=== PATIENT | male | born 1940 | race Caucasian/White ===

== ENCOUNTER 2020-03-29 07:27 | Outpatient (REF) | payer MEDICARE, SELFPAY ==
[2020-03-29 07:58] LABS: MANUAL DIFF FLAG NO
[2020-03-29 08:14] LABS: Basophils Absolute Auto 0.1 X10*3/uL (0.0-0.2); Basophils Percent Auto 0.7 % (0-2); Eosinophils Absolute Auto 0.4 X10*3/uL (0.0-0.4); Eosinophils Percent Auto 4.1 % (0-4); Hematocrit 37.3 % (42-52); Hemoglobin 11.6 g/dl (14.0-18.0); Imm Gran Abs Auto 0.06 X10*3/uL (0.00-0.03); Imm Gran Pct Auto 0.7 % (0.0-0.4); Lymphocytes Absolute Auto 3.8 X10*3/uL (1.2-4.9); Lymphocytes Percent Auto 42.8 % (20-40); Mean Corpuscular HGB Conc 31.1 g/dl (31.0-36.0); Mean Corpuscular Hemoglobin 27.8 pg (27.0-33.0); Mean Corpuscular Volume 89.2 fL (80-98); Mean Platelet Volume 11.2 fL (9.4-12.4); Monocytes Absolute Auto 0.6 X10*3/uL (0.1-1.2); Monocytes Percent Auto 7.1 % (2-11); Neutrophils Absolute Auto 3.9 X10*3/uL (2.0-8.3); Neutrophils Percent Auto 44.6 % (45-73); Platelet Count 221 X10*3/uL (160-400); Red Blood Count 4.18 X10*6/uL (4.60-5.80); Red Cell Distribution Width 14.4 % (11.0-16.0); White Blood Count 8.8 X10*3/uL (4.8-10.8)
[2020-03-29 08:40] LABS: Estimated Average Glucose 214 mg/dL; Hemoglobin A1c % 9.1 %
[2020-03-29 08:59] LABS: Alanine Aminotransferase 36 U/L (0-40); Albumin Level 4.1 g/dL (3.5-5.0); Alkaline Phosphatase 112 U/L (39-117); Anion Gap 15 (12-20); Aspartate Amino Transferase 34 U/L (5-37); Bilirubin Total 0.5 mg/dL (0.0-1.0); Blood Urea Nitrogen 15 mg/dL (9-16); Calcium 9.3 mg/dL (8.4-10.2); Carbon Dioxide 24 mmol/L (22-29); Chloride 105 mmol/L (96-108); Cholesterol 115 mg/dL; Estimated Glomerular Filt Rate > 60; Glucose Fasting 174 mg/dL (60-99); HDL Cholesterol 34 mg/dL; LDL Cholesterol Calculated 55 mg/dl; Potassium 4.5 mmol/l (3.3-5.1); Sodium 139 mmol/L (135-145); Triglycerides 133 mg/dL
[2020-03-29 09:56] LABS: Creatinine Urine 53.53 mg/dL; Microalbum/Creatinine Ratio Ur 54.1 ug/mg cr
== END 2020-03-29 07:28 | disposition home or self-care (01) ==
LOC: HO.LAB 07:27
PROVIDERS: Visit Provider Internal Medicine Medical Oncology
DX: E11.9 Type 2 diabetes mellitus without complications (principal); E78.00 Pure hypercholesterolemia, unspecified
CPT/HCPCS: 36415; 80053; 80061; 82043; 83036; 85025

== ENCOUNTER 2020-05-31 07:19 | Outpatient (REF) | payer MEDICARE, SELFPAY ==
[2020-05-31 07:58] LABS: Basophils Absolute Auto 0.1 X10*3/uL (0.0-0.2); Basophils Percent Auto 0.7 % (0-2); Eosinophils Absolute Auto 0.3 X10*3/uL (0.0-0.4); Eosinophils Percent Auto 3.3 % (0-4); Hemoglobin 12.2 g/dl (14.0-18.0); Imm Gran Abs Auto 0.06 X10*3/uL (0.00-0.03); Imm Gran Pct Auto 0.7 % (0.0-0.4); Lymphocytes Absolute Auto 4.1 X10*3/uL (1.2-4.9); Lymphocytes Percent Auto 48.3 % (20-40); MANUAL DIFF FLAG NO; Mean Corpuscular HGB Conc 32.1 g/dl (31.0-36.0); Mean Corpuscular Hemoglobin 28.3 pg (27.0-33.0); Mean Corpuscular Volume 88.2 fL (80-98); Mean Platelet Volume 11.2 fL (9.4-12.4); Monocytes Absolute Auto 0.6 X10*3/uL (0.1-1.2); Monocytes Percent Auto 7.4 % (2-11); Neutrophils Absolute Auto 3.3 X10*3/uL (2.0-8.3); Neutrophils Percent Auto 39.6 % (45-73); Platelet Count 221 X10*3/uL (160-400); Red Blood Count 4.31 X10*6/uL (4.60-5.80); Red Cell Distribution Width 14.5 % (11.0-16.0); White Blood Count 8.4 X10*3/uL (4.8-10.8)
[2020-05-31 08:48] LABS: Alanine Aminotransferase 52 U/L (0-40); Albumin Level 4.2 g/dL (3.5-5.0); Alkaline Phosphatase 100 U/L (39-117); Anion Gap 16 (12-20); Aspartate Amino Transferase 39 U/L (5-37); Bilirubin Total 0.5 mg/dL (0.0-1.0); Blood Urea Nitrogen 21 mg/dL (9-16); Calcium 9.3 mg/dL (8.4-10.2); Carbon Dioxide 24 mmol/L (22-29); Chloride 105 mmol/L (96-108); Estimated Glomerular Filt Rate > 60; Glucose Random 143 mg/dL (60-115); Potassium 4.5 mmol/l (3.3-5.1); Sodium 140 mmol/L (135-145); Total Protein 7.1 g/dL (6.5-8.0)
== END 2020-05-31 07:20 | disposition home or self-care (01) ==
LOC: HO.LAB 07:19
PROVIDERS: Visit Provider Internal Medicine Medical Oncology
DX: E11.9 Type 2 diabetes mellitus without complications (principal); E78.00 Pure hypercholesterolemia, unspecified; D72.820 Lymphocytosis (symptomatic)
CPT/HCPCS: 36415; 80053; 85025

== ENCOUNTER → 2020-06-17 15:08 | Outpatient (BNVA) | payer MEDICARE, SELFPAY | PROVIDERS: PCP Internal Medicine Medical Oncology; Referring Provider Internal Medicine Medical Oncology; Visit Provider Internal Medicine | DX: E11.9 Type 2 diabetes mellitus without complications (principal); I10 Essential (primary) hypertension; E78.5 Hyperlipidemia, unspecified; E55.9 Vitamin D deficiency, unspecified | CPT/HCPCS: 82947; 99202 ==

== ENCOUNTER → 2020-08-05 12:49 | Outpatient (BNVA) | payer MEDICARE, SELFPAY | PROVIDERS: PCP Internal Medicine Medical Oncology; Visit Provider Nurse Practitioner Gerontology | DX: Z13.89 Encounter for screening for other disorder (principal) | CPT/HCPCS: Q3014 ==

== ENCOUNTER → 2020-09-29 07:14 | Outpatient (BNVA) | payer MEDICARE, SELFPAY | PROVIDERS: PCP Internal Medicine Medical Oncology; Visit Provider Nurse Practitioner Gerontology | DX: E11.65 Type 2 diabetes mellitus with hyperglycemia (principal); E78.5 Hyperlipidemia, unspecified; I10 Essential (primary) hypertension | CPT/HCPCS: 82947; 99212 ==

== ENCOUNTER 2020-10-04 06:34 | Outpatient (REF) | payer MEDICARE, SELFPAY ==
[2020-10-04 08:08] LABS: MANUAL DIFF FLAG NO
[2020-10-04 08:25] LABS: Basophils Absolute Auto 0.1 X10*3/uL (0.0-0.2); Basophils Percent Auto 0.7 % (0-2); Eosinophils Absolute Auto 0.2 X10*3/uL (0.0-0.4); Hematocrit 39.3 % (42-52); Hemoglobin 12.2 g/dl (14.0-18.0); Imm Gran Abs Auto 0.02 X10*3/uL (0.00-0.03); Imm Gran Pct Auto 0.3 % (0.0-0.4); Lymphocytes Absolute Auto 3.4 X10*3/uL (1.2-4.9); Lymphocytes Percent Auto 46.2 % (20-40); Mean Corpuscular Hemoglobin 27.8 pg (27.0-33.0); Mean Corpuscular Volume 89.5 fL (80-98); Mean Platelet Volume 11.7 fL (9.4-12.4); Monocytes Absolute Auto 0.5 X10*3/uL (0.1-1.2); Monocytes Percent Auto 7.1 % (2-11); Neutrophils Absolute Auto 3.1 X10*3/uL (2.0-8.3); Neutrophils Percent Auto 42.7 % (45-73); Platelet Count 245 X10*3/uL (160-400); Red Blood Count 4.39 X10*6/uL (4.60-5.80); Red Cell Distribution Width 14.7 % (11.0-16.0); White Blood Count 7.3 X10*3/uL (4.8-10.8)
[2020-10-04 08:34] LABS: Alanine Aminotransferase 41 U/L (0-40); Albumin Level 4.3 g/dL (3.5-5.0); Alkaline Phosphatase 82 U/L (39-117); Anion Gap 15 (12-20); Aspartate Amino Transferase 38 U/L (5-37); Bilirubin Total 0.6 mg/dL (0.0-1.0); Blood Urea Nitrogen 22 mg/dL (9-16); Calcium 9.8 mg/dL (8.4-10.2); Carbon Dioxide 25 mmol/L (22-29); Chloride 104 mmol/L (96-108); Cholesterol 115 mg/dL; Estimated Glomerular Filt Rate > 60; Glucose Fasting 174 mg/dL (60-99); HDL Cholesterol 35 mg/dL; LDL Cholesterol Calculated 48 mg/dl; Potassium 4.6 mmol/L (3.3-5.1); Sodium 139 mmol/L (135-145); Total Protein 7.2 g/dL (6.5-8.0); Triglycerides 160 mg/dL
[2020-10-04 08:50] LABS: Prostate Specific Antigen 1.46 ng/mL (<0.05-4.0)
[2020-10-04 08:58] LABS: Vitamin D 25-OH Total 26.6 ng/mL (>30)
[2020-10-04 09:08] LABS: Vitamin B12 199 pg/mL (200-900)
[2020-10-04 10:05] LABS: Creatinine Urine 59.74 mg/dL
[2020-10-04 10:07] LABS: Creatinine Urine 60.69 mg/dL
[2020-10-04 10:09] LABS: Estimated Average Glucose 220 mg/dL; Hemoglobin A1c % 9.3 %
[2020-10-05 08:02] LABS: LDL Cholesterol Direct 52 mg/dL (<100)
== END 2020-10-04 06:35 | disposition home or self-care (01) ==
LOC: HO.LAB 06:34
PROVIDERS: Internal Medicine; PCP Internal Medicine Medical Oncology; Visit Provider Internal Medicine Medical Oncology
DX: E11.9 Type 2 diabetes mellitus without complications (principal); E78.00 Pure hypercholesterolemia, unspecified; K21.9 Gastro-esophageal reflux disease without esophagitis; D72.820 Lymphocytosis (symptomatic); E55.9 Vitamin D deficiency, unspecified; Z12.5 Encounter for screening for malignant neoplasm of prostate
CPT/HCPCS: 36415; 80053; 80061; 82043; 82306; 82607; 83036; 83721; 84153; 85025

== ENCOUNTER 2020-11-18 06:21 | Outpatient (REF) | payer MEDICARE, SELFPAY ==
[2020-11-21 23:28] LABS: Intrinsic Factor Antibodies Negative (Negative)
== END 2020-11-18 06:22 | disposition home or self-care (01) ==
LOC: HO.LAB 06:21
PROVIDERS: PCP Internal Medicine Medical Oncology; Visit Provider Internal Medicine Medical Oncology
DX: E53.8 Deficiency of other specified B group vitamins (principal); E55.9 Vitamin D deficiency, unspecified
CPT/HCPCS: 36415; 86340

== ENCOUNTER → 2020-12-29 08:17 | Outpatient (BNVA) | payer MEDICARE, SELFPAY | PROVIDERS: PCP Internal Medicine Medical Oncology; Visit Provider Nurse Practitioner Gerontology | DX: E11.649 Type 2 diabetes mellitus with hypoglycemia without coma (principal); E11.40 Type 2 diabetes mellitus with diabetic neuropathy, unspecified; E11.21 Type 2 diabetes mellitus with diabetic nephropathy; E78.5 Hyperlipidemia, unspecified; I10 Essential (primary) hypertension; E55.9 Vitamin D deficiency, unspecified | CPT/HCPCS: 82947; 99212 ==

== ENCOUNTER 2021-02-14 06:51 | Outpatient (REF) | payer MEDICARE, SELFPAY ==
[2021-02-14 07:37] LABS: MANUAL DIFF FLAG NO
[2021-02-14 07:46] LABS: Basophils Percent Auto 0.6 % (0-2); Eosinophils Absolute Auto 0.2 X10*3/uL (0.0-0.4); Eosinophils Percent Auto 3.3 % (0-4); Hemoglobin 11.3 g/dl (14.0-18.0); Imm Gran Abs Auto 0.01 X10*3/uL (0.00-0.03); Imm Gran Pct Auto 0.2 % (0.0-0.4); Lymphocytes Absolute Auto 3.5 X10*3/uL (1.2-4.9); Lymphocytes Percent Auto 53.5 % (20-40); Mean Corpuscular HGB Conc 31.4 g/dl (31.0-36.0); Mean Corpuscular Hemoglobin 27.6 pg (27.0-33.0); Mean Platelet Volume 11.2 fL (9.4-12.4); Monocytes Absolute Auto 0.5 X10*3/uL (0.1-1.2); Monocytes Percent Auto 7.4 % (2-11); Neutrophils Absolute Auto 2.3 X10*3/uL (2.0-8.3); Platelet Count 210 X10*3/uL (160-400); Red Blood Count 4.09 X10*6/uL (4.60-5.80); Red Cell Distribution Width 14.7 % (11.0-16.0); White Blood Count 6.6 X10*3/uL (4.8-10.8)
[2021-02-14 08:21] LABS: Alanine Aminotransferase 32 U/L (0-40); Albumin Level 4.1 g/dL (3.5-5.0); Alkaline Phosphatase 84 U/L (39-117); Anion Gap 12 (12-20); Aspartate Amino Transferase 27 U/L (5-37); Bilirubin Total 0.6 mg/dL (0.0-1.0); Blood Urea Nitrogen 19 mg/dL (9-16); Carbon Dioxide 25 mmol/L (22-29); Chloride 107 mmol/L (96-108); Cholesterol 109 mg/dL; Estimated Glomerular Filt Rate > 60; Glucose Fasting 161 mg/dL (60-99); HDL Cholesterol 42 mg/dL; LDL Cholesterol Calculated 45 mg/dl; Potassium 4.4 mmol/L (3.3-5.1); Sodium 140 mmol/L (135-145); Total Protein 6.9 g/dL (6.5-8.0); Triglycerides 113 mg/dL
[2021-02-14 08:25] LABS: Estimated Average Glucose 189 mg/dL; Hemoglobin A1c % 8.2 %
[2021-02-14 10:03] LABS: Vitamin B12 312 pg/mL (200-900)
== END 2021-02-14 06:52 | disposition home or self-care (01) ==
LOC: HO.LAB 06:51
PROVIDERS: PCP Internal Medicine Medical Oncology; Visit Provider Internal Medicine Medical Oncology
DX: E11.9 Type 2 diabetes mellitus without complications (principal); E53.8 Deficiency of other specified B group vitamins; E78.00 Pure hypercholesterolemia, unspecified
CPT/HCPCS: 36415; 80053; 80061; 82607; 83036; 85025

== ENCOUNTER 2021-03-03 10:21 | Outpatient (REF) | payer MEDICARE, SELFPAY ==
--- NOTE | ~2021-03-03 | US_ITS ---
EXAMINATION: US EXTRACRANIAL CAROTID DUPLEX, BILATERAL CLINICAL INFORMATION: Peripheral vascular disease. CVA. TIA. COMPARISON: None TECHNIQUE: Real-time ultrasound and Doppler techniques (integrating B-mode 2-D vascular images, Doppler spectral analysis and color-flow Doppler imaging) were utilized to interrogate the extracranial carotid arteries, the vertebral arteries and proximal subclavian arteries bilaterally. The degree of stenosis is determined by criteria similar to NASCET. FINDINGS: Right Side: 1. There is calcified atherosclerotic plaque seen in the bifurcation/proximal ICA region. 2. The common carotid artery PSV proximally is 81 cm/s and distally 57 cm/s. 3. The proximal internal carotid artery velocities are 247 cm/s systolic and 84 cm/s diastolic. 4. The proximal external carotid artery PSV is 170 cm/s. 5. The vertebral artery shows antegrade flow. 6. The subclavian artery waveforms are normal. Left Side: 1. There is calcified atherosclerotic plaque seen in the bifurcation/proximal ICA region. 2. The common carotid artery PSV proximally is 146 cm/s and distally 119 cm/s. 3. The proximal internal carotid artery velocities are 150 cm/s systolic and 30 cm/s diastolic. 4. The proximal external carotid artery PSV is 122 cm/s. 5. The vertebral artery shows antegrade flow. 6. The subclavian artery waveforms are normal. US/US carotid duplex BI IMPRESSION: 1. RIGHT: Moderate, hemodynamically significant stenosis of the proximal right internal carotid artery corresponding to a 50-79% stenosis by velocity criteria. 2. LEFT: Moderate, hemodynamically significant stenosis of the proximal left internal carotid artery corresponding to a 50-79% stenosis by velocity criteria.
== END 2021-03-03 10:22 | disposition home or self-care (01) ==
LOC: HO.HMGCX 10:21
PROVIDERS: PCP Internal Medicine Medical Oncology; Visit Provider Internal Medicine Medical Oncology
DX: I73.9 Peripheral vascular disease, unspecified (principal); I65.23 Occlusion and stenosis of bilateral carotid arteries; Z86.73 Personal history of transient ischemic attack (TIA), and cerebral infarction without residual deficits
CPT/HCPCS: 93880

== ENCOUNTER → 2021-05-16 08:10 | Outpatient (BNVA) | payer MEDICARE, SELFPAY | PROVIDERS: PCP Internal Medicine Medical Oncology; Visit Provider Nurse Practitioner Gerontology | DX: E11.65 Type 2 diabetes mellitus with hyperglycemia (principal); E78.5 Hyperlipidemia, unspecified; E55.9 Vitamin D deficiency, unspecified; I10 Essential (primary) hypertension | CPT/HCPCS: 82947; 99212 ==

== ENCOUNTER 2021-05-17 07:10 | Outpatient (REF) | payer MEDICARE, SELFPAY ==
[2021-05-17 07:25] LABS: MANUAL DIFF FLAG NO
[2021-05-17 07:47] LABS: Basophils Percent Auto 0.6 % (0-2); Eosinophils Absolute Auto 0.3 X10*3/uL (0.0-0.4); Eosinophils Percent Auto 3.6 % (0-4); Hematocrit 36.1 % (42.0-52.0); Hemoglobin 11.5 g/dl (14.0-18.0); Imm Gran Abs Auto 0.01 X10*3/uL (0.00-0.03); Imm Gran Pct Auto 0.1 % (0.0-0.4); Lymphocytes Absolute Auto 3.3 X10*3/uL (1.2-4.9); Lymphocytes Percent Auto 46.1 % (20-40); Mean Corpuscular HGB Conc 31.9 g/dl (31.0-36.0); Mean Corpuscular Hemoglobin 28.3 pg (27.0-33.0); Mean Corpuscular Volume 88.7 fL (80.0-98.0); Monocytes Absolute Auto 0.5 X10*3/uL (0.1-1.2); Monocytes Percent Auto 6.5 % (2-11); Neutrophils Absolute Auto 3.1 x10*3/uL (2.0-8.3); Neutrophils Percent Auto 43.1 % (45-73); Platelet Count 214 X10*3/uL (160-400); Red Blood Count 4.07 X10*6/uL (4.60-5.80); Red Cell Distribution Width 15.1 % (11.0-16.0); White Blood Count 7.2 X10*3/uL (4.8-10.8)
[2021-05-17 07:57] LABS: Estimated Average Glucose 203 mg/dL; Hemoglobin A1c % 8.7 %
[2021-05-17 08:22] LABS: Alanine Aminotransferase 34 U/L (0-40); Alkaline Phosphatase 88 U/L (39-117); Anion Gap 13 (12-20); Aspartate Amino Transferase 35 U/L (5-37); Bilirubin Total 0.5 mg/dL (0.0-1.0); Blood Urea Nitrogen 19 mg/dL (9-16); Carbon Dioxide 25 mmol/L (22-29); Chloride 106 mmol/L (96-108); Estimated Glomerular Filt Rate 58; Glucose Fasting 169 mg/dL (60-99); Potassium 4.6 mmol/L (3.3-5.1); Sodium 139 mmol/L (135-145); Total Protein 6.9 g/dL (6.5-8.0)
[2021-05-17 08:44] LABS: Prostate Specific Antigen 1.13 ng/mL (<0.05-4.0)
== END 2021-05-17 07:11 | disposition home or self-care (01) ==
LOC: HO.LAB 07:10
PROVIDERS: PCP Internal Medicine Medical Oncology; Visit Provider Internal Medicine Medical Oncology
DX: Z12.5 Encounter for screening for malignant neoplasm of prostate (principal); E11.9 Type 2 diabetes mellitus without complications; N40.0 Benign prostatic hyperplasia without lower urinary tract symptoms; E78.00 Pure hypercholesterolemia, unspecified
CPT/HCPCS: 36415; 80053; 83036; 84153; 85025

== ENCOUNTER → 2021-06-16 10:05 | Outpatient (BNVA) | payer MEDICARE, SELFPAY | PROVIDERS: PCP Internal Medicine Medical Oncology; Visit Provider Surgery Vascular Surgery | DX: I65.23 Occlusion and stenosis of bilateral carotid arteries (principal); I73.9 Peripheral vascular disease, unspecified | CPT/HCPCS: 99202 ==

== ENCOUNTER 2021-06-20 11:56 | Outpatient (REF) | payer MEDICARE, SELFPAY ==
[2021-06-20 12:46] LABS: Blood Urea Nitrogen 17 mg/dL (9-16); Estimated Glomerular Filt Rate 50
== END 2021-06-20 11:57 | disposition home or self-care (01) ==
LOC: HO.LAB 11:56
PROVIDERS: PCP Internal Medicine Medical Oncology; Visit Provider Surgery Vascular Surgery
DX: I65.23 Occlusion and stenosis of bilateral carotid arteries (principal)
CPT/HCPCS: 36415; 82565; 84520

== ENCOUNTER 2021-06-22 08:04 | Outpatient (REF) | payer MEDICARE, SELFPAY ==
--- NOTE | ~2021-06-22 | CT_ITS ---
EXAMINATION: CT ANGIOGRAM NECK CLINICAL INFORMATION: Occlusion and stenosis of bilateral carotid arteries. COMPARISON: Carotid Doppler ultrasound 03/03/2021. TECHNIQUE: Test bolus series followed by intravenous administration 17 mL of Omnipaque 350. Helical imaging was performed in the axial plane from the mediastinum to the skull base. The degree of stenosis is based off NASCET criteria. The data was processed at the dental technologist workstation for generation of MIP images. Three-dimensional volume rendered reformatted images were also generated at an offline 3-D workstation. This CT examination was performed using dose optimization techniques as appropriate, variously including the following: *Automated exposure control *Adjustment of mA and/or kV according to patient size (this includes techniques or standardized protocols for targeted exams where dose is matched to indication/reason for exam; i.e. extremities or head) *Use of iterative reconstruction technique DLP: 276 mGy-cm. FINDINGS: There are atheromatous calcifications of the aortic arch and at the origins of the brachiocephalic and left subclavian arteries. There is a common origin of the brachiocephalic and left common carotid arteries. There are atheromatous calcifications at the origins of the subclavian arteries bilaterally, without significant stenosis. The common carotid arteries are patent bilaterally. There are mild atheromatous calcifications noted in the distal left common carotid artery. There are atheromatous calcifications at the carotid bifurcations bilaterally. On the right there is approximately 60% stenosis. On the left there is approximately 40% stenosis. The left cervical internal carotid artery is tortuous and extends almost to the midline at the level of C3. The right cervical internal carotid artery is minimally thinner caliber compared to the right, but the vessel appears uniform in caliber. Intracranially, there are moderate atheromatous calcifications of the cavernous internal carotid arteries bilaterally with approximately 50% stenosis in the right cavernous internal carotid artery. There is no significant stenosis on the left. The middle cerebral arteries are patent bilaterally. The A1 segment of the right anterior cerebral artery is uniformly thinner compared to the left. The visualized A2 segments are uniformly patent. The origins of the vertebral arteries are well-demonstrated. The left vertebral artery is dominant. Both vertebral arteries are patent throughout their cervical course extending intradurally. There are mild atheromatous calcifications of the proximal intradural vertebral arteries without significant stenosis. The basilar and the posterior cerebral arteries are patent. Nonvascular: There are extensive emphysematous changes in the upper lung turner bilaterally. There is mild fullness of the isthmus of the thyroid gland has an AP diameter of 1.2 cm. No discrete thyroid mass is demonstrated. There is no cervical lymphadenopathy. There are mandibular and maxillary dental prostheses. The temporomandibular joints appear normal. There is multilevel narrowing of intervertebral disc height in the cervical spine, and there are facet arthropathic changes and foraminal narrowing at multiple levels. There are no acute fractures or subluxations. There is prominence of the ventricles and sulci intracranially. There are no acute intracranial findings. CT/CT angio neck IMPRESSION: 1. There are atheromatous calcifications of the aortic arch and at the origins of the great vessels of the neck, without significant stenosis. 2. There is approximately 60% stenosis at the right carotid bifurcation and approximately 40% on the left. 3. There are atheromatous calcifications of the intracranial internal carotid arteries. 4. There are extensive emphysematous changes in the upper lung turner. The isthmus of the thyroid gland is prominent; this could be further evaluated with thyroid ultrasound.
[2021-06-22] MEDS: iohexoL 350 MG/ML 100 ML INFUS..BTL IV (09:08)
== END 2021-06-22 08:05 | disposition home or self-care (01) ==
LOC: HO.CT 08:04
PROVIDERS: PCP Internal Medicine Medical Oncology; Visit Provider Surgery Vascular Surgery
DX: I65.23 Occlusion and stenosis of bilateral carotid arteries (principal)
CPT/HCPCS: 70498; Q9967

== ENCOUNTER 2021-07-06 10:36 | Outpatient (REF) | payer MEDICARE, SELFPAY ==
--- NOTE | ~2021-07-06 | US_ITS ---
EXAMINATION: COLOR-FLOW DUPLEX IMAGING OF THE BILATERAL LOWER EXTREMITY ARTERIAL SYSTEM. VELOCITY MEASUREMENTS THROUGHOUT THE FEMORAL ARTERIES WITH ANKLE-BRACHIAL PERIPHERAL ARTERIAL TESTING. Interventional Radiologist: Shaq James M.D., F.S.I.R., F.A.C.R. CLINICAL INFORMATION: This is an 81-year-old male with peripheral vascular disease. History of femoral-femoral bypass. RIGHT FEMORAL RUNOFF VELOCITIES: The right common femoral artery measures 152 cm/s and monophasic. The right profunda femoral artery is 172 cm/s and is monophasic. Right proximal superficial femoral artery measures 119 cm/s and biphasic. Mid superficial femoral artery is 63 cm/s and biphasic. Distal right superficial femoral artery measures 62 cm/s and is biphasic. Right popliteal velocity measures 80 cm/s and is biphasic. The posterior tibial artery velocity measures 31 cm/s and was biphasic. The distal posterior tibial artery appears to be occluded. The right ankle-brachial index is 0.85. LEFT FEMORAL RUNOFF VELOCITIES: The left common femoral artery measures 159 cm/s and biphasic. The left profunda femoral artery is 104 cm/s and is biphasic. Left proximal superficial femoral artery measures 131 cm/s and biphasic. Mid superficial femoral artery is 119 cm/s and biphasic. Distal left superficial femoral artery measures 119 cm/s and is biphasic. Left popliteal velocity measures 74 cm/s and is biphasic. The posterior tibial artery velocity measures 70 cm/s and was biphasic. The left ankle-brachial index is 0.89. THERE IS A [id number] BYPASS GRAFT: Inflow artery: 234 cm/s and triphasic. Proximal anastomosis: 209 cm/s and triphasic. Proximal bypass graft: 183 cm/s and triphasic. Mid bypass graft: 98 cm/s and triphasic. Distal bypass graft: 93 cm/s and triphasic. Distal anastomosis: 513 cm/s and triphasic. Outflow artery: 152 cm/s and monophasic. US/US arterial duplex LE BI IMPRESSION: 1. There is an elevated velocity at the distal anastomosis of the left to right bypass graft. This is suspicious for hemodynamically significant stenosis. 2. The right femoral runoff appears monophasic below the bypass graft but without evidence of focal hemodynamically significant stenosis. 3. The left femoral runoff appears to be patent.
--- NOTE | ~2021-07-06 | US_ITS ---
EXAMINATION: COLOR-FLOW DUPLEX IMAGING OF THE BILATERAL LOWER EXTREMITY ARTERIAL SYSTEM. VELOCITY MEASUREMENTS THROUGHOUT THE FEMORAL ARTERIES WITH ANKLE-BRACHIAL PERIPHERAL ARTERIAL TESTING. Interventional Radiologist: Shaq James M.D., F.S.I.R., F.A.C.R. CLINICAL INFORMATION: This is an 81-year-old male with peripheral vascular disease. History of femoral-femoral bypass. RIGHT FEMORAL RUNOFF VELOCITIES: The right common femoral artery measures 152 cm/s and monophasic. The right profunda femoral artery is 172 cm/s and is monophasic. Right proximal superficial femoral artery measures 119 cm/s and biphasic. Mid superficial femoral artery is 63 cm/s and biphasic. Distal right superficial femoral artery measures 62 cm/s and is biphasic. Right popliteal velocity measures 80 cm/s and is biphasic. The posterior tibial artery velocity measures 31 cm/s and was biphasic. The distal posterior tibial artery appears to be occluded. The right ankle-brachial index is 0.85. LEFT FEMORAL RUNOFF VELOCITIES: The left common femoral artery measures 159 cm/s and biphasic. The left profunda femoral artery is 104 cm/s and is biphasic. Left proximal superficial femoral artery measures 131 cm/s and biphasic. Mid superficial femoral artery is 119 cm/s and biphasic. Distal left superficial femoral artery measures 119 cm/s and is biphasic. Left popliteal velocity measures 74 cm/s and is biphasic. The posterior tibial artery velocity measures 70 cm/s and was biphasic. The left ankle-brachial index is 0.89. THERE IS A [id number] BYPASS GRAFT: Inflow artery: 234 cm/s and triphasic. Proximal anastomosis: 209 cm/s and triphasic. Proximal bypass graft: 183 cm/s and triphasic. Mid bypass graft: 98 cm/s and triphasic. Distal bypass graft: 93 cm/s and triphasic. Distal anastomosis: 513 cm/s and triphasic. Outflow artery: 152 cm/s and monophasic. US/US AURA complete IMPRESSION: 1. There is an elevated velocity at the distal anastomosis of the left to right bypass graft. This is suspicious for hemodynamically significant stenosis. 2. The right femoral runoff appears monophasic below the bypass graft but without evidence of focal hemodynamically significant stenosis. 3. The left femoral runoff appears to be patent.
== END 2021-07-06 10:37 | disposition home or self-care (01) ==
LOC: HO.US 10:36
PROVIDERS: PCP Internal Medicine Medical Oncology; Visit Provider Surgery Vascular Surgery
DX: I73.9 Peripheral vascular disease, unspecified (principal)
CPT/HCPCS: 93923; 93925

== ENCOUNTER → 2021-07-12 09:04 | Outpatient (BNVA) | payer MEDICARE, SELFPAY | PROVIDERS: PCP Internal Medicine Medical Oncology; Visit Provider Surgery Vascular Surgery | DX: I65.23 Occlusion and stenosis of bilateral carotid arteries (principal); I73.9 Peripheral vascular disease, unspecified | CPT/HCPCS: 99212 ==

== ENCOUNTER 2021-08-15 06:36 | Outpatient (REF) | payer MEDICARE, SELFPAY ==
[2021-08-15 06:56] LABS: MANUAL DIFF FLAG NO
[2021-08-15 07:27] LABS: Basophils Percent Auto 0.6 % (0-2); Eosinophils Absolute Auto 0.3 X10*3/uL (0.0-0.4); Eosinophils Percent Auto 3.9 % (0-4); Hematocrit 37.2 % (42.0-52.0); Hemoglobin 11.6 g/dl (14.0-18.0); Imm Gran Abs Auto 0.02 X10*3/uL (0.00-0.03); Imm Gran Pct Auto 0.3 % (0.0-0.4); Lymphocytes Absolute Auto 3.7 X10*3/uL (1.2-4.9); Lymphocytes Percent Auto 50.6 % (20-40); Mean Corpuscular HGB Conc 31.2 g/dl (31.0-36.0); Mean Corpuscular Hemoglobin 28.3 pg (27.0-33.0); Mean Corpuscular Volume 90.7 fL (80.0-98.0); Mean Platelet Volume 11.3 fL (9.4-12.4); Monocytes Absolute Auto 0.5 X10*3/uL (0.1-1.2); Monocytes Percent Auto 6.6 % (2-11); Neutrophils Absolute Auto 2.8 x10*3/uL (2.0-8.3); Platelet Count 210 X10*3/uL (160-400); Red Cell Distribution Width 14.6 % (11.0-16.0); White Blood Count 7.2 X10*3/uL (4.8-10.8)
[2021-08-15 07:36] LABS: Estimated Average Glucose 183 mg/dL
[2021-08-15 08:14] LABS: Alanine Aminotransferase 31 U/L (0-40); Alkaline Phosphatase 76 U/L (39-117); Anion Gap 15 (12-20); Aspartate Amino Transferase 30 U/L (5-37); Bilirubin Total 0.4 mg/dL (0.0-1.0); Blood Urea Nitrogen 19 mg/dL (9-16); Calcium 9.9 mg/dL (8.4-10.2); Carbon Dioxide 25 mmol/L (22-29); Chloride 105 mmol/L (96-108); Cholesterol 111 mg/dL; Estimated Glomerular Filt Rate > 60; Glucose Fasting 155 mg/dL (60-99); HDL Cholesterol 36 mg/dL; LDL Cholesterol Calculated 50 mg/dl; Potassium 4.6 mmol/L (3.3-5.1); Sodium 140 mmol/L (135-145); Triglycerides 125 mg/dL
[2021-08-15 08:28] LABS: Creatinine Urine 41.98 mg/dL; Microalbum/Creatinine Ratio Ur 35.7 ug/mg cr
[2021-08-15 08:38] LABS: Prostate Specific Antigen 1.15 ng/mL (<0.05-4.0)
== END 2021-08-15 06:37 | disposition home or self-care (01) ==
LOC: HO.LAB 06:36
PROVIDERS: PCP Internal Medicine Medical Oncology; Visit Provider Internal Medicine Medical Oncology
DX: E11.9 Type 2 diabetes mellitus without complications (principal); E78.00 Pure hypercholesterolemia, unspecified; Z12.5 Encounter for screening for malignant neoplasm of prostate
CPT/HCPCS: 36415; 80053; 80061; 82043; 83036; 84153; 85025

== ENCOUNTER → 2021-08-17 10:17 | Outpatient (BNVA) | payer MEDICARE, SELFPAY | PROVIDERS: PCP Internal Medicine Medical Oncology; Visit Provider Nurse Practitioner Gerontology | DX: E11.9 Type 2 diabetes mellitus without complications (principal); E78.5 Hyperlipidemia, unspecified; E55.9 Vitamin D deficiency, unspecified; I10 Essential (primary) hypertension | CPT/HCPCS: 82947; 99212 ==

== ENCOUNTER → 2021-11-17 09:07 | Outpatient (BNVA) | payer MEDICARE, SELFPAY | PROVIDERS: PCP Internal Medicine Medical Oncology; Visit Provider Nurse Practitioner Gerontology | DX: E11.65 Type 2 diabetes mellitus with hyperglycemia (principal); E78.5 Hyperlipidemia, unspecified; E55.9 Vitamin D deficiency, unspecified; I10 Essential (primary) hypertension | CPT/HCPCS: 82947; 83036; 99212 ==

== ENCOUNTER 2021-12-12 06:26 | Outpatient (REF) | payer MEDICARE, SELFPAY ==
[2021-12-12 06:58] LABS: MANUAL DIFF FLAG NO
[2021-12-12 08:05] LABS: Basophils Percent Auto 0.4 % (0-2); Eosinophils Absolute Auto 0.3 X10*3/uL (0.0-0.4); Hematocrit 35.6 % (42.0-52.0); Hemoglobin 11.1 g/dl (14.0-18.0); Imm Gran Abs Auto 0.01 X10*3/uL (0.00-0.03); Imm Gran Pct Auto 0.1 % (0.0-0.4); Mean Corpuscular HGB Conc 31.2 g/dl (31.0-36.0); Mean Corpuscular Hemoglobin 27.4 pg (27.0-33.0); Mean Corpuscular Volume 87.9 fL (80.0-98.0); Mean Platelet Volume 11.4 fL (9.4-12.4); Monocytes Absolute Auto 0.7 X10*3/uL (0.1-1.2); Neutrophils Absolute Auto 3.2 x10*3/uL (2.0-8.3); Neutrophils Percent Auto 44.5 % (45-73); Platelet Count 206 X10*3/uL (160-400); Red Blood Count 4.05 X10*6/uL (4.60-5.80); White Blood Count 7.2 X10*3/uL (4.8-10.8)
[2021-12-12 08:14] LABS: Estimated Average Glucose 183 mg/dL
[2021-12-12 08:39] LABS: Alanine Aminotransferase 32 U/L (0-40); Albumin Level 4.1 g/dL (3.5-5.0); Alkaline Phosphatase 90 U/L (39-117); Anion Gap 13 (12-20); Aspartate Amino Transferase 31 U/L (5-37); Bilirubin Total 0.4 mg/dL (0.0-1.0); Blood Urea Nitrogen 22 mg/dL (9-16); Calcium 9.5 mg/dL (8.4-10.2); Carbon Dioxide 24 mmol/L (22-29); Chloride 106 mmol/L (96-108); Cholesterol 117 mg/dL; Estimated Glomerular Filt Rate 56; Glucose Fasting 172 mg/dL (60-99); HDL Cholesterol 41 mg/dL; LDL Cholesterol Calculated 51 mg/dl; Potassium 4.4 mmol/L (3.3-5.1); Sodium 139 mmol/L (135-145); Total Protein 6.9 g/dL (6.5-8.0); Triglycerides 129 mg/dL
[2021-12-12 08:59] LABS: Prostate Specific Antigen 1.14 ng/mL (<0.05-4.0)
== END 2021-12-12 06:27 | disposition home or self-care (01) ==
LOC: HO.LAB 06:26
PROVIDERS: PCP Internal Medicine Medical Oncology; Visit Provider Internal Medicine Medical Oncology
DX: Z12.5 Encounter for screening for malignant neoplasm of prostate (principal); E11.9 Type 2 diabetes mellitus without complications; K21.9 Gastro-esophageal reflux disease without esophagitis; N40.0 Benign prostatic hyperplasia without lower urinary tract symptoms; E78.5 Hyperlipidemia, unspecified
CPT/HCPCS: 36415; 80053; 80061; 83036; 84153; 85025

== ENCOUNTER 2022-01-27 09:37 | Outpatient (REF) | payer MEDICARE, SELFPAY ==
--- NOTE | ~2022-01-27 | US_ITS ---
EXAMINATION: US EXTRACRANIAL CAROTID DUPLEX, BILATERAL CLINICAL INFORMATION: This is an 81-year-old male with a history of occlusion and stenosis of bilateral carotid arteries. COMPARISON: Comparison is made to a previous study dated 03/03/2021 which demonstrated bilateral 50-79% internal carotid artery stenoses. TECHNIQUE: Real-time ultrasound and Doppler techniques (integrating B-mode 2-D vascular images, Doppler spectral analysis and color-flow Doppler imaging) were utilized to interrogate the extracranial carotid arteries, the vertebral arteries and proximal subclavian arteries bilaterally. The degree of stenosis is determined by criteria similar to NASCET. FINDINGS: Right Side: 1. There is moderate atherosclerotic plaque seen in the bifurcation/proximal ICA region. 2. The common carotid artery PSV proximally is 69 cm/s and distally 75 cm/s. 3. The proximal internal carotid artery velocities are 130 cm/s systolic and 32 cm/s diastolic. 4. The proximal external carotid artery PSV is 136 cm/s. 5. The vertebral artery shows antegrade flow. 6. The subclavian artery waveforms are normal. Left Side: 1. There is moderate atherosclerotic plaque seen in the bifurcation/proximal ICA region. 2. The common carotid artery PSV proximally is 128 cm/s and distally 110 cm/s. 3. The proximal internal carotid artery velocities are 190 cm/s systolic and 50 cm/s diastolic. 4. The proximal external carotid artery PSV is 85 cm/s. 5. The vertebral artery shows antegrade flow. 6. The subclavian artery waveforms are normal. US/US carotid duplex BI IMPRESSION: 1. RIGHT: Moderate, hemodynamically significant stenosis of the proximal right internal carotid artery corresponding to a 50-79% stenosis by velocity criteria. 2. LEFT: Moderate, hemodynamically significant stenosis of the proximal left internal carotid artery corresponding to a 50-79% stenosis by velocity criteria. 3. There is no change in the category severity of disease when compared to the previous study dated 03/03/2021.
== END 2022-01-27 09:38 | disposition home or self-care (01) ==
LOC: HO.US 09:37
PROVIDERS: Visit Provider Surgery Vascular Surgery
DX: I65.23 Occlusion and stenosis of bilateral carotid arteries (principal)
CPT/HCPCS: 93880

== ENCOUNTER 2022-02-16 06:30 | Outpatient (REF) | payer MEDICARE, SELFPAY ==
[2022-02-16 06:36] LABS: MANUAL DIFF FLAG NO
[2022-02-16 07:25] LABS: Basophils Percent Auto 0.5 % (0-2); Eosinophils Absolute Auto 0.2 X10*3/uL (0.0-0.4); Eosinophils Percent Auto 3.2 % (0-4); Hematocrit 37.7 % (42.0-52.0); Imm Gran Abs Auto 0.02 X10*3/uL (0.00-0.03); Imm Gran Pct Auto 0.3 % (0.0-0.4); Lymphocytes Absolute Auto 3.9 X10*3/uL (1.2-4.9); Lymphocytes Percent Auto 51.9 % (20-40); Mean Corpuscular HGB Conc 31.8 g/dl (31.0-36.0); Mean Corpuscular Hemoglobin 28.2 pg (27.0-33.0); Mean Corpuscular Volume 88.7 fL (80.0-98.0); Mean Platelet Volume 11.3 fL (9.4-12.4); Monocytes Absolute Auto 0.6 X10*3/uL (0.1-1.2); Monocytes Percent Auto 8.1 % (2-11); Neutrophils Absolute Auto 2.7 x10*3/uL (2.0-8.3); Platelet Count 223 X10*3/uL (160-400); Red Blood Count 4.25 X10*6/uL (4.60-5.80); White Blood Count 7.5 X10*3/uL (4.8-10.8)
[2022-02-16 07:32] LABS: Estimated Average Glucose 177 mg/dL; Hemoglobin A1c % 7.8 %
[2022-02-16 07:56] LABS: Creatinine Urine 84.71 mg/dL; Microalbum/Creatinine Ratio Ur 24.7 ug/mg cr
[2022-02-16 07:59] LABS: Alanine Aminotransferase 39 U/L (0-40); Albumin Level 4.1 g/dL (3.5-5.0); Alkaline Phosphatase 76 U/L (39-117); Anion Gap 18 (12-20); Aspartate Amino Transferase 38 U/L (5-37); Bilirubin Total 0.8 mg/dL (0.0-1.0); Blood Urea Nitrogen 23 mg/dL (9-16); Calcium 9.9 mg/dL (8.4-10.2); Carbon Dioxide 24 mmol/L (22-29); Chloride 103 mmol/L (96-108); Cholesterol 117 mg/dL; Estimated Glomerular Filt Rate 56; Glucose Random 133 mg/dL (60-115); HDL Cholesterol 36 mg/dL; LDL Cholesterol Calculated 52 mg/dl; Potassium 4.5 mmol/L (3.3-5.1); Sodium 140 mmol/L (135-145); Total Protein 7.1 g/dL (6.5-8.0); Triglycerides 147 mg/dL
== END 2022-02-16 06:31 | disposition home or self-care (01) ==
LOC: HO.LAB 06:30
PROVIDERS: PCP Internal Medicine Medical Oncology; Visit Provider Internal Medicine Medical Oncology
DX: E55.9 Vitamin D deficiency, unspecified (principal); E78.5 Hyperlipidemia, unspecified; N40.0 Benign prostatic hyperplasia without lower urinary tract symptoms; E11.9 Type 2 diabetes mellitus without complications
CPT/HCPCS: 36415; 80053; 80061; 82043; 83036; 85025

== ENCOUNTER → 2022-02-24 08:39 | Outpatient (BNVA) | payer MEDICARE, SELFPAY | PROVIDERS: PCP Internal Medicine Medical Oncology; Visit Provider Internal Medicine Endocrinology, Diabetes & Metabolism | DX: E11.65 Type 2 diabetes mellitus with hyperglycemia (principal); Z79.84 Long term (current) use of oral hypoglycemic drugs; Z79.82 Long term (current) use of aspirin | CPT/HCPCS: 82947; 99212 ==

== ENCOUNTER → 2022-03-09 13:32 | Outpatient (BNVA) | payer MEDICARE, SELFPAY | PROVIDERS: PCP Internal Medicine Medical Oncology; Visit Provider Surgery Vascular Surgery | DX: I65.23 Occlusion and stenosis of bilateral carotid arteries (principal); I73.9 Peripheral vascular disease, unspecified | CPT/HCPCS: 99212 ==

== ENCOUNTER 2022-06-19 06:51 | Outpatient (REF) | payer MEDICARE, SELFPAY ==
[2022-06-19 07:10] LABS: MANUAL DIFF FLAG NO
[2022-06-19 08:28] LABS: Basophils Percent Auto 0.5 % (0-2); Eosinophils Absolute Auto 0.1 X10*3/uL (0.0-0.4); Hematocrit 35.8 % (42.0-52.0); Hemoglobin 11.4 g/dl (14.0-18.0); Imm Gran Abs Auto 0.02 X10*3/uL (0.00-0.03); Imm Gran Pct Auto 0.3 % (0.0-0.4); Lymphocytes Absolute Auto 2.2 X10*3/uL (1.2-4.9); Lymphocytes Percent Auto 34.1 % (20-40); Mean Corpuscular HGB Conc 31.8 g/dl (31.0-36.0); Mean Corpuscular Hemoglobin 28.1 pg (27.0-33.0); Mean Corpuscular Volume 88.4 fL (80.0-98.0); Mean Platelet Volume 11.3 fL (9.4-12.4); Monocytes Absolute Auto 0.7 X10*3/uL (0.1-1.2); Monocytes Percent Auto 10.8 % (2-11); Neutrophils Absolute Auto 3.3 x10*3/uL (2.0-8.3); Neutrophils Percent Auto 52.3 % (45-73); Platelet Count 207 X10*3/uL (160-400); Red Blood Count 4.05 X10*6/uL (4.60-5.80); Red Cell Distribution Width 14.6 % (11.0-16.0); White Blood Count 6.4 X10*3/uL (4.8-10.8)
[2022-06-19 08:52] LABS: Alanine Aminotransferase 41 U/L (0-40); Albumin Level 4.1 g/dL (3.5-5.0); Alkaline Phosphatase 74 U/L (39-117); Anion Gap 16 (12-20); Aspartate Amino Transferase 48 U/L (5-37); Bilirubin Total 0.8 mg/dL (0.0-1.0); Blood Urea Nitrogen 21 mg/dL (9-16); Calcium 9.6 mg/dL (8.4-10.2); Carbon Dioxide 23 mmol/L (22-29); Chloride 103 mmol/L (96-108); Cholesterol 120 mg/dL; Estimated Glomerular Filt Rate 58; Glucose Fasting 171 mg/dL (60-99); HDL Cholesterol 42 mg/dL; LDL Cholesterol Calculated 51 mg/dl; Potassium 4.1 mmol/L (3.3-5.1); Sodium 138 mmol/L (135-145); Total Protein 6.8 g/dL (6.5-8.0); Triglycerides 139 mg/dL
[2022-06-19 09:10] LABS: Prostate Specific Antigen 1.41 ng/mL (<0.05-4.0); Vitamin D 25-OH Total 42.3 ng/mL (>30)
== END 2022-06-19 06:52 | disposition home or self-care (01) ==
LOC: HO.LAB 06:51
PROVIDERS: PCP Internal Medicine Medical Oncology; Visit Provider Internal Medicine Medical Oncology
DX: Z12.5 Encounter for screening for malignant neoplasm of prostate (principal); E55.9 Vitamin D deficiency, unspecified; E11.9 Type 2 diabetes mellitus without complications; E78.5 Hyperlipidemia, unspecified; N40.0 Benign prostatic hyperplasia without lower urinary tract symptoms
CPT/HCPCS: 36415; 80053; 80061; 82306; 84153; 85025

== ENCOUNTER 2022-09-21 06:30 | Outpatient (REF) | payer MEDICARE, SELFPAY ==
[2022-09-21 07:41] LABS: Basophils Absolute Auto 0.1 X10*3/uL (0.0-0.2); Basophils Percent Auto 0.9 % (0-2); Eosinophils Absolute Auto 0.3 X10*3/uL (0.0-0.4); Eosinophils Percent Auto 3.8 % (0-4); Hematocrit 35.4 % (42.0-52.0); Hemoglobin 11.1 g/dl (14.0-18.0); Imm Gran Abs Auto 0.02 X10*3/uL (0.00-0.03); Imm Gran Pct Auto 0.3 % (0.0-0.4); Lymphocytes Absolute Auto 3.5 X10*3/uL (1.2-4.9); Lymphocytes Percent Auto 50.2 % (20-40); MANUAL DIFF FLAG NO; Mean Corpuscular HGB Conc 31.4 g/dl (31.0-36.0); Mean Corpuscular Hemoglobin 27.8 pg (27.0-33.0); Mean Corpuscular Volume 88.5 fL (80.0-98.0); Mean Platelet Volume 11.2 fL (9.4-12.4); Monocytes Absolute Auto 0.6 X10*3/uL (0.1-1.2); Monocytes Percent Auto 8.1 % (2-11); Neutrophils Absolute Auto 2.5 x10*3/uL (2.0-8.3); Neutrophils Percent Auto 36.7 % (45-73); Platelet Count 239 X10*3/uL (160-400); Red Cell Distribution Width 14.4 % (11.0-16.0); White Blood Count 6.9 X10*3/uL (4.8-10.8)
[2022-09-21 07:52] LABS: Estimated Average Glucose 203 mg/dL; Hemoglobin A1c % 8.7 %
[2022-09-21 08:05] LABS: Alanine Aminotransferase 41 U/L (0-40); Alkaline Phosphatase 79 U/L (39-117); Anion Gap 17 (12-20); Aspartate Amino Transferase 42 U/L (5-37); Bilirubin Total 0.7 mg/dL (0.0-1.0); Blood Urea Nitrogen 15 mg/dL (9-16); Calcium 9.6 mg/dL (8.4-10.2); Carbon Dioxide 25 mmol/L (22-29); Chloride 103 mmol/L (96-108); Cholesterol 112 mg/dL; Estimated Glomerular Filt Rate 55; Glucose Fasting 147 mg/dL (60-99); HDL Cholesterol 37 mg/dL; LDL Cholesterol Calculated 51 mg/dl; Potassium 4.6 mmol/L (3.3-5.1); Sodium 140 mmol/L (135-145); Total Protein 6.6 g/dL (6.5-8.0); Triglycerides 123 mg/dL
[2022-09-21 10:01] LABS: Creatinine Urine 45.68 mg/dL; Microalbum/Creatinine Ratio Ur 48.1 ug/mg cr
== END 2022-09-21 06:31 | disposition home or self-care (01) ==
LOC: HO.LAB 06:30
PROVIDERS: PCP Internal Medicine Medical Oncology; Visit Provider Internal Medicine Medical Oncology
DX: E55.9 Vitamin D deficiency, unspecified (principal); E11.9 Type 2 diabetes mellitus without complications; E78.5 Hyperlipidemia, unspecified
CPT/HCPCS: 36415; 80053; 80061; 82043; 83036; 85025

== ENCOUNTER 2022-12-29 10:07 | Inpatient (IN) | payer MEDICARE, SELFPAY ==
--- NOTE | ~2022-12-29 | CT_ITS ---
EXAMINATION: CT ABDOMEN AND PELVIS WITH CONTRAST CLINICAL INFORMATION: Left lower quadrant pain COMPARISON: None available. TECHNIQUE: Multidetector volumetric images were obtained from the superior aspect of the liver through the pubic symphysis following administration 85 mL of Omnipaque 350 intravenous contrast. Sagittal and coronal reformatted images were obtained on the technologist's workstation. Oral contrast: No This CT examination was performed using dose optimization techniques as appropriate, variously including the following: *Automated exposure control *Adjustment of mA and/or kV according to patient size (this includes techniques or standardized protocols for targeted exams where dose is matched to indication/reason for exam; i.e. extremities or head) *Use of iterative reconstruction technique DLP: 472 mGy-cm FINDINGS: LUNG BASES: Posterior lower lobe atelectatic change and posterior dependent density. There are calcific and noncalcific pleural plaques observed, largest in the left lower lobe series 3 image 6 at 8.5 mm. LIVER, GALLBLADDER, AND BILIARY TREE: The liver is normal in size, shape, and attenuation. No focal hepatic lesion or biliary ductal dilatation is present. No appreciable calcific cholelithiasis. Possible gallbladder fundal wall thickening or polyp series 7 image 40 and series 3 image 20 at 9 to 10 mm. PANCREAS: Parenchymal calcifications potentially related to sequela of chronic pancreatitis. SPLEEN: Unremarkable. ADRENAL GLANDS: Unremarkable. KIDNEYS AND URETERS: No appreciable nephrolithiasis or hydronephrosis. BLADDER: Slight wall thickening likely related to incomplete distention. GASTROINTESTINAL TRACT: Colonic diverticulosis. Colonic wall thickening and paracolic infiltrative change at the junction of the descending and sigmoid colons. Findings suggestive of diverticulitis at this level. Close follow-up recommended after appropriate therapy is an underlying mass is not completely excluded. No appreciable free air or abscess. Hiatal hernia. No small bowel obstructive process or abnormal omental thickening. ABDOMINAL WALL: Bilateral fatty inguinal hernias. LYMPH NODES: Right paraesophageal node series 3 image 5 at 8.5 mm short axis. No suspicious periportal, mesenteric, or retroperitoneal adenopathy. VASCULAR: Atherosclerotic changes. Femorofemoral arterial bypass. PELVIC VISCERA: No suspicious pelvic masses. Slight to mild prostate impression at the urinary bladder base. OSSEOUS STRUCTURES: Spondylosis with degenerative disc space narrowing L4-S1. Slight retrolisthesis L4-L5 and L5-S1. CT/CT abdomen pelvis w IV con IMPRESSION: CT findings appearing most consistent with diverticulitis at the junction of the descending and sigmoid colons. Close follow-up recommended after appropriate therapy as an underlying mass at this location is not completely excluded. Possible gallbladder fundal wall thickening or polyp. Right upper quadrant ultrasound evaluation as an outpatient may be helpful toward further clarification when feasible. Calcific and noncalcific pleural plaques at the lung bases. CT evaluation the chest as an outpatient may be helpful toward further evaluation. Fleischner guidelines were followed.
[2022-12-29 10:13] VITALS: BP 165/83; PULSE 92; RESP 18; TEMP 36.8; O2SAT 97; BMI 27.8
[2022-12-29 10:58] LABS: MANUAL DIFF FLAG NO
[2022-12-29 11:00] LABS: Basophils Percent Auto 0.3 % (0-2); Eosinophils Absolute Auto 0.1 X10*3/uL (0.0-0.4); Eosinophils Percent Auto 1.3 % (0-4); Hematocrit 35.2 % (42.0-52.0); Hemoglobin 11.2 g/dl (14.0-18.0); Imm Gran Abs Auto 0.06 X10*3/uL (0.00-0.03); Imm Gran Pct Auto 0.7 % (0.0-0.4); Lymphocytes Absolute Auto 1.9 X10*3/uL (1.2-4.9); Lymphocytes Percent Auto 20.8 % (20-40); Mean Corpuscular HGB Conc 31.8 g/dl (31.0-36.0); Mean Corpuscular Hemoglobin 28.2 pg (27.0-33.0); Mean Corpuscular Volume 88.7 fL (80.0-98.0); Mean Platelet Volume 11.1 fL (9.4-12.4); Monocytes Absolute Auto 0.7 X10*3/uL (0.1-1.2); Monocytes Percent Auto 7.9 % (2-11); Neutrophils Absolute Auto 6.4 x10*3/uL (2.0-8.3); Platelet Count 189 X10*3/uL (160-400); Red Blood Count 3.97 X10*6/uL (4.60-5.80); Red Cell Distribution Width 14.7 % (11.0-16.0); White Blood Count 9.2 X10*3/uL (4.8-10.8)
[2022-12-29 11:16] LABS: Alanine Aminotransferase 20 U/L (0-40); Albumin Level 3.9 g/dL (3.5-5.0); Alkaline Phosphatase 93 U/L (39-117); Anion Gap 20 (12-20); Aspartate Amino Transferase 22 U/L (5-37); Bilirubin Total 0.7 mg/dL (0.0-1.0); Blood Urea Nitrogen 18 mg/dL (9-16); Carbon Dioxide 16 mmol/L (22-29); Chloride 101 mmol/L (96-108); Creatinine Clr Calc Pharmacy 39.2; Estimated Glomerular Filt Rate 59; Glucose Random 303 mg/dL (60-115); Magnesium 1.7 mg/dL (1.6-2.6); Sodium 133 mmol/L (135-145); Total Protein 7.3 g/dL (6.5-8.0)
[2022-12-29 11:17] LABS: Lactic Acid 4.4 mmol/L (0.5-2.0)
--- NOTE | 2022-12-29 11:18 | ED_ITS ---
HPI - General Adult General Chief complaint: General Medical Stated complaint: L Side Pain No Injury Time Seen by Provider: 12/29/22 11:17 Source: patient Mode of arrival: ambulatory Limitations: no limitations History of Present Illness HPI narrative: 82-year-old male who presents emergency department for evaluation of left lower quadrant pain times 4 days. The patient states that the pain came on gradually 4 days prior. He states the pain is been constant but waxing and waning in intensity. States the pain is a sharp pain which is 10/10 at its worst. Patient states he has had no bowel movement over the past 2 days but he believes that he has been passing gas. He denies feeling distended. He denied fever, chills, chest pain, shortness of breath. He denied nausea, vomiting, frequency, urgency or dysuria. The patient saw his PCP, Dr. Torres who will refer the patient to the emergency department for further evaluation Patient states that he had a bilateral femoral bypass secondary to a blocked a rtery 30 years ago, he also had a right lower quadrant hernia repaired when he was younger. Related Data Home Medications Medication Instructions Recorded Confirmed metformin 1,000 mg tablet 1,000 mg PO BID 06/17/20 11/17/21 omeprazole 20 mg capsule,delayed 20 mg PO DAILY 06/17/20 11/17/21 release simvastatin 40 mg tablet 40 mg PO BEDTIME 06/17/20 11/17/21 aspirin 81 mg tablet,delayed 81 mg PO DAILY 09/29/20 11/17/21 release (Adult Low Dose Aspirin) mecobalamin (vitamin B12) 1,000 1,000 mcg PO DAILY 12/29/20 08/17/21 mcg chewable tablet cyanocobalamin (vitamin B-12) 1,000 mcg PO DAILY 06/16/21 11/17/21 1,000 mcg tablet blood-glucose meter (FreeStyle 02/24/22 Lite Meter kit) bromfenac 0.07 % eye drops 1 drp ophthalmic (eye) QAM 03/09/22 (Prolensa) prednisolone acetate 1 % eye 0 drp ophthalmic (eye) 03/09/22 drops,suspension Previous Rx's Medication Instructions Recorded blood sugar diagnostic (FreeStyle 1 strip miscellaneous TID #100 06/05/21 Lite Strips) strips lancets 28 gauge (FreeStyle #100 ea 07/06/21 Lancets) cholecalciferol (vitamin D3) 50 50 mcg PO DAILY #90 caps 11/17/21 mcg (2,000 unit) capsule dulaglutide 4.5 mg/0.5 mL 4.5 mg (0.5 mL) subcut QWEEK 90 11/17/21 subcutaneous pen injector days #6 mL (Trulicity) pioglitazone 45 mg tablet 45 mg PO DAILY #90 tabs 11/17/21 lisinopril 10 mg tablet 10 mg PO DAILY #90 tabs 05/05/22 Allergies Allergy/AdvReac Type Severity Reaction Status Date / Time No Known Allergies Allergy Mild NONE Verified 03/09/22 13:38 Review of Systems Review of Systems: Yes all other systems are reviewed and are negative [facility] Past Medical History [facility] Narrative: Past medical history: Reviewed below. Surgical history: Hernia repair and bilat femoral bypass secondary to peripheral vascular disease social history: He denies tobacco, alcohol and drug use. Medical History HLD (hyperlipidemia) HTN (hypertension) T2DM (type 2 diabetes mellitus) Type 2 diabetes mellitus with hyperglycemia Vitamin D deficiency Surgical History Hx of hernia repair Family History Family History Father No problems noted. Mother Diabetes Social History Social History Household Members: Spouse Alcohol intake: former Patient Tobacco Use Status: Former Tobacco user Cigarette Packs Per Day: 1 Years Smoked: 20 Smoked in Last 30 Days: No Use of substances other than those prescribed or required for medical reasons: No Advance Directives: No Advance Directives Information Provided: No Physical Exam ED Vital Signs: Vital Signs - 24 hr 12/29/22 10:13 12/29/22 12:14 12/29/22 14:00 Temperature 98.2 F 97.6 F 97.7 F Pulse Rate 92 88 84 Respiratory Rate 18 13 14 Blood Pressure 165/83 H 129/77 150/79 H Pulse Oximetry 97 93 96 Oxygen Delivery Method Room Air Room Air Room Air BMI result Body Mass Index 27.8 Const General: cooperative and no acute distress Orientation/consciousness: oriented to person and oriented to place Limitations: no limitations HENMT Head: Yes normal to inspection, Yes normocephalic and Yes atraumatic Ears: external ears normal General nose exam: Normal external nose present Face and sinus: Yes normal facial exam Mouth: Normal oral and palatal mucosa present Throat: Yes posterior oropharynx normal Eyes General: appearance normal, both eyes and all related structures Pupils: Equal, round and reactive pupils present Neck Neck: Yes normal visual inspection, Yes no lymphadenopathy, Yes trachea midline and Yes supple Chest Chest palpation & inspection: normal inspection of the chest and normal palpation of entire chest wall Resp Effort & Inspection: normal respiratory effort and able to speak in complete sentences Auscultation: clear to auscultation bilaterally Cardio Rate: regular rate Rhythm: regular rhythm Heart sounds: S1 normal heart sound present, S2 normal heart sound present and no murmurs GI Other: Abdomen does appear to be distended, has normoactive bowel sounds, the patient has very localize left lower quadrant tenderness along the inguinal canal, the patient has a pulsatile feeling with insertion of finger into the inguinal canal suggesting the may have an indirect inguinal hernia. General: Yes no CVA tenderness Back/Spine/Pelvis Back: no CVA tenderness Skin General skin exam: no rashes or lesions noted Neuro General: oriented to person and oriented to place Cranial nerves: Yes CN's II-XII intact bilaterally and Yes Equal, round and reactive pupils present Cognition (Neuro): normal cognition Motor exam (neuro): 5/5 motor strength present throughout Extrem General: Yes normal to inspection Psych Appearance: grossly normal Speech and movement: Normal speech and movement present Affect: normal affect Attitude: cooperative Thought process: Normal thought process present Thought content: Normal thought content present Medications Administered Discontinued Medications Generic Name Dose Route Start Last Admin Trade Name Freq PRN Reason Stop Dose Admin Sodium Chloride 2,000.34 mls @ 2,000.34 mls/hr 12/29/22 11:48 12/29/22 15:05 Ns 30 ml/kg infuse over 1 hr (2000.34 ml) 12/29/22 12:47 Infused IV Infusion .Q1H STA Piperacillin Sod/Tazobactam 100 mls @ 200 mls/hr 12/29/22 11:48 12/29/22 13:05 Sod 4.5 gm/ Sodium Chloride IV 12/29/22 12:17 Infused ONCE ONE Infusion Iohexol 85 ml 12/29/22 11:50 12/29/22 11:51 Iohexol 350 Mg/Ml 100 Ml Infus..Btl IV 12/29/22 11:51 85 ml ONCE ONE Administration Morphine Sulfate 4 mg 12/29/22 11:48 12/29/22 12:13 Morphine Sulfate 4 Mg/Ml Cartridge IVPUSH 12/29/22 11:49 Not Given ONCE STA Protocol Ondansetron HCl 4 mg 12/29/22 11:48 12/29/22 12:14 Ondansetron Hcl 4 Mg/2 Ml Vial IVPUSH 12/29/22 11:49 Not Given ONCE ONE Medical Decision Making Medical Decision Making MDM Narrative: 82-year-old male who presents emergency department for evaluation of left lower quadrant pain times 4 days. The patient states that the pain came on gradually 4 days prior. He states the pain is been constant but waxing and waning in intensity. States the pain is a sharp pain which is 10/10 at its worst. Patient states he has had no bowel movement over the past 2 days but he believes that he has been passing gas. Exam revealed very localize left lower quadrant tenderness. I ordered laboratory evaluation CT scan of the abdomen pelvis with IV contrast. I also ordered morphine 4 mg IV Zofran 4 mg IV, normal saline bolus. 1541: Patient refused pain medications My interpretation patient's laboratory is as follows: WBC normal 9200. Anemia H&H 11.2 and 35.2-chronic. Sodium low 131. Bicarb low 16. BUN elevated 18. Glucose elevated 303. Initial troponin elevated 4.4. Improved after [address] scan of the abdomen pelvis consistent with diverticulitis pain Patient's blood pressures have been elevated, elevated lactate is most likely secondary to starvation ketosis and not infection. Patient has diverticulitis was treated with Zosyn 4.5 g IV. Patient continues to have significant tenderness with palpation to his left lower quadrant therefore I I did discuss the patient's presentation and findings over tiger text with the covering hospitalist, Dr. Miller Differential Diagnosis Differential diagnosis includes was not limited to diverticulitis, pancreatitis, incarcerated hernia, colitis, partial bowel obstruction Admission/Observation Consideration of admission/observation: Escalation of care including admission/observation considered Consult Healthcare Provider Management of the patient was discussed with: Hospitalist Lab Data MDM Lab Attestation statement: I reviewed the patient's lab results. Please see MDM 12/29/22 10:49 12/29/22 10:49 Labs: Lab Results 12/29/22 12/29/22 12/29/22 Range/Units 10:49 10:49 10:49 WBC 9.2 (4.8-10.8) X10*3/uL RBC 3.97 L (4.60-5.80) X10*6/uL Hgb 11.2 L (14.0-18.0) g/dl Hct 35.2 L (42.0-52.0) % MCV 88.7 (80.0-98.0) fL MCH 28.2 (27.0-33.0) pg MCHC 31.8 (31.0-36.0) g/dl RDW 14.7 (11.0-16.0) % Plt Count 189 (160-400) X10*3/uL MPV 11.1 (9.4-12.4) fL Immature Gran % (Auto) 0.7 H (0.0-0.4) % Neut % (Auto) 69.0 (45-73) % Lymph % (Auto) 20.8 (20-40) % [place] % (Auto) 7.9 (2-11) % Eos % (Auto) 1.3 (0-4) % Baso % (Auto) 0.3 (0-2) % Lymph # (Auto) 1.9 (1.2-4.9) X10*3/uL [place] # (Auto) 0.7 (0.1-1.2) X10*3/uL Eos # (Auto) 0.1 (0.0-0.4) X10*3/uL Baso # (Auto) 0.0 (0.0-0.2) X10*3/uL Abs Immat Gran (auto) 0.06 H (0.00-0.03) X10*3/uL Absolute Neuts (auto) 6.4 (2.0-8.3) x10*3/uL Absolute Nucleated RBC 0.000 (0.0-0.012) X10*3/uL Nucleated RBC % (auto) 0.0 (0.0-0.2) /100WBC Sodium 133 L (135-145) mmol/L Potassium 4.0 (3.3-5.1) mmol/L Chloride 101 (96-108) mmol/L Carbon Dioxide 16 L (22-29) mmol/L Anion Gap 20 (12-20) BUN 18 H (9-16) mg/dL Creatinine 1.19 (0.5-1.4) mg/dL Estim Creat Clear Calc 39.2 Estimated GFR 59 Random Glucose 303 H (60-115) mg/dL Lactic Acid 4.4 H* (0.5-2.0) mmol/L Lactic Acid F/U @ 2Hr (0.5-2.0) mmol/L Calcium 10.0 (8.4-10.2) mg/dL Magnesium 1.7 (1.6-2.6) mg/dL Total Bilirubin 0.7 (0.0-1.0) mg/dL AST 22 (5-37) U/L ALT 20 (0-40) U/L Alkaline Phosphatase 93 (39-117) U/L Total Creatine Kinase 58 (38-174) U/L Total Protein 7.3 (6.5-8.0) g/dL Albumin 3.9 (3.5-5.0) g/dL Lipase 35 (8-78) U/L 12/29/22 Range/Units 14:03 WBC (4.8-10.8) X10*3/uL RBC (4.60-5.80) X10*6/uL Hgb (14.0-18.0) g/dl Hct (42.0-52.0) % MCV (80.0-98.0) fL MCH (27.0-33.0) pg MCHC (31.0-36.0) g/dl RDW (11.0-16.0) % Plt Count (160-400) X10*3/uL MPV (9.4-12.4) fL Immature Gran % (Auto) (0.0-0.4) % Neut % (Auto) (45-73) % Lymph % (Auto) (20-40) % [place] % (Auto) (2-11) % Eos % (Auto) (0-4) % Baso % (Auto) (0-2) % Lymph # (Auto) (1.2-4.9) X10*3/uL [place] # (Auto) (0.1-1.2) X10*3/uL Eos # (Auto) (0.0-0.4) X10*3/uL Baso # (Auto) (0.0-0.2) X10*3/uL Abs Immat Gran (auto) (0.00-0.03) X10*3/uL Absolute Neuts (auto) (2.0-8.3) x10*3/uL Absolute Nucleated RBC (0.0-0.012) X10*3/uL Nucleated RBC % (auto) (0.0-0.2) /100WBC Sodium (135-145) mmol/L Potassium (3.3-5.1) mmol/L Chloride (96-108) mmol/L Carbon Dioxide (22-29) mmol/L Anion Gap (12-20) BUN (9-16) mg/dL Creatinine (0.5-1.4) mg/dL Estim Creat Clear Calc Estimated GFR Random Glucose (60-115) mg/dL Lactic Acid (0.5-2.0) mmol/L Lactic Acid F/U @ 2Hr 3.1 H* (0.5-2.0) mmol/L Calcium (8.4-10.2) mg/dL Magnesium (1.6-2.6) mg/dL Total Bilirubin (0.0-1.0) mg/dL AST (5-37) U/L ALT (0-40) U/L Alkaline Phosphatase (39-117) U/L Total Creatine Kinase (38-174) U/L Total Protein (6.5-8.0) g/dL Albumin (3.5-5.0) g/dL Lipase (8-78) U/L Independent Interpretation I performed an independent interpretation of an: CT Scan Interpretation: My independent interpretation patient's CT scan is as follows: No bowel obstruction, acute diverticulitis Radiology Impression Radiologist Impression: CT abdomen pelvis w IV con IMPRESSION: CT findings appearing most consistent with diverticulitis at the junction of the descending and sigmoid colons. Close follow-up recommended after appropriate therapy as an underlying mass at this location is not completely excluded. Possible gallbladder fundal wall thickening or polyp. Right upper quadrant ultrasound evaluation as an outpatient may be helpful toward further clarification when feasible. Calcific and noncalcific pleural plaques at the lung bases. CT evaluation the chest as an outpatient may be helpful toward further evaluation. Fleischner guidelines were followed. Dictated By:Onel Crum Prescription Management I considered prescription management with: Pain Medication Chronic Conditions Patient?s care impacted by: Diabetes and Hypertension Discharge Plan Discharge Patient Disposition: Admitted As Inpatient Prescriptions: No Action FreeStyle Lite Strips Strip 1 strip miscellaneous TID Qty: 100 11RF (DME) lancets [FreeStyle Lancets] 28 gauge misc See Rx Instructions .ROUTE .MEDSUPPLY Qty: 100 11RF Rx Instructions: 4x daily lisinopril 10 mg tablet 10 mg PO DAILY Qty: 90 3RF omeprazole 20 mg capsule,delayed release(DR/EC) 20 mg PO DAILY metformin 1,000 mg tablet 1,000 mg PO BID simvastatin 40 mg tablet 40 mg PO BEDTIME aspirin [Adult Low Dose Aspirin] 81 mg tablet,delayed release (DR/EC) 81 mg PO DAILY mecobalamin (vitamin B12) 1,000 mcg tablet,chewable 1,000 mcg PO DAILY cyanocobalamin (vitamin B-12) 1,000 mcg tablet 1,000 mcg PO DAILY Trulicity 4.5 mg/0.5 mL pen injector 4.5 mg subcut QWEEK 90 Days Qty: 6 1RF pioglitazone 45 mg tablet 45 mg PO DAILY Qty: 90 1RF cholecalciferol (vitamin D3) 50 mcg (2,000 unit) capsule 50 mcg PO DAILY Qty: 90 3RF (DME) blood-glucose meter [FreeStyle Lite Meter] Kit See Rx Instructions .Route Rx Instructions: As directed prednisolone acetate 1 % drops,suspension 0 drp ophthalmic (eye) Prolensa 0.07 % drops 1 drp ophthalmic (eye) QAM
[2022-12-29] MEDS: iohexoL 350 MG/ML 100 ML INFUS..BTL 85 ML IV (11:51)
[2022-12-29 12:11] LABS: Lipase 35 U/L (8-78)
[2022-12-29] MEDS: Piperacillin Sodium/Tazobactam 4.5 GM in 0.9 % Sodium Chloride 100 ML IV ×2 (12:13→20:17)
[2022-12-29 12:14] VITALS: BP 129/77; PULSE 88; RESP 13; TEMP 36.4; O2SAT 93
[2022-12-29 12:54] LABS: Reflex Lactate? Lactic Acid Added
[2022-12-29 14:00] VITALS: BP 150/79; PULSE 84; RESP 14; TEMP 36.5; O2SAT 96
[2022-12-29 14:35] LABS: ~Lactic Acid-LAB USE ONLY 3.1 mmol/L (0.5-2.0)
[2022-12-29] MEDS: Lactated Ringers 1,000 ML 999 ML IV (15:47)
--- NOTE | 2022-12-29 16:05 | PHA.MEDREC ---
Pharmacy Consult ? Medication Reconciliation Pharmacy has completed the medication reconciliation. Patient has list of medication that matched claim history. Tamara Manuel, JenniferD
[2022-12-29 16:12] LABS: Reflex Lactate? 2 Y
--- NOTE | 2022-12-29 16:25 | P.HPHOSP_ITS ---
History of Present Illness Date of Service: 12/29/22 Chief Complaint: left lower quadrant abdominal pain 82-year-old gentleman with past medical history significant for diabetes mellitus type 2, hypertension, hyperlipidemia presented to [facility] due to left lower quadrant pain of 3 days duration, he described it as soreness waxing and waning, 10/10 at its worst without associated nausea vomiting, patient has been tolerating diet but has had no bowel movement in last 2 days has been passing flatus, he denies associated fever chills no urinary burning, no frequency, no urgency but complaining of worsening pain left lower quadrant with urination, labs showed hematocrit of 35.2, normal platelets, sodium 133 bicarb 16, BUN of 18 creatinine 1.19,random sugar 303, lactic acid 4.4 improved to 3.1 with IV hydration, CT abdomen and pelvis showed diverticulitis at the junction of the descending and sigmoid colon, possible gallbladder fundal wall thickening or polyp, right upper quadrant ultrasound as outpatient for further clarification recommended, calcific and noncalcific pleural plaques at the lung bases CT evaluation as outpatient is recommended. Review of Systems Review of Systems: General no headache no dizziness no fever chills. CVS no chest pain, no palpitation. Respiratory no cough no sob Gastrointestinal no nausea no vomiting no urgency, no frequency [facility], [facility] Medical History HLD (hyperlipidemia) HTN (hypertension) T2DM (type 2 diabetes mellitus) Type 2 diabetes mellitus with hyperglycemia Vitamin D deficiency Family History Father No problems noted. Mother Diabetes Pertinent family history: no family history of colon cancer Surgical History Hx of hernia repair Social History Household Members: Spouse Housing: House Do you presently have visiting nurse or other home services: No Alcohol intake: former Patient Tobacco Use Status: Former Tobacco user Quit Date: 32 years ago Cigarette Packs Per Day: 1 Years Smoked: 20 Smoked in Last 30 Days: No Use of substances other than those prescribed or required for medical reasons: No Currently Displaying Signs/Symptoms of Drug Intoxication Withdrawal: No Have you been hit, kicked, punched, or otherwise hurt by someone within the past year? If so, by whom?: No Do you feel safe in your current relationship?: Yes Is there a partner from a previous relationship who is making you feel unsafe now?: No Are you made to feel afraid or neglected: No Advance Directives: No Advance Directives Information Provided: No Do you have thoughts of harming others: None Recently lost weight without trying: No Eating poorly because of decreased appetite: No Nutrition Risks: No Nutritional Risk Meds Allergies Allergy/AdvReac Type Severity Reaction Status Date / Time No Known Allergies Allergy Mild NONE Verified 03/09/22 13:38 Active Medications: Current Medications Acetaminophen (Acetaminophen 325 Mg Tablet) 650 mg PO Q6H PRN PRN Reason: Pain, Mild (Pain Scale 1-3) Aspirin (Aspirin Enteric Coated 81 Mg Tablet.) 81 mg PO DAILY [facility] Dextrose (Dextrose 50 % 25 Gm/50 Ml Syringe) 25 gm IVPUSH Q15M PRN; Protocol PRN Reason: per Hypoglycemia Standing Ord. Glucose (Glucose Gel 15 Gm Gel..Gram.) 15 gm PO Q15M PRN; Protocol PRN Reason: per Hypoglycemia Standing Ord. Lactated Ringer's (Lr) 1,000 mls @ 100 mls/hr IVCONT .Q10H [facility] Piperacillin Sod/Tazobactam (Sod 4.5 gm/ Sodium Chloride) 100 mls @ 200 mls/hr IV Q6H [facility] Insulin Human Lispro (Insulin Lispro 100 Unit/Ml 3 Ml Vial) 0 unit SUBCUT QIDACHS [facility]; Protocol Lisinopril (Lisinopril 10 Mg Tablet) 10 mg PO DAILY [facility]; Protocol Melatonin (Melatonin 3 Mg Tablet) 3 mg PO BEDTIME PRN PRN Reason: Insomnia Omeprazole (Omeprazole 20 Mg Capsule.) 20 mg PO DAILY [facility] Ondansetron HCl (Ondansetron Hcl 4 Mg/2 Ml Vial) 4 mg IVPUSH Q8H PRN PRN Reason: Nausea and Vomiting Pharmacy Consult (Consult Rx Perform Med Rec) 1 each MISCELLANE ONCE PRN PRN Reason: Consult order Sodium Chloride (0.9 % Sodium Chloride Flush 3 Ml Syringe) 3 ml IVFLUSH QSHIFT [facility] Home Medications Medication Instructions Recorded Confirmed Last Taken Type metformin 1,000 mg tablet 1,000 mg PO BID 01/12/29/22 12/29/22 History omeprazole 20 mg capsule,delayed 20 mg PO DAILY 06/17/20 12/29/22 12/29/22 History release simvastatin 40 mg tablet 40 mg PO BEDTIME 06/17/20 12/29/22 12/28/22 History aspirin 81 mg tablet,delayed 81 mg PO DAILY 09/29/20 12/29/22 12/29/22 History release (Adult Low Dose Aspirin) cyanocobalamin (vitamin B-12) 1,000 mcg PO DAILY 06/16/21 12/29/22 12/29/22 History 1,000 mcg tablet blood-glucose meter (FreeStyle 02/24/22 12/29/22 12/29/22 History Lite Meter kit) dulaglutide 4.5 mg/0.5 mL 4.5 mg subcut TU 12/29/22 12/29/22 12/26/22 History subcutaneous pen injector (Trulicity) multivitamin 1 tab PO Q48H 12/29/22 12/29/22 12/29/22 History Physical Exam Vital Signs and Narrative: Vital Signs: Last Vital Signs Temp 97.7 F 12/29/22 14:00 Pulse 84 12/29/22 14:00 Resp 14 12/29/22 14:00 BP 150/79 H 12/29/22 14:00 Pulse Ox 96 12/29/22 14:00 O2 Del Method Room Air 12/29/22 14:00 BMI result Body Mass Index 27.8 Const: Other: General awake alert x3, resting comfortably in no acute distress. Neck supple no JVD. CVS regular rate rhythm, Respiratory lungs clear to auscultation, no respiratory distress, no wheeze, no rhonchi. Gastrointestinal abdomen soft, mild left lower quadrant tenderness with deep palpation, bowel sounds audible, no guarding , no rigidity. Extremities no edema. Neuro nonfocal Skin no rash psych appropriate affect Results Labs 12/29/22 10:49 12/29/22 10:49 Labs: Laboratory Results - last 24 hr 12/29/22 12/29/22 12/29/22 10:49 10:49 10:49 MCV 88.7 MCH 28.2 MCHC 31.8 RDW 14.7 Plt Count 189 MPV 11.1 Immature Gran % (Auto) 0.7 H Neut % (Auto) 69.0 Lymph % (Auto) 20.8 [place] % (Auto) 7.9 Eos % (Auto) 1.3 Baso % (Auto) 0.3 Lymph # (Auto) 1.9 [place] # (Auto) 0.7 Eos # (Auto) 0.1 Baso # (Auto) 0.0 Abs Immat Gran (auto) 0.06 H Absolute Neuts (auto) 6.4 Absolute Nucleated RBC 0.000 Nucleated RBC % (auto) 0.0 Anion Gap 20 Estim Creat Clear Calc 39.2 Estimated GFR 59 Random Glucose 303 H Lactic Acid 4.4 H* Lactic Acid F/U @ 2Hr Calcium 10.0 Magnesium 1.7 Total Bilirubin 0.7 AST 22 ALT 20 Alkaline Phosphatase 93 Total Creatine Kinase 58 Total Protein 7.3 Albumin 3.9 Lipase 35 12/29/22 14:03 MCV MCH MCHC RDW Plt Count MPV Immature Gran % (Auto) Neut % (Auto) Lymph % (Auto) [place] % (Auto) Eos % (Auto) Baso % (Auto) Lymph # (Auto) [place] # (Auto) Eos # (Auto) Baso # (Auto) Abs Immat Gran (auto) Absolute Neuts (auto) Absolute Nucleated RBC Nucleated RBC % (auto) Anion Gap Estim Creat Clear Calc Estimated GFR Random Glucose Lactic Acid Lactic Acid F/U @ 2Hr 3.1 H* Calcium Magnesium Total Bilirubin AST ALT Alkaline Phosphatase Total Creatine Kinase Total Protein Albumin Lipase Imaging Radiologist's Impressions: Impressions Abdomen/Pelvis CT 12/29/22 11:40 IMPRESSION: CT findings appearing most consistent with diverticulitis at the junction of the descending and sigmoid colons. Close follow-up recommended after appropriate therapy as an underlying mass at this location is not completely excluded. Possible gallbladder fundal wall thickening or polyp. Right upper quadrant ultrasound evaluation as an outpatient may be helpful toward further clarification when feasible. Calcific and noncalcific pleural plaques at the lung bases. CT evaluation the chest as an outpatient may be helpful toward further evaluation. Fleischner guidelines were followed. Assessment and Plan (1) Diverticulitis of sigmoid colon: Status: Acute (2) Abdominal pain: Status: Acute Plan 82-year-old gentleman with past medical history of hypertension, hyperlipidemia, diabetes mellitus type 2 presented to [facility] with 3-4 day history of on and off left lower quadrant pain patient diagnosed to have acute diverticulitis and lactic acidosis. acute sigmoid diverticulitis. IV fluids, IV Zosyn started on 12/29 full liquid diet, patient has been tolerating diet at home with no worsening pain no evidence of sepsis no fever, no leukocytosis follow clinical course CT abdomen consistent with diverticulitis at the junction of the descending and sigmoid colon, rediology recommend outpatient GI follow-up to rule out underlying mass. Possible gallbladder fundal wall thickening or polyp. Right upper quadrant ultrasound evaluation as an outpatient recommended Calcific and noncalcific pleural plaques at the lung bases. CT chest as an outpatient for further evaluation.? hypertension continue lisinopril 10 mg daily. diabetes mellitus type 2 hold oral hypoglycemic and Trulicity will place on insulin sliding scale follow point of care blood sugars. hyperlipidemia resume statin. DVT prophylaxis Lovenox subQ code status DNR/ DNI patient will need to night inpatient stay for management of acute sigmoid diverticulitis requiring IV fluids and IV antibiotics. Time Spent With Patient Time: Total time managing care of this patient today ____ minutes. Quality Stroke Does the patient have a stroke diagnosis?: No VTE Prior VTE?: No VTE Risk Level:: Medical - moderate - high VTE Device Contraindication: Treatment Not Indicated VTE Drug Contraindication: N/A - Med Ordered
[2022-12-29 16:40] LABS: Glucose, Whole Blood 152 mg/dL (60-115)
[2022-12-29 17:05] LABS: ~Lactic Acid-LAB USE ONLY 2.4 mmol/L (0.5-2.0)
[2022-12-29] MEDS: Insulin Lispro 100 UNIT/ML 3 ML VIAL SUBCUT ×2 (17:31→22:24)
[2022-12-29] MEDS: Lactated Ringers 1,000 ML 100 ML IVCONT (17:38)
[2022-12-29 18:10] VITALS: BP 170/80; PULSE 88; RESP 20; TEMP 36.2; O2SAT 96
[2022-12-29 19:35] VITALS: BP 141/67; PULSE 86; RESP 18; TEMP 36.9; O2SAT 97
[2022-12-29] MEDS: 0.9 % Sodium Chloride Flush 3 ML SYRINGE IVFLUSH (20:18)
[2022-12-29 20:49] LABS: Glucose, Whole Blood 237 mg/dL (60-115)
[2022-12-30] MEDS: Piperacillin Sodium/Tazobactam 4.5 GM in 0.9 % Sodium Chloride 100 ML IV ×2 (03:59→11:38)
[2022-12-30 04:00] VITALS: BP 148/69; PULSE 73; RESP 18; TEMP 36.2; O2SAT 94
[2022-12-30] MEDS: Omeprazole 20 MG CAPSULE.DR PO (06:16)
[2022-12-30] MEDS: Lactated Ringers 1,000 ML 100 ML IVCONT (06:17)
[2022-12-30 07:39] LABS: Glucose, Whole Blood 128 mg/dL (60-115)
[2022-12-30 07:40] VITALS: BP 146/70; PULSE 69; RESP 16; TEMP 36.3; O2SAT 96
[2022-12-30] MEDS: Aspirin Enteric Coated 81 MG TABLET.DR PO (08:17)
[2022-12-30] MEDS: lisinopriL 10 MG TABLET PO (08:17)
[2022-12-30 08:25] LABS: Hematocrit 30.5 % (42.0-52.0); Hemoglobin 9.5 g/dl (14.0-18.0); Mean Corpuscular HGB Conc 31.1 g/dl (31.0-36.0); Mean Corpuscular Hemoglobin 27.1 pg (27.0-33.0); Mean Corpuscular Volume 86.9 fL (80.0-98.0); Platelet Count 185 X10*3/uL (160-400); Red Blood Count 3.51 X10*6/uL (4.60-5.80); Red Cell Distribution Width 14.7 % (11.0-16.0); White Blood Count 6.8 X10*3/uL (4.8-10.8)
[2022-12-30 08:38] LABS: Anion Gap 13 (12-20); Blood Urea Nitrogen 9 mg/dL (9-16); Calcium 9.1 mg/dL (8.4-10.2); Carbon Dioxide 23 mmol/L (22-29); Chloride 106 mmol/L (96-108); Creatinine Clr Calc Pharmacy 47.2; Estimated Glomerular Filt Rate > 60; Glucose Random 130 mg/dL (60-115); Potassium 3.8 mmol/L (3.3-5.1); Sodium 138 mmol/L (135-145)
[2022-12-30 11:16] LABS: Glucose, Whole Blood 180 mg/dL (60-115)
[2022-12-30] MEDS: Insulin Lispro 100 UNIT/ML 3 ML VIAL SUBCUT (11:38)
--- NOTE | 2022-12-30 13:50 | PM.DS ---
DS: Providers Provider Date of Service: 12/30/22 Date of admission: 12/29/22 16:16 Primary care physician: Shamir Sommer MD DS: Diagnosis Discharge Diagnosis (1) Diverticulitis of sigmoid colon: Status: Acute (2) Abdominal pain: Status: Acute DS: Summary Hospital Course Hospital Course: Date of Service: 12/29/22 Chief Complaint:? left lower quadrant abdominal pain ?82-year-old gentleman with past medical history significant for diabetes mellitus type 2, hypertension, hyperlipidemia presented to [facility] due to left lower quadrant pain of 3 days duration, he described it as soreness waxing and waning, 10/10 at its worst without associated nausea vomiting, patient has been tolerating diet but has had no bowel movement in last 2 days has been passing flatus, he denies associated fever chills no urinary burning, no frequency, no urgency but complaining of worsening pain left lower quadrant with urination, labs showed hematocrit of 35.2, normal platelets, sodium 133 bicarb 16, BUN of 18 creatinine 1.19,random sugar 303, lactic acid 4.4 improved to 3.1 with IV hydration, CT abdomen and pelvis showed diverticulitis at the junction of the descending and sigmoid colon, possible gallbladder fundal wall thickening or polyp, right upper quadrant ultrasound as outpatient for further clarification recommended, calcific and noncalcific pleural plaques at the lung bases CT evaluation as outpatient is recommended. hospital course: 82-year-old gentleman with past medical history of hypertension, hyperlipidemia, diabetes mellitus type 2 presented to [facility] with 3-4 day history of on and off left lower quadrant pain patient diagnosed to have acute diverticulitis and lactic acidosis. ?acute sigmoid diverticulitis. admitted to medical floor treated with?IV fluids, IV Zosyn patient responded rapidly to above treatment abdominal pain resolved patient had 2 normal bowel movements, he is tolerating diet and is eager to be discharged home since patient is hemodynamically stable with complete resolution of abdominal pain, no nausea no vomiting he is being discharged home on Levaquin and Flagyl for 5 more days patient had no evidence of sepsis,?CT abdomen consistent with diverticulitis at the junction of the descending and sigmoid colon, rediology recommend outpatient GI follow-up to rule out underlying mass also noted to have?Possible gallbladder fundal wall thickening or polyp. Right upper quadrant ultrasound evaluation as an outpatient recommended,?Calcific and noncalcific pleural plaques at the lung bases, recommend. CT chest as an outpatient for? further evaluation.? ?hypertension continue lisinopril 10 mg daily. ?diabetes mellitus type 2 resume home medications including metformin and Trulicity ?hyperlipidemia continue Zocor. Time Spent with Patient Time attestation: Total time managing care of this patient today ____ minutes. Discharge coordination time: Greater than 30 minutes Quality: Safe Use of Opioids Does Pt have an Active Cancer Diagnosis on the Problem List?: No Quality: Stroke Does the patient have a stroke diagnosis?: No Physical Exam Vital Signs: Vital Signs: Last Vital Signs Temp 97.3 F 12/30/22 07:40 Pulse 69 12/30/22 07:40 Resp 16 12/30/22 07:40 BP 146/70 H 12/30/22 07:40 Pulse Ox 96 12/30/22 07:40 O2 Del Method Room Air 12/30/22 07:40 BMI result Body Mass Index 27.8 Const: Other: General? awake alert x3, resting comfortably in no acute distress.? Neck? supple no JVD. CVS? regular rate rhythm, Respiratory lungs clear to auscultation, no respiratory distress, no wheeze, no rhonchi. Gastrointestinal abdomen soft, nontender, bowel sounds audible, no guarding , no rigidity. Extremities no? edema. Neuro nonfocal Skin no rash psych appropriate affect DS: Data Data Completed and Pending Labs on day of discharge: Laboratory Results - last 24 hr 12/29/22 12/29/22 12/29/22 14:03 16:36 16:42 WBC RBC Hgb Hct MCV MCH MCHC RDW Plt Count MPV Absolute Nucleated RBC Nucleated RBC % (auto) Sodium Potassium Chloride Carbon Dioxide Anion Gap BUN Creatinine Estim Creat Clear Calc Estimated GFR POC Glucose 152 H Random Glucose Lactic Acid F/U @ 2Hr 3.1 H* Lactic Acid F/U @ 4Hr 2.4 H* Calcium 12/29/22 12/30/22 12/30/22 20:38 07:35 07:57 WBC 6.8 RBC 3.51 L Hgb 9.5 L Hct 30.5 L MCV 86.9 MCH 27.1 MCHC 31.1 RDW 14.7 Plt Count 185 MPV 11.0 Absolute Nucleated RBC 0.000 Nucleated RBC % (auto) 0.0 Sodium Potassium Chloride Carbon Dioxide Anion Gap BUN Creatinine Estim Creat Clear Calc Estimated GFR POC Glucose 237 H 128 H Random Glucose Lactic Acid F/U @ 2Hr Lactic Acid F/U @ 4Hr Calcium 12/30/22 12/30/22 07:57 11:06 WBC RBC Hgb Hct MCV MCH MCHC RDW Plt Count MPV Absolute Nucleated RBC Nucleated RBC % (auto) Sodium 138 Potassium 3.8 Chloride 106 Carbon Dioxide 23 Anion Gap 13 BUN 9 Creatinine 0.99 Estim Creat Clear Calc 47.2 Estimated GFR > 60 POC Glucose 180 H Random Glucose 130 H Lactic Acid F/U @ 2Hr Lactic Acid F/U @ 4Hr Calcium 9.1 D Preliminary micro results at discharge 12/29/22 11:29 Blood Culture - Preliminary Blood - Venous No growth after 24 hours. 12/29/22 10:49 Blood Culture - Preliminary Blood - Venous No growth after 24 hours. Discharge Plan Discharge Anticipated Discharge Date/Time: 12/30/22 10:34 Patient Disposition: Home, Self-Care Discharge Diagnosis: diverticulitis Referrals: Shamir Sommer MD [Primary Care Provider] - 1 Week Discharge Medications: New levofloxacin 500 mg tablet 500 mg PO DAILY 5 Days Qty: 5 0RF metronidazole 500 mg tablet 500 mg PO BID Qty: 10 0RF Continued (DME) lancets [FreeStyle Lancets] 28 gauge misc See Rx Instructions .ROUTE .MEDSUPPLY Qty: 100 11RF Rx Instructions: 4x daily lisinopril 10 mg tablet 10 mg PO DAILY Qty: 90 3RF multivitamin Tablet 1 tab PO Q48H Trulicity 4.5 mg/0.5 mL pen injector 4.5 mg subcut TU omeprazole 20 mg capsule,delayed release(DR/EC) 20 mg PO DAILY simvastatin 40 mg tablet 40 mg PO BEDTIME aspirin [Adult Low Dose Aspirin] 81 mg tablet,delayed release (DR/EC) 81 mg PO DAILY cyanocobalamin (vitamin B-12) 1,000 mcg tablet 1,000 mcg PO DAILY pioglitazone 45 mg tablet 45 mg PO DAILY Qty: 90 1RF cholecalciferol (vitamin D3) 50 mcg (2,000 unit) capsule 50 mcg PO DAILY Qty: 90 3RF (DME) blood-glucose meter [FreeStyle Lite Meter] Kit See Rx Instructions .Route Rx Instructions: As directed Held metformin 1,000 mg tablet 1,000 mg PO BID Hold Instructions: Resume on 12/31/22. Discharge Orders: Discharge Order (Routine); Ordered 12/30/22 Ordered By: Wendy Bailon Diet: Diabetic diet Activity on Discharge: As tolerated Stand Alone Forms: Patient Portal Discharge page Care Plan Goals: take by mouth antibiotic as prescribed, take low-fiber diet times 3-4 days, like bread, pudding ,rice banana. recommend right upper quadrant ultrasound for evaluation of possible call bladder fundal wall thickening or polyp recommend CT chest as outpatient for evaluation of calcific and noncalcific pleural plaques at the lung bases recommend outpatient follow-up with PCP/Gastroenterology for outpatient evaluation of abnormal CT findings likely consistent with diverticulitis at the junction of descending and sigmoid colon to r/o underlying mass. Health Concerns: diabetes mellitus hypertension hyperlipidemia Plan of Treatment: outpatient follow-up with primary care physician call for appointment in 1 week Assessment: as above Discharge Date/Time: 12/30/22 13:13
== END 2022-12-30 13:13 | disposition home or self-care (01) | DRG 392 ==
LOC: HO.ED 15:50 → HO.EDOVER 16:33 → HO.S3 16:53
PROVIDERS: Physician Assistant; Admitting Provider Hospitalist; Emergency Provider Emergency Medicine Emergency Medical Services; PCP Internal Medicine Medical Oncology; Visit Provider Hospitalist
DX: K57.32 Diverticulitis of large intestine without perforation or abscess without bleeding (principal); Z66 Do not resuscitate; E11.9 Type 2 diabetes mellitus without complications; E78.5 Hyperlipidemia, unspecified; I10 Essential (primary) hypertension; Z79.82 Long term (current) use of aspirin; Z79.84 Long term (current) use of oral hypoglycemic drugs; Z79.899 Other long term (current) drug therapy
CPT/HCPCS: 36415; 74177; 80048; 80053; 82550; 82947; 83605; 83690; 83735; 85025; 85027; 87040; 99221; 99285; J2543; Q9967

== ENCOUNTER → 2022-12-29 16:16 | Outpatient (BNV) | payer MEDICARE, SELFPAY | PROVIDERS: Admitting Provider Hospitalist; Emergency Provider Emergency Medicine Emergency Medical Services; PCP Internal Medicine Medical Oncology; Visit Provider Hospitalist | DX: K57.32 Diverticulitis of large intestine without perforation or abscess without bleeding (principal); R10.9 Unspecified abdominal pain | CPT/HCPCS: 99223; 99239 ==

== ENCOUNTER 2023-01-01 06:32 | Outpatient (REF) | payer MEDICARE, SELFPAY ==
[2023-01-01 06:44] LABS: MANUAL DIFF FLAG NO
[2023-01-01 07:13] LABS: Basophils Percent Auto 0.5 % (0-2); Eosinophils Absolute Auto 0.3 X10*3/uL (0.0-0.4); Eosinophils Percent Auto 4.6 % (0-4); Hematocrit 35.4 % (42.0-52.0); Hemoglobin 11.2 g/dl (14.0-18.0); Imm Gran Abs Auto 0.03 X10*3/uL (0.00-0.03); Imm Gran Pct Auto 0.5 % (0.0-0.4); Lymphocytes Absolute Auto 2.9 X10*3/uL (1.2-4.9); Lymphocytes Percent Auto 44.7 % (20-40); Mean Corpuscular HGB Conc 31.6 g/dl (31.0-36.0); Mean Corpuscular Volume 88.5 fL (80.0-98.0); Monocytes Absolute Auto 0.5 X10*3/uL (0.1-1.2); Monocytes Percent Auto 7.6 % (2-11); Neutrophils Absolute Auto 2.8 x10*3/uL (2.0-8.3); Neutrophils Percent Auto 42.1 % (45-73); Platelet Count 250 X10*3/uL (160-400); Red Cell Distribution Width 14.6 % (11.0-16.0); White Blood Count 6.6 X10*3/uL (4.8-10.8)
[2023-01-01 07:21] LABS: Estimated Average Glucose 186 mg/dL; Hemoglobin A1c % 8.1 %
[2023-01-01 07:45] LABS: Alanine Aminotransferase 52 U/L (0-40); Alkaline Phosphatase 98 U/L (39-117); Anion Gap 19 (12-20); Aspartate Amino Transferase 64 U/L (5-37); Bilirubin Total 0.4 mg/dL (0.0-1.0); Blood Urea Nitrogen 10 mg/dL (9-16); Calcium 10.1 mg/dL (8.4-10.2); Carbon Dioxide 19 mmol/L (22-29); Chloride 108 mmol/L (96-108); Cholesterol 122 mg/dL; Estimated Glomerular Filt Rate 57; Glucose Fasting 172 mg/dL (60-99); HDL Cholesterol 40 mg/dL; LDL Cholesterol Calculated 60 mg/dl; Potassium 4.1 mmol/L (3.3-5.1); Sodium 142 mmol/L (135-145); Total Protein 7.3 g/dL (6.5-8.0); Triglycerides 110 mg/dL
[2023-01-01 08:03] LABS: Prostate Specific Antigen 1.66 ng/mL (<0.05-4.0)
[2023-01-01 09:29] LABS: Creatinine Urine 47.97 mg/dL; Microalbum/Creatinine Ratio Ur 89.6 ug/mg cr
== END 2023-01-01 06:33 | disposition home or self-care (01) ==
LOC: HO.LAB 06:32
PROVIDERS: PCP Internal Medicine Medical Oncology; Visit Provider Internal Medicine Medical Oncology
DX: E11.9 Type 2 diabetes mellitus without complications (principal); E78.5 Hyperlipidemia, unspecified; E66.3 Overweight; N40.0 Benign prostatic hyperplasia without lower urinary tract symptoms; Z12.5 Encounter for screening for malignant neoplasm of prostate
CPT/HCPCS: 36415; 80053; 80061; 82043; 83036; 84153; 85025

== ENCOUNTER 2023-02-02 08:29 | Outpatient (AMB) | payer MEDICARE, SELFPAY ==
[2023-02-02 08:31] VITALS: BP 196/93; PULSE 88; BMI 27.7
--- NOTE | 2023-02-02 08:31 | A.OFFVIS_ITS ---
Intake Vital Signs 02/02/23 08:31 Height 5 ft 1 in Weight 146 lb 6.191 oz BMI 27.7 BP 196/93 H Blood Pressure Location Lt brachial Position Sitting Pulse 88 Intake Visit Reasons: screening colo Intake Note: Ray presents in office as a new.patient for a colonoscopy screening PT CC: pt reports having no concerns, 2nd colo pt denies any other GI Issues Registration Specialist Required: No Accompanied by: Self / Same As Patient Allergies No Known Allergies Allergy (Mild, Verified 02/02/23 08:34) NONE HPI screening colo HPI Details 82 year old? male with past medical history PVD, bilateral carotid artery stenosis, diabetes, hyperlipidemia, hypertension, vitamin-D deficiency is here today.? Patient was sent to us by his PCP.? ?Patient had colonoscopy 04/09/2008. Patient had normal colonoscopy then. Patient admitted to the hospital last month due for abdominal pain. CT show sigmoid colon diverticulitis. Questioning mass. Colonoscopy recommended to further evaluate.? Denies any personal or family history of gastrointestinal disease, colon polyps, or cancer.? Denies history of difficulty with sedation or anesthesia in the past.? Negative for history of sleep apnea.? Denies any history of cardiac, renal, pulmonary, or hepatic disease.?? No history of infectious? diseases like hepatitis A, B, C, HIV or tuberculosis.? Patient on low-dose aspirin PFSH Medical History HLD (hyperlipidemia) HTN (hypertension) T2DM (type 2 diabetes mellitus) Type 2 diabetes mellitus with hyperglycemia Vitamin D deficiency Surgical History Hx of hernia repair Family History Father No problems noted. Mother Diabetes Social History Household Members: Spouse Housing: House Do you presently have visiting nurse or other home services: No Alcohol intake: former Patient Tobacco Use Status: Former Tobacco user Quit Date: 32 years ago Cigarette Packs Per Day: 1 Years Smoked: 20 Review of Systems Const Denies weight gain and Denies weight loss ENT Reports no additional complaints, Denies dysphagia and Denies odynophagia Card Reports no additional complaints Resp Reports no additional complaints GI Denies abdominal pain, Denies belching, Denies melena, Denies bloating, Denies change in bowel habits, Denies dysphagia, Denies excessive flatus, Denies dyspepsia, Denies heartburn, Denies diarrhea, Denies loose stools, Denies nausea, Denies odynophagia and Denies vomiting Reports no additional complaints Musc Reports no additional complaints Neuro Reports no additional complaints Psych Reports no additional complaints Endo Reports no additional complaints Physical Exam Vital Signs: Last Vital Signs Pulse 88 02/02/23 08:31 BP 196/93 H 02/02/23 08:31 BMI result Body Mass Index 27.7 Const General: healthy appearing, no acute distress and well developed Nutritional Appearance: well nourished Orientation/consciousness: patient oriented x3 HEENT Head: Yes normal to inspection, Yes normocephalic and Yes atraumatic Face and sinus: Yes normal facial exam Mouth: Normal oral and palatal mucosa present Throat: Yes posterior oropharynx normal, Yes tonsils normal and Yes uvula midline Eyes General: appearance normal, both eyes and all related structures Neck Neck: Yes normal visual inspection, Yes full ROM and Yes trachea midline Thyroid: Thyroid normal Resp Effort & Inspection: normal respiratory effort, able to speak in complete sentences, no tracheal deviation and symmetric chest movement Auscultation: clear to auscultation bilaterally Cardio Rate: regular rate Heart sounds: S1 normal heart sound present and S2 normal heart sound present GI Inspection: Yes normal to inspection and No distended Palpation (GI): Soft to palpation, not firm, nontender and No hepatosplenomegaly present Auscultation: normal bowel sounds General: Yes no CVA tenderness Back/Spine/Pelvis Back: no CVA tenderness Skin General skin exam: elasticity normal, turgor normal and dry skin Neuro General: patient oriented x3 Psych Appearance: grossly normal Mental Status: mental status grossly normal Speech and movement: Normal speech and movement present Assessment & Plan Assessment & Plan (1) Diverticulitis of sigmoid colon: Code(s): K57.32 - Diverticulitis of large intestine without perforation or abscess without bleeding Plan: Patient admitted for diverticulitis last month. Treated with antibiotics. Patient reports that he has been doing well. Denies any abdominal pain or discomfort. Reports that he has been moving his bowels every day since discharge. (2) Colon abnormality: Code(s): K63.9 - Disease of intestine, unspecified Plan: Patient denies any GI, cardiac or respiratory symptoms.? Denies any issues with anesthesia in the past.? Denies any history of sleep apnea.? No history infectious diseases in the past or present.? Patient is on low-dose aspirin. Patient is following up with Dr. Wiseman regarding his bypass and carotid arteries. Please call his office to make sure that patient is cleared for the procedure.? Patient denies any presyncope, syncope. No family or personal history of colon cancer or polyps.? Patient denies melena, hematochezia, unintentional weight loss or ribbon like stools.? Discussed at length the pre-procedure,? prep, diet & medications as well as what to expect prior, during and after the procedure.?? Stressed the importance of good bowel prep. ?Recommended the use of Vaseline or Calmoseptine OTC & baby wipes with bowel movements to promote comfort.? ?Patient verbalizes understanding and agrees to plan of care.? He was given the opportunity to ask questions and all questions answered.? We will see him after the procedure.? Medications: New bisacodyl (Dulcolax (bisacodyl)) take 2 tabs at noon the day before your colonoscopy 10 mg (2 x 5 mg) PO ONCE 1 day 2 tabs 0RF Z12.11 - Encounter for screening for malignant neoplasm of colon polyethylene glycol 3350 (Miralax) As directed by gastroenterology department at [facility] 238 grams PO ONCE 238 grams 0RF Z12.11 - Encounter for screening for malignant neoplasm of colon Discontinued dulaglutide 4.5 mg (0.5 mL) subcut QWEEK 90 days 6 mL 1RF Coding Level of Care Code New Pt Level 3 (51541) Diagnoses Diverticulitis of sigmoid colon K57.32 Colon abnormality K63.9 Time Spent (min) 40 Comment 30 minutes spent with patient and additional 10 minutes spent reviewing his records
== END 2023-02-02 08:59 | disposition home or self-care (01) ==
PROVIDERS: PCP Internal Medicine Medical Oncology; Visit Provider Nurse Practitioner Family
DX: K57.32 Diverticulitis of large intestine without perforation or abscess without bleeding (principal); K63.9 Disease of intestine, unspecified
CPT/HCPCS: 99203

== ENCOUNTER → 2023-02-02 08:29 | Outpatient (BNVA) | payer MEDICARE, SELFPAY | PROVIDERS: PCP Internal Medicine Medical Oncology; Visit Provider Nurse Practitioner Family | DX: K57.32 Diverticulitis of large intestine without perforation or abscess without bleeding (principal); K63.9 Disease of intestine, unspecified | CPT/HCPCS: 99202 ==

== ENCOUNTER 2023-02-13 12:16 | Outpatient (REF) | payer MEDICARE, SELFPAY ==
--- NOTE | ~2023-02-13 | US_ITS ---
EXAMINATION: US AURA complete, US arterial duplex LE BI CLINICAL INFORMATION: Peripheral vascular disease, unspecified COMPARISON: Ultrasound AURA/lower extremity arterial duplex 07/06/2021 TECHNIQUE: Ankle pulse volume recordings, ankle pressure measurements and ankle brachial indices were obtained of the lower extremity arterial system bilaterally in addition to duplex Doppler techniques with wave form analysis and measurement of velocities in the common femoral, profunda femoral, superficial femoral, popliteal, tibial and peroneal arteries. The study was performed only at rest. FINDINGS: RIGHT LE. THE RIGHT ANKLE-BRACHIAL INDEX IS: 1.01 noncompressibility/calcification. >0.97-1.25 = normal - no significant arterial disease 0.75-0.96 = mild peripheral arterial disease 0.5-0.74 = moderate peripheral arterial disease <0.50 = severe peripheral arterial disease <0.30 = critical arterial disease 2. SEGMENTAL PRESSURES (mmHg): Ankle: PT occluded, previously not available, DP 181, previously 136 3. PVR WAVEFORMS: Ankle: Abnormal 4. DIRECT DUPLEX: Common femoral artery: No flow seen, previously 152 cm/sec and monophasic. Profunda femoris artery: 107 cm/s, Multiphasic, previously 172 cm/sec and monophasic. Superficial femoral artery (proximal): 45.7 cm/s, biphasic, previously 119 cm/sec and biphasic. Superficial femoral artery (mid): 91.8 cm/s, biphasic, previously 63.9 cm/sec and biphasic. Superficial femoral artery (distal): 74.6 cm/s, biphasic, previously 62.5 cm/sec and multiphasic. Popliteal artery: 57.5 cm/s, biphasic, previously 80.3 cm/sec biphasic. Posterior tibial artery: 43.3 cm/s, Multiphasic, previously 31.4 cm/sec and biphasic. LEFT LE. THE LEFT ANKLE-BRACHIAL INDEX IS: 1.12 (higher of the DP/PT) >0.97-1.25 = normal - no significant arterial disease 0.75-0.96 = mild peripheral arterial disease 0.5-0.74 = moderate peripheral arterial disease <0.50 = severe peripheral arterial disease <0.30 = critical arterial disease 2. SEGMENTAL PRESSURES: Ankle: PT 201, previously 140, DP 200, previously 142 3. PVR WAVEFORMS: Ankle: Abnormal 4. DIRECT DUPLEX: Common femoral artery: 204 cm/s, Multiphasic, previously 159 cm/sec and biphasic. Profunda femoris artery: 67.5 cm/s, biphasic, previously 104 cm/sec and biphasic. Superficial femoral artery (proximal): 101 cm/s, biphasic, previously 131 cm/sec and biphasic. Superficial femoral artery (mid): 120 cm/s, biphasic, previously 119 cm/sec and biphasic. Superficial femoral artery (distal): 149 cm/s, biphasic, previously 119 cm/sec and biphasic. Popliteal artery: 145 cm/s, biphasic, previously 74.3 cm/sec and biphasic. Posterior tibial artery: 76.3 cm/s, biphasic, previously 70.4 cm/sec and biphasic. [id number] FEMOROFEMORAL BYPASS GRAFT: Inflow artery: 204 cm/sec and triphasic, previously 234 cm/s and triphasic. Proximal anastomosis: 221 cm/sec and triphasic, previously 209 cm/s and triphasic. Proximal bypass graft: 140 cm/sec biphasic, previously 183 cm/s and triphasic. Mid bypass graft: 89 cm/sec and biphasic, previously 98 cm/s and triphasic. Distal bypass graft: 432 cm/sec biphasic, previously 93 cm/s and triphasic. Distal anastomosis: 166 cm/sec and biphasic, previously 513 cm/s and triphasic. Outflow artery: No flow seen, previously 152 cm/s and monophasic. US/US arterial duplex LE BI IMPRESSION: 1. There is an elevated velocity at the distal aspect of the left to right femorofemoral bypass graft. There is no flow seen below the graft at the right common femoral artery/superficial femoral artery anastomosis and in the right EDGE BRUSHER. These findings are worsened from prior and suggest a distal severe stenosis. 2. Bilateral anterior tibial arteries are occluded distally, as before. Bilateral peroneal arteries are patent, as before.
--- NOTE | ~2023-02-13 | US_ITS ---
EXAMINATION: US AURA complete, US arterial duplex LE BI CLINICAL INFORMATION: Peripheral vascular disease, unspecified COMPARISON: Ultrasound AURA/lower extremity arterial duplex 07/06/2021 TECHNIQUE: Ankle pulse volume recordings, ankle pressure measurements and ankle brachial indices were obtained of the lower extremity arterial system bilaterally in addition to duplex Doppler techniques with wave form analysis and measurement of velocities in the common femoral, profunda femoral, superficial femoral, popliteal, tibial and peroneal arteries. The study was performed only at rest. FINDINGS: RIGHT LE. THE RIGHT ANKLE-BRACHIAL INDEX IS: 1.01 noncompressibility/calcification. >0.97-1.25 = normal - no significant arterial disease 0.75-0.96 = mild peripheral arterial disease 0.5-0.74 = moderate peripheral arterial disease <0.50 = severe peripheral arterial disease <0.30 = critical arterial disease 2. SEGMENTAL PRESSURES (mmHg): Ankle: PT occluded, previously not available, DP 181, previously 136 3. PVR WAVEFORMS: Ankle: Abnormal 4. DIRECT DUPLEX: Common femoral artery: No flow seen, previously 152 cm/sec and monophasic. Profunda femoris artery: 107 cm/s, Multiphasic, previously 172 cm/sec and monophasic. Superficial femoral artery (proximal): 45.7 cm/s, biphasic, previously 119 cm/sec and biphasic. Superficial femoral artery (mid): 91.8 cm/s, biphasic, previously 63.9 cm/sec and biphasic. Superficial femoral artery (distal): 74.6 cm/s, biphasic, previously 62.5 cm/sec and multiphasic. Popliteal artery: 57.5 cm/s, biphasic, previously 80.3 cm/sec biphasic. Posterior tibial artery: 43.3 cm/s, Multiphasic, previously 31.4 cm/sec and biphasic. LEFT LE. THE LEFT ANKLE-BRACHIAL INDEX IS: 1.12 (higher of the DP/PT) >0.97-1.25 = normal - no significant arterial disease 0.75-0.96 = mild peripheral arterial disease 0.5-0.74 = moderate peripheral arterial disease <0.50 = severe peripheral arterial disease <0.30 = critical arterial disease 2. SEGMENTAL PRESSURES: Ankle: PT 201, previously 140, DP 200, previously 142 3. PVR WAVEFORMS: Ankle: Abnormal 4. DIRECT DUPLEX: Common femoral artery: 204 cm/s, Multiphasic, previously 159 cm/sec and biphasic. Profunda femoris artery: 67.5 cm/s, biphasic, previously 104 cm/sec and biphasic. Superficial femoral artery (proximal): 101 cm/s, biphasic, previously 131 cm/sec and biphasic. Superficial femoral artery (mid): 120 cm/s, biphasic, previously 119 cm/sec and biphasic. Superficial femoral artery (distal): 149 cm/s, biphasic, previously 119 cm/sec and biphasic. Popliteal artery: 145 cm/s, biphasic, previously 74.3 cm/sec and biphasic. Posterior tibial artery: 76.3 cm/s, biphasic, previously 70.4 cm/sec and biphasic. [id number] FEMOROFEMORAL BYPASS GRAFT: Inflow artery: 204 cm/sec and triphasic, previously 234 cm/s and triphasic. Proximal anastomosis: 221 cm/sec and triphasic, previously 209 cm/s and triphasic. Proximal bypass graft: 140 cm/sec biphasic, previously 183 cm/s and triphasic. Mid bypass graft: 89 cm/sec and biphasic, previously 98 cm/s and triphasic. Distal bypass graft: 432 cm/sec biphasic, previously 93 cm/s and triphasic. Distal anastomosis: 166 cm/sec and biphasic, previously 513 cm/s and triphasic. Outflow artery: No flow seen, previously 152 cm/s and monophasic. US/US AURA complete IMPRESSION: 1. There is an elevated velocity at the distal aspect of the left to right femorofemoral bypass graft. There is no flow seen below the graft at the right common femoral artery/superficial femoral artery anastomosis and in the right LEASE ATTENDANT. These findings are worsened from prior and suggest a distal severe stenosis. 2. Bilateral anterior tibial arteries are occluded distally, as before. Bilateral peroneal arteries are patent, as before.
== END 2023-02-13 12:17 | disposition home or self-care (01) ==
LOC: HO.US 12:16
PROVIDERS: PCP Internal Medicine Medical Oncology; Visit Provider Surgery Vascular Surgery
DX: I70.213 Atherosclerosis of native arteries of extremities with intermittent claudication, bilateral legs (principal)
CPT/HCPCS: 93923; 93925

== ENCOUNTER 2023-02-20 12:20 | Outpatient (REF) | payer MEDICARE, SELFPAY ==
--- NOTE | ~2023-02-20 | US_ITS ---
EXAMINATION: US EXTRACRANIAL CAROTID DUPLEX, BILATERAL CLINICAL INFORMATION: Carotid stenosis. COMPARISON: Carotid ultrasound 01/27/2022. TECHNIQUE: Real-time ultrasound and Doppler techniques (integrating B-mode 2-D vascular images, Doppler spectral analysis and color-flow Doppler imaging) were utilized to interrogate the extracranial carotid arteries, the vertebral arteries and proximal subclavian arteries bilaterally. The degree of stenosis is determined by criteria similar to NASCET. FINDINGS: Right Side: 1. There is calcified atherosclerotic plaque seen in the bifurcation/proximal ICA region. 2. The common carotid artery PSV proximally is 74 cm/s and distally 46 cm/s. 3. The proximal internal carotid artery velocities are 155 cm/s systolic and 42 cm/s diastolic. 4. The proximal external carotid artery PSV is 83 cm/s. 5. The vertebral artery shows antegrade flow. 6. The subclavian artery waveforms are biphasic. Left Side: 1. There is mild atherosclerotic plaque seen in the bifurcation/proximal ICA region. 2. The common carotid artery PSV proximally is 106 cm/s and distally 100 cm/s. 3. The proximal internal carotid artery velocities are 151 cm/s systolic and 50 cm/s diastolic. 4. The proximal external carotid artery PSV is 94 cm/s. 5. The vertebral artery shows antegrade flow. 6. The subclavian artery waveforms are biphasic. US/US carotid duplex BI IMPRESSION: 1. RIGHT: Moderate, hemodynamically significant stenosis of the proximal right internal carotid artery corresponding to a 50-79% stenosis by velocity criteria. 2. LEFT: Moderate, hemodynamically significant stenosis of the proximal left internal carotid artery corresponding to a 50-79% stenosis by velocity criteria. 3. There is no change in the category severity of disease when compared to the previous study dated 01/27/2022.
== END 2023-02-20 12:21 | disposition home or self-care (01) ==
LOC: HO.US 12:20
PROVIDERS: PCP Internal Medicine Medical Oncology; Visit Provider Surgery Vascular Surgery
DX: I65.23 Occlusion and stenosis of bilateral carotid arteries (principal)
CPT/HCPCS: 93880

== ENCOUNTER 2023-03-01 10:27 | Outpatient (AMB) | payer MEDICARE, SELFPAY ==
[2023-03-01 10:31] VITALS: BP 148/74; BMI 27.2
--- NOTE | 2023-03-01 10:31 | MHC.OFFVIS ---
Intake Vital Signs 03/01/23 10:31 03/01/23 10:40 Height 5 ft 1 in Weight 144 lb BMI 27.2 BP 148/74 H 142/76 H Blood Pressure Location Rt brachial Lt brachial Position Sitting Sitting Intake Visit Reasons: 1 yr follow up art US 02/13/23 & carotid US 02/20 Intake Note: 1 year follow up Bilateral LE arterial US 02/13/23 and carotid US 02/20/2023. Pt states he has no complaints. Has history of fem-fem bypass in 1989 @ [facility], states that Right LE aches when walking far distances but thats his only complaint. No blurred vision or dizziness Accompanied by: Self / Same As Patient Allergies No Known Allergies Allergy (Mild, Verified 03/01/23 10:36) NONE HPI 1 yr follow up art US 02/13/23 & carotid US 02/20 HPI Details Pleasant 82-year-old gentleman presents for routine surveillance regarding his carotids. He remains asymptomatic from that. Of note he had a prior fem-fem bypass done in 1989. This was done at [facility]. He reports no difficulty ambulating. At the current time doing relatively well. [facility] Medical History Type 2 diabetes mellitus with hyperglycemia Vitamin D deficiency HLD (hyperlipidemia) HTN (hypertension) T2DM (type 2 diabetes mellitus) Surgical History Hx of hernia repair Family History Father No problems noted. Mother Diabetes Social History Household Members: Spouse Housing: House Do you presently have visiting nurse or other home services: No Alcohol intake: former Patient Tobacco Use Status: Former Tobacco user Quit Date: 32 years ago Cigarette Packs Per Day: 1 Years Smoked: 20 Review of Systems Const All systems reviewed & are unremarkable except as noted in HPI and below Reports no additional complaints ENT Reports Normal hearing present Card Denies chest pain, Denies chest pain at rest, Denies chest pain with activity and Denies pedal edema Resp Denies cough GI Denies abdominal pain Musc Denies abnormal gait, Denies muscle cramps and Denies radiating pain into limb Skin/Breast Denies skin ulcer and Denies wounds Neuro Reports Normal hearing present and Denies abnormal gait Psych Reports no additional complaints Physical Exam Vital Signs: Last Vital Signs BP 142/76 H 03/01/23 10:40 BMI result Body Mass Index 27.2 Const General: cooperative, healthy appearing and comfortable Orientation/consciousness: oriented to person, oriented to place and oriented to time HEENT Head: Yes normal to inspection Neck Neck: Yes normal visual inspection Carotids: no bruits Chest Chest palpation & inspection: normal inspection of the chest Resp Effort & Inspection: normal respiratory effort and able to speak in complete sentences Auscultation: clear to auscultation bilaterally, no crackles, no rales, no rhonchi and no wheezes Cardio Rate: regular rate Rhythm: regular rhythm Heart sounds: S1 normal heart sound present and S2 normal heart sound present Bruits: no carotid bruits Peripheral pulses: Peripheral pulses 2+ throughout GI Inspection: Yes normal to inspection Skin Wounds: no wounds Hair: normal Neuro General: oriented to person, oriented to place and oriented to time Cranial nerves: Yes CN's II-XII intact bilaterally and Yes Normal hearing present Cognition (Neuro): normal cognition Motor exam (neuro): 5/5 motor strength present throughout Extrem Other: venous exam: No significant superficial varicosities or spider telangiectasias, minimal edema General: No clubbing, No cyanosis and No edema Psych Appearance: grossly normal Mental Status: mental status grossly normal Speech and movement: Normal speech and movement present Results Reviewed Results Reviewed: Carotid testing dated 02/20/2023 demonstrates bilateral 50-79% stenosis peak systolic on the right of 155 and on the left of 151. I suspected is more towards the lower range. Written report and images were reviewed Arterial testing dated 02/13/2023 demonstrates AURA on the right of 1.01 and on the left of 1.12. There is concern of some disease on the right side. Written report and images were reviewed. Assessment & Plan Assessment & Plan (1) PVD (peripheral vascular disease): Comment: 1989 - femoral to femoral bypass performed at [facility] Code(s): I73.9 - Peripheral vascular disease, unspecified Plan: In short patient has stable claudication. I did review the pathophysiology of peripheral vascular disease with the patient. In addition we did discuss routine conservative measures including a healthy diet and the importance of exercise and ambulation. We did discuss risk factor modification. The patient will continue to to follow-up with surveillance follow-up in approximately 6 months. Thank you for allowing us to participate in this patient's care. If there are any questions or concerns please do not hesitate to contact us. (2) Bilateral carotid artery stenosis: Code(s): I65.23 - Occlusion and stenosis of bilateral carotid arteries Plan: In short patient has asymptomatic carotid disease. We have reviewed signs and symptoms of a stroke. We also discussed risk factor modification inclusive a healthy diet low in cholesterol. The patient will follow up with us with surveillance ultrasound of the carotids 1 year. Should there be any changes or signs or symptoms of a stroke we will be happy to see them back sooner. Thank you for allowing us to participate in this patient's care. If there are any questions or concerns please do not hesitate to contact us. This will be ordered on his next PA D follow-up in 6 months Orders: Orders US arterial duplex LE BI 6 Months I73.9 - Peripheral vascular disease, unspecified Coding Level of Care Code Est Pt Level 4 (53920) Diagnoses PVD (peripheral vascular disease) I73.9 Bilateral carotid artery stenosis I65.23
[2023-03-01 10:40] VITALS: BP 142/76
== END 2023-03-01 11:05 | disposition home or self-care (01) ==
PROVIDERS: PCP Internal Medicine Medical Oncology; Visit Provider Surgery Vascular Surgery
DX: I73.9 Peripheral vascular disease, unspecified (principal); I65.23 Occlusion and stenosis of bilateral carotid arteries
CPT/HCPCS: 99213

== ENCOUNTER → 2023-03-01 10:27 | Outpatient (BNVA) | payer MEDICARE, SELFPAY | PROVIDERS: PCP Internal Medicine Medical Oncology; Visit Provider Surgery Vascular Surgery | DX: I73.9 Peripheral vascular disease, unspecified (principal); I65.23 Occlusion and stenosis of bilateral carotid arteries | CPT/HCPCS: 99212 ==

== ENCOUNTER 2023-03-29 12:01 | Day surgery (SDC) | payer MEDICARE, SELFPAY ==
[2023-03-26 14:52] VITALS: BMI 27.2
--- NOTE | 2023-03-28 12:59 | P.CONAN_ITS ---
Documented by User: Cleopatra Alonso NP 03/28/23 13:06 HPI - Anesthesia Eval Consult details Narrative: 82yo M for Colonoscopy ? last dose of trulicity Remote hx of fem-fem bypass. Follows Dr Wiseman. Last seen 02/2023. Stable for surveillance in 6 months Anesthesia Pre-Procedure Meds Is the patient on any of the following meds?: Dulaglutide (Trulicity) PMFSH Active Problems Active Problems: All Active Problems (Updated 01/07/23 @ 00:23 by Trinity Cochran) Diverticulitis of sigmoid colon (Acute) PVD (peripheral vascular disease) (Acute) Bilateral carotid artery stenosis (Acute) Type 2 diabetes mellitus with hyperglycemia (Acute) HLD (hyperlipidemia) (Acute) HTN (hypertension) (Acute) Vitamin D deficiency (Acute) T2DM (type 2 diabetes mellitus) (Acute) Past Medical History Medical History Type 2 diabetes mellitus with hyperglycemia Vitamin D deficiency HLD (hyperlipidemia) HTN (hypertension) T2DM (type 2 diabetes mellitus) Family History Family History Father No problems noted. Mother Diabetes Surgical History Surgical History H/O colonoscopy Hx of hernia repair Social History Social History Household Members: Spouse Housing: House Do you presently have visiting nurse or other home services: No Alcohol intake: former Patient Tobacco Use Status: Former Tobacco user Quit Date: 32 years ago Cigarette Packs Per Day: 1 Years Smoked: 20 Are you DNR?: No Advance Directives: No Advance Directives Information Provided: Yes Nutrition Risks: No Nutritional Risk Meds Allergies Allergy/AdvReac Type Severity Reaction Status Date / Time No Known Allergies Allergy Mild NONE Verified 03/29/23 12:50 Home Medications Medication Instructions Recorded Confirmed Last Taken Type metformin 1,000 mg tablet 1,000 mg PO BID 06/17/20 03/26/23 12/29/22 History omeprazole 20 mg capsule,delayed 20 mg PO DAILY 06/17/20 03/26/23 12/29/22 History release simvastatin 40 mg tablet 40 mg PO BEDTIME 06/17/20 03/26/23 12/28/22 History aspirin 81 mg tablet,delayed 81 mg PO DAILY 09/29/20 03/26/23 12/29/22 History release (Adult Low Dose Aspirin) cyanocobalamin (vitamin B-12) 1,000 mcg PO DAILY 06/16/21 03/26/23 12/29/22 History 1,000 mcg tablet blood-glucose meter (FreeStyle 02/24/22 12/29/22 12/29/22 History Lite Meter kit) dulaglutide 4.5 mg/0.5 mL 4.5 mg subcut TU 12/29/22 03/26/23 12/26/22 History subcutaneous pen injector (Trulicity) multivitamin 1 tab PO Q48H 12/29/22 03/26/23 12/29/22 History Exam Exam Date and Time: March 28, 2023 1259 Height,Weight and Vital Signs: Height 5 ft 1 in Weight 65.317 kg Pertinent Lab Results Pertinent Lab Results: Laboratory Tests 01/01/23 06:42 WBC 6.6 Hgb 11.2 L Hct 35.4 L Plt Count 250 D Sodium 142 Potassium 4.1 Chloride 108 Carbon Dioxide 19 L BUN 10 Creatinine 1.21 Narrative Narrative: Per 02/2023 vascular note: Carotid testing dated 02/20/2023 demonstrates bilateral 50-79% stenosis peak systolic on the right of 155 and on the left of 151. I suspected is more towards the lower range. Written report and images were reviewed Arterial testing dated 02/13/2023 demonstrates AURA on the right of 1.01 and on the left of 1.12. There is concern of some disease on the right side. Written report and images were reviewed. Assessment and Plan Assessment Anesthesia Assessment: Chart Reviewed Documented by User: Jose Dhaliwal MD 03/29/23 13:18 HPI - Anesthesia Eval Anesthesia Pre-Procedure Meds Is the patient on any of the following meds?: Dulaglutide (Trulicity) (last dose 9 daysago.) If Yes to any meds - educate patient: Pt education - increased risk of asp iration PMFSH Past Medical History Medical History Type 2 diabetes mellitus with hyperglycemia Vitamin D deficiency HLD (hyperlipidemia) HTN (hypertension) T2DM (type 2 diabetes mellitus) Cognitive capacity: excellent Family History Family History Father No problems noted. Mother Diabetes Family history of problems with anesthesia: No Surgical History Surgical History H/O colonoscopy Hx of hernia repair History of Problems with Anesthesia: No Social History Social History Household Members: Spouse Housing: House Do you presently have visiting nurse or other home services: No Alcohol intake: former Patient Tobacco Use Status: Former Tobacco user Quit Date: 32 years ago Cigarette Packs Per Day: 1 Years Smoked: 20 Are you DNR?: No Advance Directives: No Advance Directives Information Provided: Yes Nutrition Risks: No Nutritional Risk Meds Allergies Allergy/AdvReac Type Severity Reaction Status Date / Time No Known Allergies Allergy Mild NONE Verified 03/29/23 12:50 Home Medications Medication Instructions Recorded Confirmed Last Taken Type metformin 1,000 mg tablet 1,000 mg PO BID 06/17/20 03/26/23 12/29/22 History omeprazole 20 mg capsule,delayed 20 mg PO DAILY 06/17/20 03/26/23 12/29/22 History release simvastatin 40 mg tablet 40 mg PO BEDTIME 06/17/20 03/26/23 12/28/22 History aspirin 81 mg tablet,delayed 81 mg PO DAILY 09/29/20 03/26/23 12/29/22 History release (Adult Low Dose Aspirin) cyanocobalamin (vitamin B-12) 1,000 mcg PO DAILY 06/16/21 03/26/23 12/29/22 History 1,000 mcg tablet blood-glucose meter (FreeStyle 02/24/22 12/29/22 12/29/22 History Lite Meter kit) dulaglutide 4.5 mg/0.5 mL 4.5 mg subcut TU 07/28/23 10/23/23 07/25/23 History subcutaneous pen injector (Trulicity) multivitamin 1 tab PO Q48H 12/29/22 03/26/23 12/29/22 History Exam Airway Mallampati Class: II TM Dist: >3cm Neck ROM: Full Denture: Upper and Lower Heart: ok Lungs: ok Assessment and Plan Assessment Anesthesia Assessment: Anesthesia Plan Discussed Final Anesthetic Review Family History of Problems with Anesthesia: No History of Problems with Anesthesia: No NPO: Yes ASA Class: III Final Preanesthetic Review: No Changes in Pt Med Stat, Meds/Allgs Chart Reviewed, Consent Obtained/Reviewed and Anes Risks/Benef Reviewed Patient Risk: Intermediate Procedure Risk: Low Anesthetic Plan Anesthetic Plan: MAC: and Agree w/ Assess. and Plan Disposition: Standard PACU
[2023-03-29] MEDS: Lactated Ringers 1,000 ML 100 ML IVCONT (12:28)
[2023-03-29 12:48] VITALS: BP 158/87; PULSE 92; RESP 18; TEMP 36.7; O2SAT 96
[2023-03-29 12:50] LABS: Glucose, Whole Blood 142 mg/dL (60-115)
--- NOTE | 2023-03-29 13:45 | P.HPSUR_ITS ---
Pre-Procedural Eval Section A Date of Service: 03/29/23 Section B Chief Complaint: Diverticulitis of large intestine,Disease of intes Relevant Family History (Specify if Yes): No Relevant Social History: None Present Medications: see Short Stay Collaborative assessment Medical History: Significant History (Type 2 diabetes mellitus with hyperglycemia Vitamin D deficiency HLD (hyperlipidemia) HTN (hypertension) T2DM (type 2 diabetes mellitus)) History of Previous Operations: Relevant previous surgery/procedure and date(s) (hernia repair, colonoscopy ) Allergies: Allergies Allergy/AdvReac Type Severity Reaction Status Date / Time No Known Allergies Allergy Mild NONE Verified 03/29/23 12:50 Review of Systems Sugical H&P ROS: Negative: Constitution, Cardiovascular, Respiratory, Neurological, Psychiatric, Hem-Onc, Allergic/Immunologic, Gastrointestinal, G enitourinary, Musculoskeletal, Integumentary, Endocrine and Eyes/Ears/Nose/Throat Exam Surgical H&P Exam: Normal: HEENT, Normal: Heart, Normal: Lungs, Normal: Extremities, Normal: Abdomen, Normal: Skin and Normal: Neurological Plan Diagnosis/Plan: Unchanged I have reviewed the history and physical and performed a pertinent physical examination on my patient. No changes have occurred unless specified. Time Spent With Patient Time: Total time managing care of this patient today ____ minutes.
--- NOTE | 2023-03-29 13:47 | W.PM.OPN ---
Operative Note Operative Note Date of Service: 03/29/23 Narrative: Operative Information Procedure Description: Colonoscopy Indication: abn imaging and hx of diverticulitis Anesthesia: MAC COLONOSCOPY Instrument: Olympus variable stiffness pediatric scope 190L Colonoscopy Monitoring: Vital signs and clinical assessment, continuous EKG monitoring, Pulse oximetry, Carbon Dioxide monitoring and blood pressure monitoring were done throughout the procedure. Colon withdrawal time was 10 minutes. Procedure: The patient was placed in the left lateral decubitis position and pre-procedure medications were administered. After a digital rectal examination of the ano-rectum, the video colonoscope was inserted into the rectum and advanced through the colon to the cecum/TI. The colonoscope was slowly withdrawn in a retrograde panoramic fashion and the colon mucosa was carefully examined including a retroflexed view of the rectum. Findings and interventions are described below. Procedure Difficulty: easy Findings: Terminal Ileum-normal Cecum: laterally spreading granular polyp 10-12 mm , lifted with eleview injection and then removed with hot snare with one clip applied to close defect Ascending Colon: normal Transverse Colon - moderate diverticulosis Descending Colon: moderate diverticulosis Sigmoid Colon: severe diverticulosis with large mouthed tics Rectum: Retroflexion with small internal hemorrhoids, grade I Anorectum - normal Colon preparation: [place] Bowel Preparation Scale Right colon; 2 Transverse colon: 2 Left colon; 2 (0 = Unprepared colon segment with mucosa not seen due to solid stool that cannot be cleared. 1 = Portion of mucosa of the colon segment seen, but other areas of the colon segment not well seen due to staining, residual stool and/or opaque liquid. 2 = Minor amount of residual staining, small fragments of stool and/or opaque liquid, but mucosa of colon segment seen well. 3 = Entire mucosa of colon segment seen well with no residual staining, small fragments of stool or opaque liquid) Impression and Post Procedure Diagnosis: polyp internal hemorrhoids diverticular disease Plan: High fiber diet leaflet Avoid straining at stool, epsom salts and sitz bath, anusol supps or cream Repeat Colonoscopy in 4-5 years if health allows or earlier if clinically indicated Above findings were reviewed with the patient and relevant handouts were provided if indicated.
--- NOTE | 2023-03-29 13:58 | PC.NURSE ---
okay per applications support specialist that patient wear dentures into procedure.
[2023-03-29 14:19] VITALS: BP 103/47; PULSE 81; RESP 21; TEMP 36.1; O2SAT 98
[2023-03-29 14:34] VITALS: BP 125/69; PULSE 80; RESP 18; O2SAT 99
[2023-03-29 14:49] VITALS: BP 152/84; PULSE 83; RESP 17; TEMP 36.1; O2SAT 99
--- NOTE | 2023-03-29 15:20 | P.CONAN_ITS ---
HPI - Anesthesia Eval Consult details Narrative: 82-year-old male presenting for colonoscopy. Medically optimized [facility] Active Problems Active Problems: All Active Problems (Updated 01/07/23 @ 00:23 by Trinity Cochran) Diverticulitis of sigmoid colon (Acute) PVD (peripheral vascular disease) (Acute) Bilateral carotid artery stenosis (Acute) Type 2 diabetes mellitus with hyperglycemia (Acute) HLD (hyperlipidemia) (Acute) HTN (hypertension) (Acute) Vitamin D deficiency (Acute) T2DM (type 2 diabetes mellitus) (Acute) Past Medical History Medical History Type 2 diabetes mellitus with hyperglycemia Vitamin D deficiency HLD (hyperlipidemia) HTN (hypertension) T2DM (type 2 diabetes mellitus) Family History Family History Father No problems noted. Mother Diabetes Family history of problems with anesthesia: No Surgical History Surgical History H/O colonoscopy Hx of hernia repair History of Problems with Anesthesia: No Social History Social History Household Members: Spouse Housing: House Do you presently have visiting nurse or other home services: No Alcohol intake: former Patient Tobacco Use Status: Former Tobacco user Quit Date: 32 years ago Cigarette Packs Per Day: 1 Years Smoked: 20 Meds Allergies Allergy/AdvReac Type Severity Reaction Status Date / Time No Known Allergies Allergy Mild NONE Verified 03/29/23 12:50 Home Medications Medication Instructions Recorded Confirmed Last Taken Type metformin 1,000 mg tablet 1,000 mg PO BID 06/17/20 03/26/23 12/29/22 History omeprazole 20 mg capsule,delayed 20 mg PO DAILY 06/17/20 03/26/23 12/29/22 History release simvastatin 40 mg tablet 40 mg PO BEDTIME 06/17/20 03/26/23 12/28/22 History aspirin 81 mg tablet,delayed 81 mg PO DAILY 09/29/20 03/26/23 12/29/22 History release (Adult Low Dose Aspirin) cyanocobalamin (vitamin B-12) 1,000 mcg PO DAILY 06/16/21 03/26/23 12/29/22 History 1,000 mcg tablet blood-glucose meter (FreeStyle 02/24/22 12/29/22 12/29/22 History Lite Meter kit) dulaglutide 4.5 mg/0.5 mL 4.5 mg subcut TU 12/29/22 03/26/23 12/26/22 History subcutaneous pen injector (Trulicity) multivitamin 1 tab PO Q48H 12/29/22 03/26/23 12/29/22 History Exam Exam Date and Time: March 29, 2023 1520 Height,Weight and Vital Signs: Height 5 ft 1 in Weight 144 lb Last Vital Signs Temp 97 F 03/29/23 14:49 Pulse 83 03/29/23 14:49 Resp 17 03/29/23 14:49 BP 152/84 H 03/29/23 14:49 Pulse Ox 99 03/29/23 14:49 O2 Del Method Room Air 03/29/23 14:49 Pertinent Lab Results Pertinent Lab Results: Laboratory Tests 03/29/23 12:30 POC Glucose 142 H Airway Mallampati Class: II TM Dist: >3cm Neck ROM: Full Loose/Missing/Broken Teeth: Yes Assessment and Plan Assessment Anesthesia Assessment: Anesthesia Plan Discussed Final Anesthetic Review Family History of Problems with Anesthesia: No History of Problems with Anesthesia: No NPO: Yes ASA Class: III Final Preanesthetic Review: No Changes in Pt Med Stat, Meds/Allgs Chart Reviewed, Consent Obtained/Reviewed and Anes Risks/Benef Reviewed Patient Risk: Intermediate Procedure Risk: Low Anesthetic Plan Anesthetic Plan: MAC: Disposition: Standard PACU
== END 2023-03-29 15:07 | disposition home or self-care (01) ==
PROVIDERS: PCP Internal Medicine Medical Oncology; Visit Provider Internal Medicine Gastroenterology
PROC: 0DJD8ZZ Inspection of Lower Intestinal Tract, Via Natural or Artificial Opening Endoscopic (ICD-10-PCS; CPT 45378; principal; 2023-03-29 14:50)
DX: Z12.11 Encounter for screening for malignant neoplasm of colon (principal); D12.0 Benign neoplasm of cecum; K57.30 Diverticulosis of large intestine without perforation or abscess without bleeding; K64.0 First degree hemorrhoids; K63.9 Disease of intestine, unspecified; E11.9 Type 2 diabetes mellitus without complications; I10 Essential (primary) hypertension; E78.5 Hyperlipidemia, unspecified; E55.9 Vitamin D deficiency, unspecified; Z79.82 Long term (current) use of aspirin; Z87.891 Personal history of nicotine dependence; Z79.84 Long term (current) use of oral hypoglycemic drugs; Z79.899 Other long term (current) drug therapy
CPT/HCPCS: 45385; 45381; 82947; 88305

== ENCOUNTER → 2023-03-29 12:01 | Outpatient (BNV) | payer MEDICARE, SELFPAY | PROVIDERS: PCP Internal Medicine Medical Oncology; Visit Provider Internal Medicine Gastroenterology | DX: K57.90 Diverticulosis of intestine, part unspecified, without perforation or abscess without bleeding (principal); K64.0 First degree hemorrhoids; D12.0 Benign neoplasm of cecum; R93.3 Abnormal findings on diagnostic imaging of other parts of digestive tract | CPT/HCPCS: 45381; 45385 ==

== ENCOUNTER 2023-04-16 08:45 | Outpatient (AMB) | payer MEDICARE, SELFPAY ==
--- NOTE | 2023-04-16 08:50 | A.OFFVIS_ITS ---
Intake Vital Signs 04/16/23 08:51 Height 5 ft 1 in Weight 149 lb 7.574 oz BMI 28.2 BP 160/58 H Blood Pressure Location Rt brachial Position Sitting Pulse 93 Intake Visit Reasons: s/p colon Intake Note: Patient presents to in office visit today in follow up of colonoscopy. CC: Patient reports doing well and denies having any GI symptoms today. He underwent colonoscopy on 03/30/[address] Aguero. Allergies No Known Allergies Allergy (Mild, Verified 03/29/23 12:50) NONE HPI s/p colon HPI Details LAST VISIT Diverticulitis of sigmoid colon Patient admitted for diverticulitis last month. Treated with antibiotics. Patient reports that he has been doing well. Denies any abdominal pain or discomfort. Reports that he has been moving his bowels every day since discharge. Colon abnormality Patient denies any GI, cardiac or respiratory symptoms.? Denies any issues with anesthesia in the past.? Denies any history of sleep apnea.? No history infectious diseases in the past or present.? Patient is on low-dose aspirin. Patient is following up with Dr. Wiseman regarding his bypass and carotid arteries. Please call his office to make sure that patient is cleared for the procedure.? Patient denies any presyncope, syncope. No family or personal history of colon cancer or polyps.? Patient denies melena, hematochezia, unintentional weight loss or ribbon like stools.? Discussed at length the pre-procedure,? prep, diet & medications as well as what to expect prior, during and after the procedure.?? Stressed the importance of good bowel prep. ?Recommended the use of Vaseline or Calmoseptine OTC & baby wipes with bowel movements to promote comfort.? ?Patient verbalizes understanding and agrees to plan of care.? He was given the opportunity to ask questions and all questions answered.? We will see him after the procedure.? COLONOSCOPY Findings: Terminal Ileum-normal Cecum: laterally spreading granular polyp 10-12 mm , lifted with eleview injection and then removed with hot snare with one clip applied to close defect Ascending Colon: normal Transverse Colon - moderate diverticulosis Descending Colon: moderate diverticulosis Sigmoid Colon: severe diverticulosis with large mouthed tics Rectum: Retroflexion with small internal hemorrhoids, grade I Anorectum - normal Colon preparation: Thorofare Bowel Preparation Scale Right colon; 2 Transverse colon: 2 Left colon; 2 (0 = Unprepared colon segment with mucos a not seen due to solid stool that cannot be cleared. 1 = Portion of mucosa of the colon segme nt seen, but other areas of the colon segment not well seen due to staining, residual stool and/or opaque liquid. 2 = Minor amount of residual staining, s mall fragments of stool and/or opaque liquid, but mucosa of colon segment seen well. 3 = Entire mucosa of colon segment seen well with no residual staining, small fragments of stool or opaque liquid) Impression and Post Procedure Diagnosis: polyp internal hemorrhoids diverticular disease Plan: High fiber diet leaflet Avoid straining at stool, epsom salts and sitz bath, anusol supps or cream Repeat Colonoscopy in 4-5 years if health allows or earlier if clinically indicated PATHOLOGY RESULTS Diagnosis Colon, cecal polyp: Tubular adenoma; negative for high-grade dysplasia and carcinoma TODAY'S VISIT: Patient is here today for follow-up and to discuss colonoscopy results. Patient denies any ill effects from the prep, anesthesia or procedure itself. Patient reports to be feeling well after the procedure. Reports that he is moving his bowels well without any issues. Cecal polyp found, biopsy showed tubular adenoma without high-grade dysplasia or carcinoma. Patient was found to have severe diverticulosis of sigmoid colon. Reports that he is moving his bowels well and denies any left lower quadrant discomfort. Patient is following high fiber diet. Recommendation was made for patient to return for colorectal screening in 4-5 years, sooner if clinically necessary. Patient denies any melena, hematochezia, unintentional weight loss or ribbon like stools. Patient denies any dyspepsia, dysphagia or odynophagia. Patient no longer is taking PI. Denies any nausea or vomiting. Denies any abdominal pain, abdominal bloating or cramping. Patient denies any GI concerning symptoms. [facility] Medical History Type 2 diabetes mellitus with hyperglycemia Vitamin D deficiency HLD (hyperlipidemia) HTN (hypertension) T2DM (type 2 diabetes mellitus) Surgical History H/O colonoscopy Hx of hernia repair Family History Father No problems noted. Mother Diabetes Social History Household Members: Spouse Housing: House Do you presently have visiting nurse or other home services: No Alcohol intake: former Patient Tobacco Use Status: Former Tobacco user Quit Date: 32 years ago Cigarette Packs Per Day: 1 Years Smoked: 20 Review of Systems Const Denies weight gain and Denies weight loss ENT Reports no additional complaints, Denies dysphagia and Denies odynophagia Card Reports no additional complaints Resp Reports no additional complaints GI Denies abdominal pain, Denies belching, Denies melena, Denies bloating, Denies change in bowel habits, Denies dysphagia, Denies excessive flatus, Denies dyspepsia, Denies heartburn, Denies diarrhea, Denies loose stools, Denies nausea, Denies odynophagia and Denies vomiting Reports no additional complaints Musc Reports no additional complaints Neuro Reports no additional complaints Psych Reports no additional complaints Endo Reports no additional complaints Physical Exam Vital Signs: Last Vital Signs Pulse 93 04/16/23 08:51 BP 160/58 H 04/16/23 08:51 BMI result Body Mass Index 28.2 Const General: healthy appearing, no acute distress and well developed Nutritional Appearance: well nourished Orientation/consciousness: patient oriented x3 HEENT Head: Yes normal to inspection, Yes normocephalic and Yes atraumatic Face and sinus: Yes normal facial exam Mouth: Normal oral and palatal mucosa present Throat: Yes posterior oropharynx normal, Yes tonsils normal and Yes uvula midline Eyes General: appearance normal, both eyes and all related structures Neck Neck: Yes normal visual inspection, Yes full ROM and Yes trachea midline Thyroid: Thyroid normal Resp Effort & Inspection: normal respiratory effort, able to speak in complete sentences, no tracheal deviation and symmetric chest movement Auscultation: clear to auscultation bilaterally Cardio Rate: regular rate Heart sounds: S1 normal heart sound present and S2 normal heart sound present GI Inspection: Yes normal to inspection and No distended Palpation (GI): Soft to palpation, not firm, nontender and No hepatosplenomegaly present Auscultation: normal bowel sounds General: Yes no CVA tenderness Back/Spine/Pelvis Back: no CVA tenderness Skin General skin exam: elasticity normal, turgor normal and dry skin Neuro General: patient oriented x3 Psych Appearance: grossly normal Mental Status: mental status grossly normal Assessment & Plan Assessment & Plan (1) Diverticulitis of sigmoid colon: Code(s): K57.32 - Diverticulitis of large intestine without perforation or abscess without bleeding (2) Tubular adenoma: Code(s): D36.9 - Benign neoplasm, unspecified site (3) Status post colonoscopy: Code(s): Z98.890 - Other specified postprocedural states Plan High-fiber diet discussed with patient. Patient will continue drinking plenty fluids. He can take probiotics. May use MiraLax or any fiber [id number] fiber supplement. High-fiber diet discussed with patient. Patient will return in the office in 1 year, sooner if clinically necessary. Patient is agreeable to this plan and verbalizes understanding of instructions. He was given the opportunity to ask questions and all questions answered. Thank you for allowing me to participate in his care Coding Level of Care Code Est Pt Level 3 (79033) Diagnoses Diverticulitis of sigmoid colon K57.32 Tubular adenoma D36.9 Status post colonoscopy Z98.890 Time Spent (min) 25 Comment 15 minutes spent with patient and additional 10 minutes spent reviewing his records
[2023-04-16 08:51] VITALS: BP 160/58; PULSE 93; BMI 28.2
== END 2023-04-16 09:23 | disposition home or self-care (01) ==
PROVIDERS: PCP Internal Medicine Medical Oncology; Visit Provider Nurse Practitioner Family
DX: K57.32 Diverticulitis of large intestine without perforation or abscess without bleeding (principal); D36.9 Benign neoplasm, unspecified site; Z98.890 Other specified postprocedural states
CPT/HCPCS: 99213

== ENCOUNTER → 2023-04-16 08:45 | Outpatient (BNVA) | payer MEDICARE, SELFPAY | PROVIDERS: PCP Internal Medicine Medical Oncology; Visit Provider Nurse Practitioner Family | DX: K57.32 Diverticulitis of large intestine without perforation or abscess without bleeding (principal); D36.9 Benign neoplasm, unspecified site; Z98.890 Other specified postprocedural states | CPT/HCPCS: 99212 ==

== ENCOUNTER 2023-06-18 06:35 | Outpatient (REF) | payer MEDICARE, SELFPAY ==
[2023-06-18 06:54] LABS: MANUAL DIFF FLAG NO
[2023-06-18 07:44] LABS: Basophils Percent Auto 0.5 % (0-2); Eosinophils Absolute Auto 0.3 X10*3/uL (0.0-0.4); Eosinophils Percent Auto 4.1 % (0-4); Hematocrit 34.9 % (42.0-52.0); Imm Gran Abs Auto 0.01 X10*3/uL (0.00-0.03); Imm Gran Pct Auto 0.2 % (0.0-0.4); Lymphocytes Absolute Auto 2.7 X10*3/uL (1.2-4.9); Lymphocytes Percent Auto 40.7 % (20-40); Mean Corpuscular HGB Conc 31.5 g/dl (31.0-36.0); Mean Corpuscular Hemoglobin 27.7 pg (27.0-33.0); Mean Corpuscular Volume 87.9 fL (80.0-98.0); Mean Platelet Volume 11.1 fL (9.4-12.4); Monocytes Absolute Auto 0.6 X10*3/uL (0.1-1.2); Monocytes Percent Auto 8.9 % (2-11); Neutrophils Percent Auto 45.6 % (45-73); Platelet Count 222 X10*3/uL (160-400); Red Blood Count 3.97 X10*6/uL (4.60-5.80); Red Cell Distribution Width 14.8 % (11.0-16.0); White Blood Count 6.5 X10*3/uL (4.8-10.8)
[2023-06-18 07:51] LABS: Estimated Average Glucose 203 mg/dL; Hemoglobin A1c % 8.7 % (<6.0)
[2023-06-18 08:20] LABS: Alanine Aminotransferase 37 U/L (0-40); Albumin Level 4.1 g/dL (3.5-5.0); Alkaline Phosphatase 100 U/L (39-117); Anion Gap 14 (12-20); Aspartate Amino Transferase 37 U/L (5-37); Bilirubin Total 0.5 mg/dL (0.0-1.0); Blood Urea Nitrogen 19 mg/dL (9-16); Calcium 9.7 mg/dL (8.4-10.2); Carbon Dioxide 23 mmol/L (22-29); Chloride 106 mmol/L (96-108); Cholesterol 110 mg/dL (<200); Estimated Glomerular Filt Rate 55; Glucose Fasting 198 mg/dL (60-99); HDL Cholesterol 39 mg/dL (>40); LDL Cholesterol Calculated 45 mg/dL (<100); Potassium 3.9 mmol/L (3.3-5.1); Sodium 139 mmol/L (135-145); Total Protein 7.2 g/dL (6.5-8.0); Triglycerides 133 mg/dL (<150)
[2023-06-18 08:21] LABS: Creatinine Urine 35.48 mg/dL
[2023-06-18 08:37] LABS: Vitamin D 25-OH Total 38.1 ng/mL (>30)
== END 2023-06-18 06:36 | disposition home or self-care (01) ==
LOC: HO.LAB 06:35
PROVIDERS: PCP Internal Medicine Medical Oncology; Visit Provider Internal Medicine Medical Oncology
DX: Z00.00 Encounter for general adult medical examination without abnormal findings (principal); E11.9 Type 2 diabetes mellitus without complications; E66.3 Overweight; E55.9 Vitamin D deficiency, unspecified
CPT/HCPCS: 36415; 80053; 80061; 82043; 82306; 82570; 83036; 85025

== ENCOUNTER 2023-08-07 10:33 | Outpatient (REF) | payer MEDICARE, SELFPAY ==
--- NOTE | ~2023-08-07 | US_ITS ---
EXAMINATION: NONINVASIVE ASSESSMENT OF THE ARTERIES OF BOTH LOWER EXTREMITIES WITH PVR EXAM AND BILATERAL LOWER EXTREMITY DUPLEX Padmini Duffy MD CLINICAL INFORMATION: Peripheral vascular disease TECHNIQUE: Ankle pulse volume recordings, ankle pressure measurements and ankle brachial indices were obtained of the lower extremity arterial system bilaterally in addition to duplex Doppler techniques with wave form analysis and measurement of velocities in the common femoral, profunda femoral, superficial femoral, popliteal and tibial arteries. The study was performed only at rest. COMPARISON: Noninvasive arterial exam on 02/13/2023 FINDINGS: a) AT REST: RIGHT LE. The right ankle-brachial index is: 0.98 * >0.97-1.25 = normal - no significant arterial disease * 0.75-0.96 = mild peripheral arterial disease * 0.5-0.74 = moderate peripheral arterial disease * <0.50 = severe peripheral arterial disease 2. Right ankle pressure: abnormal. 3. Right ankle PVR waveform: abnormal. 4. Right direct duplex Doppler findings: Common femoral artery: [place] is occluded, distal bypass graft is patent. Profunda femoris artery: 15 cm/s, monophasic Superficial femoral artery (proximal): 100 cm/s, Multiphasic Superficial femoral artery (mid): 93 cm/s, Multiphasic Superficial femoral artery (distal): 68 cm/s, Multiphasic Proximal Popliteal artery: 43 cm/s, Multiphasic Mid posterior tibial artery: 60 cm/s, Multiphasic LEFT LE. The left ankle-brachial index is: 0.92 * >0.97-1.25 = normal - no significant arterial disease * 0.75-0.96 = mild peripheral arterial disease * 0.5-0.74 = moderate peripheral arterial disease * <0.50 = severe peripheral arterial disease 2. Left ankle pressure: abnormal. 3. Left ankle PVR waveform: abnormal. 4. Left direct duplex Doppler findings: Common femoral artery: 150 cm/s, Multiphasic Profunda femoris artery: 122 cm/s, Multiphasic Superficial femoral artery (proximal): 153 cm/s, Multiphasic Superficial femoral artery (mid): 79 cm/s, Multiphasic Superficial femoral artery (distal): 70 cm/s, Multiphasic Proximal Popliteal artery: 166 cm/s, Multiphasic US/US AURA complete IMPRESSION: RIGHT LEG: AURA 0.98. No hemodynamically significant stenoses in the right lower extremity. The distal portion of the bypass graft is patent. LEFT LEG: No hemodynamically significant stenoses throughout the left lower extremity, however the PVR is abnormal.
--- NOTE | ~2023-08-07 | US_ITS ---
EXAMINATION: NONINVASIVE ASSESSMENT OF THE ARTERIES OF BOTH LOWER EXTREMITIES WITH PVR EXAM AND BILATERAL LOWER EXTREMITY DUPLEX Padmini Duffy MD CLINICAL INFORMATION: Peripheral vascular disease TECHNIQUE: Ankle pulse volume recordings, ankle pressure measurements and ankle brachial indices were obtained of the lower extremity arterial system bilaterally in addition to duplex Doppler techniques with wave form analysis and measurement of velocities in the common femoral, profunda femoral, superficial femoral, popliteal and tibial arteries. The study was performed only at rest. COMPARISON: Noninvasive arterial exam on 02/13/2023 FINDINGS: a) AT REST: RIGHT LE. The right ankle-brachial index is: 0.98 * >0.97-1.25 = normal - no significant arterial disease * 0.75-0.96 = mild peripheral arterial disease * 0.5-0.74 = moderate peripheral arterial disease * <0.50 = severe peripheral arterial disease 2. Right ankle pressure: abnormal. 3. Right ankle PVR waveform: abnormal. 4. Right direct duplex Doppler findings: Common femoral artery: [place] is occluded, distal bypass graft is patent. Profunda femoris artery: 15 cm/s, monophasic Superficial femoral artery (proximal): 100 cm/s, Multiphasic Superficial femoral artery (mid): 93 cm/s, Multiphasic Superficial femoral artery (distal): 68 cm/s, Multiphasic Proximal Popliteal artery: 43 cm/s, Multiphasic Mid posterior tibial artery: 60 cm/s, Multiphasic LEFT LE. The left ankle-brachial index is: 0.92 * >0.97-1.25 = normal - no significant arterial disease * 0.75-0.96 = mild peripheral arterial disease * 0.5-0.74 = moderate peripheral arterial disease * <0.50 = severe peripheral arterial disease 2. Left ankle pressure: abnormal. 3. Left ankle PVR waveform: abnormal. 4. Left direct duplex Doppler findings: Common femoral artery: 150 cm/s, Multiphasic Profunda femoris artery: 122 cm/s, Multiphasic Superficial femoral artery (proximal): 153 cm/s, Multiphasic Superficial femoral artery (mid): 79 cm/s, Multiphasic Superficial femoral artery (distal): 70 cm/s, Multiphasic Proximal Popliteal artery: 166 cm/s, Multiphasic US/US arterial duplex LE BI IMPRESSION: RIGHT LEG: AURA 0.98. No hemodynamically significant stenoses in the right lower extremity. The distal portion of the bypass graft is patent. LEFT LEG: No hemodynamically significant stenoses throughout the left lower extremity, however the PVR is abnormal.
--- NOTE | ~2023-08-07 | US_ITS ---
EXAMINATION: US RETROPERITONEAL LIMITED (AORTA) CLINICAL INFORMATION: Femoral-femoral bypass graft. COMPARISON: CT abdomen pelvis on 12/21/2022 TECHNIQUE: Barrios-scale, color Doppler and spectral Doppler evaluation of the abdominal aorta. FINDINGS: The aorta is normal. The measurements of the aorta in maximum AP and transverse dimensions respectively are as follows: Proximal: 2.7 cm. Mid: 2.2 cm. Distal: 1.7 cm. The measurements of the common iliac arteries in maximum AP and TRV dimensions are as follows: Right Common Iliac Artery: Occluded Left Common Iliac Artery: 1.2 cm. US/US abdominal aortic aneurysm IMPRESSION: 1. No abdominal aortic or iliac artery aneurysm. 2. Occluded right common iliac artery. 3. The femoral-femoral bypass is not completely evaluated but on limited exam appears patent.
== END 2023-08-07 10:34 | disposition home or self-care (01) ==
LOC: HO.US 10:33
PROVIDERS: PCP Internal Medicine Medical Oncology; Visit Provider Surgery Vascular Surgery
DX: I73.9 Peripheral vascular disease, unspecified (principal)
CPT/HCPCS: 76706; 93923; 93925

== ENCOUNTER 2023-08-10 06:37 | Outpatient (REF) | payer MEDICARE, SELFPAY ==
[2023-08-10 06:49] LABS: MANUAL DIFF FLAG NO
[2023-08-10 07:30] LABS: Basophils Percent Auto 0.5 % (0-2); Eosinophils Absolute Auto 0.3 X10*3/uL (0.0-0.4); Eosinophils Percent Auto 4.1 % (0-4); Hematocrit 35.7 % (42.0-52.0); Hemoglobin 11.3 g/dl (14.0-18.0); Imm Gran Abs Auto 0.02 X10*3/uL (0.00-0.03); Imm Gran Pct Auto 0.3 % (0.0-0.4); Lymphocytes Absolute Auto 2.8 X10*3/uL (1.2-4.9); Lymphocytes Percent Auto 42.3 % (20-40); Mean Corpuscular HGB Conc 31.7 g/dl (31.0-36.0); Mean Corpuscular Hemoglobin 27.8 pg (27.0-33.0); Mean Corpuscular Volume 87.7 fL (80.0-98.0); Mean Platelet Volume 11.4 fL (9.4-12.4); Monocytes Absolute Auto 0.5 X10*3/uL (0.1-1.2); Monocytes Percent Auto 8.1 % (2-11); Neutrophils Percent Auto 44.7 % (45-73); Platelet Count 217 X10*3/uL (160-400); Red Blood Count 4.07 X10*6/uL (4.60-5.80); Red Cell Distribution Width 15.3 % (11.0-16.0); White Blood Count 6.6 X10*3/uL (4.8-10.8)
[2023-08-10 07:42] LABS: Estimated Average Glucose 186 mg/dL; Hemoglobin A1c % 8.1 % (<6.0)
[2023-08-10 08:03] LABS: Alanine Aminotransferase 29 U/L (0-40); Albumin Level 4.2 g/dL (3.5-5.0); Alkaline Phosphatase 82 U/L (39-117); Anion Gap 15 (12-20); Aspartate Amino Transferase 34 U/L (5-37); Blood Urea Nitrogen 21 mg/dL (9-16); Calcium 10.3 mg/dL (8.4-10.2); Carbon Dioxide 23 mmol/L (22-29); Chloride 107 mmol/L (96-108); Cholesterol 108 mg/dL (<200); Estimated Glomerular Filt Rate 55; Glucose Fasting 153 mg/dL (60-99); HDL Cholesterol 36 mg/dL (>40); LDL Cholesterol Calculated 45 mg/dL (<100); Potassium 4.2 mmol/L (3.3-5.1); Sodium 141 mmol/L (135-145); Total Protein 7.4 g/dL (6.5-8.0); Triglycerides 135 mg/dL (<150)
[2023-08-10 08:12] LABS: Bilirubin Total 0.6 mg/dL (0.0-1.0)
[2023-08-10 08:17] LABS: Prostate Specific Antigen 1.28 ng/mL (<0.05-4.0)
== END 2023-08-10 06:38 | disposition home or self-care (01) ==
LOC: HO.LAB 06:37
PROVIDERS: PCP Internal Medicine Medical Oncology; Visit Provider Internal Medicine Medical Oncology
DX: Z12.5 Encounter for screening for malignant neoplasm of prostate (principal); E11.9 Type 2 diabetes mellitus without complications; K21.9 Gastro-esophageal reflux disease without esophagitis; E66.3 Overweight; N40.0 Benign prostatic hyperplasia without lower urinary tract symptoms
CPT/HCPCS: 36415; 80053; 80061; 83036; 84153; 85025

== ENCOUNTER 2023-09-25 13:55 | Outpatient (AMB) | payer MEDICARE, SELFPAY ==
[2023-09-25 14:16] VITALS: BMI 28.2
--- NOTE | 2023-09-25 14:16 | A.OFFVIS_ITS ---
Vital Signs 09/25/23 14:16 Height 5 ft 1 in Weight 149 lb BMI 28.2 Intake Visit Reasons: 6 mo follow up Arterial US 08/07/23 Intake Note: 6 mo follow up arterial US 08/07/23. Pt states when he is ambulating he gets leg soreness, also has right knee sprain and wears a support brace Allergies No Known Allergies Allergy (Mild, Verified 09/25/23 14:18) NONE HPI HPI 6 mo follow up Arterial US 08/07/23: Details: Very pleasant 83-year-old gentleman presents for follow-up regarding peripheral vascular disease. He reports that he is able to ambulate a block or 2 without any significant difficulty. He does have a remote history of a fem-fem bypass. He now presents for routine surveillance follow-up with noninvasive arterial testing. [facility] Medical History Type 2 diabetes mellitus with hyperglycemia Vitamin D deficiency HLD (hyperlipidemia) HTN (hypertension) T2DM (type 2 diabetes mellitus) Surgical History H/O colonoscopy Hx of hernia repair Family History Father No problems noted. Mother Diabetes Social History Household Members: Spouse Housing: House Do you presently have visiting nurse or other home services: No Alcohol intake: former Patient Tobacco Use Status: Former Tobacco user Quit Date: 32 years ago Cigarette Packs Per Day: 1 Years Smoked: 20 Review of Systems Const All systems reviewed & are unremarkable except as noted in HPI and below Reports no additional complaints ENT Reports Normal hearing present Card Denies chest pain, Denies chest pain at rest, Denies chest pain with activity and Denies pedal edema Resp Denies cough GI Denies abdominal pain Musc Denies abnormal gait, Denies muscle cramps and Denies radiating pain into limb Skin/Breast Denies skin ulcer and Denies wounds Neuro Reports Normal hearing present and Denies abnormal gait Psych Reports no additional complaints Physical Exam Vital Signs: BMI result Body Mass Index 28.2 Const General: cooperative, healthy appearing and comfortable Orientation/consciousness: oriented to person, oriented to place and oriented to time HEENT Head: Yes normal to inspection Neck Neck: Yes normal visual inspection Carotids: no bruits Chest Chest palpation & inspection: normal inspection of the chest Resp Effort & Inspection: normal respiratory effort and able to speak in complete sentences Auscultation: clear to auscultation bilaterally, no crackles, no rales, no rhonchi and no wheezes Cardio Rate: regular rate Rhythm: regular rhythm Heart sounds: S1 normal heart sound present and S2 normal heart sound present Bruits: no carotid bruits Peripheral pulses: Peripheral pulses 2+ throughout GI Inspection: Yes normal to inspection Skin Wounds: no wounds Hair: normal Neuro General: oriented to person, oriented to place and oriented to time Cranial nerves: Yes CN's II-XII intact bilaterally and Yes Normal hearing present Cognition (Neuro): normal cognition Motor exam (neuro): 5/5 motor strength present throughout Extrem Other: venous exam: No significant superficial varicosities or spider telangiectasias, minimal edema General: No clubbing, No cyanosis and No edema Psych Appearance: grossly normal Mental Status: mental status grossly normal Speech and movement: Normal speech and movement present Results Reviewed Results Reviewed: Noninvasive testing dated 08/07/2023 demonstrates AURA on the right of 0.98 and on the left of 0.92 written report and images were reviewed. Assessment & Plan Assessment & Plan (1) PVD (peripheral vascular disease): Comment: 1989 - femoral to femoral bypass performed at [facility] Code(s): I73.9 - Peripheral vascular disease, unspecified Category: Medical Plan: In short patient has stable claudication. Fem-fem appears to be patent I did review the pathophysiology of peripheral vascular disease with the patient. In addition we did discuss routine conservative measures including a healthy diet and the importance of exercise and ambulation. We did discuss risk factor modification. The patient will continue to to follow-up with surveillance follow-up in approximately 1 year. Thank you for allowing us to participate in this patient's care. If there are any questions or concerns please do not hesitate to contact us. Orders: Orders US arterial duplex LE BI 1 Year I73.9 - Peripheral vascular disease, unspecified US abdominal aortic aneurysm 1 Year I73.9 - Peripheral vascular disease, unspecified Coding Level of Care Code Est Pt Level 4 (22524) Diagnoses PVD (peripheral vascular disease) I73.9
== END 2023-09-25 14:45 | disposition home or self-care (01) ==
PROVIDERS: PCP Internal Medicine Medical Oncology; Visit Provider Surgery Vascular Surgery
DX: I73.9 Peripheral vascular disease, unspecified (principal)
CPT/HCPCS: 99213

== ENCOUNTER → 2023-09-25 13:55 | Outpatient (BNVA) | payer MEDICARE, SELFPAY | PROVIDERS: PCP Internal Medicine Medical Oncology; Visit Provider Surgery Vascular Surgery | DX: I73.9 Peripheral vascular disease, unspecified (principal) | CPT/HCPCS: 99212 ==

== ENCOUNTER 2023-11-12 06:14 | Outpatient (REF) | payer MEDICARE, SELFPAY ==
[2023-11-12 06:37] LABS: MANUAL DIFF FLAG NO
[2023-11-12 07:52] LABS: Basophils Absolute Auto 0.1 X10*3/uL (0.0-0.2); Eosinophils Absolute Auto 0.4 X10*3/uL (0.0-0.4); Eosinophils Percent Auto 5.5 % (0-4); Hematocrit 34.3 % (42.0-52.0); Hemoglobin 10.9 g/dl (14.0-18.0); Imm Gran Abs Auto 0.03 X10*3/uL (0.00-0.03); Imm Gran Pct Auto 0.4 % (0.0-0.4); Lymphocytes Absolute Auto 3.4 X10*3/uL (1.2-4.9); Lymphocytes Percent Auto 46.7 % (20-40); Mean Corpuscular HGB Conc 31.8 g/dl (31.0-36.0); Mean Corpuscular Hemoglobin 28.3 pg (27.0-33.0); Mean Corpuscular Volume 89.1 fL (80.0-98.0); Mean Platelet Volume 11.5 fL (9.4-12.4); Monocytes Absolute Auto 0.6 X10*3/uL (0.1-1.2); Monocytes Percent Auto 7.9 % (2-11); Neutrophils Absolute Auto 2.8 x10*3/uL (2.0-8.3); Neutrophils Percent Auto 38.5 % (45-73); Platelet Count 216 X10*3/uL (160-400); Red Blood Count 3.85 X10*6/uL (4.60-5.80); Red Cell Distribution Width 15.1 % (11.0-16.0); White Blood Count 7.2 X10*3/uL (4.8-10.8)
[2023-11-12 07:55] LABS: Estimated Average Glucose 194 mg/dL; Hemoglobin A1c % 8.4 % (<6.0)
[2023-11-12 08:30] LABS: Alanine Aminotransferase 25 U/L (0-40); Albumin Level 4.1 g/dL (3.5-5.0); Alkaline Phosphatase 84 U/L (39-117); Anion Gap 16 (12-20); Aspartate Amino Transferase 28 U/L (5-37); Bilirubin Total 0.5 mg/dL (0.0-1.0); Blood Urea Nitrogen 24 mg/dL (9-16); Calcium 10.2 mg/dL (8.4-10.2); Carbon Dioxide 23 mmol/L (22-29); Chloride 105 mmol/L (96-108); Cholesterol 111 mg/dL (<200); Estimated Glomerular Filt Rate 54; Glucose Fasting 158 mg/dL (60-99); HDL Cholesterol 36 mg/dL (>40); LDL Cholesterol Calculated 52 mg/dL (<100); Potassium 4.4 mmol/L (3.3-5.1); Sodium 140 mmol/L (135-145); Total Protein 7.3 g/dL (6.5-8.0); Triglycerides 117 mg/dL (<150)
== END 2023-11-12 06:15 | disposition home or self-care (01) ==
LOC: HO.LAB 06:14
PROVIDERS: PCP Internal Medicine Medical Oncology; Visit Provider Internal Medicine Medical Oncology
DX: E11.9 Type 2 diabetes mellitus without complications (principal); K21.9 Gastro-esophageal reflux disease without esophagitis; I73.9 Peripheral vascular disease, unspecified
CPT/HCPCS: 36415; 80053; 80061; 83036; 85025

== ENCOUNTER 2024-02-18 06:30 | Outpatient (REF) | payer MEDICARE, SELFPAY ==
[2024-02-18 06:43] LABS: MANUAL DIFF FLAG NO
[2024-02-18 07:49] LABS: Basophils Absolute Auto 0.1 X10*3/uL (0.0-0.2); Basophils Percent Auto 1.1 % (0-2); Eosinophils Absolute Auto 0.2 X10*3/uL (0.0-0.4); Eosinophils Percent Auto 2.5 % (0-4); Hematocrit 33.2 % (42.0-52.0); Hemoglobin 10.7 g/dl (14.0-18.0); Imm Gran Abs Auto 0.02 X10*3/uL (0.00-0.03); Imm Gran Pct Auto 0.3 % (0.0-0.4); Lymphocytes Absolute Auto 2.4 X10*3/uL (1.2-4.9); Lymphocytes Percent Auto 36.2 % (20-40); Mean Corpuscular HGB Conc 32.2 g/dl (31.0-36.0); Mean Corpuscular Hemoglobin 28.1 pg (27.0-33.0); Mean Corpuscular Volume 87.1 fL (80.0-98.0); Mean Platelet Volume 12.1 fL (9.4-12.4); Monocytes Absolute Auto 0.5 X10*3/uL (0.1-1.2); Monocytes Percent Auto 8.1 % (2-11); Neutrophils Absolute Auto 3.4 x10*3/uL (2.0-8.3); Neutrophils Percent Auto 51.8 % (45-73); Platelet Count 201 X10*3/uL (160-400); Red Blood Count 3.81 X10*6/uL (4.60-5.80); Red Cell Distribution Width 15.6 % (11.0-16.0); White Blood Count 6.5 X10*3/uL (4.8-10.8)
[2024-02-18 08:04] LABS: Estimated Average Glucose 194 mg/dL; Hemoglobin A1c % 8.4 % (<6.0)
[2024-02-18 08:10] LABS: Alanine Aminotransferase 26 U/L (0-40); Albumin Level 3.8 g/dL (3.5-5.0); Alkaline Phosphatase 92 U/L (39-117); Anion Gap 12 (12-20); Aspartate Amino Transferase 24 U/L (5-37); Bilirubin Total 0.5 mg/dL (0.0-1.0); Blood Urea Nitrogen 26 mg/dL (9-16); Calcium 10.4 mg/dL (8.4-10.2); Carbon Dioxide 23 mmol/L (22-29); Chloride 108 mmol/L (96-108); Cholesterol 94 mg/dL (<200); Estimated Glomerular Filt Rate 57; Glucose Fasting 172 mg/dL (60-99); HDL Cholesterol 35 mg/dL (>40); LDL Cholesterol Calculated 36 mg/dL (<100); Potassium 4.3 mmol/L (3.3-5.1); Sodium 139 mmol/L (135-145); Total Protein 6.8 g/dL (6.5-8.0); Triglycerides 115 mg/dL (<150)
[2024-02-18 08:40] LABS: Creatinine Urine 36.77 mg/dL
[2024-02-18 08:49] LABS: Prostate Specific Antigen 2.53 ng/mL (<0.05-4.0)
== END 2024-02-18 06:31 | disposition home or self-care (01) ==
LOC: HO.LAB 06:30
PROVIDERS: PCP Internal Medicine Medical Oncology; Visit Provider Internal Medicine Medical Oncology
DX: E11.9 Type 2 diabetes mellitus without complications (principal); E66.3 Overweight; N40.0 Benign prostatic hyperplasia without lower urinary tract symptoms; E78.5 Hyperlipidemia, unspecified; Z12.5 Encounter for screening for malignant neoplasm of prostate
CPT/HCPCS: 36415; 80053; 80061; 82043; 82570; 83036; 84153; 85025

== ENCOUNTER 2024-05-21 06:47 | Outpatient (REF) | payer MEDICARE, SELFPAY ==
--- OUTSIDE RECORDS SUMMARY | 2024-05-21 06:49 | XMS_ITS ---
Author Organization Shamir Sommer III, MD Address [address] [place] [address] [place] [address] Care Team Providers Care Swimming Pool Salesperson Name Role Phone Shamir Sommer Primary Care Provider [phone] REASON FOR VISIT needs last progress note Social History Sex Assigned At : Social History Observation Description Sex Assigned At Male Encounters Encounter Location Date Provider Diagnosis Shamir Sommer III, MD [address] [place] [address] [place] [address] 01/14/2024 Shamir Sommer Plan Of Treatment Next Appt Details Provider Name:Shamir Sommer, 05/27/2024 10:30:00 AM, [address] [place] [address] [place], [address], Provider Name:Shamir Sommer, 02/27/2025 10:30:00 AM, [address] [place] [address] [place], [address], Progress Notes * Victoriano HOWELL EDOB:1940 ( 83 yo M)Acc No.[id number]:01/14/2024 Patient:?Tariq Victoriano Gipson :1940???Age:83 Y???Sex:Male Address:[address] [place] [id number] * true * Date:? Generated for Printi ng/Famaximog/eTransmitting on:?05/21/2024 06:49 AM EST
--- OUTSIDE RECORDS SUMMARY | 2024-05-21 06:49 | XMS_ITS ---
Author Organization Shamir Sommer III, MD Address [address] [place] [place] [address] Care Team Providers Care Senior Accounts Payable Specialist Name Role Phone Shamir Sommer Primary Care Provider REASON FOR VISIT needs [...] Date Provider Diagnosis Shamir Sommer III, MD [address] [place] [address] [place] [address] 02/12/2024 Shamir Sommer Type 2 diabetes mellitus [...] days 02/06/2025 Next Appt Details Provider Name:Shamir Sommer, 05/27/2024 10:30:00 AM, [address] [facility], [address], Provider Name:Shamir Sommer, 02/27/2025 10:30:00 AM, [address] [facility] [address], [place], [address], Progress Notes * Victoriano HOWELL EDOB:1940 ( 83 yo M)Acc No.[id number]:02/12/2024 Patient:?Victoriano Howell :1940???Age:83 Y???Sex:Male Address:[address] [place] [address] * Refills? Refill Vitamin B-12 Tablet, 1000 MCG, Orally, 90 Tablet, 1 tablet, Once a day, 90 days, Refills=3 Subjective: * Chief Complaints: * ???needs refill Vitamin B-12 * Medical History:? * Surgical History:? * Hospitalization/Major Diagno stic Procedure:? * Medications:? Objective: Assessment: * Assessment: 1.?Type 2 diabetes mellitus without complications - E11.9, His hemoglobin A1c has increased from 8.1 to 8.4. He says this is due to holidays. We discussed his diabetic diet in weight and exercise level. He will adhere to his diabetic diet. These values will be repeated in the near future.? Plan: * Treatment: * Procedure Codes:? * true * Date:? Generated for Antonio costa/Maria Victoria/Margaretitting on:?05/21/2024 06:49 AM EST
--- OUTSIDE RECORDS SUMMARY | 2024-05-21 06:49 | XMS_ITS ---
Author Organization Shamir Sommer III, MD Address [address] [place] [address] [address] [place] [address] Care Team Providers Care Chef Head Name Role Phone Shamir Sommer Primary Care Provider Allergies Allergen (clinical drug [...] Date Provider Diagnosis Shamir Sommer III, MD [address] [place] [address] [place] [address] 02/26/2024 Shamir Sommer Type 2 diabetes nico [...] will continue under the care of an screen writer. 02/26/2024 Former smoker (ICD-1 0 - Z87.891) [...] Simvastatin 40 MG TAKE 1 TABLET BY USHAIL TH EVERY DAY IN THE EVENING FOR [...] 3 Months, Reason: office visit Provider Name:Shamir Salne, 05/27/2024 10:30:00 AM, [address] [place] [address] [address], [place], [phone], Provider Name:Shamir Partidarne, 02/27/2025 10:30:00 AM, [address] [place] [address] [address], [place], [address], Progress Notes * Victoriano HOWELL EDOB:1940 ( 83 yo M)Acc No.[id number]:02/26/2024 Progress Notes Patient:?Victoriano HOWELL Provider:?Shamir Sommer MD :1940???Age:83 Y???Sex:Male Juice e:02/26/2024 Address:[address] [place], [place] [id number] Subjective: * Chief Complaints: * ???Annual exam * HPI: ???Depression Screening:?He returns to the office at the age of 83 for his annual physical examination.He is followed here for diabetes, GERD,Benign prostatic hypertrophy, carotid artery stenosis, peripheral vascular disease,And hyperlipidemia.? He has an appointment to see his vascular surgeon, Dr. Ramirez.? In 1 week.? He says he is feeling well and has no new complaints.? He is sleeping well and his appetite is good.? In February 2023 and ultrasound showed narrowing in the right carotid artery between 50 and 79%.? A right carotid artery bruit was audible on today's examination.? He has had no neurological symptoms. ?PHQ-9?Little interest or pleasure in doing things?Not at all ?Feeling down, depressed, or hopeless?Not at all ?Trouble falling or staying asleep, or sleeping too much?Not at all ?Feeling tired or having little energy?Not at all ?Poor appetite or overeating?Not at all ?Feeling bad about yourself or that you are a failure, or have let yourself or your family down?Not at all ?Trouble concentrating on things, such as reading the newspaper or watching television?Not at all ?Moving or speaking so slowly that other people could have noticed; or the opposite, being so fidgety or restless that you have been moving around a lot more than usual?Not at all ?Thoughts that you would be better off or of hurting yourself in some way?Not at all ?Total Score?0 ???COVID-19 Screening:?Questions?Have you experienced fever, chills, cough, sore throat, shortness of breath, difficulty breathing, muscle aches, loss of taste or smell??No ?Have you been exposed to the virus within the last 10 days??No ?Have you travelled internationally in the last 10 days??No ?Have you been exposed to COVID-19 in the past??No * ROS:?General/Constitutional:?pain?only normal aches and pains.?Chills?denies.?Fatigue?admits.?Fever?denies.?ENT:?Decreased hearing?mild.?Respiratory:?Cough?denies.?Cardiovascular:?Chest pain with exertion?denies.?Dyspnea on exertion?denies.?Shortness of breath?denies.?Gastrointestinal:?Constipation?occasional.?Decreased appetite?denies.?Diarrhea?denies.?Heartburn?denies.?Nausea?denies.?Rectal bleeding?denies.?Vomiting?denies.?Hematology:?bruising?denies.?petechiae?denies.?Swollen glands?none have been noted.?Genitourinary:?Frequent urination?once a night.?Musculoskeletal:?Muscle aches?denies.?Painful joints?denies.?Sciatica?denies.?Weakness?denies.?Skin:?Itching?denies.?Rash?denies.?Skin lesion(s)?denies.?Neurologic:?Difficulty speaking?denies.?Dizziness?denies.?Headache?denies.?Low back pain?denies.?Psychiatric:?Depressed mood?denies.? * Medical History:? * Surgical History:?right ingu inal herniorraphy age 11 negative colonoscopy 04/09/08right cataract surgery 12/2021Left cataract surgery 03/2022 * Hospitalization/Major Diagno stic Procedure:?Diverticulitis 12/29/2022 * Family History:?Father: dece ased 59 yrs, stroke.?Mother: 89 yrs, cardiac probloems specfics unknown.?Spouse: alive 65 yrs.?4 brother(s) , 3 sister(s) . 2 son(s) , 1 daughter(s) - healthy. .? A twin brother at 5 of rheumatic fever. * Social History:?Tobacco Use:?Tobacco Use/Smoking?Patient is a?former smoker ?How long has it been since you last smoked??> 10 years ?Additional Findings: Tobacco Non-User?Ex-cigarette smoker ???Drugs/Alcohol:?Drugs?Have you used drugs other than those for medical reasons in the past 12 months??No ?Alcohol Screen?Did you have a drink containing alcohol in the past year??No ?Points?0 ?Interpretation?Negative ???He has been to Liz for 49 years and has 3 children and 9 grandchildren. 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 He was born in [place], [place]. * Medications:?TakingMultivita min FreeStyle Lancets - Miscellaneous DIRECTED - USE [...] reviewed and reconciled with the patient * Allergies:?Seasonaleno[Aller gies Verified] Objective: * Vitals:?Ht: 62, Wt:144, BMI: 26.34, BP:135/80, HR:80, Temp:97.2, Wt-k.32. * ???Past Orders: Lab:Complete Blood Count Aut o Diff * Collection Date 02/18/2024 11/12/2023 08/10/2023 Collection Time 06:41 AM 06:36 AM 06:48 AM Order Date 02/18/2024 11/12/2023 08/10/2023 White Blood Count 6.5 (Ref Range: 4.8-10.8 X10*3/uL) 7.2 (Ref Range: 4.8-10.8 X10*3/uL) 6.6 (Ref Range: 4.8-10.8 X10*3/uL) Red Blood Count 3.81?L (Ref Range: 4.60-5.80 X10*6/uL) 3.85?L (Ref Range: 4.60-5.80 X10*6/uL) 4.07?L (Ref Range: 4.60-5.80 X10*6/uL) Hemoglobin 10.7?L (Ref Range: 14.0-18.0 g/dl) 10.9?L (Ref Range: 14.0-18.0 g/dl) 11.3?L (Ref Range: 14.0-18.0 g/dl) Hematocrit 33.2?L (Ref Range: 42.0-52.0 %) 34.3?L (Ref Range: 42.0-52.0 %) 35.7?L (Ref Range: 42.0-52.0 %) Mean Corpuscular Volume [...] Percent Auto 51.8 (Ref Range: 45-73 %) 38.5?L (Ref Range: 45-73 %) 44.7?L (Ref Range: 45-73 %) Imm Gran Pct Auto 0.3 (Ref Range: 0.0-0.4 %) 0.4 (Ref Range: 0.0-0.4 %) 0.3 (Ref Range: 0.0-0.4 %) Lymphocytes Percent Auto 36.2 (Ref Range: 20-40 %) 46.7?H (Ref Range: 20-40 %) 42.3?H (Ref Range: 20-40 %) Monocytes Percent Auto 8.1 (Ref Range: 2-11 %) 7.9 (Ref Range: 2-11 %) 8.1 (Ref Range: 2-11 %) Eosinophils Percent Auto 2.5 (Ref Range: 0-4 %) 5.5?H (Ref Range: 0-4 %) 4.1?H (Ref Range: 0-4 %) Basophils Percent Auto [...] Date 02/18/2024 11/12/2023 08/10/2023 Hemoglobin A1c % 8.4?H (Ref Range: <6.0 %) 8.4?H (Ref Range: <6.0 %) 8.1?H (Ref Range: <6.0 %) Estimated Average Glucose [...] 45 (Ref Range: <100 mg/dL) HDL Cholesterol 35?L (Ref Range: >40 mg/dL) 36?L (Ref Range: >40 mg/dL) 36?L (Ref Range: >40 mg/dL) * Lab:Comprehensive Switzer. Pane l Fast * Collection Date 02/18/2024 11/12/202308/10/2023 Collection Time 06:41 AM 06:36 AM 06:48 [...] 15 (Ref Range: 12-20) Blood Urea Nitrogen 26?H (Ref Range: 9-16 mg/dL) 24?H (Ref Range: 9-16 mg/dL) 21?H (Ref Range: 9-16 mg/dL) Creatinine 1.21 (Ref Range: 0.5-1.4 mg/dL) 1.27 (Ref Range: 0.5-1.4 mg/dL) 1.25 (Ref Range: 0.5-1.4 mg/dL) Estimated Glomerular Filt Rate 57 54 55 Glucose Fasting 172?H (Ref Range: 60-99 mg/dL) 158?H (Ref Range: 60-99 mg/dL) 153?H (Ref Range: 60-99 mg/dL) Calcium 10.4?H (Ref Range: 8.4-10.2 mg/dL) 10.2 (Ref Range: 8.4-10.2 mg/dL) 10.3?H (Ref Range: 8.4-10.2 mg/dL) * Lab:Microalbumin, Random * Collection Date 02/18/2024 06/18/2023 01/01/2023 Collection Time 06:40 AM 06:55 AM 06:40 AM Order Date 02/18/2024 06/18/2023 01/01/2023 Creatinine Urine 36.77 (Ref Range: mg/dL) 35.48 (Ref Range: mg/dL) 47.97 (Ref Range: mg/dL) Microalbumin Urine 39.0 (Ref Range: mg/L) 77.0 (Ref Range: mg/L) 43.0 (Ref Range: mg/L) Microalbum Creatinine Ratio Ur 106.0?H (Ref Range: <30 ug/mg cr) 217.0?H (Ref Range: <30 ug/mg cr) 89.6 (Ref Range: ug/mg cr) * Lab:Prostate Specific Antige n * Collection Date 02/18/2024 08/10/2023 01/01/2023 Collection Time 06:41 AM 06:48 AM 06:42 AM Order Date 02/18/2024 08/10/202301/0101/01/2023 Prostate Specific Antigen 2.53 (Ref Range: <0.05-4.0 ng/mL) 1.28 (Ref Range: <0.05-4.0 ng/mL) 1.66 (Ref Range: <0.05-4.0 ng/mL) * Examination: ???General Examination: ?GENERAL APPEARANCE:?pleasant, well nourished, well developed, in no acute distress, calm and relaxed, overweight, man.?HEAD:?atraumatic, normocephalic.?EYES:?eomi, perrla, anicteric, conjugate.?EARS:?normal.?NOSE:?septum intact.?ORAL CAVITY:?normal, unremarkable.?NECK/THYROID:?no jugular venous distention, 2+ carotid bruit on the right, thyroid normal, Supple.?LYMPH NODES:?no enlarged lymph nodes,spleen normal.?SKIN:?no suspicious lesions, anicteric.?HEART:?no clicks, gallops, murmurs, or rubs, regular rhythm, S1, S2 normal, no s3, or vascular bruits.?LUNGS:?clear to auscultation .?BREASTS:??no masses palpable bilaterally.?ABDOMEN:?bowel sounds normal, no ascites, no organomegaly, no mass, overweight.?RECTAL EXAM:?not examined.?MUSCULOSKELETAL:?extremities unremarkable, no clubbing, cyanosis or edema, Feet pink and warm.?PERIPHERAL PULSES:?normal.?NEUROLOGIC:?alert and oriented, cranial nerves 2-12 grossly intact, deep tendon reflexes 2+ symmetrical, motor strength normal upper and lower extremities, sensory exam intact.?PSYCH:?alert, oriented.? Assessment: * Assessment: 1.?Type 2 diabetes mellitus without complications - E11.9 (Primary)???Notes :His hemoglobin A1c has increased from 8.1 to 8.4. . We discussed his diabetic diet in weight and exercise level. He will adhere to his diabetic diet. These values will be repeated in the near future. I have offered to increase his medication but he wants to rely upon diet.???2.?Overweight - E66.3???Notes :He has lost 3 pounds and his body mass index is 26.? We discussed the elements of a diabetic diet with reduced calories at length today.???3.?BPH (benign prostatic hyperplasia) - N40.0???Notes :He is using lifestyle modification to reduce nocturia.? He says he rises at most once a night.???4.?Gastroesophageal reflux disease, esophagitis presence not specified - K21.9???Notes :His reflux symptoms are well controlled current medication. He will avoid eating related 90 and continue on his current medication.???5.?Strabismus - H50.9???Notes :He will continue under the care of an screen writer.???6.?Former smoker - Z87.891???Notes :He is highly motivated not to smoke. He has a plan for prevention of relapse in times of stress.???7.?Vitamin D deficiency - E55.9???Notes :He was continued.???8.?Peripheral arterial disease - I73.9???Notes :his claudication remains stable and he is up-to-date with vascular surgery.He is going to see vascular surgery next week.? He has a clearly audible bruit in the right carotid with a decent pulse.? He has had no neurological symptoms.? I asked him to call me after his vascular appointment to update me on recommendations.??? Plan: * Treatment: 2.?Overweight?LAB: PROFILE, FASTING (COMPREHENSIVE METABOLIC) ?LAB: PSA, TOTAL ?LAB: CBC WITH AUTO DIFF ?LAB: Lipid Panel ?LAB: Microalbumin, Random ?LAB: Hemoglobin A1c 3.?BPH (benign prostatic hyp erplasia)?LAB: PROFILE, FASTING (COMPREHENSIVE METABOLIC) ?LAB: PSA, TOTAL ?LAB: CBC WITH AUTO DIFF ?LAB: Lipid Panel ?LAB: Microalbumin, Random ?LAB: Hemoglobin A1c 4.?Others? Continue Vitamin D3 Capsule, 50 MCG (2000 UT), TAKE 1 CAPSULE BY MOUTH EVERY DAY FOR 90 DAYS;?Continue Simvastatin Tablet, 40 MG, TAKE 1 TABLET BY MOUTH EVERY DAY IN THE EVENING FOR 90 DAYS; Continue metFORMIN HCl Tablet, 1000 MG, TAKE 1 TABLET BY MOUTH TWICE A DAY;?Continue FreeStyle Lancets Miscellaneous, -, DIRECTED - USE TO CHECK BLOOD SUGARS THREE TIMES A DAY 30 DAYS, Notes to Pharmacist: E11.9 Type 2 diabetes;?Continue FreeStyle Lite Test Strip, -, DIRECTED IN VITRO TO CHECK BLOOD SUGAR THREE TIMES A DAY 30 DAYS.?? * Labs:? * ?Lab: URINE DIP STICK (C ollection Date & Time - 02/26/2024) ? Value Reference Range ?SG 1.020 1.005 - 1.025 * ?pH 5.0 5.0 - 9.0 * ?GHAZALA 125 Negative - * ?NIT Negative Negative - * ?PRO 30 Negative - Trac e * ?GLU Negative Negative - * ?KET 5 Negative - * ?UBG 0.2 0.1 - 1.8 * ?ISHA Negative 0.2 - 1.3 * ?BLD 5-10 Negative - * Procedure Codes:?59047 URINE -NO MICRO * Preventive Medicine:? ??Counseling:?Care goal follow-up plan:?Counseling for abnormal BMI given?Yes ?Above Normal BMI Follow-up?Dietary needs education, Exercise promotion: strength training ?Smoking/Tobacco Use?Patient counseled on the dangers of tobacco use and urged to quit.?02/26/2024 ??DM Care Plan:?Patient Lifestyle Goals?Patient wants to be able to manage diabetes without too much effort.?Treatment Goals?Blood Sugars less than < 115, HbA1C < 7.0.?Barriers?no barriers.?Self-Managment Goals?Work on weight loss, with a goal of losing 1 lb per week.? * Follow Up:?3 Months (Reason: office visit) * Images: * Sign off status: Completed true * Provider:?Shamir Sommer MD Date:?02/03 Generated for Antonio costa/Maria Victoria/Maribel on:?05/21/2024 06:49 AM EST History and Physical Notes * [...] days?: No Have you travelled internationally in [facility] last 10 days?: No Have you been [...]
--- OUTSIDE RECORDS SUMMARY | 2024-05-21 06:50 | XMS_ITS | Patient Health Record ---
Author Organization Shamir Sommer III, MD Address [address] [place] [address] [place] [address] Care Team Providers Care Packer Name Role Phone Shamir Sommer Primary Care Provider [phone] Allergies Allergen (clinical drug ingredient) Drug/Non Drug [...] 0.2 - 1.3 BLD 5-10 Negative - Complete Blood Count Auto Di ff Reviewed date:06/18/2023 08:40:50 AM Interpretation: Performing Lab:[facility], [address] [place] [phone] Notes/Report: White Blood Count 6.5 4.8-10.8 X10*3/uL Red Blood Count 3.97 4.60-5.80 X10*6/uL Hemoglobin 11.0 14.0-18.0 g/dl Hematocrit 34.9 42.0-52.0 % Mean Corpuscular Volume 87.9 80.0-98.0 fL Mean Corpuscular Hemoglobin 27.7 27.0-33.0 pg Mean Corpuscular HGB Conc 31.5 31.0-36.0 g/dl Red Cell Distribution Width 14.8 11.0-16.0 % Platelet Count 222 160-400 X10*3/uL Mean Platelet Volume 11.1 9.4-12.4 fL Neutrophils Percent Auto 45.6 45-73 % Imm Gran Pct Auto 0.2 0.0-0.4 % Lymphocytes Percent Auto 40.7 20-40 % Monocytes Percent Auto 8.9 2-11 % Eosinophils Percent Auto 4.1 0-4 % Basophils Percent Auto 0.5 0-2 % NRBC Pct Auto 0.0 0.0-0.2 /100WBC Neutrophils Absolute Auto 3.0 2.0-8.3 x10*3/uL Imm Gran Abs Auto 0.01 0.00-0.03 X10*3/uL Lymphocytes Absolute Auto 2.7 1.2-4.9 X10*3/uL Monocytes Absolute Auto 0.6 0.1-1.2 X10*3/uL Eosinophils Absolute Auto 0.3 0.0-0.4 X10*3/uL Basophils Absolute Auto 0.0 0.0-0.2 X10*3/uL NRBC Abs Auto 0.000 0.0-0.012 X10*3/uL Comprehensive Marion. Panel Fa st Reviewed date:06/18/2023 08:40:51 AM Interpretation: Performing Lab:[facility], [address] [place] [phone] Notes/Report: Sodium 139 135-145 mmol/L Potassium 3.9 3.3-5.1 mmol/L Chloride 106 96-108 mmol/L Carbon Dioxide 23 22-29 mmol/L Anion Gap 14 12-20 Blood Urea Nitrogen 19 9-16 mg/dL Creatinine 1.26 0.5-1.4 mg/dL Estimated Glomerular Filt Rate 55 NOTE: For -Icelandic individuals, multiply the result by 1.210. Chronic Kidney Disease: Estimated GFR < 60 mL/min/1.73m2 Severe Kidney Disease: Estimated GFR < 15 mL/min/1.73m2 Glucose Fasting 198 60-99 mg/dL A fasting glucose of 126 mg/dl or greater on more than one occasion is considered diagnostic of diabetes. Calcium 9.7 8.4-10.2 mg/dL Bilirubin Total 0.5 0.0-1.0 mg/dL Aspartate Amino Transferase 37 5-37 U/L Alanine Aminotransferase 37 0-40 U/L Total Protein 7.2 6.5-8.0 g/dL Albumin Level 4.1 3.5-5.0 g/dL Alkaline Phosphatase 100 39-117 U/L Lipid Panel Reviewed date:06/18/2023 08:40:51 AM Interpretation: Performing Lab:[facility], [address] [place] [phone] Notes/Report: Triglycerides 133 <150 mg/dL Desirable Triglyceride: less than 150 mg/dL Borderline High Triglyceride 150-199 mg/dL High Triglyceride: 200-499 mg/dL Very High Triglyceride: greater than or equal to 5OO mg/dL Cholesterol 110 <200 mg/dL Desirable Cholesterol: less than 200 mg/dL Borderline High Cholesterol: 200-239 mg/dL High Cholesterol: greater than 239 mg/dL LDL Cholesterol Calculated 45 <100 mg/dL Desirable LDL: less than 100 mg/dL Near Optimal/Above Optimal LDL: 110-129 mg/dL Borderline High LDL: 130-159 mg/dL High LDL: 160-189 mg/dL Very High LDL: greater than or equal to 190 mg/dL HDL Cholesterol 39 >40 mg/dL Desirable HDL: greater than 40 mg/dL Note: This HDL assay may give artificially low results in patients with liver disease. Vitamin D 25-OH Total Reviewed date:06/18/2023 08:40:51 AM Interpretation: Performing Lab:[address] [phone] Notes/Report: Vitamin D 25-OH Total 38.1 >30 ng/mL Health Based Reference Values* < 20 ng/mL Deficient 20-30 ng/mL Insufficient > 30 ng/mL Sufficient *Dante MATIAS. N Engl J Med. 2007;357:266-280 Care must be taken in interpreting Vitamin D results from different laboratories and methodologies. Published data demonstrated that results from patients undergoing hemodialysis may show a negative bias when tested with various automated 25-OH vitamin D assays when compared to LC-MS/MS. When testing samples from patients whose predominant form of Vitamin D is Vitamin D2, such as patients receiving Vitamin D2 supplementation, results that are subtherapeutic should be confirmed with another method such as LC-MS/MS. Microalbumin, Random Reviewed date:06/18/2023 08:40:50 AM Interpretation: Performing Lab:[facility], [address] [place] [phone] Notes/Report: Creatinine Urine 35.48 Microalbumin Urine 77.0 Microalbum/Creatinine Ratio Ur 217.0 <30 ug/mg cr Albumin/Creatinine Ratio Reference Ranges: Normal: < 30 ug/mg creatinine Microalbuminuria: 30 - 300 ug/mg creatinine Clinical Albuminuria: > 300 ug/mg creatinine Hemoglobin A1c Reviewed date:06/18/2023 08:40:50 AM Interpretation: Performing Lab:[facility], [address] [place] [phone] Notes/Report: Hemoglobin A1c % 8.7 <6.0 % Hemoglobin A1C Reference Range Adults: 4.8 - 6.0 % Non diabetic: < 6.0 % Goal: < 7.0 % Additional Action Suggested: > 8.0 % Note: Hemoglobin A1c results are invalid for patients with abnormal amounts of HbF. Blood transfusions may impact the HbA1c concentration in the patient sample. Estimated Average Glucose 203 eAG = Estimated average glucose which is %A1C expressed as average glucose, using the formula of the F1N-Wfvecge Average Glucose study (ADAG), Diabetes Care, Vol.31,#8, Jan. 2007 US AURA complete Reviewed date:08/09/2023 10:06:49 AM Interpretation: Performing Lab: Notes/Report: [address] [address] Ultrasound Report Signed Patient: Victoriano Potter MR#: [id number] : 1940 Acct:[id number] Age/Sex: 83 / M ADM Date: 08/07/23 Loc: . Attending Dr: Didier Wiseman MD Ordering Physician: Didier Wiseman MD Date of Service: 08/07/23 Procedure(s): US AURA complete Accession Number(s): [id number] cc: Shamir Sommer MD; Didier Wiseman MD EXAMINATION: NONINVASIVE ASSESSMENT OF THE ARTERIES OF BOTH LOWER EXTREMITIES WITH PVR EXAM AND BILATERAL LOWER EXTREMITY DUPLEX Padmini Duffy MD CLINICAL INFORMATION: Peripheral vascular disease TECHNIQUE: Ankle pulse volume recordings, ankle pressure measurements and ankle brachial indices were obtained of the lower extremity arterial system bilaterally in addition to duplex Doppler techniques with wave form analysis and measurement of velocities in the common femoral, profunda femoral, superficial femoral, popliteal and tibial arteries. The study was performed only at rest. COMPARISON: Noninvasive arterial exam on 02/13/2023 FINDINGS: a) AT REST: RIGHT LE. The right ankle-brachial index is: 0.98 * >0.97-1.25 = normal - no significant arterial disease * 0.75-0.96 = mild peripheral arterial disease * 0.5-0.74 = moderate peripheral arterial disease * <0.50 = severe peripheral arterial disease 2. Right ankle pressure: abnormal. 3. Right ankle PVR waveform: abnormal. 4. Right direct duplex Doppler findings: Common femoral artery: [place] is occluded, distal bypass graft is patent. Profunda femoris artery: 15 cm/s, monophasic Superficial femoral artery (proximal): 100 cm/s, Multiphasic Superficial femoral artery (mid): 93 cm/s, Multiphasic Superficial femoral artery (distal): 68 cm/s, Multiphasic Proximal Popliteal artery: 43 cm/s, Multiphasic Mid posterior tibial artery: 60 cm/s, Multiphasic LEFT LE. The left ankle-brachial index is: 0.92 * >0.97-1.25 = normal - no significant arterial disease * 0.75-0.96 = mild peripheral arterial disease * 0.5-0.74 = moderate peripheral arterial disease * <0.50 = severe peripheral arterial disease 2. Left ankle pressure: abnormal. 3. Left ankle PVR waveform: abnormal. 4. Left direct duplex Doppler findings: Common femoral artery: 150 cm/s, Multiphasic Profunda femoris artery: 122 cm/s, Multiphasic Superficial femoral artery (proximal): 153 cm/s, Multiphasic Superficial femoral artery (mid): 79 cm/s, Multiphasic Superficial femoral artery (distal): 70 cm/s, Multiphasic Proximal Popliteal artery: 166 cm/s, Multiphasic US/US AURA complete IMPRESSION: RIGHT LEG: AURA 0.98. No hemodynamically significant stenoses in the right lower extremity. The distal portion of the bypass graft is patent. LEFT LEG: No hemodynamically significant stenoses throughout the left lower extremity, however the PVR is abnormal. Dictated By: Padmini Duffy MD Signed By: <Electronically signed by Padmini Duffy MD in OV> 08/08/23 1309 DD/ 1153 TD/TT: Human Resources Operations Director: DEREK [address] [address] Ultrasound Report Signed Patient: Victoriano Potter MR#: [id number] : 1940 Acct:[id number] Age/Sex: 83 / M ADM Date: 08/07/23 Loc: HO.US Attending Dr: Didier Wiseman MD Ordering Physician: Didier Wiseman MD Date of Service: 08/07/23 Procedure(s): US AURA complete Accession Number(s): [id number] cc: Shamir Sommer MD; Didier Wiseman MD EXAMINATION: NONINVASIVE ASSESSME NT OF THE ARTERIES OF BOTH LOWER EXTREMITIES WITH PVR EXAM AND BILATER AL LOWER EXTREMITY DUPLEX Padmini Duffy MD CLINICAL INFORMATION: Peripheral vascular disease TECHNIQUE: Ankle pulse volume recordings, ankle pressure measurements and ankle brachial indices wer e obtained of the lower extremity arterial system bilaterally in addit ion to duplex Doppler techniques with wave form analysis and measurement of velocities in the common femoral, profunda femoral, superficial femoral, popliteal and tibial arteries. The study was performed only a t rest. COMPARISON: Noninvas marge arterial exam on 02/13/2023 FINDINGS: a) AT REST: RIGHT LE. The right ankle-brachial index is: 0.98 * >0.97-1.25 = bernard l - no significant arterial disease * 0.75-0.96 = mild peripheral arterial disease * 0.5-0.74 = moderat e peripheral arterial disease * <0.50 = severe peripheral arterial disease 2. Right ankle pressure: abnormal. 3. Right ankle PVR waveform: abnormal. 4. Right direct dupl ex Doppler findings: Common femoral arter y: [place] is occluded, distal bypass graft is patent. Profunda femoris artery: 15 cm/s, monophasic Superficial femoral artery (proximal): 100 cm/s, Multiphasic Superficial femoral artery (mid): 93 cm/s, Multiphasic Superficial femoral artery (distal): 68 cm/s, Multiphasic Proximal Popliteal artery: 43 cm/s, Multiphasic Mid posterior tibial artery: 60 cm/s, Multiphasic LEFT LE. The left ankle-brachial index is: 0.92 * >0.97-1.25 = bernard l - no significant arterial disease * 0.75-0.96 = mild peripheral arterial disease * 0.5-0.74 = moderat e peripheral arterial disease * <0.50 = severe peripheral arterial disease 2. Left ankle pressu re: abnormal. 3. Left ankle PVR waveform: abnormal. 4. Left direct duple x Doppler findings: Common femoral arter y: 150 cm/s, Multiphasic Profunda femoris artery: 122 cm/s, Multiphasic Superficial femoral artery (proximal): 153 cm/s, Multiphasic Superficial femoral artery (mid): 79 cm/s, Multiphasic Superficial femoral artery (distal): 70 cm/s, Multiphasic Proximal Popliteal artery: 166 cm/s, Multiphasic US/US AURA complete IMPRESSION: RIGHT LEG: AURA 0.98. No hemodynamically significant stenoses in the right lower extremity. The dista l portion of the bypass graft is patent. LEFT LEG: No hemodynamically significant stenoses throughout the left lower extremity, however t he PVR is abnormal. Dictated By: Padmini Duffy MD Signed By: <Electronically signed by Padmini Duffy MD in OV> 08/08/23 1309 DD/ 1153 TD/TT: Human Resources Operations Director: DEREK US arterial duplex LE BI Reviewed date:08/09/2023 10:06:49 AM Interpretation: Performing Lab: Notes/Report: [address] [address] Ultrasound Report Signed Patient: Victoriano Potter MR#: [id number] : 1940 Acct:[id number] Age/Sex: 83 / M ADM Date: 08/07/23 Loc: HO.US Attending Dr: Didier Wiseman MD Ordering Physician: Didier Wiseman MD Date of Service: 08/07/23 Procedure(s): US arterial duplex LE BI Accession Number(s): [id number] cc: Shamir Sommer MD; Didier Wiseman MD EXAMINATION: NONINVASIVE ASSESSMENT OF THE ARTERIES OF BOTH LOWER EXTREMITIES WITH PVR EXAM AND BILATERAL LOWER EXTREMITY DUPLEX Padmini Duffy MD CLINICAL INFORMATION: Peripheral vascular disease TECHNIQUE: Ankle pulse volume recordings, ankle pressure measurements and ankle brachial indices were obtained of the lower extremity arterial system bilaterally in addition to duplex Doppler techniques with wave form analysis and measurement of velocities in the common femoral, profunda femoral, superficial femoral, popliteal and tibial arteries. The study was performed only at rest. COMPARISON: Noninvasive arterial exam on 02/13/2023 FINDINGS: a) AT REST: RIGHT LE. The right ankle-brachial index is: 0.98 * >0.97-1.25 = normal - no significant arterial disease * 0.75-0.96 = mild peripheral arterial disease * 0.5-0.74 = moderate peripheral arterial disease * <0.50 = severe peripheral arterial disease 2. Right ankle pressure: abnormal. 3. Right ankle PVR waveform: abnormal. 4. Right direct duplex Doppler findings: Common femoral artery: [place] is occluded, distal bypass graft is patent. Profunda femoris artery: 15 cm/s, monophasic Superficial femoral artery (proximal): 100 cm/s, Multiphasic Superficial femoral artery (mid): 93 cm/s, Multiphasic Superficial femoral artery (distal): 68 cm/s, Multiphasic Proximal Popliteal artery: 43 cm/s, Multiphasic Mid posterior tibial artery: 60 cm/s, Multiphasic LEFT LE. The left ankle-brachial index is: 0.92 * >0.97-1.25 = normal - no significant arterial disease * 0.75-0.96 = mild peripheral arterial disease * 0.5-0.74 = moderate peripheral arterial disease * <0.50 = severe peripheral arterial disease 2. Left ankle pressure: abnormal. 3. Left ankle PVR waveform: abnormal. 4. Left direct duplex Doppler findings: Common femoral artery: 150 cm/s, Multiphasic Profunda femoris artery: 122 cm/s, Multiphasic Superficial femoral artery (proximal): 153 cm/s, Multiphasic Superficial femoral artery (mid): 79 cm/s, Multiphasic Superficial femoral artery (distal): 70 cm/s, Multiphasic Proximal Popliteal artery: 166 cm/s, Multiphasic US/US arterial duplex LE BI IMPRESSION: RIGHT LEG: AURA 0.98. No hemodynamically significant stenoses in the right lower extremity. The distal portion of the bypass graft is patent. LEFT LEG: No hemodynamically significant stenoses throughout the left lower extremity, however the PVR is abnormal. Dictated By: Padmini Duffy MD Signed By: <Electronically signed by Padmini Duffy MD in OV> 08/08/23 1309 DD/ 1153 TD/TT: Human Resources Operations Director: [place] [address] Ultrasound Report Signed Patient: Victoriano Potter MR#: [id number] : 1940 Acct:[id number] Age/Sex: 83 / M ADM Date: 08/07/23 Loc: . Attending Dr: Didier Wiseman MD Ordering Physician: Didier Wiseman MD Date of Service: 08/07/23 Procedure(s): US arterial duplex LE BI Accession Number(s): [id number] cc: Shamir Sommer MD; Didier Wiseman MD EXAMINATION: NONINVASIVE ASSESSME NT OF THE ARTERIES OF BOTH LOWER EXTREMITIES WITH PVR EXAM AND BILATER AL LOWER EXTREMITY DUPLEX Padmini Duffy MD CLINICAL INFORMATION: Peripheral vascular disease TECHNIQUE: Ankle pulse volume recordings, ankle pressure measurements and ankle brachial indices wer e obtained of the lower extremity arterial system bilaterally in addit ion to duplex Doppler techniques with wave form analysis and measurement of velocities in the common femoral, profunda femoral, superficial femoral, popliteal and tibial arteries. The study was performed only a t rest. COMPARISON: Noninvas marge arterial exam on 02/13/2023 FINDINGS: a) AT REST: RIGHT LE. The right ankle-brachial index is: 0.98 * >0.97-1.25 = bernard l - no significant arterial disease * 0.75-0.96 = mild peripheral arterial disease * 0.5-0.74 = moderat e peripheral arterial disease * <0.50 = severe peripheral arterial disease 2. Right ankle pressure: abnormal. 3. Right ankle PVR waveform: abnormal. 4. Right direct dupl ex Doppler findings: Common femoral arter y: [place] is occluded, distal bypass graft is patent. Profunda femoris artery: 15 cm/s, monophasic Superficial femoral artery (proximal): 100 cm/s, Multiphasic Superficial femoral artery (mid): 93 cm/s, Multiphasic Superficial femoral artery (distal): 68 cm/s, Multiphasic Proximal Popliteal artery: 43 cm/s, Multiphasic Mid posterior tibial artery: 60 cm/s, Multiphasic LEFT LE. The left ankle-brachial index is: 0.92 * >0.97-1.25 = bernard l - no significant arterial disease * 0.75-0.96 = mild peripheral arterial disease * 0.5-0.74 = moderat e peripheral arterial disease * <0.50 = severe peripheral arterial disease 2. Left ankle pressu re: abnormal. 3. Left ankle PVR waveform: abnormal. 4. Left direct duple x Doppler findings: Common femoral arter y: 150 cm/s, Multiphasic Profunda femoris artery: 122 cm/s, Multiphasic Superficial femoral artery (proximal): 153 cm/s, Multiphasic Superficial femoral artery (mid): 79 cm/s, Multiphasic Superficial femoral artery (distal): 70 cm/s, Multiphasic Proximal Popliteal artery: 166 cm/s, Multiphasic US/US arterial duplex LE BI IMPRESSION: RIGHT LEG: AURA 0.98. No hemodynamically significant stenoses in the right lower extremity. The dista l portion of the bypass graft is patent. LEFT LEG: No hemodynamically significant stenoses throughout the left lower extremity, however t he PVR is abnormal. Dictated By: Padmini Duffy MD Signed By: <Electronically signed by Padmini Duffy MD in OV> 08/08/23 1309 DD/ 1153 TD/TT: Human Resources Operations Director: DEREK US abdominal aortic aneurysm Reviewed date:08/09/2023 10:06:49 AM Interpretation: Performing Lab: Notes/Report: [address] [address] Ultrasound Report Signed Patient: Victoriano Potter MR#: [id number] : 1940 Acct:[id number] Age/Sex: 83 / M ADM Date: 08/07/23 Loc: HO.US Attending Dr: Didier Wiseman MD Ordering Physician: Didier Wiseman MD Date of Service: 08/07/23 Procedure(s): US abdominal aortic aneurysm Accession Number(s): [id number] cc: Shamir Sommer MD; Didier Wiseman MD EXAMINATION: US RETROPERITONEAL LIMITED (AORTA) CLINICAL INFORMATION: Femoral-femoral bypass graft. COMPARISON: CT abdomen pelvis on 12/21/2022 TECHNIQUE: Barrios-scale, color Doppler and spectral Doppler evaluation of the abdominal aorta. FINDINGS: The aorta is normal. The measurements of the aorta in maximum AP and transverse dimensions respectively are as follows: Proximal: 2.7 cm. Mid: 2.2 cm. Distal: 1.7 cm. The measurements of the common iliac arteries in maximum AP and TRV dimensions are as follows: Right Common Iliac Artery: Occluded Left Common Iliac Artery: 1.2 cm. US/US abdominal aortic aneurysm IMPRESSION: 1. No abdominal aortic or iliac artery aneurysm. 2. Occluded right common iliac artery. 3. The femoral-femoral bypass is not completely evaluated but on limited exam appears patent. Dictated By: Padmini Duffy MD Signed By: <Electronically signed by Padmini Duffy MD in OV> 08/08/23 1320 DD/ 1153 TD/TT: Human Resources Operations Director: [place] [address] Ultrasound Report Signed Patient: Victoriano Potter MR#: [id number] : 1940 Acct:[id number] Age/Sex: 83 / M ADM Date: 08/07/23 Loc: . Attending Dr: Didier Wiseman MD Ordering Physician: Didier Wiseman MD Date of Service: 08/07/23 Procedure(s): US abdominal aortic aneurysm Accession Number(s): [id number] cc: Shamir Sommer MD; Didier Wiseman MD EXAMINATION: US RETROPERITONEAL LIMITED (AORTA) CLINICAL INFORMATION: Femoral-femoral bypa ss graft. COMPARISON: CT abdomen pelvis on 12/21/2022 TECHNIQUE: Barrios-scale, color Doppler and spectral Doppler evaluation of the abdominal aorta. FINDINGS: The aorta is normal. The measurements of the aorta in maximum AP and transverse dimension s respectively are as follows: Proximal: 2.7 cm. Mid: 2.2 cm. Distal: 1.7 cm. The measurements of the common iliac arteries in maximum AP and TRV dimensions are as follows: Right Common Iliac Artery: Occluded Left Common Iliac Artery: 1.2 cm. US/US abdominal aortic aneurysm IMPRESSION: 1. No abdominal aort ic or iliac artery aneurysm. 2. Occluded right common iliac artery. 3. The femoral-femor al bypass is not completely evaluated but on limited exam appears patent. Dictated By: Padmini Duffy MD Signed By: <Electronically signed by Padmini Duffy MD in OV> 08/08/23 1320 DD/ 1153 TD/TT: Human Resources Operations Director: DEREK Complete Blood Count Auto Di ff Reviewed date:08/12/2023 01:33:11 PM Interpretation: Performing Lab:[facility], [address] [place] [phone] Notes/Report: White Blood Count 6.6 4.8-10.8 X10*3/uL Red Blood Count 4.07 4.60-5.80 X10*6/uL Hemoglobin 11.3 14.0-18.0 g/dl Hematocrit 35.7 42.0-52.0 % Mean Corpuscular Volume 87.7 80.0-98.0 fL Mean Corpuscular Hemoglobin 27.8 27.0-33.0 pg Mean Corpuscular HGB Conc 31.7 31.0-36.0 g/dl Red Cell Distribution Width 15.3 11.0-16.0 % Platelet Count 217 160-400 X10*3/uL Mean Platelet Volume 11.4 9.4-12.4 fL Neutrophils Percent Auto 44.7 45-73 % Imm Gran Pct Auto 0.3 0.0-0.4 % Lymphocytes Percent Auto 42.3 20-40 % Monocytes Percent Auto 8.1 2-11 % Eosinophils Percent Auto 4.1 0-4 % Basophils Percent Auto 0.5 0-2 % NRBC Pct Auto 0.0 0.0-0.2 /100WBC Neutrophils Absolute Auto 3.0 2.0-8.3 x10*3/uL Imm Gran Abs Auto 0.02 0.00-0.03 X10*3/uL Lymphocytes Absolute Auto 2.8 1.2-4.9 X10*3/uL Monocytes Absolute Auto 0.5 0.1-1.2 X10*3/uL Eosinophils Absolute Auto 0.3 0.0-0.4 X10*3/uL Basophils Absolute Auto 0.0 0.0-0.2 X10*3/uL NRBC Abs Auto 0.000 0.0-0.012 X10*3/uL Comprehensive [place]. Panel Fa st Reviewed date:08/12/2023 01:33:11 PM Interpretation: Performing Lab:[facility], [address] [place] [phone] Notes/Report: Sodium 141 135-145 mmol/L Potassium 4.2 3.3-5.1 mmol/L Chloride 107 96-108 mmol/L Carbon Dioxide 23 22-29 mmol/L Anion Gap 15 12-20 Blood Urea Nitrogen 21 9-16 mg/dL Creatinine 1.25 0.5-1.4 mg/dL Estimated Glomerular Filt Rate 55 NOTE: For -Icelandic individuals, multiply the result by 1.210. Chronic Kidney Disease: Estimated GFR < 60 mL/min/1.73m2 Severe Kidney Disease: Estimated GFR < 15 mL/min/1.73m2 Glucose Fasting 153 60-99 mg/dL A fasting glucose of 126 mg/dl or greater on more than one occasion is considered diagnostic of diabetes. Calcium 10.3 8.4-10.2 mg/dL Bilirubin Total 0.6 0.0-1.0 mg/dL Aspartate Amino Transferase 34 5-37 U/L Alanine Aminotransferase 29 0-40 U/L Total Protein 7.4 6.5-8.0 g/dL Albumin Level 4.2 3.5-5.0 g/dL Alkaline Phosphatase 82 39-117 U/L Lipid Panel Reviewed date:08/12/2023 01:33:11 PM Interpretation: Performing Lab:[facility], [address] [place] [phone] Notes/Report: Triglycerides 135 <150 mg/dL Desirable Triglyceride: less than 150 mg/dL Borderline High Triglyceride 150-199 mg/dL High Triglyceride: 200-499 mg/dL Very High Triglyceride: greater than or equal to 5OO mg/dL Cholesterol 108 <200 mg/dL Desirable Cholesterol: less than 200 mg/dL Borderline High Cholesterol: 200-239 mg/dL High Cholesterol: greater than 239 mg/dL LDL Cholesterol Calculated 45 <100 mg/dL Desirable LDL: less than 100 mg/dL Near Optimal/Above Optimal LDL: 110-129 mg/dL Borderline High LDL: 130-159 mg/dL High LDL: 160-189 mg/dL Very High LDL: greater than or equal to 190 mg/dL HDL Cholesterol 36 >40 mg/dL Desirable HDL: greater than 40 mg/dL Note: This HDL assay may give artificially low results in patients with liver disease. Prostate Specific Antigen Reviewed date:08/12/2023 01:33:11 PM Interpretation: Performing Lab:[facility], [address] [place] [phone] Notes/Report: Prostate Specific Antigen 1.28 <0.05-4.0 ng/mL PSA methodology: Saab Alinity i Chemiluminescent Microparticle Immunoassay (CMIA) Hemoglobin A1c Reviewed date:08/12/2023 01:33:11 PM Interpretation: Performing Lab:[address] [phone] Notes/Report: Hemoglobin A1c % 8.1 <6.0 % Hemoglobin A1C Reference Range Adults: 4.8 - 6.0 % Non diabetic: < 6.0 % Goal: < 7.0 % Additional Action Suggested: > 8.0 % Note: Hemoglobin A1c results are invalid for patients with abnormal amounts of HbF. Blood transfusions may impact the HbA1c concentration in the patient sample. Estimated Average Glucose 186 eAG = Estimated average glucose which is %A1C expressed as average glucose, using the formula of the [id number] Average Glucose study (ADAG), Diabetes Care, Vol.31,#8, Jan. 2007 Complete Blood Count Auto Di ff Reviewed date:11/12/2023 08:32:24 AM Interpretation: Performing Lab:[facility], [address] [place] [phone] Notes/Report: White Blood Count 7.2 4.8-10.8 X10*3/uL Red Blood Count 3.85 4.60-5.80 X10*6/uL Hemoglobin 10.9 14.0-18.0 g/dl Hematocrit 34.3 42.0-52.0 % Mean Corpuscular Volume 89.1 80.0-98.0 fL Mean Corpuscular Hemoglobin 28.3 27.0-33.0 pg Mean Corpuscular HGB Conc 31.8 31.0-36.0 g/dl Red Cell Distribution Width 15.1 11.0-16.0 % Platelet Count 216 160-400 X10*3/uL Mean Platelet Volume 11.5 9.4-12.4 fL Neutrophils Percent Auto 38.5 45-73 % Imm Gran Pct Auto 0.4 0.0-0.4 % Lymphocytes Percent Auto 46.7 20-40 % Monocytes Percent Auto 7.9 2-11 % Eosinophils Percent Auto 5.5 0-4 % Basophils Percent Auto 1.0 0-2 % NRBC Pct Auto 0.0 0.0-0.2 /100WBC Neutrophils Absolute Auto 2.8 2.0-8.3 x10*3/uL Imm Gran Abs Auto 0.03 0.00-0.03 X10*3/uL Lymphocytes Absolute Auto 3.4 1.2-4.9 X10*3/uL Monocytes Absolute Auto 0.6 0.1-1.2 X10*3/uL Eosinophils Absolute Auto 0.4 0.0-0.4 X10*3/uL Basophils Absolute Auto 0.1 0.0-0.2 X10*3/uL NRBC Abs Auto 0.000 0.0-0.012 X10*3/uL Comprehensive Marion. Panel Fa st Reviewed date:11/17/2023 05:40:31 PM Interpretation: Performing Lab:[facility], [address] [place] [phone] Notes/Report: Sodium 140 135-145 mmol/L Potassium 4.4 3.3-5.1 mmol/L Chloride 105 96-108 mmol/L Carbon Dioxide 23 22-29 mmol/L Anion Gap 16 12-20 Blood Urea Nitrogen 24 9-16 mg/dL Creatinine 1.27 0.5-1.4 mg/dL Estimated Glomerular Filt Rate 54 NOTE: For -[place]celand[place] individuals, multiply the result by 1.210. Chronic Kidney Disease: Estimated GFR < 60 mL/min/1.73m2 Severe Kidney Disease: Estimated GFR < 15 mL/min/1.73m2 Glucose Fasting 158 60-99 mg/dL A fasting glucose of 126 mg/dl or greater on more than one occasion is considered diagnostic of diabetes. Calcium 10.2 8.4-10.2 mg/dL Bilirubin Total 0.5 0.0-1.0 mg/dL Aspartate Amino Transferase 28 5-37 U/L Alanine Aminotransferase 25 0-40 U/L Total Protein 7.3 6.5-8.0 g/dL Albumin Level 4.1 3.5-5.0 g/dL Alkaline Phosphatase 84 39-117 U/L Lipid Panel Reviewed date:11/17/2023 05:40:31 PM Interpretation: Performing Lab:[address] [phone] Notes/Report: Triglycerides 117 <150 mg/dL Desirable Triglyceride: less than 150 mg/dL Borderline High Triglyceride 150-199 mg/dL High Triglyceride: 200-499 mg/dL Very High Triglyceride: greater than or equal to 5OO mg/dL Cholesterol 111 <200 mg/dL Desirable Cholesterol: less than 200 mg/dL Borderline High Cholesterol: 200-239 mg/dL High Cholesterol: greater than 239 mg/dL LDL Cholesterol Calculated 52 <100 mg/dL Desirable LDL: less than 100 mg/dL Near Optimal/Above Optimal LDL: 110-129 mg/dL Borderline High LDL: 130-159 mg/dL High LDL: 160-189 mg/dL Very High LDL: greater than or equal to 190 mg/dL HDL Cholesterol 36 >40 mg/dL Desirable HDL: greater than 40 mg/dL Note: This HDL assay may give artificially low results in patients with liver disease. Hemoglobin A1c Reviewed date:11/12/2023 08:32:24 AM Interpretation: Performing Lab:[address] [phone] Notes/Report: Hemoglobin A1c % 8.4 <6.0 % Hemoglobin A1C Reference Range Adults: 4.8 - 6.0 % Non diabetic: < 6.0 % Goal: < 7.0 % Additional Action Suggested: > 8.0 % Note: Hemoglobin A1c results are invalid for patients with abnormal amounts of HbF. Blood transfusions may impact the HbA1c concentration in the patient sample. Estimated Average Glucose 194 eAG = Estimated average glucose which is %A1C expressed as average glucose, using the formula of the [id number] Average Glucose study (ADAG), Diabetes Care, Vol.31,#8, 2007 Complete Blood Count Auto Di ff Reviewed date:02/18/2024 08:40:55 AM Interpretation: Performing Lab:[facility], [address] [place] [phone] Notes/Report: White Blood Count 6.5 4.8-10.8 X10*3/uL Red Blood Count 3.81 4.60-5.80 X10*6/uL Hemoglobin 10.7 14.0-18.0 g/dl Hematocrit 33.2 42.0-52.0 % Mean Corpuscular Volume 87.1 80.0-98.0 fL Mean Corpuscular Hemoglobin 28.1 27.0-33.0 pg Mean Corpuscular HGB Conc 32.2 31.0-36.0 g/dl Red Cell Distribution Width 15.6 11.0-16.0 % Platelet Count 201 160-400 X10*3/uL Mean Platelet Volume 12.1 9.4-12.4 fL Neutrophils Percent Auto 51.8 45-73 % Imm Gran Pct Auto 0.3 0.0-0.4 % Lymphocytes Percent Auto 36.2 20-40 % Monocytes Percent Auto 8.1 2-11 % Eosinophils Percent Auto 2.5 0-4 % Basophils Percent Auto 1.1 0-2 % NRBC Pct Auto 0.0 0.0-0.2 /100WBC Neutrophils Absolute Auto 3.4 2.0-8.3 x10*3/uL Imm Gran Abs Auto 0.02 0.00-0.03 X10*3/uL Lymphocytes Absolute Auto 2.4 1.2-4.9 X10*3/uL Monocytes Absolute Auto 0.5 0.1-1.2 X10*3/uL Eosinophils Absolute Auto 0.2 0.0-0.4 X10*3/uL Basophils Absolute Auto 0.1 0.0-0.2 X10*3/uL NRBC Abs Auto 0.000 0.0-0.012 X10*3/uL Comprehensive [place]. Panel Fa st Reviewed date:02/18/2024 08:40:55 AM Interpretation: Performing Lab:[facility], [address] [place] [phone] Notes/Report: Sodium 139 135-145 mmol/L Potassium 4.3 3.3-5.1 mmol/L Chloride 108 96-108 mmol/L Carbon Dioxide 23 22-29 mmol/L Anion Gap 12 12-20 Blood Urea Nitrogen 26 9-16 mg/dL Creatinine 1.21 0.5-1.4 mg/dL Estimated Glomerular Filt Rate 57 NOTE: For -Icelandic individuals, multiply the result by 1.210. Chronic Kidney Disease: Estimated GFR < 60 mL/min/1.73m2 Severe Kidney Disease: Estimated GFR < 15 mL/min/1.73m2 Glucose Fasting 172 60-99 mg/dL A fasting glucose of 126 mg/dl or greater on more than one occasion is considered diagnostic of diabetes. Calcium 10.4 8.4-10.2 mg/dL Bilirubin Total 0.5 0.0-1.0 mg/dL Aspartate Amino Transferase 24 5-37 U/L Alanine Aminotransferase 26 0-40 U/L Total Protein 6.8 6.5-8.0 g/dL Albumin Level 3.8 3.5-5.0 g/dL Alkaline Phosphatase 92 39-117 U/L Lipid Panel Reviewed date:02/18/2024 08:40:55 AM Interpretation: Performing Lab:[facility], [address] [place] [phone] Notes/Report: Triglycerides 115 <150 mg/dL Desirable Triglyceride: less than 150 mg/dL Borderline High Triglyceride 150-199 mg/dL High Triglyceride: 200-499 mg/dL Very High Triglyceride: greater than or equal to 5OO mg/dL Cholesterol 94 <200 mg/dL Desirable Cholesterol: less than 200 mg/dL Borderline High Cholesterol: 200-239 mg/dL High Cholesterol: greater than 239 mg/dL LDL Cholesterol Calculated 36 <100 mg/dL Desirable LDL: less than 100 mg/dL Near Optimal/Above Optimal LDL: 110-129 mg/dL Borderline High LDL: 130-159 mg/dL High LDL: 160-189 mg/dL Very High LDL: greater than or equal to 190 mg/dL HDL Cholesterol 35 >40 mg/dL Desirable HDL: greater than 40 mg/dL Note: This HDL assay may give artificially low results in patients with liver disease. Prostate Specific Antigen Reviewed date:02/26/2024 10:27:44 AM Interpretation: Performing Lab:[facility], [address] [place] [phone] Notes/Report: Prostate Specific Antigen 2.53 <0.05-4.0 ng/mL PSA methodology: Zayanity i Chemiluminescent Microparticle Immunoassay (CMIA) Microalbumin, Random Reviewed date:02/26/2024 10:27:44 AM Interpretation: Performing Lab:[facility], [address] [place] [phone] Notes/Report: Creatinine Urine 36.77 Microalbumin Urine 39.0 Microalbum/Creatinine Ratio Ur 106.0 <30 ug/mg cr Albumin/Creatinine Ratio Reference Ranges: Normal: < 30 ug/mg creatinine Microalbuminuria: 30 - 300 ug/mg creatinine Clinical Albuminuria: > 300 ug/mg creatinine Hemoglobin A1c Reviewed date:02/18/2024 08:40:55 AM Interpretation: Performing Lab:[facility], [address] [place] [phone] Notes/Report: Hemoglobin A1c % 8.4 <6.0 % Hemoglobin A1C Reference Range Adults: 4.8 - 6.0 % Non diabetic: < 6.0 % Goal: < 7.0 % Additional Action Suggested: > 8.0 % Note: Hemoglobin A1c results are invalid for patients with abnormal amounts of HbF. Blood transfusions may impact the HbA1c concentration in the patient sample. Estimated Average Glucose 194 eAG = Estimated average glucose which is %A1C expressed as average glucose, using the formula of the [id number] Average Glucose study (ADAG), Diabetes Care, Vol.31,#8, Jan. 2007 Reason For Referral No Information Medications Medication SIG (Take, Route, Frequency, Duration) Notes Start Date End Date Status Pioglitazone HCl 45 MG TAKE 1 TABLET BY MOUTH EVERY DAY for 90 Active Simvastatin 40 MG TAKE 1 TABLET BY MOUTH EVERY DAY IN THE EVENING FOR 90 DAYS Active Vitamin D3 50 MCG (1999 UT) TAKE 1 CAPSULE BY MOUTH EVERY DAY FOR 90 DAYS Active FreeStyle Lancets - DIRECTED - USE TO CHECK BLOOD SUGARS THREE TIMES A DAY 30 DAYS E11.9 Type 2 diabetes Active Multivitamin Active metFORMIN HCl 1000 MG TAKE 1 TABLET BY MOUTH TWICE A DAY Active Omeprazole 20 MG TAKE 1 CAPSULE BY MOUTH EVERY DAY Active Vitamin B-12 1000 MCG 1 tablet Orally On ce a day Active Lisinopril 20 MG 1 tablet Orally Once a day 08/21/2023 Active FreeStyle Lite Test - DIRECTED IN VIT RO TO CHECK BLOOD SUGAR THREE TIMES A DAY 30 DAYS Active Trulicity 1.5 MG/0.5ML as directed Subcutaneous once a week Active Lisinopril 10 MG TAKE 1 TABLET BY MOUTH EVERY DAY Active Aspirin 81 MG 1 tablet Orally Once a day Active Immunizations Vaccine Route Administration Date Status Comme nts COVID 19 Nuzhat Unknown 11/13/2020 Administered Social History Tobacco Use: Social History Observation [...] ast year? No Points 0 Interpretation Negative Problems Problem Type SNOMED Code ICD Code Onset Dates Problem Status W/U Status Risk Notes Problem 7562350 Former smoker (Z87.891) Active confirmed He is highly motivated not to smoke. He has a plan for prevention of relapse in times of stress. Problem 315866322 Overweight (E66.3) Active confirmed He has lost 3 pounds and his body mass index is 26. We discussed the elements of a diabetic diet with reduced calories at length today. Problem 02133801 Type 2 diabetes mellitus without complications (E11.9) Active confirmed His hemoglobin A1c has increased from 8.1 to 8.4. . We discussed his diabetic diet in weight and exercise level. He will adhere to his diabetic diet. These values will be repeated in the near future. I have offered to increase his medication but he wants to rely upon diet. Problem Benign prostatic hyperplasia (109430437) BPH (benign prostatic hyperplasia) (N40.0) Active confirmed He is using lifestyle modification to reduce nocturia. He says he rises at most once a night. Problem 637303468 Gastroesophageal reflux disease, esophagitis presence not specified (K21.9) Active confirmed His reflux symptoms are well controlled current medication. He will avoid eating related 90 and continue on his current medication. Problem Peripheral arterial disease (627882884) Peripheral arterial disease (I73.9) Active confirmed his claudicatio n remains stable and he is up-to-date with vascular surgery.He is going to see vascular surgery next week. He has a clearly audible bruit in the right carotid with a decent pulse. He has had no neurological symptoms. I asked him to call me after his vascular appointment to update me on recommendations. Problem Vitamin D deficiency (61264174) Vitamin D deficiency (E55.9) Active confirmed He was continued. Problem 79341064 Strabismus (H50.9) Active confirmed He will continue under the care of an law office manager. Problem 374316897 Right groin carmencita ia (K40.90) Active confirmed Is currently asymptomatic. Problem 58642929 Hyperlipidemia, unspecified hyperlipidemia type (E78.5) Active confirmed his lipids are currently stable and in their target range. Problem 910752915 Diverticulitis (K57.92) Active confirmed His symptoms have resolved. He will finish his antibiotics and come in for follow-up. His diet will be unrestricted. Problem Occlusion and stenosis of multiple and bilateral cerebral arteries (227315235) Bilateral carotid artery stenosis (I65.23) Active confirmed The recent ultrasound showed bilateral stenoses or were not hemodynamically significant. He is going to see vascular surgery next week. Problem 581248057 Age-related incipient cataract of right eye (H25.091) Active confirmed He is medically cleared for cataract extraction and lens implantation. Vital Signs Heart Rate 80 /min 02/26/2024 Temperature 97.2 degrees Fahrenheit 02/26/2024 Blood pressure diastolic 80 mm Hg 02/26/2024 Height 62 in 02/26/2024 Blood pressure systolic 135 mm Hg 02/26/2024 Weight 144 lbs 02/26/2024 BMI 26.34 kg/m2 02/26/2024 Encounters Encounter Location Date Provider Diagnosis Shamir Sommer III, MD [address] [place] [address] [place] [phone] 06/25/2023 Shamir Sommer Type 2 diabetes nico itus without complications E11.9 ; Gastroesophageal reflux disease, esophagitis presence not specified K21.9 ; Overweight E66.3 ; BPH (benign prostatic hyperplasia) N40.0 ; Former smoker Z87.891 ; Strabismus H50.9 and Peripheral arterial disease I73.9 Shamir Sommer III, MD [address] [place] [address] [place] [phone] 08/21/2023 Shamir Sommer Type 2 diabetes nico itus without complications E11.9 ; Gastroesophageal reflux disease, esophagitis presence not specified K21.9 ; Peripheral arterial disease I73.9 ; Former smoker Z87.891 ; Strabismus H50.9 ; Right groin hernia K40.90 ; BPH (benign prostatic hyperplasia) N40.0 ; Vitamin D deficiency E55.9 ; Overweight E66.3 and Hyperlipidemia, unspecified hyperlipidemia type E78.5 Shamir Sommer III, MD [address] [place] [address] [place] [phone] 11/19/2023 Shamir Sommer Type 2 diabetes nico itus without complications E11.9 ; Overweight E66.3 ; BPH (benign prostatic hyperplasia) N40.0 ; Hyperlipidemia, unspecified hyperlipidemia type E78.5 ; Former smoker Z87.891 ; Gastroesophageal reflux disease, esophagitis presence not specified K21.9 and Peripheral arterial disease I73.9 Shamir Sommer III, MD [address] [place] [address] [place] [phone] 02/26/2024 Shamir Sommer Type 2 diabetes nico itus without complications E11.9 ; Overweight E66.3 ; BPH (benign prostatic hyperplasia) N40.0 ; Gastroesophageal reflux disease, esophagitis presence not specified K21.9 ; Strabismus H50.9 ; Former smoker Z87.891 ; Vitamin D deficiency E55.9 and Peripheral arterial disease I73.9 Shamir Sommer III, MD [address] [place] [address] [place] [phone] 09/03/2023 Shamir Sommer III, MD [address] [place] [address] [place] [phone] 01/14/2024 Shamir Sommer III, MD [address] [place] [address] [place] [phone] 02/12/2024 Shamir Sommer Type 2 diabetes nico itus without complications E11.9 Assessments Encounter Date Diagnosis (ICD Code) Assessment Notes Treat ment Notes Treatment Clinical Notes 06/25/2023 Type 2 diabetes mellitus without complications (ICD-10 - E11.9) His hemoglobin A1c has increased from 8.1-8.7. He says thhis is due to holidays. We discussed his diabetic diet in weight and exerccise leveel. He will adhere to his diabetic diet. These values will be repeated in the near future. 06/25/2023 Gastroesophageal reflux disease, esophagitis presence not specified (ICD-10 - K21.9) His reflux symptoms aare controlled with medication. He is ssleeping through the night well. 08/21/2023 Type 2 diabetes mellitus without complications (ICD-10 - E11.9) His hemoglobin A1c has decreased from 8.7 to 8.1. He says this is due to holidays. We discussed his diabetic diet in weight and exercise level. He will adhere to his diabetic diet. These values will be repeated in the near future. 08/21/2023 Gastroesophageal reflux disease, esophagitis presence not specified (ICD-10 - K21.9) His reflux symptoms are well controlled current medication. He will avoid eating related 90 and continue on his current medication. 11/19/2023 Overweight (ICD-10 - E66.3) his body mass index is slightly elevated. We discussed his diabetic diet. We made a plan to lose weight at a rate of one half of a pound per week. 11/19/2023 Type 2 diabetes mellitus without complications (ICD-10 - E11.9) His hemoglobin A1c has increased from 8.1 to 8.4. He says this is due to holidays. We discussed his diabetic diet in weight and exercise level. He will adhere to his diabetic diet. These values will be repeated in the near future. 02/26/2024 Overweight (ICD-10 - E66.3) He has lost 3 pounds and his body mass index is 26. We discussed the elements of a diabetic diet with reduced calories at length today. 02/26/2024 Type 2 diabetes mellitus without complications (ICD-10 - E11.9) His hemoglobin A1c has increased from 8.1 to 8.4. . We discussed his diabetic diet in weight and exercise level. He will adhere to his diabetic diet. These values will be repeated in the near future. I have offered to increase his medication but he wants to rely upon diet. 02/12/2024 Type 2 diabetes mellitus without complications (ICD-10 - E11.9) His hemoglobin A1c has increased from 8.1 to 8.4. He says this is due to holidays. We discussed his diabetic diet in weight and exercise level. He will adhere to his diabetic diet. These values will be repeated in the near future. 06/25/2023 Overweight (ICD-10 - E66.3) His body mass index is 27. We discussed his diet and nutrition. We made a plan to lose weight att a rate of one half of a pound per week. 08/21/2023 Peripheral arterial disease (ICD-10 - I73.9) He has a history of bilateral stenotic disease in his carotids. The current Doppler arterrial study shows no disease in his lower extremities. He wwill continue to follow with his vascular surgeon. 11/19/2023 BPH (benign prostati c hyperplasia) (ICD-10 - N40.0) he rises from sleep once or twice a night to urinate. We discussed glycemic control and avoidance of fluid through lifestyle modification after 5 PM. 02/26/2024 BPH (benign prostati c hyperplasia) (ICD-10 - N40.0) He is using lifestyle modification to reduce nocturia. He says he rises at most once a night. 06/25/2023 BPH (benign prostati c hyperplasia) (ICD-10 - N40.0) He rises from sleeep about once a nigght. We discussed lifestyle modification as a way of reducing nocturia. We discussed controlling glucose levels as well. 08/21/2023 Former smoker (ICD-1 0 - Z87.891) He is highly motivated not to smoke. He has a plan for prevention of relapse in times of stress. 11/19/2023 Hyperlipidemia, unspecified hyperlipidemia type (ICD-10 - E78.5) his lipids are currently stable and in their target range. 02/26/2024 Gastroesophageal reflux disease, esophagitis presence not specified (ICD-10 - K21.9) His reflux symptoms are well controlled current medication. He will avoid eating related 90 and continue on his current medication. 06/25/2023 Former smoker (ICD-1 0 - Z87.891) He is highly motivated not to smoke. He has a plan for prevention of relapse in times of stress. 08/21/2023 Strabismus (ICD-10 - H50.9) He will continue under the care of an law office manager. 11/19/2023 Former smoker (ICD-1 0 - Z87.891) He is highly motivated not to smoke. He has a plan for prevention of relapse in times of stress. 02/26/2024 Strabismus (ICD-10 - H50.9) He will continue under the care of an law office manager. 06/25/2023 Strabismus (ICD-10 - H50.9) He will continue under the care of an law office manager. 08/21/2023 Right groin hernia (ICD-10 - K40.90) Is currently asymptomatic. 11/19/2023 Gastroesophageal reflux disease, esophagitis presence not specified (ICD-10 - K21.9) His reflux symptoms are well controlled current medication. He will avoid eating related 90 and continue on his current medication. 02/26/2024 Former smoker (ICD-1 0 - Z87.891) He is highly motivated not to smoke. He has a plan for prevention of relapse in times of stress. 06/25/2023 Peripheral arterial disease (ICD-10 - I73.9) He has been scheduled for arteriography in August of this year. He is likely going to have stents inserted. His claudication has been stable but significant. 08/21/2023 BPH (benign prostati c hyperplasia) (ICD-10 - N40.0) He rises from sleeep about once a nigght. We discussed lifestyle modification as a way of reducing nocturia. We discussed controlling glucose levels as well. 11/19/2023 Peripheral arterial disease (ICD-10 - I73.9) his claudication remains stable and he is up-to-date with vascular surgery. 02/26/2024 Vitamin D deficiency (ICD-10 - E55.9) He was continued. 08/21/2023 Vitamin D deficiency (ICD-10 - E55.9) He [...] vascular appointment to update me on recommendations. 08/21/2023 Overweight (ICD-10 - E66.3) His body mass index is 27. We discussed his diet and nutrition. We made a plan to lose weight att a rate of one half of a pound per week. 08/21/2023 Hyperlipidemia, unspecified hyperlipidemia type (ICD-10 - E78.5) His lipids are stable at this time and no change in his regimen was made. Plan Of Treatment Pending Test Test Name Order Date PROFILE, FASTING (COMPREHENSIVE METABOLI C) 02/26/2024 PROFILE, FASTING (COMPREHENSIVE METABOLI C) 06/30/2022 PROFILE, FASTING (COMPREHENSIVE METABOLI C) 05/26/2021 PROFILE, FASTING (COMPREHENSIVE METABOLI C) 02/27/2022 PROFILE, FASTING (COMPREHENSIVE METABOLI C) 02/22/2023 PROFILE, FASTING (COMPREHENSIVE METABOLI C) 08/21/2023 PROFILE, FASTING (COMPREHENSIVE METABOLI C) 01/06/2020 PROFILE, FASTING (COMPREHENSIVE METABOLI C) 08/24/2021 PROFILE, FASTING (COMPREHENSIVE METABOLI C) 06/25/2023 PROFILE, FASTING (COMPREHENSIVE METABOLI C) 02/24/2021 PROFILE, FASTING (COMPREHENSIVE METABOLI C) 11/24/2020 PROFILE, FASTING (COMPREHENSIVE METABOLI C) 01/28/2016 PROFILE, FASTING (COMPREHENSIVE METABOLI C) 06/09/2020 PROFILE, FASTING (COMPREHENSIVE METABOLI C) 11/19/2023 PROFILE, FASTING (COMPREHENSIVE METABOLI C) 09/29/2022 PROFILE, RANDOM (COMPREHENSIVE METABOLIC ) 04/07/2020 PROFILE, RANDOM (COMPREHENSIVE METABOLIC ) 12/21/2021 HEMOGLOBIN A1C (GLYCOHEMOGLOBIN) 023 HEMOGLOBIN A1C (GLYCOHEMOGLOBIN) 023 HEMOGLOBIN A1C (GLYCOHEMOGLOBIN) 021 HEMOGLOBIN A1C (GLYCOHEMOGLOBIN) 023 HEMOGLOBIN A1C (GLYCOHEMOGLOBIN) 022 HEMOGLOBIN A1C (GLYCOHEMOGLOBIN) 020 HEMOGLOBIN A1C (GLYCOHEMOGLOBIN) 022 HEMOGLOBIN A1C (GLYCOHEMOGLOBIN) 024 HEMOGLOBIN A1C (GLYCOHEMOGLOBIN) 021 HEMOGLOBIN A1C (GLYCOHEMOGLOBIN) 016 LIPID PANEL 02/27/2022 LIPID PANEL 09/29/2022 LIPID PANEL 06/30/2022 LIPID PANEL 02/22/2023 LIPID PANEL 12/21/2021 LIPID PANEL 01/06/2020 LIPID PANEL 06/25/2023 LIPID PANEL 08/24/2021 LIPID PANEL 06/09/2020 LIPID PANEL 01/28/2016 B12 11/24/2020 PSA, TOTAL 11/19/2023 PSA, TOTAL 05/26/2021 PSA, TOTAL 09/29/2022 PSA, TOTAL 02/24/2021 PSA, TOTAL 06/25/2023 PSA, TOTAL 08/24/2021 PSA, TOTAL 06/09/2020 PSA, TOTAL 02/26/2024 PSA, TOTAL SCREEN 02/27/2022 MICROALBUMIN, RANDOM 06/30/2022 MICROALBUMIN, RANDOM 05/26/2021 MICROALBUMIN, RANDOM 02/22/2023 MICROALBUMIN, RANDOM 12/21/2021 MICROALBUMIN, RANDOM 09/29/2022 MICROALBUMIN, RANDOM 01/06/2020 CBC w DIFF 06/09/2020 CBC w DIFF 04/07/2020 CBC w DIFF 08/21/2023 CBC w DIFF 02/27/2022 CBC w DIFF 11/24/2020 CBC w DIFF 06/30/2022 CBC w DIFF 05/26/2021 CBC w DIFF 02/22/2023 CBC w DIFF 02/24/2021 CBC w DIFF 12/21/2021 CBC w DIFF 09/29/2022 CBC w DIFF 01/06/2020 CBC w DIFF 06/25/2023 CBC w DIFF 08/24/2021 CBC w DIFF 01/28/2016 INTRINSIC FACTOR ANTIBODIES 11/16/2020 VITAMIN D 25-OH TOTAL 02/22/2023 VITAMIN D 25-OH TOTAL 06/09/2020 VITAMIN D 25-OH TOTAL 02/27/2022 Diabetic Eye Exam 12/20/2023 CBC WITH AUTO DIFF 02/26/2024 CBC WITH AUTO DIFF 11/19/2023 Lipid Panel 05/26/2021 Lipid Panel 02/26/2024 Lipid Panel 11/19/2023 Lipid Panel 08/21/2023 Lipid Panel 11/24/2020 Microalbumin, Random 02/26/2024 Microalbumin, Random 11/19/2023 Hemoglobin A1c 11/24/2020 Hemoglobin A1c 08/21/2023 Hemoglobin A1c 02/26/2024 Hemoglobin A1c 11/19/2023 Next Appt Details Provider Name:Shamir Sommer, 05/27/2024 10:30:00 AM, [address] [place] [address] MARIANN AMIN, FAIZA MENG, [phone], Provider Name:hSamir Sommer, 02/27/2025 10:30:00 AM, [address] [place] [address] MARIANN AMIN, FAIZA MENG, [phone], Insurance Providers Payer Name Payer Address Payer Phone Subscriber Number Group Number Insured Name Patient Relationship to Insured Coverage Start Date Coverage End Date [facility] [address] [facility] [address] [place] [phone] [id number] Victoriano [facility] Self - patient is the insured Medical (General) History Medical History History ICD Code diabetes mellitus hyperlipidemia gastroesophageal reflux disease (GERD) right inguinal hernia age 11 strabismus O.D. lymphocytosis Surgical History Surgery Date(Month/Year) Left cataract surgery 03/2022 right cataract surgery 12/2021 negative colonoscopy 04/09/08 right inguinal herniorraphy age 11 Hospitalization History Reason Date(Month/Year) Diverticulitis 12/29/2022
[2024-05-21 07:01] LABS: MANUAL DIFF FLAG NO
[2024-05-21 07:08] LABS: Basophils Percent Auto 0.7 % (0-2); Eosinophils Absolute Auto 0.3 X10*3/uL (0.0-0.4); Eosinophils Percent Auto 4.1 % (0-4); Hematocrit 32.1 % (42.0-52.0); Hemoglobin 10.4 g/dl (14.0-18.0); Imm Gran Abs Auto 0.02 X10*3/uL (0.00-0.03); Imm Gran Pct Auto 0.3 % (0.0-0.4); Lymphocytes Percent Auto 49.8 % (20-40); Mean Corpuscular HGB Conc 32.4 g/dl (31.0-36.0); Mean Corpuscular Hemoglobin 28.4 pg (27.0-33.0); Mean Corpuscular Volume 87.7 fL (80.0-98.0); Mean Platelet Volume 10.7 fL (9.4-12.4); Monocytes Absolute Auto 0.5 X10*3/uL (0.1-1.2); Monocytes Percent Auto 8.2 % (2-11); Neutrophils Absolute Auto 2.3 x10*3/uL (2.0-8.3); Neutrophils Percent Auto 36.9 % (45-73); Platelet Count 214 X10*3/uL (160-400); Red Blood Count 3.66 X10*6/uL (4.60-5.80); White Blood Count 6.1 X10*3/uL (4.8-10.8)
[2024-05-21 07:19] LABS: Estimated Average Glucose 197 mg/dL; Hemoglobin A1C 179.2207 umol/L; Hemoglobin A1c % 8.5 % (<6.0); Total Hemoglobin (HGBA1C) 2571.5864 umol/L
[2024-05-21 07:35] LABS: Alanine Aminotransferase 32 U/L (0-40); Albumin Level 3.9 g/dL (3.5-5.0); Alkaline Phosphatase 86 U/L (39-117); Anion Gap 13 (12-20); Aspartate Amino Transferase 36 U/L (5-37); Bilirubin Total 0.5 mg/dL (0.0-1.0); Blood Urea Nitrogen 22 mg/dL (9-16); Calcium 9.4 mg/dL (8.4-10.2); Carbon Dioxide 21 mmol/L (22-29); Chloride 107 mmol/L (96-108); Cholesterol 105 mg/dL (<200); Estimated Glomerular Filt Rate > 60; Glucose Fasting 164 mg/dL (60-99); HDL Cholesterol 43 mg/dL (>40); LDL Cholesterol Calculated 37 mg/dL (<100); Potassium 4.1 mmol/L (3.3-5.1); Sodium 137 mmol/L (135-145); Triglycerides 126 mg/dL (<150)
[2024-05-21 08:04] LABS: Microalbum/Creatinine Ratio Ur 316.2 ug/mg cr (<30)
== END 2024-05-21 06:48 | disposition home or self-care (01) ==
LOC: HO.LAB 06:47
PROVIDERS: PCP Internal Medicine Medical Oncology; Visit Provider Internal Medicine Medical Oncology
DX: E11.9 Type 2 diabetes mellitus without complications (principal); E66.3 Overweight; N40.0 Benign prostatic hyperplasia without lower urinary tract symptoms; Z12.5 Encounter for screening for malignant neoplasm of prostate
CPT/HCPCS: 36415; 80053; 80061; 82043; 82570; 83036; 84153; 85025

== ENCOUNTER 2024-07-01 12:55 | Outpatient (AMB) | payer MEDICARE, SELFPAY ==
--- NOTE | 2024-07-01 13:01 | MHC.OFFVIS ---
Vital Signs 07/01/24 13:04 Height 5 ft 1 in Weight 147 lb 11.355 oz BMI 27.9 BP 188/81 H Blood Pressure Location Lt brachial Position Sitting Pulse 87 Intake Visit Reasons: 1 year follow up Diverticulosis, constipation Intake Note: Ray presents in the office as a 1 year follow up for Diverticulosis and constipation. CC: He denies any GI concerns. He states he had a couple polyps removed recently. Key Ringer Required: No Allergies No Known Allergies Allergy (Mild, Verified 07/01/24 13:12) NONE HPI HPI 1 year follow up Diverticulosis, constipation: Details: LAST VISIT: Diverticulitis of sigmoid colon Tubular adenoma Status post colonoscopy Plan High-fiber diet discussed with patient. Patient will continue drinking plenty fluids. He can take probiotics. May use MiraLax or any fiber [id number] fiber supplement. High-fiber diet discussed with patient. Patient will return in the office in 1 year, sooner if clinically necessary. Patient is agreeable to this plan and verbalizes understanding of instructions. He was given the opportunity to ask questions and all questions answered. TODAY'S VISIT Patient is here today for follow-up. Patient reports that he has been doing well since last visit. Patient is taking stool softener and has been having regular bowel movements. Denies any melena, hematochezia, unintentional weight loss or ribbon like stools. Patient reports that for most part his blood sugars are being well controlled unless he eats something that he should. Patient reports today his blood sugar little elevated when he checked at home. Patient states that he had corn dog for breakfast. Patient denies any dyspepsia, dysphagia or odynophagia. Denies any GI concerning symptoms. ? REPLACED BY [facility] Medical History Type 2 diabetes mellitus with hyperglycemia Vitamin D deficiency HLD (hyperlipidemia) HTN (hypertension) T2DM (type 2 diabetes mellitus) Surgical History (Updated 07/01/24 @ 13:15 by MARGUERITE Dumont) Hx of cataract surgery H/O colonoscopy Hx of hernia repair Family History Father No problems noted. Mother Diabetes Social History Household Members: Spouse Housing: House Do you presently have visiting nurse or other home services: No Alcohol intake: former Patient Tobacco Use Status: Former Tobacco user Cigarette Packs Per Day: 1 Years Smoked: 20 Review of Systems Const Denies weight gain and Denies weight loss ENT Reports no additional complaints, Denies dysphagia and Denies odynophagia Card Reports no additional complaints Resp Reports no additional complaints GI Denies abdominal pain, Denies belching, Denies melena, Denies bloating, Denies change in bowel habits, Denies dysphagia, Denies excessive flatus, Denies dyspepsia, Denies heartburn, Denies diarrhea, Denies loose stools, Denies nausea, Denies odynophagia and Denies vomiting Reports no additional complaints Musc Reports no additional complaints Neuro Reports no additional complaints Psych Reports no additional complaints Endo Reports no additional complaints Physical Exam Vital Signs: Last Vital Signs Pulse 87 07/01/24 13:04 BP 188/81 H 07/01/24 13:04 BMI result Body Mass Index 27.9 Const General: healthy appearing, no acute distress and well developed Nutritional Appearance: well nourished Orientation/consciousness: patient oriented x3 Resp Effort & Inspection: normal respiratory effort, able to speak in complete sentences, no tracheal deviation and symmetric chest movement Auscultation: clear to auscultation bilaterally Cardio Rate: regular rate GI Inspection: Yes normal to inspection and No distended Palpation (GI): Soft to palpation, not firm, nontender and No hepatosplenomegaly present Auscultation: normal bowel sounds General: Yes no CVA tenderness Back/Spine/Pelvis Back: no CVA tenderness Skin General skin exam: elasticity normal, turgor normal and dry skin Neuro General: patient oriented x3 Psych Appearance: grossly normal Mental Status: mental status grossly normal Assessment & Plan Assessment & Plan (1) Diverticulitis of sigmoid colon: Code(s): K57.32 - Diverticulitis of large intestine without perforation or abscess without bleeding Category: Medical (2) Constipation: Code(s): K59.00 - Constipation, unspecified Qualifiers: Constipation type: slow transit constipation Qualified Code(s): K59.01 - Slow transit constipation Plan Patient will continue high-fiber diet increase fluid intake and activity to promote better bowel motility. Patient will follow-up on as needed basis. He will call our office if he will have any GI concerning symptoms. For now patient is doing well and has been in the past year. He is agreeable to plan of care and verbalizes understanding of instructions. He was given the opportunity to ask questions and all questions answered. Thank you for allowing me to participate in his care Coding Level of Care Code Est Pt Level 3 (60382) Diagnoses Diverticulitis of sigmoid colon K57.32 Slow transit constipation K59.01 Constipation type: slow transit constipation Time Spent (min) 25 Comment 15 minutes spent with patient and additional 10 minutes spent reviewing his records
[2024-07-01 13:04] VITALS: BP 188/81; PULSE 87; BMI 27.9
--- OUTSIDE RECORDS SUMMARY | 2024-07-01 13:50 | XMS_ITS ---
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 02/26/2024 Former smoker (ICD-1 0 - Z87.891) [...] 3 Months, Reason: office visit Provider Name:Shamir Sommer, 09/25/2024 10:30:00 AM, [address] [place] [address] [address] AMIN, [place], [phone], Provider Name:Shamir Salne, 02/27/2025 10:30:00 AM, [address] [place] [address] MARIANN AMIN, [place], [phone], Progress Notes * Victoriano HOWELL EDOB:1940 ( 83 yo M)Acc No.[id number]:02/26/2024 Progress Notes Patient:?Victoriano HOWELL Provider:?Shamir Sommer MD :1940???Age:83 Y???Sex:Male Juice e:02/26/2024 Address:[address] [place], [place] [id number] Subjective: * Chief Complaints: * ???Annual exam * HPI: ???Depression Screening:?He returns to the office at the age of 83 for his annual physical examination.He is followed here for diabetes, GERD,Benign prostatic hypertrophy, carotid artery stenosis, peripheral vascular disease,And hyperlipidemia.? He has an appointment to see his vascular surgeon, Dr. Ramriez.? In 1 week.? He says he is [...] children and 9 grandchildren. 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 He was born in [place], [place]. * Medications:?TakingMultivita min FreeStyle Lancets [...] 36?L (Ref Range: >40 mg/dL) * Lab:Comprehensive [place]. Pane l Fast * Collection Date 02/18/2024 [...] will continue under the care of an chrome worker.???6.?Former smoker - Z87.891???Notes :He is highly motivated [...] * ?BLD 5-10 Negative - * Procedure Codes:?98769 URINE -NO MICRO * Preventive Medicine:? ??Counseling:?Care [...] MD Date:?02/03 Generated for Antonio costa/Maria Victoria/Maribel on:?07/01/2024 01:49 PM EST History and Physical Notes * HPI [...] days?: No Have you travelled internationally in [facility] last 10 days?: No [...]
== END 2024-07-01 16:18 | disposition home or self-care (01) ==
LOC: HO.HGI 12:55
PROVIDERS: PCP Internal Medicine Medical Oncology; Visit Provider Nurse Practitioner Family
DX: K57.32 Diverticulitis of large intestine without perforation or abscess without bleeding (principal); K59.01 Slow transit constipation
CPT/HCPCS: 99213

== ENCOUNTER → 2024-07-01 12:55 | Outpatient (BNVA) | payer MEDICARE, SELFPAY | PROVIDERS: PCP Internal Medicine Medical Oncology; Visit Provider Nurse Practitioner Family | DX: K57.32 Diverticulitis of large intestine without perforation or abscess without bleeding (principal); K59.01 Slow transit constipation | CPT/HCPCS: 99212 ==

== ENCOUNTER 2024-09-15 06:38 | Outpatient (REF) | payer MEDICARE, SELFPAY ==
[2024-09-15 06:50] LABS: MANUAL DIFF FLAG NO
[2024-09-15 07:19] LABS: Basophils Percent Auto 0.6 % (0-2); Eosinophils Absolute Auto 0.3 X10*3/uL (0.0-0.4); Eosinophils Percent Auto 4.7 % (0-4); Hematocrit 33.4 % (42.0-52.0); Hemoglobin 10.4 g/dl (14.0-18.0); Imm Gran Abs Auto 0.02 X10*3/uL (0.00-0.03); Imm Gran Pct Auto 0.3 % (0.0-0.4); Lymphocytes Absolute Auto 2.9 X10*3/uL (1.2-4.9); Lymphocytes Percent Auto 46.2 % (20-40); Mean Corpuscular HGB Conc 31.1 g/dl (31.0-36.0); Mean Corpuscular Hemoglobin 27.7 pg (27.0-33.0); Mean Corpuscular Volume 89.1 fL (80.0-98.0); Mean Platelet Volume 11.1 fL (9.4-12.4); Monocytes Absolute Auto 0.5 X10*3/uL (0.1-1.2); Monocytes Percent Auto 8.1 % (2-11); Neutrophils Absolute Auto 2.5 x10*3/uL (2.0-8.3); Neutrophils Percent Auto 40.1 % (45-73); Platelet Count 188 X10*3/uL (160-400); Red Blood Count 3.75 X10*6/uL (4.60-5.80); Red Cell Distribution Width 15.4 % (11.0-16.0); White Blood Count 6.2 X10*3/uL (4.8-10.8)
[2024-09-15 07:25] LABS: Estimated Average Glucose 194 mg/dL; Hemoglobin A1C 190.4656 umol/L; Hemoglobin A1c % 8.4 % (<6.0); Total Hemoglobin (HGBA1C) 2778.5233 umol/L
[2024-09-15 07:54] LABS: Alanine Aminotransferase 33 U/L (0-40); Alkaline Phosphatase 89 U/L (39-117); Anion Gap 13 (12-20); Aspartate Amino Transferase 34 U/L (5-37); Bilirubin Total 0.5 mg/dL (0.0-1.0); Blood Urea Nitrogen 24 mg/dL (9-16); Carbon Dioxide 22 mmol/L (22-29); Chloride 108 mmol/L (96-108); Cholesterol 104 mg/dL (<200); Estimated Glomerular Filt Rate > 60; Glucose Fasting 163 mg/dL (60-99); HDL Cholesterol 41 mg/dL (>40); LDL Cholesterol Calculated 36 mg/dL (<100); Potassium 4.1 mmol/L (3.3-5.1); Sodium 139 mmol/L (135-145); Total Protein 7.1 g/dL (6.5-8.0); Triglycerides 138 mg/dL (<150)
[2024-09-15 08:46] LABS: Microalbum/Creatinine Ratio Ur 220.7 ug/mg cr (<30)
== END 2024-09-15 06:39 | disposition home or self-care (01) ==
LOC: HO.LAB 06:38
PROVIDERS: PCP Internal Medicine Medical Oncology; Visit Provider Internal Medicine Medical Oncology
DX: E11.9 Type 2 diabetes mellitus without complications (principal); E78.5 Hyperlipidemia, unspecified; E66.3 Overweight
CPT/HCPCS: 36415; 80053; 80061; 82043; 82570; 83036; 85025

== ENCOUNTER 2024-09-16 10:01 | Outpatient (REF) | payer MEDICARE, SELFPAY ==
--- NOTE | ~2024-09-16 | US_ITS ---
EXAMINATION: Noninvasive assessment of the bilateral lower extremities with ARTERIAL DUPLEX, ANKLE BRACHIAL INDICES (ABIs), and PULSE VOLUME RECORDINGS (PVRs). DOPPLER ARTERIAL ULTRASOUND AND ABDOMINAL AORTA AND ILIAC ARTERIES. CLINICAL INFORMATION: Hypertension. Smoking. Hyperlipidemia. Diabetes. Prior vascular surgery: Femorofemoral bypass graft. TECHNIQUE: Duplex Doppler techniques with waveform analysis and measurement of velocities in the bilateral common femoral, profunda femoris, superficial femoral, popliteal and tibial arteries were performed. Additionally, ankle pulse volume recordings, ankle pressure measurements and ankle brachial indices were obtained of the lower extremity arterial system bilaterally. The study was performed only at rest. COMPARISON: None FINDINGS: DIRECT DUPLEX DOPPLER FINDINGS: RIGHT LEG: Common femoral artery: 55 cm/s, phasicity: Monophasic. Profunda femoris artery: 16 cm/s, phasicity: Monophasic. Superficial femoral artery (proximal): 73 cm/s, phasicity: Monophasic. Superficial femoral artery (mid): 27 cm/s, phasicity: Monophasic. Superficial femoral artery (distal): 41 cm/s, phasicity: Monophasic. Popliteal artery: 28 cm/s, phasicity: Monophasic. Posterior tibial artery: 18 cm/s, phasicity: Monophasic. Peroneal artery: No color Doppler. Anterior tibial artery: 19 cm/s, phasicity: Monophasic. Dorsalis pedis artery: 14 cm/s, phasicity:Monophasic. LEFT LEG: Common femoral artery: 111 cm/s, phasicity: Triphasic. Profunda femoris artery: 146 cm/s, phasicity: Biphasic. Superficial femoral artery (proximal): 250 cm/s, phasicity: Biphasic. Superficial femoral artery (mid): 139 cm/s, phasicity: Biphasic. Superficial femoral artery (distal): 66 cm/s, phasicity: Biphasic. Popliteal artery: 45 cm/s, phasicity: Biphasic. Posterior tibial artery: 34 cm/s, phasicity: Biphasic. Peroneal artery: 41 cm/s, phasicity: Monophasic. Anterior tibial artery: 41 cm/s, phasicity: Monophasic. Dorsalis pedis artery: 40 cm/s, phasicity: Biphasic. BRACHIAL PRESSURES: Right: 186 Left: 185 ANKLE PRESSURES: Right: PT not measured., DP 95 Left: PT 181, DP 180 ANKLE-BRACHIAL INDEX: Right: 0.51 Left: 0.97 ANKLE PVR WAVEFORMS: Right: Abnormal Left: Abnormal Femorofemoral bypass graft: Occluded from the left inguinal to the mid inguinal region and the right inguinal region. Collateral flow. ABDOMINAL AORTA peak systolic velocity and diameter at the following: Proximal segment: 43 cm/s and 3.1 cm, respectively. Midsegment: 48 cm/s and 1.8 cm, respectively. Distal segment: 54 cm/s and 1.6 cm, respectively. Right iliac artery is occluded. Left iliac artery: Common : 112 cm/s. External : 82 cm/s. US/US arterial duplex BI w/ AURA IMPRESSION: Right leg: Severe inflow disease throughout the right lower extremity. Occluded right peroneal artery. Left leg: Moderate to severe inflow disease, left lower extremity. Occluded femorofemoral bypass graft at the inguinal regions. Occluded right iliac artery. No aneurysm, abdominal aorta. AURA Reference: - >1.4 = calcified vessels - 0.9 - 1.4 = normal - no significant arterial disease - 0.7 - 0.89 = mild peripheral arterial disease - 0.51 - 0.69 = moderate peripheral arterial disease - d 0.50 = severe peripheral arterial disease - < .30 = critical arterial disease Electronically signed by: Tate Terry MD 09/16/2024 02:19 PM EDT
--- OUTSIDE RECORDS SUMMARY | 2024-09-16 11:38 | XMS_ITS | Patient Health Record ---
Author Organization Shamir Sommer III, MD Address [address] [place] [address] [place] [address] Care Team Providers Care Title I Assistant Name Role Phone Shamir Sommer Primary Care Provider [phone] Allergies Allergen (clinical drug ingredient) Drug/Non Drug [...] ff Reviewed date:11/12/2023 08:32:24 AM Interpretation: Performing Lab:[facility], [address] [place] [phone] Notes/Report: White Blood Count 7.2 4.8-10.8 X10*3/uL [...] 0.0-0.2 /100WBC Neutrophils Absolute Auto 2.8 2.0-8.3 x10*3/u L Imm Gran Abs Auto 0.03 0.00-0.03 X10*3/uL Lymphocytes Absolute Auto 3.4 1.2-4.9 X10*3/u L Monocytes Absolute Auto 0.6 0.1-1.2 X10*3/uL Eosinophils Absolute Auto 0.4 0.0-0.4 X10*3/u L Basophils Absolute Auto 0.1 0.0-0.2 X10*3/uL NRBC Abs Auto 0.000 0.0-0.012 X10*3/uL Comprehensive [place]. Panel Fa st Reviewed date:11/17/2023 05:40:31 PM Interpretation: Performing Lab:[facility], [address] [place] [phone] Notes/Report: Sodium 140 135-145 mmol/L Potassium 4.4 3.3-5.1 mmol/L Chloride 105 96-108 mmol/L Carbon Dioxide 23 22-29 mmol/L Anion Gap 16 12-20 Blood Urea Nitrogen 24 9-16 mg/dL Creatinine 1.27 0.5-1.4 mg/dL Estimated Glomerular Filt Rate 54 NOTE: For -[place] individuals, multiply the result by 1.210. Chronic [...] Panel Reviewed date:11/17/2023 05:40:31 PM Interpretation: Performing Lab:[facility], [address] [place] [phone] Notes/Report: Triglycerides 117 <150 mg/dL Desirable Triglyceride: [...] A1c Reviewed date:11/12/2023 08:32:24 AM Interpretation: Performing Lab:[facility], [address] [place] [phone] Notes/Report: Hemoglobin A1c % 8.4 <6.0 % [...] average glucose, using the formula of the P3H-Sxzshiq Average Glucose study (ADAG), Diabetes Care, Vol.31,#8, Jan. 2007 Complete Blood Count Auto Di ff Reviewed date:02/18/2024 08:40:55 AM Interpretation: Performing Lab:[facility], [address] [place] [phone] Notes/Report: White Blood Count 6.5 4.8-10.8 X10*3/uL [...] 0.0-0.2 /100WBC Neutrophils Absolute Auto 3.4 2.0-8.3 x10*3/u L Imm Gran Abs Auto 0.02 0.00-0.03 X10*3/uL Lymphocytes Absolute Auto 2.4 1.2-4.9 X10*3/u L Monocytes Absolute Auto 0.5 0.1-1.2 X10*3/uL Eosinophils Absolute Auto 0.2 0.0-0.4 X10*3/u L Basophils Absolute Auto 0.1 0.0-0.2 X10*3/uL NRBC Abs Auto 0.000 0.0-0.012 X10*3/uL Comprehensive [place]. Panel Fa st Reviewed date:02/18/2024 08:40:55 AM Interpretation: Performing Lab:[facility], [address] [place] [address], [place] [address] Notes/Report: Sodium 139 135-145 mmol/L Potassium 4.3 3.3-5.1 mmol/L Chloride 108 96-108 mmol/L Carbon Dioxide 23 22-29 mmol/L Anion Gap 12 12-20 Blood Urea Nitrogen 26 9-16 mg/dL Creatinine 1.21 0.5-1.4 mg/dL Estimated Glomerular Filt Rate 57 NOTE: For -[place] individuals, multiply the result by 1.210. Chronic [...] Panel Reviewed date:02/18/2024 08:40:55 AM Interpretation: Performing Lab:[address] [phone] Notes/Report: Triglycerides 115 <150 mg/dL Desirable Triglyceride: [...] Antigen Reviewed date:02/26/2024 10:27:44 AM Interpretation: Performing Lab:[address] [phone] Notes/Report: Prostate Specific Antigen 2.53 <0.05-4.0 ng/mL PSA methodology: Saab Alinity i Chemiluminescent Microparticle Immunoassay (CMIA) Microalbumin, Random Reviewed date:02/26/2024 10:27:44 AM Interpretation: Performing Lab:[facility] [phone] Notes/Report: Creatinine Urine 36.77 Microalbumin Urine 39.0 Microalbum/Creatinine Ratio Ur 106.0 <30 ug/mg cr Albumin/Creatinine Ratio Reference Ranges: Normal: < 30 ug/mg creatinine Microalbuminuria: 30 - 300 ug/mg creatinine Clinical Albuminuria: > 300 ug/mg creatinine Hemoglobin A1c Reviewed date:02/18/2024 08:40:55 AM Interpretation: Performing Lab:[address] [phone] Notes/Report: Hemoglobin A1c % 8.4 <6.0 % [...] average glucose, using the formula of the [id number]-Ponoywv Average Glucose study (ADAG), Diabetes Care, Vol.31,#8, Jan. 2007 Complete Blood Count Auto Di ff Reviewed date:05/25/2024 08:37:18 PM Interpretation: Performing Lab:[address] [phone] Notes/Report: White Blood Count 6.1 4.8-10.8 X10*3/uL Red Blood Count 3.66 4.60-5.80 X10*6/uL Hemoglobin 10.4 14.0-18.0 g/dl Hematocrit 32.1 42.0-52.0 % Mean Corpuscular Volume 87.7 80.0-98.0 fL Mean Corpuscular Hemoglobin 28.4 27.0-33.0 pg Mean Corpuscular HGB Conc 32.4 31.0-36.0 g/dl Red Cell Distribution Width 15.0 11.0-16.0 % Platelet Count 214 160-400 X10*3/uL Mean Platelet Volume 10.7 9.4-12.4 fL Neutrophils Percent Auto 36.9 45-73 % Imm Gran Pct Auto 0.3 0.0-0.4 % Lymphocytes Percent Auto 49.8 20-40 % Monocytes Percent Auto 8.2 2-11 % Eosinophils Percent Auto 4.1 0-4 % Basophils Percent Auto 0.7 0-2 % NRBC Pct Auto 0.0 0.0-0.2 /100WBC Neutrophils Absolute Auto 2.3 2.0-8.3 x10*3/u L Imm Gran Abs Auto 0.02 0.00-0.03 X10*3/uL Lymphocytes Absolute Auto 3.0 1.2-4.9 X10*3/u L Monocytes Absolute Auto 0.5 0.1-1.2 X10*3/uL Eosinophils Absolute Auto 0.3 0.0-0.4 X10*3/u L Basophils Absolute Auto 0.0 0.0-0.2 X10*3/uL NRBC Abs Auto 0.000 0.0-0.012 X10*3/uL Comprehensive [place]. Panel Fa st Reviewed date:05/25/2024 08:37:18 PM Interpretation: Performing Lab:[address] [phone] Notes/Report: Sodium 137 135-145 mmol/L Potassium 4.1 3.3-5.1 mmol/L Chloride 107 96-108 mmol/L Carbon Dioxide 21 22-29 mmol/L Anion Gap 13 12-20 Blood Urea Nitrogen 22 9-16 mg/dL Creatinine 1.06 0.5-1.4 mg/dL Estimated Glomerular Filt Rate > 60 Chronic Kidney Disease: Estimated GFR < 60 mL/min/1.73m2 Severe Kidney Disease: Estimated GFR < 15 mL/min/1.73m2 Glucose Fasting 164 60-99 mg/dL A fasting glucose of 126 mg/dl or greater on more than one occasion is considered diagnostic of diabetes. Calcium 9.4 8.4-10.2 mg/dL Bilirubin Total 0.5 0.0-1.0 mg/dL Aspartate Amino Transferase 36 5-37 U/L Alanine Aminotransferase 32 0-40 U/L Total Protein 7.0 6.5-8.0 g/dL Albumin Level 3.9 3.5-5.0 g/dL Alkaline Phosphatase 86 39-117 U/L Lipid Panel Reviewed date:05/25/2024 08:37:18 PM Interpretation: Performing Lab:[address] [phone] Notes/Report: Triglycerides 126 <150 mg/dL Desirable Triglyceride: less than 150 mg/dL Borderline High Triglyceride 150-199 mg/dL High Triglyceride: 200-499 mg/dL Very High Triglyceride: greater than or equal to 5OO mg/dL Cholesterol 105 <200 mg/dL Desirable Cholesterol: less than 200 mg/dL Borderline High Cholesterol: 200-239 mg/dL High Cholesterol: greater than 239 mg/dL LDL Cholesterol Calculated 37 <100 mg/dL Desirable LDL: less than 100 mg/dL Near Optimal/Above Optimal LDL: 110-129 mg/dL Borderline High LDL: 130-159 mg/dL High LDL: 160-189 mg/dL Very High LDL: greater than or equal to 190 mg/dL HDL Cholesterol 43 >40 mg/dL Desirable HDL: greater than 40 mg/dL Note: This HDL assay may give artificially low results in patients with liver disease. Prostate Specific Antigen Reviewed date:05/25/2024 08:37:18 PM Interpretation: Performing Lab:[facility], [address] [place] [phone] Notes/Report: Prostate Specific Antigen 2.00 <0.05-4.0 ng/mL PSA methodology: Saab Alinity i Chemiluminescent Microparticle Immunoassay (CMIA) Microalbumin, Random Reviewed date:05/25/2024 08:37:18 PM Interpretation: Performing Lab:[facility], [address] [place] [phone] Notes/Report: Creatinine Urine 58.50 Microalbumin Urine 185.0 Microalbum/Creatinine Ratio Ur 316.2 <30 ug/mg cr Albumin/Creatinine Ratio Reference Ranges: Normal: < 30 ug/mg creatinine Microalbuminuria: 30 - 300 ug/mg creatinine Clinical Albuminuria: > 300 ug/mg creatinine Hemoglobin A1c Reviewed date:05/25/2024 08:37:18 PM Interpretation: Performing Lab:[facility], [address] [place] [phone] Notes/Report: Hemoglobin A1c % 8.5 <6.0 % Hemoglobin A1C Reference Range Adults: 4.8 - 6.0 % Non diabetic: < 6.0 % Goal: < 7.0 % Additional Action Suggested: > 8.0 % Note: Hemoglobin A1c results are invalid for patients with abnormal amounts of HbF. Blood transfusions may impact the HbA1c concentration in the patient sample. Estimated Average Glucose 197 eAG = Estimated average glucose which is %A1C expressed as average glucose, using the formula of the [id number]-Dtnprbb Average Glucose study (ADAG), Diabetes Care, Vol.31,#8, 2007 Complete Blood Count Auto Di ff (Not yet reviewed by provider) Interpretation: Performing Lab:[facility], [address] [place] [phone] Notes/Report: White Blood Count 6.2 4.8-10.8 X10*3/uL Red Blood Count 3.75 4.60-5.80 X10*6/uL Hemoglobin 10.4 14.0-18.0 g/dl Hematocrit 33.4 42.0-52.0 % Mean Corpuscular Volume 89.1 80.0-98.0 fL Mean Corpuscular Hemoglobin 27.7 27.0-33.0 pg Mean Corpuscular HGB Conc 31.1 31.0-36.0 g/dl Red Cell Distribution Width 15.4 11.0-16.0 % Platelet Count 188 160-400 X10*3/uL Mean Platelet Volume 11.1 9.4-12.4 fL Neutrophils Percent Auto 40.1 45-73 % Imm Gran Pct Auto 0.3 0.0-0.4 % Lymphocytes Percent Auto 46.2 20-40 % Monocytes Percent Auto 8.1 2-11 % Eosinophils Percent Auto 4.7 0-4 % Basophils Percent Auto 0.6 0-2 % NRBC Pct Auto 0.0 0.0-0.2 /100WBC Neutrophils Absolute Auto 2.5 2.0-8.3 x10*3/u L Imm Gran Abs Auto 0.02 0.00-0.03 X10*3/uL Lymphocytes Absolute Auto 2.9 1.2-4.9 X10*3/u L Monocytes Absolute Auto 0.5 0.1-1.2 X10*3/uL Eosinophils Absolute Auto 0.3 0.0-0.4 X10*3/u L Basophils Absolute Auto 0.0 0.0-0.2 X10*3/uL NRBC Abs Auto 0.000 0.0-0.012 X10*3/uL Comprehensive [place]. Panel Fa st (Not yet reviewed by provider) Interpretation: Performing Lab:[address] [phone] Notes/Report: Sodium 139 135-145 mmol/L Potassium 4.1 3.3-5.1 mmol/L Chloride 108 96-108 mmol/L Carbon Dioxide 22 22-29 mmol/L Anion Gap 13 12-20 Blood Urea Nitrogen 24 9-16 mg/dL Creatinine 1.14 0.5-1.4 mg/dL Estimated Glomerular Filt Rate > 60 Chronic Kidney Disease: Estimated GFR < 60 mL/min/1.73m2 Severe Kidney Disease: Estimated GFR < 15 mL/min/1.73m2 Glucose Fasting 163 60-99 mg/dL A fasting glucose of 126 mg/dl or greater on more than one occasion is considered diagnostic of diabetes. Calcium 10.0 8.4-10.2 mg/dL Bilirubin Total 0.5 0.0-1.0 mg/dL Aspartate Amino Transferase 34 5-37 U/L Alanine Aminotransferase 33 0-40 U/L Total Protein 7.1 6.5-8.0 g/dL Albumin Level 4.0 3.5-5.0 g/dL Alkaline Phosphatase 89 39-117 U/L Lipid Panel (Not yet reviewe d by provider) Interpretation: Performing Lab:[address] [phone] Notes/Report: Triglycerides 138 <150 mg/dL Desirable Triglyceride: less than 150 mg/dL Borderline High Triglyceride 150-199 mg/dL High Triglyceride: 200-499 mg/dL Very High Triglyceride: greater than or equal to 5OO mg/dL Cholesterol 104 <200 mg/dL Desirable Cholesterol: less than 200 mg/dL Borderline High Cholesterol: 200-239 mg/dL High Cholesterol: greater than 239 mg/dL LDL Cholesterol Calculated 36 <100 mg/dL Desirable LDL: less than 100 mg/dL Near Optimal/Above Optimal LDL: 110-129 mg/dL Borderline High LDL: 130-159 mg/dL High LDL: 160-189 mg/dL Very High LDL: greater than or equal to 190 mg/dL HDL Cholesterol 41 >40 mg/dL Desirable HDL: greater than 40 mg/dL Note: This HDL assay may give artificially low results in patients with liver disease. Microalbumin, Random (Not ye t reviewed by provider) Interpretation: Performing Lab:[facility], [address] [place] [phone] Notes/Report: Creatinine Urine 45.30 Microalbumin Urine 100.0 Microalbum/Creatinine Ratio Ur 220.7 <30 ug/mg cr Albumin/Creatinine Ratio Reference Ranges: Normal: < 30 ug/mg creatinine Microalbuminuria: 30 - 300 ug/mg creatinine Clinical Albuminuria: > 300 ug/mg creatinine Hemoglobin A1c (Not yet revi ewed by provider) Interpretation: Performing Lab:[facility], [address] [place] [phone] Notes/Report: Hemoglobin A1c % 8.4 <6.0 % [...] average glucose, using the formula of the D7L-Ihmalwo Average Glucose study (ADAG), Diabetes Care, Vol.31,#8, Jan. 2007 Reason For Referral No Information Medications Medication SIG (Take, Route, Frequency, Duration) Notes Start Date End Date Status Lisinopril 20 MG TAKE 1 TABLET BY MOUTH EVERY DAY FOR 90 DAYS for 90 Active Aspirin 81 MG 1 tablet Orally Once a day Active Omeprazole 20 MG TAKE 1 CAPSULE BY MOUTH EVERY DAY for 90 Active Trulicity 1.5 MG/0.5ML as directed Subcutaneous [...] MOUTH EVERY DAY FOR 90 DAYS Active Vitamin B-12 1000 MCG 1 tablet Orally On ce a day Active Multivitamin Active Pioglitazone HCl 45 MG TAKE 1 TABLET BY MOUTH EVERY DAY Active FreeStyle Lite Test - TO CHECK BLOOD SUG AR THREE TIMES A DAY 30 DAYS for 33 days Active Lisinopril 10 MG TAKE 1 TABLET BY MOUTH EVERY DAY Active Immunizations Vaccine Route Administration Date Status [...] Problem Status W/U Status Risk Notes Problem 9985670 Former smoker (Z87.891) Active confirmed He is highly motivated not to smoke. He has a plan for prevention of relapse in times of stress. Problem 265673966 Overweight (E66.3) Active confirmed His body mass index is stable at 27. His nutritional stattus is good. I recommended gradual weight loss with diet restricted in calories designed to lose one half of a pound per week. Problem 44211534 Type 2 diabetes mellitus without complications (E11.9) Active confirmed He has been compliant with his medications. He remains overweight with a body mass index of 26.9. His hemoglobin A1c is stable at 8.5. We have discussed the value of reducing the A1c to adherence to a diabetic diet, continued physical activity despite claudication and compliance with medication.He has been managed by endocrinology. Problem Benign prostatic hyperplasia (159671023) BPH (benign prostatic hyperplasia) (N40.0) Active confirmed He is using lifestyle modification to reduce nocturia. He says he rises at most once a night. Problem [id number] Gastroesophageal reflux disease, esophagitis presence not specified (K21.9) Active confirmed His reflux symptoms are well controlled current medication. He will avoid eating related 90 and continue on his current medication. Problem Peripheral arterial disease (020003397) Peripheral arterial disease (I73.9) Active confirmed His claudicatio n is stable. The skin of his lower extremities is intact. There are carotid bruits unchanged. He is under the care of a vascular surgeon and is due soon for Doppler ultrasounds and an office visit. Problem Vitamin D deficiency (99200339) Vitamin D deficiency (E55.9) Active confirmed He was continued. Problem 59930995 Strabismus (H50.9) Active confirmed He will continue under the care of an ballpoint pen cartridge tester. Problem 519043127 Right groin carmencita ia (K40.90) Active confirmed Is currently asymptomatic. Problem 98812836 Hyperlipidemia, unspecified hyperlipidemia type (E78.5) Active confirmed his lipids are currently stable and in their target range.His fasting cholesterol is 105. No change in his medication was negative. I recommended weight loss and physical activity. Problem Occlusion and stenosis of multiple and bilateral cerebral arteries (134820994) Bilateral carotid artery stenosis (I65.23) Active confirmed The recent ultrasound showed bilateral stenoses or were not hemodynamically significant. He is going to see vascular surgery next September. I will follow him closely. Problem 748017778 Age-related incipient cataract of right eye (H25.091) Active confirmed He is medically cleared for cataract extraction and lens implantation. Vital Signs Heart Rate 83 /min 06/26/2024 Temperature 97.3 degrees Fahrenheit 06/26/2024 Blood pressure diastolic 80 mm Hg 06/26/2024 Height 62 in 06/26/2024 Blood pressure systolic 140 mm Hg 06/26/2024 Weight 149 lbs 06/26/2024 BMI 27.25 kg/m2 06/26/2024 Encounters Encounter Location Date Provider Diagnosis Shamir Sommer III, MD [address] [place] [address] [place] [phone] 11/19/2023 Shamir Sommer Type 2 diabetes nico itus without complications E11.9 ; Overweight E66.3 ; BPH (benign prostatic hyperplasia) N40.0 ; Hyperlipidemia, unspecified hyperlipidemia type E78.5 ; Former smoker Z87.891 ; Gastroesophageal reflux disease, esophagitis presence not specified K21.9 and Peripheral arterial disease I73.9 Shamir Sommer III, MD [address] [place] [address] [place] [phone] 02/26/2024 Shamir Sommer Type 2 diabetes nico itus without complications E11.9 ; Overweight E66.3 ; BPH (benign prostatic hyperplasia) N40.0 ; Gastroesophageal reflux disease, esophagitis presence not specified K21.9 ; Strabismus H50.9 ; Former smoker Z87.891 ; Vitamin D deficiency E55.9 and Peripheral arterial disease I73.9 Shamir Sommer III, MD [address] [place] [address] [place] [phone] 05/27/2024 Shamir Sommer Type 2 diabetes nico itus without complications E11.9 ; Peripheral arterial disease I73.9 ; Bilateral carotid artery stenosis I65.23 ; Hyperlipidemia, unspecified hyperlipidemia type E78.5 ; Former smoker Z87.891 ; Overweight E66.3 ; BPH (benign prostatic hyperplasia) N40.0 ; Gastroesophageal reflux disease, esophagitis presence not specified K21.9 and Strabismus H50.9 Shamir Sommer III, MD [address] [place] [address] [place] [phone] 06/26/2024 Shamir Sommer Type 2 diabetes nico itus without complications E11.9 ; Peripheral arterial disease I73.9 ; Hyperlipidemia, unspecified hyperlipidemia type E78.5 ; Overweight E66.3 ; BPH (benign prostatic hyperplasia) N40.0 ; Gastroesophageal reflux disease, esophagitis presence not specified K21.9 ; Former smoker Z87.891 and Strabismus H50.9 Shamir Sommer III, MD [address] [place] [address] [place] [phone] 01/14/2024 Shamir Sommer III, MD [address] [place] [address] [place] [address] 02/12/2024 Shamir Sommer Type 2 diabetes nico itus without complications E11.9 Shamir Sommer III, MD [address] [place] [address] [place] [phone] 08/20/2024 Shamir Sommer Assessments Encounter Date Diagnosis (ICD Code) Assessment Notes T reatment Notes Treatment Clinical Notes 11/19/2023 Overweight (ICD-10 - E66.3) his body [...] but he wants to rely upon diet. 05/27/2024 Type 2 diabetes mellitus without complications [...] Doppler ultrasound studies on the right leg. 06/26/2024 Type 2 diabetes mellitus without complications [...] for Doppler ultrasounds and an office visit. 02/12/2024 Type 2 diabetes mellitus without complications (ICD-10 - E11.9) His hemoglobin A1c has increased from 8.1 to 8.4. He says this is due to holidays. We discussed his diabetic diet in weight and exercise level. He will adhere to his diabetic diet. These values will be repeated in the near future. 11/19/2023 BPH (benign prostati c hyperplasia) (ICD-10 - N40.0) he rises from sleep once or twice a night to urinate. We discussed glycemic control and avoidance of fluid through lifestyle modification after 5 PM. 02/26/2024 BPH (benign prostati c hyperplasia) (ICD-10 - N40.0) He is using lifestyle modification to reduce nocturia. He says he rises at most once a night. 05/27/2024 Bilateral carotid artery stenosis (ICD-10 - I65.23) The recent ultrasound showed bilateral stenoses or were not hemodynamically significant. He is going to see vascular surgery next September. I will follow him closely. 06/26/2024 Hyperlipidemia, unspecified hyperlipidemia type (ICD-10 - E78.5) 11/19/2023 Hyperlipidemia, unspecified hyperlipidemia type (ICD-10 - E78.5) his lipids are currently stable and in their target range. 02/26/2024 Gastroesophageal reflux disease, esophagitis presence not specified (ICD-10 - K21.9) His reflux symptoms are well controlled current medication. He will avoid eating related 90 and continue on his current medication. 05/27/2024 Hyperlipidemia, unspecified hyperlipidemia type (ICD-10 - E78.5) his lipids are currently stable and in their target range.His fasting cholesterol is 105. No change in his medication was negative. I recommended weight loss and physical activity. 06/26/2024 Overweight (ICD-10 - E66.3) His body mass index is stable at 27. His nutritional stattus is good. I recommended gradual weight loss with diet restricted in calories designed to lose one half of a pound per week. 11/19/2023 Former smoker (ICD-1 0 - Z87.891) He is highly motivated not to smoke. He has a plan for prevention of relapse in times of stress. 02/26/2024 Strabismus (ICD-10 - H50.9) He will continue under the care of an ballpoint pen cartridge tester. 05/27/2024 Former smoker (ICD-1 0 - Z87.891) He is highly motivated not to smoke. He has a plan for prevention of relapse in times of stress. 06/26/2024 BPH (benign prostati c hyperplasia) (ICD-10 - N40.0) He is using lifestyle modification to reduce nocturia. He says he rises at most once a night. 11/19/2023 Gastroesophageal reflux disease, esophagitis presence not [...] diet with reduced calories at length today. 06/26/2024 Gastroesophageal reflux disease, esophagitis presence not specified (ICD-10 - K21.9) His reflux symptoms are well controlled current medication. He will avoid eating related 90 and continue on his current medication. 11/19/2023 Peripheral arterial disease (ICD-10 - I73.9) his claudication remains stable and he is up-to-date with vascular surgery. 02/26/2024 Vitamin D deficiency (ICD-10 - E55.9) He was continued. 05/27/2024 BPH (benign prostati c hyperplasia) (ICD-10 - N40.0) He is using lifestyle modification to reduce nocturia. He says he rises at most once a night. 06/26/2024 Former smoker (ICD-1 0 - Z87.891) He is highly motivated not to smoke. He has a plan for prevention of relapse in times of stress. 02/26/2024 Peripheral arterial disease (ICD-10 - I73.9) his claudication remains stable and he is up-to-date with vascular surgery.He is going to see vascular surgery next week. He has a clearly audible bruit in the right carotid with a decent pulse. He has had no neurological symptoms. I asked him to call me after his vascular appointment to update me on recommendations. 05/27/2024 Gastroesophageal reflux disease, esophagitis presence not specified (ICD-10 - K21.9) His reflux symptoms are well controlled current medication. He will avoid eating related 90 and continue on his current medication. 06/26/2024 Strabismus (ICD-10 - H50.9) He will continue under the care of an ballpoint pen cartridge tester. 05/27/2024 Strabismus (ICD-10 - H50.9) He will continue under the care of an ballpoint pen cartridge tester. Plan Of Treatment Pending Test Test Name Order Date PROFILE, FASTING (COMPREHENSIVE METABOLI C) 06/25/2023 PROFILE, FASTING (COMPREHENSIVE METABOLI C) 08/24/2021 PROFILE, FASTING (COMPREHENSIVE METABOLI C) 06/26/2024 PROFILE, FASTING (COMPREHENSIVE METABOLI C) 02/24/2021 PROFILE, FASTING (COMPREHENSIVE METABOLI C) 01/28/2016 PROFILE, FASTING (COMPREHENSIVE METABOLI C) 11/24/2020 PROFILE, FASTING (COMPREHENSIVE METABOLI C) 06/09/2020 PROFILE, FASTING (COMPREHENSIVE METABOLI C) 11/19/2023 PROFILE, FASTING (COMPREHENSIVE METABOLI C) 09/29/2022 PROFILE, FASTING (COMPREHENSIVE METABOLI C) 02/26/2024 PROFILE, FASTING (COMPREHENSIVE METABOLI C) 06/30/2022 PROFILE, FASTING (COMPREHENSIVE METABOLI C) 02/22/2023 PROFILE, FASTING (COMPREHENSIVE METABOLI C) 05/26/2021 PROFILE, FASTING (COMPREHENSIVE METABOLI C) 02/27/2022 PROFILE, FASTING (COMPREHENSIVE METABOLI C) 01/06/2020 PROFILE, FASTING (COMPREHENSIVE METABOLI C) 08/21/2023 PROFILE, RANDOM (COMPREHENSIVE METABOLIC ) 04/07/2020 PROFILE, RANDOM (COMPREHENSIVE METABOLIC ) 12/21/2021 HEMOGLOBIN A1C (GLYCOHEMOGLOBIN) 023 HEMOGLOBIN A1C (GLYCOHEMOGLOBIN) 023 HEMOGLOBIN A1C (GLYCOHEMOGLOBIN) 021 HEMOGLOBIN A1C (GLYCOHEMOGLOBIN) 020 HEMOGLOBIN A1C (GLYCOHEMOGLOBIN) 022 HEMOGLOBIN A1C (GLYCOHEMOGLOBIN) 024 HEMOGLOBIN A1C (GLYCOHEMOGLOBIN) 022 HEMOGLOBIN A1C (GLYCOHEMOGLOBIN) 021 HEMOGLOBIN A1C (GLYCOHEMOGLOBIN) 016 HEMOGLOBIN A1C (GLYCOHEMOGLOBIN) 023 LIPID PANEL 02/27/2022 LIPID PANEL 09/29/2022 LIPID PANEL 06/30/2022 LIPID PANEL 02/22/2023 LIPID PANEL 01/06/2020 LIPID PANEL 12/21/2021 LIPID PANEL 06/25/2023 LIPID PANEL 08/24/2021 LIPID PANEL 06/09/2020 LIPID PANEL 01/28/2016 B12 11/24/2020 PSA, TOTAL 02/26/2024 PSA, TOTAL 05/26/2021 PSA, TOTAL 09/29/2022 PSA, TOTAL 02/24/2021 PSA, TOTAL 06/25/2023 PSA, TOTAL 08/24/2021 PSA, TOTAL 06/09/2020 PSA, TOTAL 11/19/2023 PSA, TOTAL SCREEN 02/27/2022 MICROALBUMIN, RANDOM 06/30/2022 MICROALBUMIN, RANDOM 02/22/2023 MICROALBUMIN, RANDOM 05/26/2021 MICROALBUMIN, RANDOM 09/29/2022 MICROALBUMIN, RANDOM 01/06/2020 MICROALBUMIN, RANDOM 12/21/2021 CBC w DIFF 04/07/2020 CBC w DIFF 08/21/2023 CBC w DIFF 02/27/2022 CBC w DIFF 06/30/2022 CBC w DIFF 11/24/2020 CBC w DIFF 02/22/2023 CBC w DIFF 05/26/2021 CBC w DIFF 09/29/2022 CBC w DIFF 01/06/2020 CBC w DIFF 02/24/2021 CBC w DIFF 12/21/2021 CBC w DIFF 01/28/2016 CBC w DIFF 06/25/2023 CBC w DIFF 08/24/2021 CBC w DIFF 06/09/2020 INTRINSIC FACTOR ANTIBODIES 11/16/2020 VITAMIN D 25-OH TOTAL 06/09/2020 VITAMIN D 25-OH TOTAL 02/27/2022 VITAMIN D 25-OH TOTAL 02/22/2023 Diabetic Eye Exam 12/20/2023 CBC WITH AUTO DIFF 11/19/2023 CBC WITH AUTO DIFF 06/26/2024 CBC WITH AUTO DIFF 02/26/2024 Complete Blood Count Auto Diff Comprehensive [place]. Panel Fast Lipid Panel 11/19/2023 Lipid Panel 08/21/2023 Lipid Panel 06/26/2024 Lipid Panel 02/26/2024 Lipid Panel 11/24/2020 Lipid Panel 09/15/2024 Lipid Panel 05/26/2021 Microalbumin, Random 09/15/2024 Microalbumin, Random 11/19/2023 Microalbumin, Random 06/26/2024 Microalbumin, Random 02/26/2024 Hemoglobin A1c 09/15/2024 Hemoglobin A1c 08/21/2023 Hemoglobin A1c 11/19/2023 Hemoglobin A1c 06/26/2024 Hemoglobin A1c 02/26/2024 Hemoglobin A1c 11/24/2020 Next Appt Details Provider Name:Shamir Sommer, 09/25/2024 10:30:00 AM, [address] [facility] [address], [place], [address], Provider Name:Shamir Sommer, 02/27/2025 10:30:00 AM, [address] [facility] [address], [place], [address], Insurance Providers Payer Name Payer Address Payer Phone Subscriber Number Group Number Insured Name Patient Relationship to Insured Coverage Start Date Coverage End Date [facility] [address] [facility] [address] [facility] [place] [phone] [id number] Victoriano Potter Self - patient is the insured Medical (General) History Medical History History ICD Code diabetes mellitus hyperlipidemia gastroesophageal reflux disease (GERD) right inguinal hernia age 11 strabismus O.D. lymphocytosis Surgical History Surgery Date(Month/Year) right inguinal herniorraphy age 11 negative colonoscopy 04/09/08 right cataract surgery 12/2021 Left cataract surgery 03/2022 Colonoscopy September 25, 2023 No history Hospitalization History Reason Date(Month/Year) Diverticulitis 12/29/2022 No history
--- OUTSIDE RECORDS SUMMARY | 2024-09-16 11:39 | XMS_ITS ---
Author Organization Shamir Sommer III, MD Address [address] [place] [address] [address] [place] [address] Care Team Providers Care Facilities Coordinator Name Role Phone Shamir Sommer Primary Care [...] Date Provider Diagnosis Shamir Sommer III, MD [address] [place] [address] [address], [place] [address] 06/26/2024 Shamir Sommer Type 2 diabetes nico [...] will continue under the care of an transit mechanic. Plan Of Treatment Medication Medication Name Sig [...] the vascular surgeon says Provider Name:Shamir Sommer, 09/25/2024 10:30:00 AM, [address] [place] [address] [place], [phone], Provider Name:Shamir Sommer, 02/27/2025 10:30:00 AM, [address] [place] [address] [place], [address], Progress Notes * Victoriano HOWELL EDOB:1940 ( 84 yo M)Acc No.[id number]:06/26/2024 Progress Notes Patient:Victoriano BUTLER Provider:?Shamir Sommer MD :1940???Age:84 Y???Sex:Male Juice e:06/26/2024 Address:[address] [place] [address] jerri [id number] Subjective: * Chief Complaints: * ???DiabetesGerdBPHCarotid st enosisStrabismus * HPI: ???COVID-19 Screening:?Questions?Have you had any new onset fever, chills, cough, congestion, sore throat, shortness of breath, muscle aches??No ???:? The patient, an 84-year-old male, has been managing his diabetes with [facility] every week. He reports waking up at [...] management. Blood Sugar Level is 164. * ROS:?General/Constitutional:?pain?only normal aches and pains.?Chills?denies.?Fatigue?admits.?Fever?denies.?ENT:?Decreased hearing?mild.?Respiratory:?Cough?denies.?Cardiovascular:?Chest pain with exertion?denies.?Dyspnea on exertion?denies.?Shortness of breath?denies.?Gastrointestinal:?Admits?Constipation,?occasional.?Decreased appetite?denies.?Diarrhea?denies.?Heartburn?denies.?Nausea?denies.?Rectal bleeding?denies.?Vomiting?denies.?Hematology:?bruising?denies.?petechiae?denies.?Swollen glands?none have been noted.?Genitourinary:?Frequent urination?twice a night.?Musculoskeletal:?Muscle aches?denies.?Painful joints?denies.?Sciatica?denies.?Weakness?denies.?Skin:?Itching?denies.?Rash?denies.?Skin lesion(s)?denies.?Neurologic:?Difficulty speaking?denies.?Dizziness?denies.?Headache?denies.?Low back pain?denies.?Psychiatric:?Depressed mood?denies.? * Medical History:? * Surgical History:?right ingu inal herniorraphy age 11 negative colonoscopy 04/09/08right cataract surgery 12/2021Left cataract surgery olonoscopy September 25, 2023No history * Hospitalization/Major Diagno stic Procedure:?Diverticulitis 12/29/2022No history * Family History:?Father: dece ased 59 yrs, stroke.?Mother: 89 yrs, cardiac probloems specfics unknown.?Siblings: .?Spouse: alive 65 yrs.?4 brother(s) , 3 sister(s) . 2 son(s) , 1 daughter(s) - healthy. .? A twin brother at 5 of rheumatic fever. * Social History:?Tobacco Use:?Tobacco Use/Smoking?Patient is a?former smoker ?How long has it been since you last smoked??> 10 years ?Additional Findings: Tobacco Non-User?Ex-cigarette smoker ???He has been to Liz for 49 years and has 3 children and 9 grandchildren. 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 He was born in [place], [place]. * Medications:?TakingPioglitaz one HCl 45 MG Tablet TAKE 1 TABLET [...] Allergies:?Seasonaleno[Aller gies Verified] Objective: * Vitals:?Ht: 62, Wt:149, BMI: 27.25, BP:140/80, HR:83, Temp:97.3, Wt-k.59. * ???Past Orders: Lab:Microalbumin, Random * Collection Date 05/21/2024 02/18/2024 06/18/2023 Collection Time 07:00 AM 06:40 AM 06:55 AM Order Date 05/21/2024 02/18/2024 06/18/2023 Creatinine Urine 58.50 (Ref Range: mg/dL) 36.77 (Ref Range: mg/dL) 35.48 (Ref Range: mg/dL) Microalbumin Urine 185.0 (Ref Range: mg/L) 39.0 (Ref Range: mg/L) 77.0 (Ref Range: mg/L) Microalbum Creatinine Ratio Ur 316.2?H (Ref Range: <30 ug/mg cr) 106.0?H (Ref Range: <30 ug/mg cr) 217.0?H (Ref Range: <30 ug/mg cr) * Lab:Prostate [...] HDL Cholesterol 43 (Ref Range: >40 mg/dL) 35?L (Ref Range: >40 mg/dL) 36?L (Ref Range: >40 mg/dL) * Lab:Orlando Rodriguez. Felipe l Fast * Collection Date 05/21/2024 02/18/2024 [...] 105 (Ref Range: 96-108 mmol/L) Carbon Dioxide 21?L (Ref Range: 22-29 mmol/L) 23 (Ref Range: 22-29 mmol/L) 23 (Ref Range: 22-29 mmol/L) Anion Gap 13 (Ref Range: 12-20) 12 (Ref Range: 12-20) 16 (Ref Range: 12-20) Blood Urea Nitrogen 22?H (Ref Range: 9-16 mg/dL) 26?H (Ref Range: 9-16 mg/dL) 24?H (Ref Range: 9-16 mg/dL) Creatinine 1.06 (Ref Range: 0.5-1.4 mg/dL) 1.21 (Ref Range: 0.5-1.4 mg/dL) 1.27 (Ref Range: 0.5-1.4 mg/dL) Estimated Glomerular Filt Rate > 60 57 54 Glucose Fasting 164?H (Ref Range: 60-99 mg/dL) 172?H (Ref Range: 60-99 mg/dL) 158?H (Ref Range: 60-99 mg/dL) Calcium 9.4 (Ref Range: 8.4-10.2 mg/dL) 10.4?H (Ref Range: 8.4-10.2 mg/dL) 10.2 (Ref Range: 8.4-10.2 mg/dL) * Lab:Complete Blood Count Aut o Diff * Collection Date 05/21/2024 02/18/2024 11/12/2023 Collection Time 07:00 AM 06:41 AM 06:36 AM Order Date 05/21/2024 02/18/2024 11/12/2023 White Blood Count 6.1 (Ref Range: 4.8-10.8 X10*3/uL) 6.5 (Ref Range: 4.8-10.8 X10*3/uL) 7.2 (Ref Range: 4.8-10.8 X10*3/uL) Red Blood Count 3.66?L (Ref Range: 4.60-5.80 X10*6/uL) 3.81?L (Ref Range: 4.60-5.80 X10*6/uL) 3.85?L (Ref Range: 4.60-5.80 X10*6/uL) Hemoglobin 10.4?L (Ref Range: 14.0-18.0 g/dl) 10.7?L (Ref Range: 14.0-18.0 g/dl) 10.9?L (Ref Range: 14.0-18.0 g/dl) Hematocrit 32.1?L (Ref Range: 42.0-52.0 %) 33.2?L (Ref Range: 42.0-52.0 %) 34.3?L (Ref Range: 42.0-52.0 %) Mean Corpuscular Volume [...] (Ref Range: 9.4-12.4 fL) Neutrophils Percent Auto 36.9?L (Ref Range: 45-73 %) 51.8 (Ref Range: 45-73 %) 38.5?L (Ref Range: 45-73 %) Imm Gran Pct Auto 0.3 (Ref Range: 0.0-0.4 %) 0.3 (Ref Range: 0.0-0.4 %) 0.4 (Ref Range: 0.0-0.4 %) Lymphocytes Percent Auto 49.8?H (Ref Range: 20-40 %) 36.2 (Ref Range: 20-40 %) 46.7?H (Ref Range: 20-40 %) Monocytes Percent Auto 8.2 (Ref Range: 2-11 %) 8.1 (Ref Range: 2-11 %) 7.9 (Ref Range: 2-11 %) Eosinophils Percent Auto 4.1?H (Ref Range: 0-4 %) 2.5 (Ref Range: 0-4 %) 5.5?H (Ref Range: 0-4 %) Basophils Percent Auto [...] Date 05/21/2024 02/18/2024 11/12/2023 Hemoglobin A1c % 8.5?H (Ref Range: <6.0 %) 8.4?H (Ref Range: <6.0 %) 8.4?H (Ref Range: <6.0 %) Estimated Average Glucose 197 (Ref Range: mg/dL) 194 (Ref Range: mg/dL) 194 (Ref Range: mg/dL) * Examination: ???General Examination: ?GENERAL APPEARANCE:?pleasant, well nourished, well developed, in no acute distress, calm and relaxed, overweight, man.?HEAD:?atraumatic, normocephalic.?EYES:?eomi, perrla, anicteric, strabismus right exophoria.?EARS:?Normal anatomy.?NOSE:?septum intact.?ORAL CAVITY:?normal, unremarkable.?NECK/THYROID:?no jugular venous distention, no carotid bruit, thyroid normal.?LYMPH NODES:?no enlarged lymph nodes,spleen normal.?SKIN:?no suspicious lesions, anicteric.?HEART:?no clicks, gallops, murmurs, or rubs, regular rhythm, S1, S2 normal, no s3, or vascular bruits.?LUNGS:?clear to auscultation .?BREASTS:??no masses palpable bilaterally.?ABDOMEN:?bowel sounds normal, no ascites, no organomegaly, no mass, overweight.?RECTAL EXAM:?not examined.?MUSCULOSKELETAL:?extremities unremarkable, no clubbing, cyanosis or edema.?PERIPHERAL PULSES:?Diminished in lower extremities, faint right carotid bruit.?NEUROLOGIC:?alert and oriented, cranial nerves 2-12 grossly intact This exophoria of right eye, deep tendon reflexes 2+ symmetrical, motor strength normal upper and lower extremities, sensory exam intact.?PSYCH:?alert, oriented.? Assessment: * Assessment: 1.?Peripheral arterial disea se - I73.9 (Primary)???Notes :His claudication is stable.? The skin of his lower extremities is intact.? There are carotid bruits unchanged.? He is under the care of a vascular surgeon and is due soon for Doppler ultrasounds and an office visit.???2.?Type 2 diabetes mellitus without complications - E11.9???Notes :He has been compliant with his medications. He remains overweight with a body mass index of 26.9. His hemoglobin A1c is stable at 8.5. We have discussed the value of reducing the A1c to adherence to a diabetic diet, continued physical activity despite claudication and compliance with medication.He has been managed by endocrinology.???3.?Hyperlipidemia, unspecified hyperlipidemia type - E78.5???4.?Overweight - E66.3???Notes :His body mass index is stable at 27.? His nutritional stattus is good.? I recommended gradual weight loss with diet restricted in calories designed to lose one half of a pound per week.???5.?BPH (benign prostatic hyperplasia) - N40.0???Notes :He is using lifestyle modification to reduce nocturia. He says he rises at most once a night.???6.?Gastroesophageal reflux disease, esophagitis presence not specified - K21.9???Notes :His reflux symptoms are well controlled current medication. He will avoid eating related 90 and continue on his current medication.???7.?Former smoker - Z87.891???Notes :He is highly motivated not to smoke. He has a plan for prevention of relapse in times of stress.???8.?Strabismus - H50.9???Notes :He will continue under the care of an transit mechanic.??? Plan: * Treatment: 2.?Hyperlipidemia, unspecifi ed hyperlipidemia type?LAB: PROFILE, FASTING (COMPREHENSIVE METABOLIC) ?LAB: CBC WITH AUTO DIFF ?LAB: Lipid Panel ?LAB: Microalbumin, Random ?LAB: Hemoglobin A1c 3.?Overweight?LAB: PROFILE, FASTING (COMPREHENSIVE METABOLIC) ?LAB: CBC WITH AUTO DIFF ?LAB: Lipid Panel ?LAB: Microalbumin, Random ?LAB: Hemoglobin A1c 4.?Others? Continue Vitamin D3 Capsule, 50 MCG (1999 [...] THREE TIMES A DAY 30 DAYS.?? * Procedure Codes:? * Preventive Medicine:? ??Counseling:?Care goal follow-up plan:?Counseling for abnormal BMI given?Yes ?Above Normal BMI Follow-up?Dietary management education, guidance, and counseling, Dietary needs education ?Smoking/Tobacco Use?Patient counseled on the dangers of tobacco use and urged to quit.?06/26/2024 ??DM Care Plan:?Patient Lifestyle Goals?Patient wants to be able to manage diabetes without too much effort.?Treatment Goals?HbA1C < 7.0.?Barriers?no barriers.?Self-Managment Goals?Work on weight loss, with a goal of losing 1 lb per week.? * Follow Up:?4 Months, End of September (Reason: OV, To go over what the vascular surgeon says) * Images: * Sign off status: Completed true * Provider:?Shamir Sommer MD Date:?06/05 Generated for Antonio costa/Maria Victoria/Margaretitting on:?09/16/2024 11:38 AM EDT History and Physical Notes * [...]
--- OUTSIDE RECORDS SUMMARY | 2024-09-16 11:39 | XMS_ITS ---
Author Organization Shamir Sommer III, MD Address [address] [place] [address] [place] [address] Care Team Providers Care Site Coordinator Name Role Phone Shamir Sommer Primary Care Provider [phone] REASON FOR VISIT Message Social History Sex Assigned At : Social History Observation Description Sex Assigned At Male Encounters Encounter Location Date Provider Diagnosis Shamir Somemr III, MD [address] [place] [address] [place] [address] 08/20/2024 Shamir Sommer Plan Of Treatment Next Appt Details Provider Name:Shamir Sommer, 09/25/2024 10:30:00 AM, [address] [place] [address] [place], [address], Provider Name:Shamir Sommer, 02/27/2025 10:30:00 AM, [address] [place] [address] [place], [address], Progress Notes * Victoriano HOWELL EDOB:1940 ( 84 yo M)Acc No.[id number]:08/20/2024 Patient:?LYNDAVictoriano Leonela :1940???Age:84 Y???Sex:Male Address:[address] [place] [address] [facility] [address] * true * Date:? Generated for Printi ng/Famaximog/eTransmitting on:?09/16/2024 11:39 AM EDT
--- OUTSIDE RECORDS SUMMARY | 2024-09-16 11:39 | XMS_ITS ---
Author Organization Shamir Sommer III, MD Address [address] [place] [address] [address] [place] [address] Care Team Providers Care Plier Worker Name Role Phone Shamir Sommer Primary Care Provider [phone] Allergies Allergen (clinical drug ingredient) Drug/Non Drug [...] a week Active Vitamin D3 50 MCG (1999 [place]) [...] Date Provider Diagnosis Shamir Sommer III, MD [address] [place] [address] [place] [address] 05/27/2024 Shamir Sommer Type 2 diabetes nico [...] will continue under the care of an auto parts manager. Plan Of Treatment Medication Medication Name Sig [...] once a week Vitamin D3 50 MCG (1999 [place]) TAKE [...] and coldness in right leg Provider Name:Shamir Sommer, 09/25/2024 10:30:00 AM, [address] [facility] [address], [place], [address], Provider Name:Shamir Sommer, 02/27/2025 10:30:00 AM, [address] [place] [address] [address], [place], [address], Progress Notes * Victoriano HOWELL EDOB:1940 ( 83 yo M)Acc No.[id number]:05/27/2024 Progress Notes Patient:?Victoriano HOWELL Provider:?Shamir Sommer MD :1940???Age:83 Y???Sex:Male Juice e:05/27/2024 Address:[address] [place], [place] [id number] Subjective: * Chief Complaints: * ???Cold right legPeripheral arterial diseaseDiabetesGERDright inguinal HerniaBenign prostatic hypertrophyHyperlipidemia * HPI: ???COVID-19 Screening:?Questions?Have you had any new onset fever, chills, cough, congestion, sore throat, shortness of breath, muscle aches??No ???:?The 83-year-old male patient reported a feeling of [...] Trulicity. On physical examination both legs were warm.? The tips of his toes were cold on the right but the skin was pink and had reasonable capillary filling.? No ischemic ulceration was seen.? Pulses were diminished.? He reports that his leg has been feeling cold from the groin down for the last 2 or 3 weeks.? He says he has had a diminished ability to walk without shortness of breath.? He does get claudication after a couple blocks in the right leg.? He has a remote history of a femoral to femoral bypass graft done by Dr. Mckenzie at [facility].? He is followed locally by Dr. Wiseman last saw him in September 2023.? He is seen once a year at this time.? He has had a 60% stenosis of the right carotid artery and a 40% on the left in the past. He has had no TIA symptoms.? Is going to see Dr. Wiseman again in September 2024.? Because of these new symptoms on going to see him every 3 weeks to see if this represents ischemia or merely a reaction to the cold weather. * ROS:?General/Constitutional:?Admits?pain,?Right leg claudication after 2 blocks..?Chills?denies.?Fatigue?admits.?Fever?denies.?ENT:?Decreased hearing?mild.?Respiratory:?Cough?denies.?Cardiovascular:?Chest pain with exertion?denies.?Dyspnea on exertion?denies.?Shortness of breath?denies.?Gastrointestinal:?Constipation?occasional.?Decreased appetite?denies.?Diarrhea?denies.?Heartburn?denies.?Nausea?denies.?Rectal bleeding?denies.?Vomiting?denies.?Hematology:?bruising?denies.?petechiae?denies.?Swollen glands?none have been noted.?Genitourinary:?Frequent urination?once a night.?Musculoskeletal:?Muscle aches?denies.?Painful joints?denies.?Sciatica?denies.?Weakness?denies.?Skin:?Itching?denies.?Rash?denies.?Skin lesion(s)?denies.?Neurologic:?Difficulty speaking?denies.?Dizziness?denies.?Headache?denies.?Low back pain?denies.?Psychiatric:?Depressed mood?denies.? * Medical History:? * Surgical History:?right ingu inal herniorraphy age 11 negative colonoscopy 04/09/08right cataract surgery 12/2021Left cataract surgery olonoscopy September 25, 2023 * Hospitalization/Major Diagno stic Procedure:?Diverticulitis 12/29/2022No history [...] children and 9 grandchildren. 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 He was born in [place], [place]. * Medications:?TakingVitamin B -12 1000 MCG Tablet 1 tablet Orally Once [...] Allergies:?Seasonaleno[Aller gies Verified] Objective: * Vitals:?Ht: 62, Wt:147, BMI: 26.88, BP:139/78, HR:88, Temp:97.3, Wt-k.68. * ???Past Orders: Lab:Microalbumin, Random * Collection [...] 217.0?H (Ref Range: <30 ug/mg cr) * Lab:Hemoglobin [...] 36?L (Ref Range: >40 mg/dL) * Lab:Orlando Wang l Fast * Collection Date 05/21/2024 02/18/2024 [...] neg Menstrating NR N/A n/a * Examination: ???General Examination: ?GENERAL APPEARANCE:?pleasant, well nourished, well developed, in no acute distress, calm and relaxed, overweight, elderly man.?HEAD:?atraumatic, normocephalic.?EYES:?eomi, perrla, anicteric,Exophoria right eye, strabismus.?EARS:?normal.?NOSE:?septum intact.?ORAL CAVITY:?normal, unremarkable.?NECK/THYROID:?no jugular venous distention, no carotid bruit, thyroid normal.?LYMPH NODES:?no enlarged lymph nodes,spleen normal.?SKIN:?no suspicious lesions, anicteric.?HEART:?no clicks, gallops, murmurs, or rubs, regular rhythm, S1, S2 normal, no s3, or vascular bruits.?LUNGS:?, diminished breath sounds throughout, no wheezes, rales, rhonchi, good air movement.?BREASTS:??no masses palpable bilaterally.?ABDOMEN:?bowel sounds normal, no ascites, no organomegaly, no mass, overweight.?RECTAL EXAM:?not examined.?MUSCULOSKELETAL:?extremities unremarkable, no clubbing, cyanosis or edema, Both legs are pink and warm without edema.? There is sufficient capillary filling on the right toes.? The toes are cold but the rest of the foot is warm as is the ankle and leg.? There are no open wounds.? There are no bruises or petechiae.? There is no pain to palpation of the gastrocnemius muscle or to range of motion of the ankle..?PERIPHERAL PULSES:?Diminished at the carotids and lower extremities, no bruits are heard.?NEUROLOGIC:?alert and oriented, cranial nerves 2-12 grossly intact, deep tendon reflexes 2+ symmetrical, motor strength normal upper and lower extremities, sensory exam intact.?PSYCH:?alert, oriented.? Assessment: * Assessment: 1.?Peripheral arterial disea se - I73.9 (Primary)???Notes :A new complaint is a sensation of coldness in the right leg but both legs appear equal on examination.? I am going to follow with him closely every 21 days and he is going to call me if any changes occur.? If necessary I will ask the vascular surgeon to see him sooner and do Doppler ultrasound studies on the right leg.???2.?Type 2 diabetes mellitus without complications - E11.9???Notes :He has been compliant with his medications.? He remains overweight with a body mass index of 26.9.? His hemoglobin A1c is stable at 8.5.? We have discussed the value of reducing the A1c to adherence to a diabetic diet, continued physical activity despite claudication and compliance with medication.He has been managed by endocrinology.???3.?Bilateral carotid artery stenosis - I65.23???Notes :The recent ultrasound showed bilateral stenoses or were not hemodynamically significant. He is going to see vascular surgery next September.? I will follow him closely.???4.?Hyperlipidemia, unspecified hyperlipidemia type - E78.5???Notes :his lipids are currently stable and in their target range.His fasting cholesterol is 105.? No change in his medication was negative.? I recommended weight loss and physical activity.???5.?Former smoker - Z87.891???Notes :He is highly motivated not to smoke. He has a plan for prevention of relapse in times of stress.???6.?Overweight - E66.3???Notes :He has lost 3 pounds and his body mass index is 26. We discussed the elements of a diabetic diet with reduced calories at length today.???7.?BPH (benign prostatic hyperplasia) - N40.0???Notes :He is using lifestyle modification to reduce nocturia. He says he rises at most once a night.???8.?Gastroesophageal reflux disease, esophagitis presence not specified - K21.9???Notes :His reflux symptoms are well controlled current medication. He will avoid eating related 90 and continue on his current medication.???9.?Strabismus - H50.9???Notes :He will continue under the care of an auto parts manager.??? Plan: * Treatment: 2.?Others? Continue Vitamin D3 Capsule, 50 MCG (2000 [...] done: Medical or Other reason not done ?Smoking/Tobacco Use?Patient counseled on the dangers of tobacco use and urged to quit.?05/27/2024 ??DM Care Plan:?Patient Lifestyle Goals?Patient wants to be able to manage diabetes without too much effort.?Treatment Goals?HbA1C < 7.0, Blood Sugars less than < 115.?Barriers?no barriers.?Self-Managment Goals?Work on weight loss, with a goal of losing 1 lb per week, Increase exercise to 3 times a week for 30 mins.? * Follow Up:?3 Weeks, In about 3 weeks (Reason: ov recheck leg, To monitor the patient's arterial disease and coldness in right leg) * Images: * Sign off status: Completed true * Provider:?Shamir Sommer MD Date:?05/05 Generated for Antonio costa/Maria Victoria/Margaretitting on:?09/16/2024 11:38 [...]
== END 2024-09-16 10:02 | disposition home or self-care (01) ==
LOC: HO.US 10:01
PROVIDERS: PCP Internal Medicine Medical Oncology; Visit Provider Surgery Vascular Surgery
DX: I73.9 Peripheral vascular disease, unspecified (principal); I10 Essential (primary) hypertension; F17.210 Nicotine dependence, cigarettes, uncomplicated; E78.5 Hyperlipidemia, unspecified; E11.9 Type 2 diabetes mellitus without complications; Z95.820 Peripheral vascular angioplasty status with implants and grafts; Z13.6 Encounter for screening for cardiovascular disorders
CPT/HCPCS: 76706; 93922; 93925

== ENCOUNTER → 2024-09-16 10:02 | Outpatient (BNV) | payer MEDICARE, SELFPAY | PROVIDERS: PCP Internal Medicine Medical Oncology; Visit Provider Radiology Diagnostic Radiology | DX: I70.203 Unspecified atherosclerosis of native arteries of extremities, bilateral legs (principal); Z95.820 Peripheral vascular angioplasty status with implants and grafts | CPT/HCPCS: 76706; 93922; 93925 ==

== ENCOUNTER 2024-09-30 10:06 | Outpatient (AMB) | payer MEDICARE, SELFPAY ==
--- NOTE | 2024-09-30 10:12 | A.OFFVIS_ITS ---
Vital Signs 09/30/24 10:15 Height 5 ft 1 in Weight 147 lb BMI 27.8 Intake Visit Reasons: 1y follow up s/p AAA/Arterial US 09/16/24 Intake Note: 1 yr follow up AAA/Arterial US 09/16/24. Pt states LE ache, Right LE worse than Left LE. Pt states its worse than last year. Pt states he can walk about 200 ft before it starts aching. 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 He reports a history of a femoral to femoral bypass surgery in the that has functioned effectively until the past six months. Recently, he has experienced progressive right leg pain, limiting his ability to walk even short distances. The patient's current AURA measurements further reveal reduced circulation in the right leg, w ith a value of 0.51 compared to the left leg's 0.97, suggesting significant right-sided vascular insufficiency. The patient describes the need to cease mowing the lawn after 150 feet and utilizes nocturnal ambulation to manage intermittent pain. [facility] Medical History Type 2 diabetes mellitus with hyperglycemia Vitamin D deficiency HLD (hyperlipidemia) HTN (hypertension) T2DM (type 2 diabetes mellitus) Surgical History Hx of cataract surgery H/O colonoscopy Hx of hernia repair Family History Father No problems noted. Mother Diabetes Social History Household Members: Spouse Housing: House Do you presently have visiting nurse or other home services: No Alcohol intake: former Patient Tobacco Use Status: Former Tobacco user Cigarette Packs Per Day: 1 Years Smoked: 20 Review of Systems Const All systems reviewed & are unremarkable except as noted in HPI and below Reports no additional complaints ENT Reports Normal hearing present Card Denies chest pain, Denies chest pain at rest, Denies chest pain with activity and Denies pedal edema Resp Denies cough GI Denies abdominal pain Musc Denies abnormal gait, Denies muscle cramps and Denies radiating pain into limb Skin/Breast Denies skin ulcer and Denies wounds Neuro Reports Normal hearing present and Denies abnormal gait Psych Reports no additional complaints Physical Exam Vital Signs: BMI result Body Mass Index 27.8 Const General: cooperative, healthy appearing and comfortable Orientation/consciousness: oriented to person, oriented to place and oriented to time HEENT Head: Yes normal to inspection Neck Neck: Yes normal visual inspection Carotids: no bruits Chest Chest palpation & inspection: normal inspection of the chest Resp Effort & Inspection: normal respiratory effort and able to speak in complete sentences Auscultation: clear to auscultation bilaterally, no crackles, no rales, no rhonchi and no wheezes Cardio Other: Palpable left dorsalis pedis Rate: regular rate Rhythm: regular rhythm Heart sounds: S1 normal heart sound present and S2 normal heart sound present Bruits: no carotid bruits Peripheral pulses: Peripheral pulses 2+ throughout GI Inspection: Yes normal to inspection Skin Wounds: no wounds Hair: normal Neuro General: oriented to person, oriented to place and oriented to time Cranial nerves: Yes CN's II-XII intact bilaterally and Yes Normal hearing present Cognition (Neuro): normal cognition Motor exam (neuro): 5/5 motor strength present throughout Extrem Other: venous exam: No significant superficial varicosities or spider telangiectasias, minimal edema General: No clubbing, No cyanosis and No edema Psych Appearance: grossly normal Mental Status: mental status grossly normal Speech and movement: Normal speech and movement present Assessment & Plan Assessment & Plan (1) PVD (peripheral vascular disease): Comment: 1989 - femoral to femoral bypass performed at [facility] Code(s): I73.9 - Peripheral vascular disease, unspecified Category: Medical Plan: In our discussion, I detailed the vascular evaluation indicating reduced perfusion in the right lower extremity associated with claudication symptoms. It appears that his fem-fem has gone on to occlude. He reported that this happened proximally 6 months ago. The inherent risks of surgical intervention on an aged femoral to femoral bypass were discussed. The patient expressed understanding of the rationale for conservative management and agreed to regular monitoring through annual imaging. Consent for the current management plan was obtained, emphasizing the importance of notifying any worsening symptoms. Thank you for allowing us to assist in his care. Orders: Orders US arterial duplex LE BI 1 Year I73.9 - Peripheral vascular disease, unspecified US abdominal aortic aneurysm 1 Year I73.9 - Peripheral vascular disease, unspecified Coding Level of Care Code Est Pt Level 4 (73349) Complex EM visit Add On G2211 Diagnoses PVD (peripheral vascular disease) I73.9
[2024-09-30 10:15] VITALS: BMI 27.8
== END 2024-09-30 10:33 | disposition home or self-care (01) ==
LOC: HO.HVS 10:07
PROVIDERS: PCP Internal Medicine Medical Oncology; Visit Provider Surgery Vascular Surgery
DX: I73.9 Peripheral vascular disease, unspecified (principal)
CPT/HCPCS: 99214; G2211

== ENCOUNTER → 2024-09-30 10:06 | Outpatient (BNVA) | payer MEDICARE, SELFPAY | PROVIDERS: PCP Internal Medicine Medical Oncology; Visit Provider Surgery Vascular Surgery | DX: I73.9 Peripheral vascular disease, unspecified (principal) | CPT/HCPCS: 99212 ==

== ENCOUNTER 2025-02-16 06:33 | Outpatient (REF) | payer MEDICARE, SELFPAY ==
--- OUTSIDE RECORDS SUMMARY | 2024-06-26 06:30 | XMS_ITS ---
Author Organization Shamir Sommer III, MD Address [address] [place] [address] [address] [place] [id number] Care Team Providers Care Topper Press Operator Name Role Phone Shamir Sommer Primary Care [...] Date Provider Diagnosis Shamir Sommer III, MD [address] [place] [address] [address], [place] [phone] 06/26/2024 Shamir Sommer Type 2 diabetes nico [...] will continue under the care of an racecar driver. Plan Of Treatment Medication Medication Name Sig [...] Appt Details Follow Up: 4 Months, End september, Reason: OV, To go over what the vascular surgeon says Provider Name:Shamir Sommer, 02/27/2025 10:30:00 AM, [address] [place] [address] [address], [place], [place], [phone], Progress Notes * Victoriano HOWELL EDOB:1940 ( 84 yo M)Acc No.[id number]:06/26/2024 Progress Notes Patient: Victoriano WAITE Provider: Leonor Sommer MD :1940 A ge:84 Y S ex:Male Date:06/26/2024 Address:[address] [place] [address] Maria G guthrie [id number] Subjective: * Chief Complaints: * D iabetesGerdBPHCarotid [...] children and 9 grandchildren. 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 He was born in [place], [place]. * Medications: T akingPioglitazone HCl 45 MG Tablet TAKE 1 TABLET BY MOUTH EVERY DAY Vitamin B-12 1000 MCG Tablet 1 tablet Orally Once a day Vitamin D3 50 MCG (1999 UT) Capsule TAKE 1 CAPSULE BY MOUTH [...] L (Ref Range: >40 mg/dL) * Lab:Comprehensive [place]. Pane l Fast * Collection Date 05/21/2024 [...] will continue under the care of an racecar driver. Plan: * Treatment: 2. H yperlipidemia, unspecified [...] thers Continue Vitamin D3 Capsule, 50 MCG (1999 UT), TAKE 1 CAPSULE BY MOUTH EVERY [...] week. * Follow Up: 4 Months, End september (Reason: OV, To go over what the vascular surgeon says) * Images: * Sign off status: Completed true * Provider: Leonor Sommer MD Date: 06/26/2024 Generated for Antonio costa/Maria Victoria/Margaretitting on: 0 02/16/2025 06:36 AM EDT History and Physical Notes * HPI (History [...]
--- OUTSIDE RECORDS SUMMARY | 2024-08-20 12:25 | XMS_ITS ---
Author Organization Shamir Sommer III, MD Address [address] [place] [address] [place] [address] Care Team Providers Care Trommel Tender Name Role Phone Shamir Sommer Primary Care Provider [phone] REASON FOR VISIT Message Social History Sex Assigned At : Social History Observation Description Sex Assigned At Male Encounters Encounter Location Date Provider Diagnosis Shamir Sommer III, MD [address] [place] [address] [address] [facility] [place] [address] 08/20/2024 Shamir Sommer Plan Of Treatment Next Appt Details Provider Name:Shamir Sommer, 02/27/2025 10:30:00 AM, [address] [place] [address] [place], [address], Progress Notes * Victoriano HOWELL EDOB:1940 ( 84 yo M)Acc No.[id number]:08/20/2024 Patient: Dat Victoriano ELKINS :1940 A ge:84 Y S ex:Male Address:[address] [place] [id number] * true * Date: Generated for Printi ng/Famaximog/eTransmitting on: 0 02/16/2025 06:36 AM EDT
--- OUTSIDE RECORDS SUMMARY | 2024-09-25 06:30 | XMS_ITS ---
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 Name Role Phone Shamir Sommer Primary Care Provider [phone] Allergies Allergen (clinical drug ingredient) Drug/Non Drug [...] Date Provider Diagnosis Shamir Sommer III, MD [address] [place] [address] [address], [place] [address] 09/25/2024 Shamir Sommer Type 2 diabetes nico [...] Up: 2 Months, Reason: OV Provider Name:Shamir Smomer, 02/27/2025 10:30:00 AM, [address] [place] [address] [address] [address], [place], [address], Progress Notes * Victoriano HOWELL EDOB:1940 ( 84 yo M)Acc No.[id number]:09/25/2024 Progress Notes Patient: Victoriano WAITE Provider: Leonor Sommer MD :1940 A ge:84 Y S ex:Male Date:09/25/2024 Address:[address] [place], [place] [id number] Subjective: * Chief Complaints: * P eripheral [...] dditional Findings: Tobacco Non-User E x-cigarette smoker H e has been to Liz for 49 years and has 3 children and 9 grandchildren. 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 He was born in [place], [place]. * Medications: T akingPioglitazone HCl [...] 0.000 (Ref Range: 0.0-0.012 X10*3/uL) * Lab:[facility] * Collection Date 09/15/2024 05/21/2024 02/18/2024 [...] fasting glucose is 163. He is taking [facility] pioglitazone and metformin at maximum doses. I [...] 09/25/2024 Generated for Antonio costa/Maria Victoria/Margaretitting on: 0 02/16/2025 06:37 AM EDT History and Physical Notes * [...]
--- OUTSIDE RECORDS SUMMARY | 2024-09-30 06:57 | XMS_ITS ---
Author Organization Shamir Sommer III, MD Address [address] [place] [address] [place] [address] Care Team Providers Care Filter Tip Catcher Name Role Phone Shamir Sommer Primary Care Provider REASON FOR VISIT Message Social History Sex Assigned At : Social History Observation Description Sex Assigned At Male Encounters Encounter Location Date Provider Diagnosis Shamir Sommer III, MD [address] [place] [address] [place] [address] 09/30/2024 Shamir Sommer Plan Of Treatment Next Appt Details Provider Name:Shamir Sommer, 02/27/2025 10:30:00 AM, [address] [place] [address] [place], [address], Progress Notes * Victoriano HOWELL EDOB:1940 ( 84 yo M)Acc No.[id number]:09/30/2024 Patient: Dat Victoriano ELKINS :1940 A ge:84 Y S ex:Male Address:[address] [place] [address] * true * Date: Generated for Printi ng/Faxing/eTransmitting on: 0 02/16/2025 06:36 AM EDT
--- OUTSIDE RECORDS SUMMARY | 2024-11-21 06:00 | XMS_ITS ---
Author Organization Shamir Sommer III, MD Address [address] [place] [address] [address] [place] [address] Care Team Providers Care Telemarketing Representative Name Role Phone Shamir Sommer Primary Care Provider [phone] Allergies Allergen (clinical drug ingredient) Drug/Non Drug [...] BY M OUTH TWICE A DAY Active Social History Tobacco [...] Date Provider Diagnosis Shamir Sommer III, MD [address] [place] [address] [address], [place] [id number] 11/21/2024 Shamir Sommer Type 2 diabetes nico [...] will continue under the care of an customer success manager. 11/21/2024 Former smoker (ICD-1 0 - Z87.891) [...] TABLET BY M OUTH TWICE A DAY Pending Test Test Name Order Date PROFILE, FASTING (COMPREHENSIVE METABOLI C) 11/21/2024 PSA, TOTAL 11/21/2024 CBC w DIFF 11/21/2024 Lipid Panel 11/21/2024 Microalbumin, Random 11/21/2024 Hemoglobin A1c 11/21/2024 Next Appt Details Follow Up: As Scheduled, Mandie son: Annual Exam Provider Name:Shamir Partidarne, 02/27/2025 10:30:00 AM, [address] [place] [address] MARIANN AMIN, [facility], [phone], Progress Notes * Victoriano HOWELL EDOB:1940 ( 84 yo M)Acc No.[id number]:11/21/2024 Progress Notes Patient: Victoriano WAITE Provider: Leonor Sommer MD :1940 A ge:84 Y S ex:Male Date:11/21/2024 Address:[address] [place] [address] [address] [id number] Subjective: * Chief Complaints: * D iabetesGERDHerniaBenign [...] children and 9 grandchildren. 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 He was born in [place], [place]. * Medications: T akingFreeStyle Lancets [...] L (Ref Range: >40 mg/dL) * Lab:[facility] * Collection Date 09/15/2024 [...] will continue under the care of an customer success manager. 6 . F ormer smoker - Z87.891 [...] Date: 0 11/21/2024 Generated for Antonio costa/Maria Victoria/Joselitosmitting on: 0 02/16/2025 06:37 AM EDT History [...]
--- OUTSIDE RECORDS SUMMARY | 2025-02-16 06:36 | XMS_ITS | Patient Health Record ---
Author Organization Shamir Sommer III, MD Address [address] [place] [address] [address] [place] [address] Care Team Providers Care Report Programmer Name Role Phone Shamir Sommer Primary Care Provider [phone] Allergies Allergen (clinical drug ingredient) Drug/Non Drug [...] ff Reviewed date:02/18/2024 08:40:55 AM Interpretation: Performing Lab:[facility], [address] [place] [phone] Notes/Report: White Blood Count 6.5 4.8-10.8 X10*3/uL [...] NRBC Abs Auto 0.000 0.0-0.012 X10*3/uL Comprehensive [place]. Panel Fa st Reviewed date:02/18/2024 08:40:55 AM Interpretation: Performing Lab:[facility], [address] [place] [phone] Notes/Report: Sodium 139 135-145 mmol/L Potassium 4.3 [...] Panel Reviewed date:02/18/2024 08:40:55 AM Interpretation: Performing Lab:[address] [phone] Notes/Report: Triglycerides 115 <150 mg/dL Desirable Triglyceride: [...] Antigen Reviewed date:02/26/2024 10:27:44 AM Interpretation: Performing Lab:[address] [address] Notes/Report: Prostate Specific Antigen 2.53 <0.05-4.0 ng/mL PSA methodology: Saab Alinity i Chemiluminescent Microparticle Immunoassay (CMIA) Microalbumin, Random Reviewed date:02/26/2024 10:27:44 AM Interpretation: Performing Lab:[address] [address] Notes/Report: Creatinine Urine 36.77 Microalbumin Urine 39.0 Microalbum/Creatinine Ratio Ur 106.0 <30 ug/mg cr Albumin/Creatinine Ratio Reference Ranges: Normal: < 30 ug/mg creatinine Microalbuminuria: 30 - 300 ug/mg creatinine Clinical Albuminuria: > 300 ug/mg creatinine Hemoglobin A1c Reviewed date:02/18/2024 08:40:55 AM Interpretation: Performing Lab:[address] [address] Notes/Report: Hemoglobin A1c % 8.4 <6.0 % [...] average glucose, using the formula of the B7M-Dwztajn Average Glucose study (ADAG), Diabetes Care, Vol.31,#8, Jan. 2007 Complete Blood Count Auto Di ff Reviewed date:05/25/2024 08:37:18 PM Interpretation: Performing Lab:[facility], [address] [place] [phone] Notes/Report: White Blood Count 6.1 4.8-10.8 X10*3/uL [...] NRBC Abs Auto 0.000 0.0-0.012 X10*3/uL Comprehensive [place]. Panel Fa Reviewed date:05/25/2024 08:37:18 PM Interpretation: Performing Lab:[facility], [address] [place] [phone] Notes/Report: Sodium 137 135-145 mmol/L Potassium 4.1 [...] Panel Reviewed date:05/25/2024 08:37:18 PM Interpretation: Performing Lab:[facility], [address] [place] [phone] Notes/Report: Triglycerides 126 <150 mg/dL Desirable Triglyceride: [...] Antigen Reviewed date:05/25/2024 08:37:18 PM Interpretation: Performing Lab:[facility], [address] [place] [phone] Notes/Report: Prostate Specific Antigen 2.00 <0.05-4.0 ng/mL PSA methodology: Saab Alinity i Chemiluminescent Microparticle Immunoassay (CMIA) Microalbumin, Random Reviewed date:05/25/2024 08:37:18 PM Interpretation: Performing Lab:[facility], [address] [place] [phone] Notes/Report: Creatinine Urine 58.50 Microalbumin Urine 185.0 Microalbum/Creatinine Ratio Ur 316.2 <30 ug/mg cr Albumin/Creatinine Ratio Reference Ranges: Normal: < 30 ug/mg creatinine Microalbuminuria: 30 - 300 ug/mg creatinine Clinical Albuminuria: > 300 ug/mg creatinine Hemoglobin A1c Reviewed date:05/25/2024 08:37:18 PM Interpretation: Performing Lab:[address] [address] Notes/Report: Hemoglobin A1c % 8.5 <6.0 % [...] average glucose, using the formula of the Q8G-Ztxlhtn Average Glucose study (ADAG), Diabetes Care, Vol.31,#8, Jan. 2007 Complete Blood Count Auto Di ff Reviewed date:09/20/2024 07:24:09 AM Interpretation: Performing Lab:[facility], [address] [place] [phone] Notes/Report: White Blood Count 6.2 4.8-10.8 X10*3/uL [...] NRBC Abs Auto 0.000 0.0-0.012 X10*3/uL Comprehensive [place]. Panel Fa st Reviewed date:09/20/2024 07:24:09 AM Interpretation: Performing Lab:[facility], [address] [place] [phone] Notes/Report: Sodium 139 135-145 mmol/L Potassium 4.1 [...] Alkaline Phosphatase 89 39-117 U/L Lipid Panel Reviewed date:09/20/2024 07:24:09 AM Interpretation: Performing Lab:[address] [address] Notes/Report: Triglycerides 138 <150 mg/dL Desirable Triglyceride: [...] in patients with liver disease. Microalbumin, Random Reviewed date:09/20/2024 07:24:09 AM Interpretation: Performing Lab:[address] [address] Notes/Report: Creatinine Urine 45.30 Microalbumin Urine 100.0 Microalbum/Creatinine Ratio Ur 220.7 <30 ug/mg cr Albumin/Creatinine Ratio Reference Ranges: Normal: < 30 ug/mg creatinine Microalbuminuria: 30 - 300 ug/mg creatinine Clinical Albuminuria: > 300 ug/mg creatinine Hemoglobin A1c Reviewed date:09/20/2024 07:24:09 AM Interpretation: Performing Lab:[facility], [address] [place] [phone] Notes/Report: Hemoglobin A1c % 8.4 <6.0 % [...] average glucose, using the formula of the L1L-Hweqqvw Average Glucose study (ADAG), Diabetes Care, Vol.31,#8, 2007 abdominal aortic aneurysm Reviewed date:09/20/2024 07:24:09 AM Interpretation: Performing Lab: Notes/Report: [address] [address] Ultrasound Report Signed Patient: Victoriano Potter MR#: [id number] : 1940 Acct:[id number] Age/Sex: 84 / M ADM Date: 09/16/24 Loc: . Attending Dr: Didier Wiseman MD Ordering Physician: Didier Wiseman MD Date of Service: 09/16/24 Procedure(s): US abdominal aortic aneurysm Accession Number(s): [id number] cc: Shamir Sommer MD; Didier Wiseman MD EXAMINATION: Noninvasive assessment of the bilateral lower extremities with ARTERIAL DUPLEX, ANKLE BRACHIAL INDICES (ABIs), and PULSE VOLUME RECORDINGS (PVRs). DOPPLER ARTERIAL ULTRASOUND AND ABDOMINAL AORTA AND ILIAC ARTERIES. CLINICAL INFORMATION: Hypertension. Smoking. Hyperlipidemia. Diabetes. Prior vascular surgery: Femorofemoral bypass graft. TECHNIQUE: Duplex Doppler techniques with waveform analysis and measurement of velocities in the bilateral common femoral, profunda femoris, superficial femoral, popliteal and tibial arteries were performed. Additionally, ankle pulse volume recordings, ankle pressure measurements and ankle brachial indices were obtained of the lower extremity arterial system bilaterally. The study was performed only at rest. COMPARISON: None FINDINGS: DIRECT DUPLEX DOPPLER FINDINGS: RIGHT LEG: Common femoral artery: 55 cm/s, phasicity: Monophasic. Profunda femoris artery: 16 cm/s, phasicity: Monophasic. Superficial femoral artery (proximal): 73 cm/s, phasicity: Monophasic. Superficial femoral artery (mid): 27 cm/s, phasicity: Monophasic. Superficial femoral artery (distal): 41 cm/s, phasicity: Monophasic. Popliteal artery: 28 cm/s, phasicity: Monophasic. Posterior tibial artery: 18 cm/s, phasicity: Monophasic. Peroneal artery: No color Doppler. Anterior tibial artery: 19 cm/s, phasicity: Monophasic. Dorsalis pedis artery: 14 cm/s, phasicity:Monophasic. LEFT LEG: Common femoral artery: 111 cm/s, phasicity: Triphasic. Profunda femoris artery: 146 cm/s, phasicity: Biphasic. Superficial femoral artery (proximal): 250 cm/s, phasicity: Biphasic. Superficial femoral artery (mid): 139 cm/s, phasicity: Biphasic. Superficial femoral artery (distal): 66 cm/s, phasicity: Biphasic. Popliteal artery: 45 cm/s, phasicity: Biphasic. Posterior tibial artery: 34 cm/s, phasicity: Biphasic. Peroneal artery: 41 cm/s, phasicity: Monophasic. Anterior tibial artery: 41 cm/s, phasicity: Monophasic. Dorsalis pedis artery: 40 cm/s, phasicity: Biphasic. BRACHIAL PRESSURES: Right: 186 Left: 185 ANKLE PRESSURES: Right: PT not measured., DP 95 Left: PT 181, DP 180 ANKLE-BRACHIAL INDEX: Right: 0.51 Left: 0.97 ANKLE PVR WAVEFORMS: Right: Abnormal Left: Abnormal Femorofemoral bypass graft: Occluded from the left inguinal to the mid inguinal region and the right inguinal region. Collateral flow. ABDOMINAL AORTA peak systolic velocity and diameter at the following: Proximal segment: 43 cm/s and 3.1 cm, respectively. Midsegment: 48 cm/s and 1.8 cm, respectively. Distal segment: 54 cm/s and 1.6 cm, respectively. Right iliac artery is occluded. Left iliac artery: Common : 112 cm/s. External : 82 cm/s. US/US abdominal aortic aneurysm IMPRESSION: Right leg: Severe inflow disease throughout the right lower extremity. Occluded right peroneal artery. Left leg: Moderate to severe inflow disease, left lower extremity. Occluded femorofemoral bypass graft at the inguinal regions. Occluded right iliac artery. No aneurysm, abdominal aorta. AURA Reference: - >1.4 = calcified vessels - 0.9 - 1.4 = normal - no significant arterial disease - 0.7 - 0.89 = mild peripheral arterial disease - 0.51 - 0.69 = moderate peripheral arterial disease - d 0.50 = severe peripheral arterial disease - < .30 = critical arterial disease Electronically signed by: Tate Terry MD 09/16/2024 02:19 PM EDT RP Dictated By: Tate Summers MD Signed By: <Electronically signed by Tate Cabral MD in OV> 09/16/24 1419 DD/ 1030 TD/TT: 09/16/24 1158 Lotus Notes Developer: [place] [id number] Ultrasound Report Signed Patient: Victoriano Potter MR#: [id number] : 1940 Acct:[id number] Age/Sex: 84 / M ADM Date: 09/16/24 Loc: . Attending Dr: Didier Wiseman MD Ordering Physician: Didier Wiseman MD Date of Service: 09/16/24 Procedure(s): US abdominal aortic aneurysm Accession Number(s): [id number] cc: Shamir Sommer MD; Didier Wiseman MD EXAMINATION: Noninvasive assessme nt of the bilateral lower extremities with ARTERIAL DUPLEX, ANKLE BRACHI AL INDICES (ABIs), and PULSE VOLUME RECORDINGS (PVRs). DOPPLER ARTERIAL ULTRASOUND AND ABDOMINAL AORTA AND ILIAC ARTERIES. CLINICAL INFORMATION: Hypertension. Smokin g. Hyperlipidemia. Diabetes. Prior vascular surgery: Femorofemoral bypass graft. TECHNIQUE: Duplex Doppler techniques with waveform analysis and measurement of velocities in the bilateral common femoral, profunda femoris, superficial femoral, popliteal and tibial arteries were performed. Additionally, ankle pulse volume recordings, ankle pressure measurements and ank le brachial indices were obtained of the lower extremity arterial system bilaterally. The study was performed only at rest. COMPARISON: None FINDINGS: DIRECT DUPLEX DOPPLE R FINDINGS: RIGHT LEG: Common femoral arter y: 55 cm/s, phasicity: Monophasic. Profunda femoris artery: 16 cm/s, phasicity: Monophasic. Superficial femoral artery (proximal): 73 cm/s, phasicity: Monophasic. Superficial femoral artery (mid): 27 cm/s, phasicity: Monophasic. Superficial femoral artery (distal): 41 cm/s, phasicity: Monophasic. Popliteal artery: 28 cm/s, phasicity: Monophasic. Posterior tibial artery: 18 cm/s, phasicity: Monophasic. Peroneal artery: No color Doppler. Anterior tibial artery: 19 cm/s, phasicity: Monophasic. Dorsalis pedis arter y: 14 cm/s, phasicity:Monophasic. LEFT LEG: Common femoral arter y: 111 cm/s, phasicity: Triphasic. Profunda femoris artery: 146 cm/s, phasicity: Biphasic. Superficial femoral artery (proximal): 250 cm/s, phasicity: Biphasic. Superficial femoral artery (mid): 139 cm/s, phasicity: Biphasic. Superficial femoral artery (distal): 66 cm/s, phasicity: Biphasic. Popliteal artery: 45 cm/s, phasicity: Biphasic. Posterior tibial artery: 34 cm/s, phasicity: Biphasic. Peroneal artery: 41 cm/s, phasicity: Monophasic. Anterior tibial artery: 41 cm/s, phasicity: Monophasic. Dorsalis pedis arter y: 40 cm/s, phasicity: Biphasic. BRACHIAL PRESSURES: Right: 186 Left: 185 ANKLE PRESSURES: Right: PT not measured., DP 95 Left: PT 181, DP 180 ANKLE-BRACHIAL INDEX: Right: 0.51 Left: 0.97 ANKLE PVR WAVEFORMS: Right: Abnormal Left: Abnormal Femorofemoral bypass graft: Occluded from the le ft inguinal to the mid inguinal region and the right inguinal regio n. Collateral flow. ABDOMINAL AORTA peak systolic velocity and diameter at the following: Proximal segment: 43 cm/s and 3.1 cm, respectively. Midsegment: 48 cm/s and 1.8 cm, respectively. Distal segment: 54 cm/s and 1.6 cm, respectively. Right iliac artery i s occluded. Left iliac artery: Common : 112 cm/s. External : 82 cm/s. US/US abdominal aortic aneurysm IMPRESSION: Right leg: Severe inflow disease throughout the right lower extremity. Occluded right peroneal artery. Left leg: Moderate t o severe inflow disease, left lower extremity. Occluded femorofemor al bypass graft at the inguinal regions. Occluded right iliac artery. No aneurysm, abdomin al aorta. AURA Reference: - >1.4 = calcified vessels - 0.9 - 1.4 = normal - no significant arterial disease - 0.7 - 0.89 = mild peripheral arterial disease - 0.51 - 0.69 = moderate peripheral arterial disease - d 0.50 = severe peripheral arterial disease - < .30 = critical arterial disease Electronically ady d by: Tate Terry MD 09/16/2024 02:19 PM EDT RP Dictated By: Tate Loaiza MD Signed By: <Electronically signed by Tate Cabral MD in OV> 09/16/24 1419 DD/ 1030 TD/TT: 09/16/24 1158 Lotus Notes Developer: US arterial duplex BI w/ AURA Reviewed date:09/20/2024 07:24:09 AM Interpretation: Performing Lab: Notes/Report: [address] [address] Ultrasound Report Signed Patient: Victoriano Potter MR#: [id number] : 1940 Acct:[id number] Age/Sex: 84 / M ADM Date: 09/16/24 Loc: . Attending Dr: Didier Wiseman MD Ordering Physician: Didier Wiseman MD Date of Service: 09/16/24 Procedure(s): US arterial duplex BI w/ AURA Accession Number(s): [id number] cc: Shamir Sommer MD; Didier Wiseman MD EXAMINATION: Noninvasive assessment of the bilateral lower extremities with ARTERIAL DUPLEX, ANKLE BRACHIAL INDICES (ABIs), and PULSE VOLUME RECORDINGS (PVRs). DOPPLER ARTERIAL ULTRASOUND AND ABDOMINAL AORTA AND ILIAC ARTERIES. CLINICAL INFORMATION: Hypertension. Smoking. Hyperlipidemia. Diabetes. Prior vascular surgery: Femorofemoral bypass graft. TECHNIQUE: Duplex Doppler techniques with waveform analysis and measurement of velocities in the bilateral common femoral, profunda femoris, superficial femoral, popliteal and tibial arteries were performed. Additionally, ankle pulse volume recordings, ankle pressure measurements and ankle brachial indices were obtained of the lower extremity arterial system bilaterally. The study was performed only at rest. COMPARISON: None FINDINGS: DIRECT DUPLEX DOPPLER FINDINGS: RIGHT LEG: Common femoral artery: 55 cm/s, phasicity: Monophasic. Profunda femoris artery: 16 cm/s, phasicity: Monophasic. Superficial femoral artery (proximal): 73 cm/s, phasicity: Monophasic. Superficial femoral artery (mid): 27 cm/s, phasicity: Monophasic. Superficial femoral artery (distal): 41 cm/s, phasicity: Monophasic. Popliteal artery: 28 cm/s, phasicity: Monophasic. Posterior tibial artery: 18 cm/s, phasicity: Monophasic. Peroneal artery: No color Doppler. Anterior tibial artery: 19 cm/s, phasicity: Monophasic. Dorsalis pedis artery: 14 cm/s, phasicity:Monophasic. LEFT LEG: Common femoral artery: 111 cm/s, phasicity: Triphasic. Profunda femoris artery: 146 cm/s, phasicity: Biphasic. Superficial femoral artery (proximal): 250 cm/s, phasicity: Biphasic. Superficial femoral artery (mid): 139 cm/s, phasicity: Biphasic. Superficial femoral artery (distal): 66 cm/s, phasicity: Biphasic. Popliteal artery: 45 cm/s, phasicity: Biphasic. Posterior tibial artery: 34 cm/s, phasicity: Biphasic. Peroneal artery: 41 cm/s, phasicity: Monophasic. Anterior tibial artery: 41 cm/s, phasicity: Monophasic. Dorsalis pedis artery: 40 cm/s, phasicity: Biphasic. BRACHIAL PRESSURES: Right: 186 Left: 185 ANKLE PRESSURES: Right: PT not measured., DP 95 Left: PT 181, DP 180 ANKLE-BRACHIAL INDEX: Right: 0.51 Left: 0.97 ANKLE PVR WAVEFORMS: Right: Abnormal Left: Abnormal Femorofemoral bypass graft: Occluded from the left inguinal to the mid inguinal region and the right inguinal region. Collateral flow. ABDOMINAL AORTA peak systolic velocity and diameter at the following: Proximal segment: 43 cm/s and 3.1 cm, respectively. Midsegment: 48 cm/s and 1.8 cm, respectively. Distal segment: 54 cm/s and 1.6 cm, respectively. Right iliac artery is occluded. Left iliac artery: Common : 112 cm/s. External : 82 cm/s. US/US arterial duplex BI w/ AURA IMPRESSION: Right leg: Severe inflow disease throughout the right lower extremity. Occluded right peroneal artery. Left leg: Moderate to severe inflow disease, left lower extremity. Occluded femorofemoral bypass graft at the inguinal regions. Occluded right iliac artery. No aneurysm, abdominal aorta. AURA Reference: - >1.4 = calcified vessels - 0.9 - 1.4 = normal - no significant arterial disease - 0.7 - 0.89 = mild peripheral arterial disease - 0.51 - 0.69 = moderate peripheral arterial disease - d 0.50 = severe peripheral arterial disease - < .30 = critical arterial disease Electronically signed by: Tate Terry MD 09/16/2024 02:19 PM EDT RP Dictated By: Tate Summers MD Signed By: <Electronically signed by Tate Cabral MD in OV> 09/16/24 1419 DD/ 1030 TD/TT: 09/16/24 1158 Lotus Notes Developer: [place] [address] Ultrasound Report Signed Patient: Vitcoriano Potter MR#: [id number] : 1940 Acct:[id number] Age/Sex: 84 / M ADM Date: 09/16/24 Loc: . Attending Dr: Didier Wiseman MD Ordering Physician: Didier Wiseman MD Date of Service: 09/16/24 Procedure(s): US arterial duplex BI w/ AURA Accession Number(s): [id number] cc: Shamir Sommer MD; Didier Wiseman MD EXAMINATION: Noninvasive assessme nt of the bilateral lower extremities with ARTERIAL DUPLEX, ANKLE BRACHI AL INDICES (ABIs), and PULSE VOLUME RECORDINGS (PVRs). DOPPLER ARTERIAL ULTRASOUND AND ABDOMINAL AORTA AND ILIAC ARTERIES. CLINICAL INFORMATION: Hypertension. Smokin g. Hyperlipidemia. Diabetes. Prior vascular surgery: Femorofemoral bypass graft. TECHNIQUE: Duplex Doppler techniques with waveform analysis and measurement of velocities in the bilateral common femoral, profunda femoris, superficial femoral, popliteal and tibial arteries were performed. Additionally, ankle pulse volume recordings, ankle pressure measurements and ank le brachial indices were obtained of the lower extremity arterial system bilaterally. The study was performed only at rest. COMPARISON: None FINDINGS: DIRECT DUPLEX DOPPLE R FINDINGS: RIGHT LEG: Common femoral arter y: 55 cm/s, phasicity: Monophasic. Profunda femoris artery: 16 cm/s, phasicity: Monophasic. Superficial femoral artery (proximal): 73 cm/s, phasicity: Monophasic. Superficial femoral artery (mid): 27 cm/s, phasicity: Monophasic. Superficial femoral artery (distal): 41 cm/s, phasicity: Monophasic. Popliteal artery: 28 cm/s, phasicity: Monophasic. Posterior tibial artery: 18 cm/s, phasicity: Monophasic. Peroneal artery: No color Doppler. Anterior tibial artery: 19 cm/s, phasicity: Monophasic. Dorsalis pedis arter y: 14 cm/s, phasicity:Monophasic. LEFT LEG: Common femoral arter y: 111 cm/s, phasicity: Triphasic. Profunda femoris artery: 146 cm/s, phasicity: Biphasic. Superficial femoral artery (proximal): 250 cm/s, phasicity: Biphasic. Superficial femoral artery (mid): 139 cm/s, phasicity: Biphasic. Superficial femoral artery (distal): 66 cm/s, phasicity: Biphasic. Popliteal artery: 45 cm/s, phasicity: Biphasic. Posterior tibial artery: 34 cm/s, phasicity: Biphasic. Peroneal artery: 41 cm/s, phasicity: Monophasic. Anterior tibial artery: 41 cm/s, phasicity: Monophasic. Dorsalis pedis arter y: 40 cm/s, phasicity: Biphasic. BRACHIAL PRESSURES: Right: 186 Left: 185 ANKLE PRESSURES: Right: PT not measured., DP 95 Left: PT 181, DP 180 ANKLE-BRACHIAL INDEX: Right: 0.51 Left: 0.97 ANKLE PVR WAVEFORMS: Right: Abnormal Left: Abnormal Femorofemoral bypass graft: Occluded from the le ft inguinal to the mid inguinal region and the right inguinal regio n. Collateral flow. ABDOMINAL AORTA peak systolic velocity and diameter at the following: Proximal segment: 43 cm/s and 3.1 cm, respectively. Midsegment: 48 cm/s and 1.8 cm, respectively. Distal segment: 54 cm/s and 1.6 cm, respectively. Right iliac artery i s occluded. Left iliac artery: Common : 112 cm/s. External : 82 cm/s. US/US arterial duplex BI w/ AURA IMPRESSION: Right leg: Severe inflow disease throughout the right lower extremity. Occluded right peroneal artery. Left leg: Moderate t o severe inflow disease, left lower extremity. Occluded femorofemor al bypass graft at the inguinal regions. Occluded right iliac artery. No aneurysm, abdomin al aorta. AURA Reference: - >1.4 = calcified vessels - 0.9 - 1.4 = normal - no significant arterial disease - 0.7 - 0.89 = mild peripheral arterial disease - 0.51 - 0.69 = moderate peripheral arterial disease - d 0.50 = severe peripheral arterial disease - < .30 = critical arterial disease Electronically ady d by: Tate Terry MD 09/16/2024 02:19 PM EDT RP Dictated By: Tate Loaiza MD Signed By: <Electronically signed by Tate Cabral MD in OV> 09/16/24 1419 DD/ 1030 TD/TT: 09/16/24 1158 Lotus Notes Developer: Diabetic Eye Exam Reviewed date:12/29/2024 09:24:15 AM Interpretation:undefined Performing Lab: Notes/Report: undefined Reason For Referral No Information Medications Medication SIG (Take, Route, Frequency, Duration) Notes Start Date End Date Status Simvastatin 40 MG TAKE 1 TABLET Orally Once a day Active FreeStyle Lancets - USE TO CHECK BLOOD S UGARS THREE TIMES A DAY 30 DAYS Active Lisinopril 40 MG 1 tablet Orally Once a day 2024 Active FreeStyle Lite Test - TO CHECK BLOOD SUG AR THREE TIMES A DAY 30 DAYS Active Omeprazole 20 MG TAKE 1 CAPSULE BY MO UTH EVERY DAY Active Trulicity 1.5 MG/0.5ML as directed Subcu taneous once a week Active Aspirin 81 MG 1 tablet Orally Once a day Active Lisinopril 10 MG TAKE 1 TABLET BY SUHAIL TH EVERY DAY Active metFORMIN HCl 1000 MG TAKE 1 TABLET BY M OUTH TWICE A DAY Active Multivitamin Active Pioglitazone HCl 45 MG TAKE 1 TABLET BY MOUTH EVERY DAY Active Vitamin B-12 1000 MCG 1 tablet Orally Once a day Active Vitamin D3 50 MCG (1999 UT) TAKE 1 CAPSULE BY MOUTH EVERY DAY. for 90 Active Immunizations Vaccine Route Administration Date Status [...] Problem Status W/U Status Risk Notes Problem 9690519 Former smoker (Z87.891) Active confirmed He is highly motivated not to smoke. He has a plan for prevention of relapse in times of stress. Problem 301254738 Overweight (E66.3) Active confirmed He remains very slightly overweight. We have discussed a weight reduction diabetic diet as a way to reduce his weight and hemoglobin A1c Problem 26888964 Type 2 diabetes mellitus without complications (E11.9) Active confirmed His hemoglobin A1c is 8.4. His fasting glucose is 163. He is taking trulicity pioglitazone and metformin at maximum doses. I discussed insulin with him. He is reluctant to take another injected medication but is willing to think about it. Problem Benign prostatic hyperplasia (951095105) BPH (benign prostatic hyperplasia) (N40.0) Active confirmed He has been rising once or twice a night to urinate. We have discussed ways to alter his lifestyle to diminished nocturia. Problem 758292796 Gastroesophageal reflux disease, esophagitis presence not specified (K21.9) Active confirmed His reflux symptoms are well controlled current medication. He will avoid eating related 90 and continue on his current medication. Problem Peripheral arterial disease (631531030) Peripheral arterial disease (I73.9) Active confirmed His claudicatio n is growing worse. He has appointment with his vascular surgeon next week. He has a history of bilateral arterial disease in his lower extremities. Problem Vitamin D deficiency (34535106) Vitamin D deficiency (E55.9) Active confirmed He was continued. 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 Problem 214525707 Right groin carmencita ia (K40.90) Active confirmed Is currently asymptomatic. Problem 86096016 Hyperlipidemia, unspecified hyperlipidemia type (E78.5) Active confirmed his lipids are currently stable and in their target range.His fasting cholesterol is 105. No change in his medication was negative. I recommended weight loss and physical activity. Problem Occlusion and stenosis of multiple and bilateral cerebral arteries (856959033) Bilateral carotid artery stenosis (I65.23) Active confirmed He has a histor y of moderate hemodynamically significant stenoses in each carotid artery. He is going to see vascular surgery next week. He is asymptomatic at this time from the carotid stenosis Problem [id number] Age-related incipient cataract of right eye (H25.091) Active confirmed He is medically cleared for cataract extraction and lens implantation. Vital Signs Heart Rate 85 /min 11/21/2024 Temperature 97.4 degrees Fahrenheit 11/21/2024 Blood pressure diastolic 68 mm Hg 11/21/2024 Height 62 in 11/21/2024 Blood pressure systolic 136 mm Hg 11/21/2024 Weight 142 lbs 11/21/2024 BMI 25.97 kg/m2 11/21/2024 Encounters Encounter Location Date Provider Diagnosis Shamir Sommer III, MD [address] [place] [address] [place] [phone] 02/26/2024 Shamir Sommer Type 2 diabetes nico itus without complications E11.9 ; Overweight E66.3 ; BPH (benign prostatic hyperplasia) N40.0 ; Gastroesophageal reflux disease, esophagitis presence not specified K21.9 ; Strabismus H50.9 ; Former smoker Z87.891 ; Vitamin D deficiency E55.9 and Peripheral arterial disease I73.9 Shamir Sommer III, MD [address] [place] [address] [place] [phone] 05/27/2024 Shamir Sommer Type 2 diabetes nico itus without complications E11.9 ; Peripheral arterial disease I73.9 ; Bilateral carotid artery stenosis I65.23 ; Hyperlipidemia, unspecified hyperlipidemia type E78.5 ; Former smoker Z87.891 ; Overweight E66.3 ; BPH (benign prostatic hyperplasia) N40.0 ; Gastroesophageal reflux disease, esophagitis presence not specified K21.9 and Strabismus H50.9 Shamir Sommer III, MD [address] [place] [address] [place] [phone] 06/26/2024 Shamir Sommer Type 2 diabetes nico itus without complications E11.9 ; Peripheral arterial disease I73.9 ; Hyperlipidemia, unspecified hyperlipidemia type E78.5 ; Overweight E66.3 ; BPH (benign prostatic hyperplasia) N40.0 ; Gastroesophageal reflux disease, esophagitis presence not specified K21.9 ; Former smoker Z87.891 and Strabismus H50.9 Shamir Sommer III, MD [address] [place] [address] [place] [phone] 09/25/2024 Shamir Sommer Type 2 diabetes nico itus without complications E11.9 ; Peripheral arterial disease I73.9 ; Gastroesophageal reflux disease, esophagitis presence not specified K21.9 ; Right groin hernia K40.90 ; Former smoker Z87.891 ; Bilateral carotid artery stenosis I65.23 and Overweight E66.3 Shamir Sommer III, MD [address] [place] [address] [place] [phone] 11/21/2024 Shamir Sommer Type 2 diabetes nico itus without complications E11.9 ; Overweight E66.3 ; BPH (benign prostatic hyperplasia) N40.0 ; Gastroesophageal reflux disease, esophagitis presence not specified K21.9 ; Strabismus H50.9 ; Former smoker Z87.891 ; Hyperlipidemia, unspecified hyperlipidemia type E78.5 ; Bilateral carotid artery stenosis I65.23 ; Peripheral arterial disease I73.9 and Age-related incipient cataract of right eye H25.091 Shamir Sommer III, MD [address] [place] [address] [place] [phone] 08/20/2024 Shamir Sommer III, MD [address] [place] [address] [place] [phone] 09/30/2024 Shamir Sommer Assessments Encounter Date Diagnosis (ICD Code) Assessment Notes T reatment Notes Treatment Clinical Notes 02/26/2024 Overweight (ICD-10 - E66.3) He has [...] for Doppler ultrasounds and an office visit. 09/25/2024 Type 2 diabetes mellitus without complications [...] arterial disease in his lower extremities. 11/21/2024 Overweight (ICD-10 - E66.3) He remains very slightly overweight. We have discussed a weight reduction diabetic diet as a way to reduce his weight and hemoglobin A1c 11/21/2024 Type 2 diabetes mellitus without complications (ICD-10 - E11.9) His hemoglobin A1c is 8.4. His fasting glucose is 163. He is taking trulicity pioglitazone and metformin at maximum doses. I discussed insulin with him. He is reluctant to take another injected medication but is willing to think about it. 02/26/2024 BPH (benign prostati c hyperplasia) (ICD-10 [...] Hyperlipidemia, unspecified hyperlipidemia type (ICD-10 - E78.5) 09/25/2024 Gastroesophageal reflux disease, esophagitis presence not specified (ICD-10 - K21.9) His reflux symptoms are well controlled current medication. He will avoid eating related 90 and continue on his current medication. 11/21/2024 BPH (benign prostati c hyperplasia) (ICD-10 - N40.0) He has been rising once or twice a night to urinate. We have discussed ways to alter his lifestyle to diminished nocturia. 02/26/2024 Gastroesophageal reflux disease, esophagitis presence not [...] one half of a pound per week. 09/25/2024 Right groin hernia (ICD-10 - K40.90) Is currently asymptomatic. 11/21/2024 Gastroesophageal reflux disease, esophagitis presence not specified (ICD-10 - K21.9) His reflux symptoms are well controlled current medication. He will avoid eating related 90 and continue on his current medication. 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 05/27/2024 Former smoker (ICD-1 0 - Z87.891) He is highly motivated not to smoke. He has a plan for prevention of relapse in times of stress. 06/26/2024 BPH (benign prostati c hyperplasia) (ICD-10 - N40.0) He is using lifestyle modification to reduce nocturia. He says he rises at most once a night. 09/25/2024 Former smoker (ICD-1 0 - Z87.891) He is highly motivated not to smoke. He has a plan for prevention of relapse in times of stress. 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 02/26/2024 Former smoker (ICD-1 0 - Z87.891) [...] and continue on his current medication. 09/25/2024 Bilateral carotid artery stenosis (ICD-10 - I65.23) He has a history of moderate hemodynamically significant stenoses in each carotid artery. He is going to see vascular surgery next week. He is asymptomatic at this time from the carotid stenosis 11/21/2024 Former smoker (ICD-1 0 - Z87.891) [...] of relapse in times of stress. 09/25/2024 Overweight (ICD-10 - E66.3) His body mass index is stable at 26. His nutritional stattus is good. I recommended gradual weight loss with diet restricted in calories designed to lose one half of a pound per week. 11/21/2024 Hyperlipidemia, unspecified hyperlipidemia type (ICD-10 - E78.5) his lipids are currently stable and in their target range.His fasting cholesterol is 105. No change in his medication was negative. I recommended weight loss and physical activity. 02/26/2024 Peripheral arterial disease (ICD-10 - I73.9) [...] will continue under the care of an body make up artist. 11/21/2024 Bilateral carotid artery stenosis (ICD-10 - I65.23) He has a history of moderate hemodynamically significant stenoses in each carotid artery. He is going to see vascular surgery next week. 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 11/21/2024 Peripheral arterial disease (ICD-10 - I73.9) His claudication is growing worse. He has appointment with his vascular surgeon next week. He has a history of bilateral arterial disease in his lower extremities. 11/21/2024 Age-related incipien t cataract of right eye (ICD-10 - H25.091) He is medically cleared for cataract extraction and lens implantation. Plan Of Treatment Pending Test Test Name Order Date PROFILE, FASTING (COMPREHENSIVE METABOLI C) 02/27/2022 PROFILE, FASTING (COMPREHENSIVE METABOLI C) 02/22/2023 PROFILE, FASTING (COMPREHENSIVE METABOLI C) 05/26/2021 PROFILE, FASTING (COMPREHENSIVE METABOLI C) 01/06/2020 PROFILE, FASTING (COMPREHENSIVE METABOLI C) 08/21/2023 PROFILE, FASTING (COMPREHENSIVE METABOLI C) 06/25/2023 PROFILE, FASTING (COMPREHENSIVE METABOLI C) 11/21/2024 PROFILE, FASTING (COMPREHENSIVE METABOLI C) 08/24/2021 PROFILE, FASTING (COMPREHENSIVE METABOLI C) 06/26/2024 PROFILE, FASTING (COMPREHENSIVE METABOLI C) 02/24/2021 PROFILE, FASTING (COMPREHENSIVE METABOLI C) 01/28/2016 PROFILE, FASTING (COMPREHENSIVE METABOLI C) 11/24/2020 PROFILE, FASTING (COMPREHENSIVE METABOLI C) 06/09/2020 PROFILE, FASTING (COMPREHENSIVE METABOLI C) 11/19/2023 PROFILE, FASTING (COMPREHENSIVE METABOLI C) 09/29/2022 PROFILE, FASTING (COMPREHENSIVE METABOLI C) 06/30/2022 PROFILE, FASTING (COMPREHENSIVE METABOLI C) 02/26/2024 PROFILE, RANDOM (COMPREHENSIVE METABOLIC ) 04/07/2020 PROFILE, RANDOM (COMPREHENSIVE METABOLIC ) 12/21/2021 HEMOGLOBIN A1C (GLYCOHEMOGLOBIN) 023 HEMOGLOBIN A1C (GLYCOHEMOGLOBIN) 023 HEMOGLOBIN A1C (GLYCOHEMOGLOBIN) 023 HEMOGLOBIN A1C (GLYCOHEMOGLOBIN) 021 HEMOGLOBIN A1C (GLYCOHEMOGLOBIN) 022 HEMOGLOBIN A1C (GLYCOHEMOGLOBIN) 020 HEMOGLOBIN A1C (GLYCOHEMOGLOBIN) 024 HEMOGLOBIN A1C (GLYCOHEMOGLOBIN) 022 HEMOGLOBIN A1C (GLYCOHEMOGLOBIN) 021 HEMOGLOBIN A1C (GLYCOHEMOGLOBIN) 016 LIPID PANEL 02/27/2022 LIPID PANEL 09/29/2022 LIPID PANEL 06/30/2022 LIPID PANEL 02/22/2023 LIPID PANEL 12/21/2021 LIPID PANEL 01/06/2020 LIPID PANEL 06/25/2023 LIPID PANEL 08/24/2021 LIPID PANEL 06/09/2020 LIPID PANEL 01/28/2016 B12 11/24/2020 PSA, TOTAL 11/19/2023 PSA, TOTAL 02/26/2024 PSA, TOTAL 11/21/2024 PSA, TOTAL 05/26/2021 PSA, TOTAL 09/29/2022 PSA, TOTAL 02/24/2021 PSA, TOTAL 08/24/2021 PSA, TOTAL 06/25/2023 PSA, TOTAL 06/09/2020 PSA, TOTAL SCREEN 02/27/2022 MICROALBUMIN, RANDOM 06/30/2022 MICROALBUMIN, RANDOM 02/22/2023 MICROALBUMIN, RANDOM 05/26/2021 MICROALBUMIN, RANDOM 12/21/2021 MICROALBUMIN, RANDOM 09/29/2022 MICROALBUMIN, RANDOM 01/06/2020 CBC w DIFF 04/07/2020 CBC w DIFF 08/21/2023 CBC w DIFF 11/21/2024 CBC w DIFF 02/27/2022 CBC w DIFF 06/30/2022 CBC w DIFF 11/24/2020 CBC w DIFF 02/22/2023 CBC w DIFF 05/26/2021 CBC w DIFF 12/21/2021 CBC w DIFF 09/29/2022 CBC w DIFF 01/06/2020 CBC w DIFF 02/24/2021 CBC w DIFF 08/24/2021 CBC w DIFF 01/28/2016 CBC w DIFF 06/25/2023 CBC w DIFF 06/09/2020 INTRINSIC FACTOR ANTIBODIES 11/16/2020 VITAMIN D 25-OH TOTAL 06/09/2020 VITAMIN D 25-OH TOTAL 02/27/2022 VITAMIN D 25-OH TOTAL 02/22/2023 Diabetic Eye Exam 12/20/2023 CBC WITH AUTO DIFF 11/19/2023 CBC WITH AUTO DIFF 06/26/2024 CBC WITH AUTO DIFF 02/26/2024 Lipid Panel 11/19/2023 Lipid Panel 08/21/2023 Lipid Panel 06/26/2024 Lipid Panel 02/26/2024 Lipid Panel 11/21/2024 Lipid Panel 11/24/2020 Lipid Panel 05/26/2021 Microalbumin, Random 11/19/2023 Microalbumin, Random 06/26/2024 Microalbumin, Random 02/26/2024 Microalbumin, Random 11/21/2024 Hemoglobin A1c 02/26/2024 Hemoglobin A1c 11/24/2020 Hemoglobin A1c 11/21/2024 Hemoglobin A1c 08/21/2023 Hemoglobin A1c 11/19/2023 Hemoglobin A1c 06/26/2024 Next Appt Details Provider Name:Shamir Sommer, 02/27/2025 10:30:00 AM, [address] [place] [address] MARIANN AMIN, [place], [id number], Insurance Providers Payer Name Payer Address Payer Phone Subscriber Number Group Number Insured Name Patient Relationship to Insured Coverage Start Date Coverage End Date [facility] [address] [facility] [address] [facility] [id number] [id number] Victoriano Potter Self - patient is the insured Medical (General) History Medical History History ICD Code diabetes mellitus hyperlipidemia gastroesophageal reflux disease (GERD) right inguinal hernia age 11 strabismus O.D. Surgical History Surgery Date(Month/Year) No history Colonoscopy September 25, 2023 Left cataract surgery 03/2022 right cataract surgery 12/2021 negative colonoscopy 04/09/08 right inguinal herniorraphy age 11 Hospitalization History Reason Date(Month/Year) No history Diverticulitis 12/29/2022
[2025-02-16 06:48] LABS: MANUAL DIFF FLAG NO
[2025-02-16 07:23] LABS: Hematocrit 33.1 % (42.0-52.0); Hemoglobin 10.3 g/dl (14.0-18.0); Imm Gran Abs Auto 0.03 X10*3/uL (0.00-0.03); Imm Gran Pct Auto 0.4 % (0.0-0.4); Lymphocytes Absolute Auto 3.4 X10*3/uL (1.2-4.9); Mean Corpuscular HGB Conc 31.1 g/dl (31.0-36.0); Mean Corpuscular Hemoglobin 27.3 pg (27.0-33.0); Mean Corpuscular Volume 87.8 fL (80.0-98.0); NRBC Abs Auto 0.000 X10*3/uL (0.0-0.012); NRBC Pct Auto 0.0 /100WBC (0.0-0.2); Platelet Count 212 X10*3/uL (160-400); Red Blood Count 3.77 X10*6/uL (4.60-5.80); White Blood Count 7.2 X10*3/uL (4.8-10.8)
[2025-02-16 07:33] LABS: Hemoglobin A1C 197.1344 umol/L; Total Hemoglobin (HGBA1C) 2737.1915 umol/L
[2025-02-16 07:51] LABS: Microalbum/Creatinine Ratio Ur 139.8 ug/mg cr (<30)
[2025-02-16 08:00] LABS: Alanine Aminotransferase 26 U/L (0-40); Albumin Level 4.3 g/dL (3.5-5.0); Alkaline Phosphatase 92 U/L (39-117); Anion Gap 14 (12-20); Aspartate Amino Transferase 27 U/L (5-37); Blood Urea Nitrogen 26 mg/dL (9-16); Calcium 9.8 mg/dL (8.4-10.2); Carbon Dioxide 23 mmol/L (22-29); Chloride 108 mmol/L (96-108); Cholesterol 106 mg/dL (<200); Estimated Glomerular Filt Rate 51; HDL Cholesterol 41 mg/dL (>40); Potassium 4.3 mmol/L (3.3-5.1); Sodium 141 mmol/L (135-145); Total Protein 7.4 g/dL (6.5-8.0); Triglycerides 110 mg/dL (<150)
[2025-02-16 08:07] LABS: Prostate Specific Antigen 1.91 ng/mL (<0.05-4.0)
== END 2025-02-16 06:34 | disposition home or self-care (01) ==
LOC: HO.LAB 06:33
PROVIDERS: PCP Internal Medicine Medical Oncology; Visit Provider Internal Medicine Medical Oncology
DX: E11.9 Type 2 diabetes mellitus without complications (principal); N40.0 Benign prostatic hyperplasia without lower urinary tract symptoms; E66.3 Overweight; Z12.5 Encounter for screening for malignant neoplasm of prostate
CPT/HCPCS: 36415; 80053; 80061; 82043; 82570; 83036; 84153; 85025

== ENCOUNTER 2025-05-21 06:39 | Outpatient (REF) | payer MEDICARE, SELFPAY ==
--- OUTSIDE RECORDS SUMMARY | 2024-02-12 05:09 | XMS_ITS ---
Author Organization Shamir Sommer III, MD Address [address] [place] [address] [place] [address] Care Team Providers Care Contestant Coordinator Name Role Phone Dr. Shamir Sommer III Primary Care Provider REASON FOR VISIT needs refill Vitamin B-12 Medications Medication SIG (Take, Route, Fr equency, Duration) Notes Start Date End Date Status Vitamin B-12 1000 MCG 1 tablet Orally On ce a day for 90 days 02/06/2025 Active Social History Sex Assigned At : Social History Observation Description Sex Assigned At Male Encounters Encounter Location Date Provider Diagnosis Shamir Sommer III, MD [address] [place] [address] [place] [id number] 02/12/2024 Shamir Sommer Type 2 diabetes mellitus without complications E11.9 Assessments Encounter Date Diagnosis (ICD Code) Assessment Notes Treat ment Notes Treatment Clinical Notes 02/12/2024 Type 2 diabetes mellitus without complications (ICD-10 - E11.9) His hemoglobin A1c has increased from 8.1 to 8.4. He says this is due to holidays. We discussed his diabetic diet in weight and exercise level. He will adhere to his diabetic diet. These values will be repeated in the near future. Plan Of Treatment Medication Medication Name Sig Start Date Stop Date Notes Vitamin B-12 1000 MCG 1 tablet Orally On ce a day for 90 days 02/06/2025 Next Appt Details Provider Name:Shamir Sommer , 06/01/2025 10:15:00 AM, [address] [place] [address] [place], [phone], Provider Name:Shamir Sommer , 03/03/2026 10:30:00 AM, [address] [place] [address] [address] [place], [place], [phone], Progress Notes * Victoriano HOWELL EDOB:1940 ( 83 yo M)Acc No.[id number]:02/12/2024 Patient: Victoriano Quintana :1940 A ge:83 Y S ex:Male Address:[address] [place] [id number] * Refills Refill Vitamin B-12 Tablet, 1000 MCG, Orally, 90 Tablet, 1 tablet, Once a day, 90 days, Refills=3 Subjective: * Chief Complaints: * n eeds refill Vitamin B-12 * Medical History: * Surgical History: * Hospitalization/Major Diagno stic Procedure: * Medications: Objective: Assessment: * Assessment: 1. T ype 2 diabetes mellitus without complications - E11.9, His hemoglobin A1c has increased from 8.1 to 8.4. He says this is due to holidays. We discussed his diabetic diet in weight and exercise level. He will adhere to his diabetic diet. These values will be repeated in the near future. Plan: * Treatment: * Procedure Codes: * true * Date: Generated for Antonio costa/Maria Victoria/Margaretitting on: 07/22/2024 06:44 AM EST
--- OUTSIDE RECORDS SUMMARY | 2024-02-26 05:30 | XMS_ITS ---
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 Shamir Sommer III Primary Care Provider Allergies Allergen (clinical drug ingredient) Drug/Non Drug Allergy documented on EMR Reaction Allergy Type Onset Date Status Seasonale Unknown Drug Allergy Active Results Component Value Reference Range Notes URINE DIP STICK Reviewed date:02/26/2024 10:45:29 AM Interpretation: Performing Lab: Notes/Report: SG 1.020 1.005 - 1.025 pH 5.0 5.0 - 9.0 GHAZALA 125 Negative - NIT Negative Negative - PRO 30 Negative - Trace GLU Negative Negative - KET 5 Negative - UBG 0.2 0.1 - 1.8 ISHA Negative 0.2 - 1.3 BLD 5-10 Negative - REASON FOR VISIT annual exam Medications Medication SIG (Take, Route, Frequency, Duration) Notes Start Date End Date Status Simvastatin 40 MG TAKE 1 TABLET BY MOUTH EVERY DAY IN THE EVENING FOR 90 DAYS Active Vitamin D3 50 MCG (1999 UT) TAKE 1 CAPSULE BY MOUTH EVERY DAY FOR 90 DAYS Active FreeStyle Lancets - DIRECTED - USE TO CHECK BLOOD SUGARS THREE TIMES A DAY 30 DAYS E11.9 Type 2 diabetes Active metFORMIN HCl 1000 MG TAKE 1 TABLET BY MOUTH TWICE A DAY Active Trulicity 1.5 MG/0.5ML as directed Subcutaneous once a week Active Multivitamin Active Vitamin B-12 1000 MCG 1 tablet Orally On ce a day Active Lisinopril 20 MG 1 tablet Orally Once a day 08/21/2023 Active FreeStyle Lite Test - DIRECTED IN VIT RO TO CHECK BLOOD SUGAR THREE TIMES A DAY 30 DAYS Active Pioglitazone HCl 45 MG TAKE 1 TABLET BY MOUTH EVERY DAY FOR 90 DAYS Active Omeprazole 20 MG TAKE 1 CAPSULE BY MOUTH EVERY DAY Active Lisinopril 10 MG TAKE 1 TABLET BY MOUTH EVERY DAY Active Aspirin 81 MG 1 tablet Orally Once a day Active Social History Tobacco Use: Social History Observation Description Date Details (start date - stop date) Former Smoker NA - NA Sex Assigned At : Social History Observation Description Sex Assigned At Male Tobacco Use/Smoking Question Answer Notes Patient is a former smoker How long has it been since you last smoked? > 10 years Additional Findings: Tobacco Non-User Ex-cigaret te smoker Alcohol Screen Question Answer Notes Did you have a drink containing alcohol in the p ast year? No Points 0 Interpretation Negative Vital Signs Temperature 97.2 degrees Fahrenheit 02/26/20 Blood pressure systolic 135 mm Hg 02/26/20 Blood pressure diastolic 80 mm Hg 024 Heart Rate 80 /min 02/26/2024 Height 62 in 02/26/2024 Weight 144 lbs 02/26/2024 BMI 26.34 kg/m2 02/26/2024 Encounters Encounter Location Date Provider Diagnosis Shamir Sommer III, MD [address] [place] [address] [place] [address] 02/26/2024 Shamir Sommer Type 2 diabetes nico itus without complications E11.9 ; Overweight E66.3 ; BPH (benign prostatic hyperplasia) N40.0 ; Gastroesophageal reflux disease, esophagitis presence not specified K21.9 ; Strabismus H50.9 ; Former smoker Z87.891 ; Vitamin D deficiency E55.9 and Peripheral arterial disease I73.9 Assessments Encounter Date Diagnosis (ICD Code) Assessment Notes Treat ment Notes Treatment Clinical Notes 02/26/2024 Type 2 diabetes mellitus without complications (ICD-10 - E11.9) His hemoglobin A1c has increased from 8.1 to 8.4. . We discussed his diabetic diet in weight and exercise level. He will adhere to his diabetic diet. These values will be repeated in the near future. I have offered to increase his medication but he wants to rely upon diet. 02/26/2024 Overweight (ICD-10 - E66.3) He has lost 3 pounds and his body mass index is 26. We discussed the elements of a diabetic diet with reduced calories at length today. 02/26/2024 BPH (benign prostati c hyperplasia) (ICD-10 - N40.0) He is using lifestyle modification to reduce nocturia. He says he rises at most once a night. 02/26/2024 Gastroesophageal reflux disease, esophagitis presence not specified (ICD-10 - K21.9) His reflux symptoms are well controlled current medication. He will avoid eating related 90 and continue on his current medication. 02/26/2024 Strabismus (ICD-10 - H50.9) He will continue under the care of an quill layer. 02/26/2024 Former smoker (ICD-1 0 - Z87.891) He is highly motivated not to smoke. He has a plan for prevention of relapse in times of stress. 02/26/2024 Vitamin D deficiency (ICD-10 - E55.9) He was continued. 02/26/2024 Peripheral arterial disease (ICD-10 - I73.9) his claudication remains stable and he is up-to-date with vascular surgery.He is going to see vascular surgery next week. He has a clearly audible bruit in the right carotid with a decent pulse. He has had no neurological symptoms. I asked him to call me after his vascular appointment to update me on recommendations. Plan Of Treatment Medication Medication Name Sig Start Date Stop Date Notes Simvastatin 40 MG TAKE 1 TABLET BY SUHAIL TH EVERY DAY IN THE EVENING FOR 90 DAYS Vitamin D3 50 MCG (1999 UT) TAKE 1 CAPSULE BY MOUTH EVERY DAY FOR 90 DAYS FreeStyle Lancets - DIRECTED - USE TO CHECK BLOOD SUGARS THREE TIMES A DAY 30 DAYS E11.9 Type 2 diabetes metFORMIN HCl 1000 MG TAKE 1 TABLET BY M OUTH TWICE A DAY Trulicity 1.5 MG/0.5ML as directed Subcutaneous once a week Multivitamin Vitamin B-12 1000 MCG 1 tablet Orally On ce a day Lisinopril 20 MG 1 tablet Orally Once a day 08/21/2023 FreeStyle Lite Test - DIRECTED IN VIT RO TO CHECK BLOOD SUGAR THREE TIMES A DAY 30 DAYS Pioglitazone HCl 45 MG TAKE 1 TABLET BY MOUTH EVERY DAY FOR 90 DAYS Omeprazole 20 MG TAKE 1 CAPSULE BY MO UTH EVERY DAY Lisinopril 10 MG TAKE 1 TABLET BY SUHAIL TH EVERY DAY Aspirin 81 MG 1 tablet Orally Once a day Pending Test Test Name Order Date PROFILE, FASTING (COMPREHENSIVE METABOLI C) 02/26/2024 PSA, TOTAL 02/26/2024 CBC WITH AUTO DIFF 02/26/2024 Lipid Panel 02/26/2024 Microalbumin, Random 02/26/2024 Hemoglobin A1c 02/26/2024 Next Appt Details Follow Up: 3 Months, Reason: office visit Provider Name:Shamir Guthrie Sommer , 06/01/2025 10:15:00 AM, [address] [facility] [address], [place], [address], Provider Name:Shamir Guthrie Kemal , 03/03/2026 10:30:00 AM, [address] [facility] [address], [place], [address], Progress Notes * Victoriano HOWELL EDOB:1940 ( 83 yo M)Acc No.[id number]:02/26/2024 Progress Notes Patient: Victoriano [address] Provider: Leonor Sommer MD :1940 A ge:83 Y S ex:Male Date:02/26/2024 Address:[address] [place], [place] [id number] Subjective: * Chief Complaints: * A nnual exam * HPI: D epression Screening: Ricardo guthrie returns to the office at the age of 83 for his annual physical examination.He is followed here for diabetes, GERD,Benign prostatic hypertrophy, carotid artery stenosis, peripheral vascular disease,And hyperlipidemia. He has an appointment to see his vascular surgeon, Dr. Ramirez. In 1 week. He says he is feeling well and has no new complaints. He is sleeping well and his appetite is good. In February 2023 and ultrasound showed narrowing in the right carotid artery between 50 and 79%. A right carotid artery bruit was audible on today's examination.? He has had no neurological symptoms. PHQ-9 L ittle interest or pleasure in doing things?Not at all F eeling down, depressed, or hopeless N ot at all T rouble falling or staying asleep, or sleeping too much N ot at all F eeling tired or having little energy N ot at all P oor appetite or overeating N ot at all F eeling bad about yourself or that you are a failure, or have let yourself or your family down N ot at all T rouble concentrating on things, such as reading the newspaper or watching television N ot at all M oving or speaking so slowly that other people could have noticed; or the opposite, being so fidgety or restless that you have been moving around a lot more than usual N ot at all T houghts that you would be better off or of hurting yourself in some way N ot at all T otal Score 0 C OVID-19 Screening: Questions H ave you experienced fever, chills, cough, sore throat, shortness of breath, difficulty breathing, muscle aches, loss of taste or smell? N o H ave you been exposed to the virus within the last 10 days? N o H ave you travelled internationally in the last 10 days? N o H ave you been exposed to COVID-19 in the past? N o * ROS: G eneral/Constitutional: pain o nly normal aches and pains. C hills d enies.?Fatigue a dmits. F ever d enies. E NT: Decreased hearing m ild. R espiratory: Cough d enies. C ardiovascular: Chest pain with exertion d enies. D yspnea on exertion?denies. S hortness of breath d enies. G astrointestinal: Constipation o ccasional. D ecreased appetite d enies. D iarrhea d enies. H eartburn d enies. N ausea d enies. R ectal bleeding d enies. V omiting d enies. H ematology: bruising d enies. p etechiae d enies. S wollen glands n one have been noted. G enitourinary: Frequent urination o nce a night. M usculoskeletal: Muscle aches d enies. P ainful joints d enies. S ciatica d enies. W eakness d enies. S kin: Itching d enies. R romaine d enies. S kin lesion(s)?denies. N eurologic: Difficulty speaking d enies. D izziness d enies.?Headache d enies. L ow back pain d enies. P sychiatric: Depressed mood d enies. * Medical History: * Surgical History: r ight inguinal herniorraphy age 11 negative colonoscopy 04/09/08right cataract surgery 12/2021Left cataract surgery 03/2022 * Hospitalization/Major Diagno stic Procedure: D iverticulitis 12/29/2022 * Family History: F ather: 59 yrs, stroke. M other: 89 yrs, cardiac probloems specfics unknown. S pouse: alive 65 yrs. 4 brother(s) , 3 sister(s) . 2 son(s) , 1 daughter(s) - healthy. . A twin brother at 5 of rheumatic fever. * Social History: T obacco Use: T obacco Use/Smoking P atient is a f ormer smoker H ow long has it been since you last smoked??> 10 years A dditional Findings: Tobacco Non-User E x-cigarette smoker D rugs/Alcohol: D rugs H ave you used drugs other than those for medical reasons in the past 12 months? N o Alcohol Screen D id you have a drink containing alcohol in the past year? N o P oints 0 I nterpretation N egative H jerri has been to Liz for 49 years and has 3 children and 9 grandchildren. 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 He was born in [place], [place]. * Medications: T akingMultivitamin FreeStyle Lancets - Miscellaneous DIRECTED - USE TO CHECK BLOOD SUGARS THREE TIMES A DAY 30 DAYS , Notes to Pharmacist: E11.9 Type 2 diabetesTrulicity 4.5 MG/0.5ML Solution Pen-injector as directed Subcutaneous once a week Aspirin 81 MG Tablet Chewable 1 tablet Orally Once a day Omeprazole 20 MG Capsule Delayed Release TAKE 1 CAPSULE BY MOUTH EVERY DAY Pioglitazone HCl 45 MG Tablet TAKE 1 TABLET BY MOUTH EVERY DAY FOR 90 DAYS Lisinopril 20 MG Tablet 1 tablet Orally Once a day metFORMIN HCl 1000 MG Tablet TAKE 1 TABLET BY MOUTH TWICE A DAY Simvastatin 40 MG Tablet TAKE 1 TABLET BY MOUTH EVERY DAY IN THE EVENING FOR 90 DAYS Vitamin D3 50 MCG (2000 UT) Capsule TAKE 1 CAPSULE BY MOUTH EVERY DAY FOR 90 DAYS FreeStyle Lite Test - Strip DIRECTED IN VITRO TO CHECK BLOOD SUGAR THREE TIMES A DAY 30 DAYS Vitamin B-12 1000 MCG Tablet 1 tablet Orally Once a day , stop date 02/06/2025Taking Multivitamin Taking FreeStyle Lancets - Miscellaneous DIRECTED - USE TO CHECK BLOOD SUGARS THREE TIMES A DAY 30 DAYS , Notes to Pharmacist: E11.9 Type 2 diabetesTaking Trulicity 4.5 MG/0.5ML Solution Pen-injector as directed Subcutaneous once a week Taking Aspirin 81 MG Tablet Chewable 1 tablet Orally Once a day Taking Omeprazole 20 MG Capsule Delayed Release TAKE 1 CAPSULE BY MOUTH EVERY DAY Taking Pioglitazone HCl 45 MG Tablet TAKE 1 TABLET BY MOUTH EVERY DAY FOR 90 DAYS Taking Lisinopril 20 MG Tablet 1 tablet Orally Once a day Taking metFORMIN HCl 1000 MG Tablet TAKE 1 TABLET BY MOUTH TWICE A DAY Taking Simvastatin 40 MG Tablet TAKE 1 TABLET BY MOUTH EVERY DAY IN THE EVENING FOR 90 DAYS Taking Vitamin D3 50 MCG (2000 UT) Capsule TAKE 1 CAPSULE BY MOUTH EVERY DAY FOR 90 DAYS Taking FreeStyle Lite Test - Strip DIRECTED IN VITRO TO CHECK BLOOD SUGAR THREE TIMES A DAY 30 DAYS Taking Vitamin B-12 1000 MCG Tablet 1 tablet Orally Once a day , stop date 02/06/2025DiscontinuedLisinopril 10 MG Tablet TAKE 1 TABLET BY MOUTH EVERY DAY Medication List reviewed and reconciled with the patientDiscontinued Lisinopril 10 MG Tablet TAKE 1 TABLET BY MOUTH EVERY DAY Medication List reviewed and reconciled with the patient * Allergies: Luis quach[Allergies Verified] Objective: * Vitals: H t: 62, Wt:144, BMI:26.34, BP:135/80, HR:80, Temp:97.2, Wt-k.32. * P ast Orders: Lab:Complete Blood Count Aut o Diff * Collection Date 02/18/2024 11/12/2023 08/10/2023 Collection Time 06:41 AM 06:36 AM 06:48 AM Order Date 02/18/2024 11/12/2023 08/10/2023 White Blood Count 6.5 (Ref Range: 4.8-10.8 X10*3/uL) 7.2 (Ref Range: 4.8-10.8 X10*3/uL) 6.6 (Ref Range: 4.8-10.8 X10*3/uL) Red Blood Count 3.81 L (Ref Range: 4.60-5.80 X10*6/uL) 3.85 L (Ref Range: 4.60-5.80 X10*6/uL) 4.07 L (Ref Range: 4.60-5.80 X10*6/uL) Hemoglobin 10.7 L (Ref Range: 14.0-18.0 g/dl) 10.9 L (Ref Range: 14.0-18.0 g/dl) 11.3 L (Ref Range: 14.0-18.0 g/dl) Hematocrit 33.2 L (Ref Range: 42.0-52.0 %) 34.3 L (Ref Range: 42.0-52.0 %) 35.7 L (Ref Range: 42.0-52.0 %) Mean Corpuscular Volume 87.1 (Ref Range: 80.0-98.0 fL) 89.1 (Ref Range: 80.0-98.0 fL) 87.7 (Ref Range: 80.0-98.0 fL) Mean Corpuscular Hemoglobin 28.1 (Ref Range: 27.0-33.0 pg) 28.3 (Ref Range: 27.0-33.0 pg) 27.8 (Ref Range: 27.0-33.0 pg) Mean Corpuscular HGB Conc 32.2 (Ref Range: 31.0-36.0 g/dl) 31.8 (Ref Range: 31.0-36.0 g/dl) 31.7 (Ref Range: 31.0-36.0 g/dl) Red Cell Distribution Width 15.6 (Ref Range: 11.0-16.0 %) 15.1 (Ref Range: 11.0-16.0 %) 15.3 (Ref Range: 11.0-16.0 %) Platelet Count 201 (Ref Range: 160-400 X10*3/uL) 216 (Ref Range: 160-400 X10*3/uL) 217 (Ref Range: 160-400 X10*3/uL) Mean Platelet Volume 12.1 (Ref Range: 9.4-12.4 fL) 11.5 (Ref Range: 9.4-12.4 fL) 11.4 (Ref Range: 9.4-12.4 fL) Neutrophils Percent Auto 51.8 (Ref Range: 45-73 %) 38.5 L (Ref Range: 45-73 %) 44.7 L (Ref Range: 45-73 %) Imm Gran Pct Auto 0.3 (Ref Range: 0.0-0.4 %) 0.4 (Ref Range: 0.0-0.4 %) 0.3 (Ref Range: 0.0-0.4 %) Lymphocytes Percent Auto 36.2 (Ref Range: 20-40 %) 46.7 H (Ref Range: 20-40 %) 42.3 H (Ref Range: 20-40 %) Monocytes Percent Auto 8.1 (Ref Range: 2-11 %) 7.9 (Ref Range: 2-11 %) 8.1 (Ref Range: 2-11 %) Eosinophils Percent Auto 2.5 (Ref Range: 0-4 %) 5.5 H (Ref Range: 0-4 %) 4.1 H (Ref Range: 0-4 %) Basophils Percent Auto 1.1 (Ref Range: 0-2 %) 1.0 (Ref Range: 0-2 %) 0.5 (Ref Range: 0-2 %) NRBC Pct Auto 0.0 (Ref Range: 0.0-0.2 /100WBC) 0.0 (Ref Range: 0.0-0.2 /100WBC) 0.0 (Ref Range: 0.0-0.2 /100WBC) Neutrophils Absolute Auto 3.4 (Ref Range: 2.0-8.3 x10*3/uL) 2.8 (Ref Range: 2.0-8.3 x10*3/uL) 3.0 (Ref Range: 2.0-8.3 x10*3/uL) Imm Gran Abs Auto 0.02 (Ref Range: 0.00-0.03 X10*3/uL) 0.03 (Ref Range: 0.00-0.03 X10*3/uL) 0.02 (Ref Range: 0.00-0.03 X10*3/uL) Lymphocytes Absolute Auto 2.4 (Ref Range: 1.2-4.9 X10*3/uL) 3.4 (Ref Range: 1.2-4.9 X10*3/uL) 2.8 (Ref Range: 1.2-4.9 X10*3/uL) Monocytes Absolute Auto 0.5 (Ref Range: 0.1-1.2 X10*3/uL) 0.6 (Ref Range: 0.1-1.2 X10*3/uL) 0.5 (Ref Range: 0.1-1.2 X10*3/uL) Eosinophils Absolute Auto 0.2 (Ref Range: 0.0-0.4 X10*3/uL) 0.4 (Ref Range: 0.0-0.4 X10*3/uL) 0.3 (Ref Range: 0.0-0.4 X10*3/uL) Basophils Absolute Auto 0.1 (Ref Range: 0.0-0.2 X10*3/uL) 0.1 (Ref Range: 0.0-0.2 X10*3/uL) 0.0 (Ref Range: 0.0-0.2 X10*3/uL) NRBC Abs Auto 0.000 (Ref Range: 0.0-0.012 X10*3/uL) 0.000 (Ref Range: 0.0-0.012 X10*3/uL) 0.000 (Ref Range: 0.0-0.012 X10*3/uL) * Lab:Hemoglobin A1c * Collection Date 02/18/2024 11/12/2023 08/10/2023 Collection Time 06:41 AM 06:36 AM 06:48 AM Order Date 02/18/2024 11/12/2023 08/10/2023 Hemoglobin A1c % 8.4 H (Ref Range: <6.0 %) 8.4 H (Ref Range: <6.0 %) 8.1 H (Ref Range: <6.0 %) Estimated Average Glucose 194 (Ref Range: mg/dL) 194 (Ref Range: mg/dL) 186 (Ref Range: mg/dL) * Lab:Lipid Panel * Collection Date 02/18/2024 11/12/2023 08/10/2023 Collection Time 06:41 AM 06:36 AM 06:48 AM Order Date 02/18/2024 11/12/2023 08/10/2023 Triglycerides 115 (Ref Range: <150 mg/dL) 117 (Ref Range: <150 mg/dL) 135 (Ref Range: <150 mg/dL) Cholesterol 94 (Ref Range: <200 mg/dL) 111 (Ref Range: <200 mg/dL) 108 (Ref Range: <200 mg/dL) LDL Cholesterol Calculated 36 (Ref Range: <100 mg/dL) 52 (Ref Range: <100 mg/dL) 45 (Ref Range: <100 mg/dL) HDL Cholesterol 35 L (Ref Range: >40 mg/dL) 36 L (Ref Range: >40 mg/dL) 36 L (Ref Range: >40 mg/dL) * Lab:Comprehensive [place]. Ta[place] Fast * Collection Date 02/18/2024 11/12/2023 08/10/2023 Collection Time 06:41 AM 06:36 AM 06:48 AM Order Date 02/18/2024 11/12/2023 08/10/2023 Sodium 139 (Ref Range: 135-145 mmol/L) 140 (Ref Range: 135-145 mmol/L) 141 (Ref Range: 135-145 mmol/L) Bilirubin Total 0.5 (Ref Range: 0.0-1.0 mg/dL) 0.5 (Ref Range: 0.0-1.0 mg/dL) 0.6 (Ref Range: 0.0-1.0 mg/dL) Aspartate Amino Transferase 24 (Ref Range: 5-37 U/L) 28 (Ref Range: 5-37 U/L) 34 (Ref Range: 5-37 U/L) Alanine Aminotransferase 26 (Ref Range: 0-40 U/L) 25 (Ref Range: 0-40 U/L) 29 (Ref Range: 0-40 U/L) Total Protein 6.8 (Ref Range: 6.5-8.0 g/dL) 7.3 (Ref Range: 6.5-8.0 g/dL) 7.4 (Ref Range: 6.5-8.0 g/dL) Albumin Level 3.8 (Ref Range: 3.5-5.0 g/dL) 4.1 (Ref Range: 3.5-5.0 g/dL) 4.2 (Ref Range: 3.5-5.0 g/dL) Alkaline Phosphatase 92 (Ref Range: 39-117 U/L) 84 (Ref Range: 39-117 U/L) 82 (Ref Range: 39-117 U/L) Potassium 4.3 (Ref Range: 3.3-5.1 mmol/L) 4.4 (Ref Range: 3.3-5.1 mmol/L) 4.2 (Ref Range: 3.3-5.1 mmol/L) Chloride 108 (Ref Range: 96-108 mmol/L) 105 (Ref Range: 96-108 mmol/L) 107 (Ref Range: 96-108 mmol/L) Carbon Dioxide 23 (Ref Range: 22-29 mmol/L) 23 (Ref Range: 22-29 mmol/L) 23 (Ref Range: 22-29 mmol/L) Anion Gap 12 (Ref Range: 12-20) 16 (Ref Range: 12-20) 15 (Ref Range: 12-20) Blood Urea Nitrogen 26 H (Ref Range: 9-16 mg/dL) 24 H (Ref Range: 9-16 mg/dL) 21 H (Ref Range: 9-16 mg/dL) Creatinine 1.21 (Ref Range: 0.5-1.4 mg/dL) 1.27 (Ref Range: 0.5-1.4 mg/dL) 1.25 (Ref Range: 0.5-1.4 mg/dL) Estimated Glomerular Filt Rate 57 54 55 Glucose Fasting 172 H (Ref Range: 60-99 mg/dL) 158 H (Ref Range: 60-99 mg/dL) 153 H (Ref Range: 60-99 mg/dL) Calcium 10.4 H (Ref Range: 8.4-10.2 mg/dL) 10.2 (Ref Range: 8.4-10.2 mg/dL) 10.3 H (Ref Range: 8.4-10.2 mg/dL) * Lab:Microalbumin, Random * Collection Date 02/18/2024 06/18/2023 01/01/2023 Collection Time 06:40 AM 06:55 AM 06:40 AM Order Date 02/18/2024 06/18/2023 01/01/2023 Creatinine Urine 36.77 (Ref Range: mg/dL) 35.48 (Ref Range: mg/dL) 47.97 (Ref Range: mg/dL) Microalbumin Urine 39.0 (Ref Range: mg/L) 77.0 (Ref Range: mg/L) 43.0 (Ref Range: mg/L) Microalbum Creatinine Ratio Ur 106.0 H (Ref Range: <30 ug/mg cr) 217.0 H (Ref Range: <30 ug/mg cr) 89.6 (Ref Range: ug/mg cr) * Lab:Prostate Specific Antige n * Collection Date 02/18/2024 08/10/2023 01/01/2023 Collection Time 06:41 AM 06:48 AM 06:42 AM Order Date 02/18/2024 08/10/2023 01/01/2023 Prostate Specific Antigen 2.53 (Ref Range: <0.05-4.0 ng/mL) 1.28 (Ref Range: <0.05-4.0 ng/mL) 1.66 (Ref Range: <0.05-4.0 ng/mL) * Examination: G eneral Examination: GENERAL APPEARANCE: p leasant, well nourished, well developed, in no acute distress, calm and relaxed, overweight, man. HEAD: a traumatic, normocephalic. EYES: e archie, perrla, anicteric, conjugate. EARS: n ormal. NOSE: s eptum intact. ORAL CAVITY: n ormal, unremarkable. NECK/THYROID: n o jugular venous distention, 2+ carotid bruit on the right, thyroid normal, Supple. LYMPH NODES: n o enlarged lymph nodes,spleen normal. SKIN: n o suspicious lesions, anicteric. HEART: n o clicks, gallops, murmurs, or rubs, regular rhythm, S1, S2 normal, no s3, or vascular bruits. LUNGS: c lear to auscultation . BREASTS: no masses palpable bilaterally. ABDOMEN: b owel sounds normal, no ascites, no organomegaly, no mass, overweight. RECTAL EXAM: n ot examined. MUSCULOSKELETAL: e xtremities unremarkable, no clubbing, cyanosis or edema, Feet pink and warm. PERIPHERAL PULSES: n ormal. NEUROLOGIC: a lert and oriented, cranial nerves 2-12 grossly intact, deep tendon reflexes 2+ symmetrical, motor strength normal upper and lower extremities, sensory exam intact. PSYCH: a lert, oriented. Assessment: * Assessment: 1. T ype 2 diabetes mellitus without complications - E11.9 (Primary) N otes :His hemoglobin A1c has increased from 8.1 to 8.4. . We discussed his diabetic diet in weight and exercise level. He will adhere to his diabetic diet. These values will be repeated in the near future. I have offered to increase his medication but he wants to rely upon diet. 2 . O verweight - E66.3 N otes :He has lost 3 pounds and his body mass index is 26. We discussed the elements of a diabetic diet with reduced calories at length today. 3 . B PH (benign prostatic hyperplasia) - N40.0 N otes :He is using lifestyle modification to reduce nocturia. He says he rises at most once a night. 4 . G astroesophageal reflux disease, esophagitis presence not specified - K21.9 N otes :His reflux symptoms are well controlled current medication. He will avoid eating related 90 and continue on his current medication. 5 . S trabismus - H50.9 N otes :He will continue under the care of an quill layer. 6 . F ormer smoker - Z87.891 N otes :He is highly motivated not to smoke. He has a plan for prevention of relapse in times of stress. 7 . V itamin D deficiency - E55.9 N otes :He was continued. 8 . P eripheral arterial disease - I73.9 N otes :his claudication remains stable and he is up-to-date with vascular surgery.He is going to see vascular surgery next week. He has a clearly audible bruit in the right carotid with a decent pulse. He has had no neurological symptoms. I asked him to call me after his vascular appointment to update me on recommendations. Plan: * Treatment: 2. O verweight L AB: PROFILE, FASTING (COMPREHENSIVE METABOLIC) L AB: PSA, TOTAL L AB: CBC WITH AUTO DIFF L AB: Lipid Panel L AB: Microalbumin, Random L AB: Hemoglobin A1c 3. B PH (benign prostatic hyperplasia) L AB: PROFILE, FASTING (COMPREHENSIVE METABOLIC) L AB: PSA, TOTAL L AB: CBC WITH AUTO DIFF L AB: Lipid Panel L AB: Microalbumin, Random L AB: Hemoglobin A1c 4. O thers Continue Vitamin D3 Capsule, 50 MCG (2000 UT), TAKE 1 CAPSULE BY MOUTH EVERY DAY FOR 90 DAYS; C ontinue Simvastatin Tablet, 40 MG, TAKE 1 TABLET BY MOUTH EVERY DAY IN THE EVENING FOR 90 DAYS; Continue metFORMIN HCl Tablet, 1000 MG, TAKE 1 TABLET BY MOUTH TWICE A DAY; C ontinue FreeStyle Lancets Miscellaneous, -, DIRECTED - USE TO CHECK BLOOD SUGARS THREE TIMES A DAY 30 DAYS, Notes to Pharmacist: E11.9 Type 2 diabetes; C ontinue FreeStyle Lite Test Strip, -, DIRECTED IN VITRO TO CHECK BLOOD SUGAR THREE TIMES A DAY 30 DAYS. * Labs: * L ab: URINE DIP STICK (Collection Date & Time - 02/26/2024) Value Reference Range S G 1.020 1.005 - 1.025 * p H 5.0 5.0 - 9.0 * L EU 125 Negative - * N IT Negative Negative - * P RO 30 Negative - Trace * G HODAN Negative Negative - * K ET 5 Negative - * U BG 0.2 0.1 - 1.8 * B IL Negative 0.2 - 1.3 * B LD 5-10 Negative - * Procedure Codes: 8 1002 URINE-NO MICRO * Preventive Medicine: Counseling: C are goal follow-up plan: Counseling for abnormal BMI given Y es Above Normal BMI Follow-up D ietary needs education, Exercise promotion: strength training S moking/Tobacco Use Patient counseled on the dangers of tobacco use and urged to quit. 0 02/26/2024 DM Care Plan: P atient Lifestyle Goals P atient wants to be able to manage diabetes without too much effort. T reatment Goals B lood Sugars less than < 115, HbA1C < 7.0. B arriers n o barriers. S elf-Managment Goals W ork on weight loss, with a goal of losing 1 lb per week. * Follow Up: 3 Months (Reason: office visit) * Images: * Sign off status: Completed true * Provider: Leonor Sommer MD Date: 0 02/26/2024 Generated for Antonio costa/Maria Victoria/Margaretitting on: 07/22/2024 06:43 AM EST History and Physical Notes * HPI (History of Present Illness) Category Sub-Category Detail Notes Depression Screening PHQ-9 Little inte rest or pleasure in doing things: Not at all Feeling down, depressed, or hopeless: No t at all Trouble falling or staying asleep, or sl eeping too much: Not at all Feeling tired or having little energy: N ot at all Poor appetite or overeating: Not at all Feeling bad about yourself o r that you are a failure, or have let yourself or your family down: Not at all Trouble concentrating on thi ngs, such as reading the newspaper or watching television: Not at all Moving or speaking so slowly that other people could have noticed; or the opposite, being so fidgety or restless that you have been moving around a lot more than usual: Not at all Thoughts that you would be b renate off or of hurting yourself in some way: Not at all Total Score: 0 COVID-19 Screening Questions Have you had any new onset fever, chills, cough, congestion, sore throat, shortness of breath, muscle aches?: No Have you been exposed to the virus withi n the last 10 days?: No Have you travelled internationally in [facility] last 10 days?: No Have you been exposed to COVID-19 in the past?: No Examination Category Sub-Category Detail Notes General Examination GENERAL APPEARANCE: pleasant , well nourished, well developed, in no acute distress, calm and relaxed, overweight, man HEAD: atraumatic, normocep halic EYES: eomi, perrla, anicte rachell, conjugate EARS: normal NOSE: septum intact NECK/THYROID: no jugular venous di stention, 2+ carotid bruit on the right, thyroid normal, Supple HEART: no clicks, gallops, murmurs, or rubs, regular rhythm, S1, S2 normal, no s3, or vascular bruits LUNGS: clear to auscultatio n ABDOMEN: bowel sounds normal, no ascites, no organomegaly, no mass, overweight NEUROLOGIC: alert and oriented, cranial nerves 2-12 grossly intact, deep tendon reflexes 2+ symmetrical, motor strength normal upper and lower extremities, sensory exam intact SKIN: no suspicious lesion s, anicteric PERIPHERAL PULSES: normal BREASTS: no masses palpable b ilaterally MUSCULOSKELETAL: extremities unremark able, no clubbing, cyanosis or edema, Feet pink and warm LYMPH NODES: no enlarged lymph no khalida,spleen normal RECTAL EXAM: not examined PSYCH: alert, oriented ORAL CAVITY: normal, unremarkable
--- OUTSIDE RECORDS SUMMARY | 2024-05-27 05:00 | XMS_ITS ---
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 Shamir Sommer III Primary Care Provider [phone] Allergies Allergen (clinical drug ingredient) Drug/Non Drug Allergy documented on EMR Reaction Allergy Type Onset Date Status Seasonale Unknown Drug Allergy Active REASON FOR VISIT Cold right leg, Peripheral arterial disease, Diabetes, GERD, right inguinal Hernia, Benign prostatic hypertrophy, Hyperlipidemia Medications Medication SIG (Take, Route, Frequency, Duration) Notes Start Date End Date Status metFORMIN HCl 1000 MG TAKE 1 TABLET BY MOUTH TWICE A DAY Active FreeStyle Lancets - DIRECTED - USE TO CHECK BLOOD SUGARS THREE TIMES A DAY 30 DAYS E11.9 Type 2 diabetes Active Simvastatin 40 MG TAKE 1 TABLET BY MOUTH EVERY DAY IN THE EVENING FOR 90 DAYS Active Aspirin 81 MG 1 tablet Orally Once a day Active Trulicity 1.5 MG/0.5ML as directed Subcutaneous once a week Active Vitamin D3 50 MCG (1999) TAKE 1 CAPSULE BY MOUTH EVERY DAY FOR 90 DAYS Active Pioglitazone HCl 45 MG TAKE 1 TABLET BY MOUTH EVERY DAY Active Lisinopril 20 MG 1 tablet Orally Once a day 08/21/2023 Active Vitamin B-12 1000 MCG 1 tablet Orally On ce a day Active Multivitamin Active Lisinopril 10 MG TAKE 1 TABLET BY MOUTH EVERY DAY Active Omeprazole 20 MG TAKE 1 CAPSULE BY MOUTH EVERY DAY Active FreeStyle Lite Test - DIRECTED IN VIT RO TO CHECK BLOOD SUGAR THREE TIMES A DAY 30 DAYS Active Social History Tobacco Use: Social History Observation Description Date Details (start date - stop date) Former Smoker NA - NA Sex Assigned At : Social History Observation Description Sex Assigned At Male Tobacco Use/Smoking Question Answer Notes Patient is a former smoker How long has it been since you last smoked? > 10 years Additional Findings: Tobacco Non-User Ex-cigaret te smoker Vital Signs Temperature 97.3 degrees Fahrenheit 05/27/20 Blood pressure systolic 139 mm Hg 05/27/20 Blood pressure diastolic 78 mm Hg 024 Heart Rate 88 /min 05/27/2024 Height 62 in 05/27/2024 Weight 147 lbs 05/27/2024 BMI 26.88 kg/m2 05/27/2024 Encounters Encounter Location Date Provider Diagnosis Shamir Sommer III, MD [address] [place] [address] [place] [address] 05/27/2024 Shamir Sommer Type 2 diabetes nico itus without complications E11.9 ; Peripheral arterial disease I73.9 ; Bilateral carotid artery stenosis I65.23 ; Hyperlipidemia, unspecified hyperlipidemia type E78.5 ; Former smoker Z87.891 ; Overweight E66.3 ; BPH (benign prostatic hyperplasia) N40.0 ; Gastroesophageal reflux disease, esophagitis presence not specified K21.9 and Strabismus H50.9 Assessments Encounter Date Diagnosis (ICD Code) Assessment Notes T reatment Notes Treatment Clinical Notes 05/27/2024 Type 2 diabetes mellitus without complications (ICD-10 - E11.9) He has been compliant with his medications. He remains overweight with a body mass index of 26.9. His hemoglobin A1c is stable at 8.5. We have discussed the value of reducing the A1c to adherence to a diabetic diet, continued physical activity despite claudication and compliance with medication.He has been managed by endocrinology. 05/27/2024 Peripheral arterial disease (ICD-10 - I73.9) A new complaint is a sensation of coldness in the right leg but both legs appear equal on examination. I am going to follow with him closely every 21 days and he is going to call me if any changes occur. If necessary I will ask the vascular surgeon to see him sooner and do Doppler ultrasound studies on the right leg. 05/27/2024 Bilateral carotid artery stenosis (ICD-10 - I65.23) The recent ultrasound showed bilateral stenoses or were not hemodynamically significant. He is going to see vascular surgery next September. I will follow him closely. 05/27/2024 Hyperlipidemia, unspecified hyperlipidemia type (ICD-10 - E78.5) his lipids are currently stable and in their target range.His fasting cholesterol is 105. No change in his medication was negative. I recommended weight loss and physical activity. 05/27/2024 Former smoker (ICD-1 0 - Z87.891) He is highly motivated not to smoke. He has a plan for prevention of relapse in times of stress. 05/27/2024 Overweight (ICD-10 - E66.3) He has lost 3 pounds and his body mass index is 26. We discussed the elements of a diabetic diet with reduced calories at length today. 05/27/2024 BPH (benign prostati c hyperplasia) (ICD-10 - N40.0) He is using lifestyle modification to reduce nocturia. He says he rises at most once a night. 05/27/2024 Gastroesophageal reflux disease, esophagitis presence not specified (ICD-10 - K21.9) His reflux symptoms are well controlled current medication. He will avoid eating related 90 and continue on his current medication. 05/27/2024 Strabismus (ICD-10 - H50.9) He will continue under the care of an manager mass. Plan Of Treatment Medication Medication Name Sig Start Date Stop Date Notes metFORMIN HCl 1000 MG TAKE 1 TABLET BY M OUTH TWICE A DAY FreeStyle Lancets - DIRECTED - USE TO CHECK BLOOD SUGARS THREE TIMES A DAY 30 DAYS E11.9 Type 2 diabetes Simvastatin 40 MG TAKE 1 TABLET BY SUHAIL TH EVERY DAY IN THE EVENING FOR 90 DAYS Aspirin 81 MG 1 tablet Orally Once a day Trulicity 1.5 MG/0.5ML as directed Subcutaneous once a week Vitamin D3 50 MCG (1999) TAKE 1 CAPSULE BY MOUTH EVERY DAY FOR 90 DAYS Pioglitazone HCl 45 MG TAKE 1 TABLET BY MOUTH EVERY DAY Lisinopril 20 MG 1 tablet Orally Once a day 08/21/2023 Vitamin B-12 1000 MCG 1 tablet Orally On ce a day Multivitamin Lisinopril 10 MG TAKE 1 TABLET BY SUHAIL TH EVERY DAY Omeprazole 20 MG TAKE 1 CAPSULE BY MO UTH EVERY DAY FreeStyle Lite Test - DIRECTED IN VIT RO TO CHECK BLOOD SUGAR THREE TIMES A DAY 30 DAYS Next Appt Details Follow Up: 3 Weeks, In about 3 weeks, Reason: ov recheck leg, To monitor the patient's arterial disease and coldness in right leg Provider Name:Shamir Salne , 06/01/2025 10:15:00 AM, [address] [place] [address] [address] AM[address], FAIZA MENG, [id number], Provider Name:Shamir Salne , 03/03/2026 10:30:00 AM, [address] [place] [address] [place], [address], Progress Notes * Victoriano HOWELL EDOB:1940 ( 83 yo M)Acc No.[id number]:05/27/2024 Progress Notes Patient: Victoriano [address] Provider: Leonor Sommer MD :1940 A ge:83 Y S ex:Male Date:05/27/2024 Address:[address] [place], [place] [id number] Subjective: * Chief Complaints: * C old right legPeripheral arterial diseaseDiabetesGERDright inguinal HerniaBenign prostatic hypertrophyHyperlipidemia * HPI: C OVID-19 Screening: Questions H ave you had any new onset fever, chills, cough, congestion, sore throat, shortness of breath, muscle aches? N o * : The 83-year-old male patient reported a feeling of coldness in his right leg, which started about two to three weeks ago, around the time the weather started turning cold. The coldness is not constant, but rather intermittent, and seems to be worse when he is up and walking around. The patient also reported experiencing pain in his leg when he walks, especially when it feels cold. The pain seems to be worse at night, particularly when he has to get up to go to the bathroom, but it tends to get better after a while. The patient's vitals, including his A1C and PSA levels, were reported to be good, and he is currently taking Trulicity. On physical examination both legs were warm. The tips of his toes were cold on the right but the skin was pink and had reasonable capillary filling. No ischemic ulceration was seen. Pulses were diminished. He reports that his leg has been feeling cold from the groin down for the last 2 or 3 weeks. He says he has had a diminished ability to walk without shortness of breath. He does get claudication after a couple blocks in the right leg. He has a remote history of a femoral to femoral bypass graft done by Dr. Mckenzie at [facility]. He is followed locally by Dr. Wiseman last saw him in September 2023. He is seen once a year at this time. He has had a 60% stenosis of the right carotid artery and a 40% on the left in the past. He has had no TIA symptoms. Is going to see Dr. Wiseman again in September 2024. Because of these new symptoms on going to see him every 3 weeks to see if this represents ischemia or merely a reaction to the cold weather. * ROS: G eneral/Constitutional: Admits p akiranLeonor leg claudication after 2 blocks..?Chills d enies. F atigue a dmits. F ever d enies. E [...] ight inguinal herniorraphy age 11 negative colonoscopy 11/6/08right cataract surgery 12/2021Left cataract surgery olonoscopy September 25, 2023 * Hospitalization/Major Diagno stic Procedure: D iverticulitis 12/29/2022No history * Family History: F ather: 59 yrs, stroke. M other: 89 yrs, cardiac probloems specfics unknown. S iblings: . S pouse: alive 65 yrs. 4 brother(s) , 3 sister(s) . 2 son(s) , 1 daughter(s) - healthy. . A twin brother at 5 of rheumatic fever. * Social History: T obacco Use: T obacco Use/Smoking P atient is a f ormer smoker H ow long has it been since you last smoked??> 10 years A dditional Findings: Tobacco Non-User E x-cigarette smoker Ricardo guthrie has been to Liz for 49 years and has 3 children and 9 grandchildren. 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 He was born in [place], [place]. * Medications: T akingVitamin B-12 1000 MCG Tablet 1 tablet Orally Once a day Vitamin D3 50 MCG (2000 UT) Capsule TAKE 1 CAPSULE BY MOUTH EVERY DAY FOR 90 DAYS Simvastatin 40 MG Tablet TAKE 1 TABLET BY MOUTH EVERY DAY IN THE EVENING FOR 90 DAYS metFORMIN HCl 1000 MG Tablet TAKE 1 TABLET BY MOUTH TWICE A DAY FreeStyle Lancets - Miscellaneous DIRECTED - USE TO CHECK BLOOD SUGARS THREE TIMES A DAY 30 DAYS , Notes to Pharmacist: E11.9 Type 2 diabetesTrulicity 1.5 MG/0.5ML Solution Pen-injector as directed Subcutaneous once a week Aspirin 81 MG Tablet Chewable 1 tablet Orally Once a day Lisinopril 10 MG Tablet TAKE 1 TABLET BY MOUTH EVERY DAY Omeprazole 20 MG Capsule Delayed Release TAKE 1 CAPSULE BY MOUTH EVERY DAY FreeStyle Lite Test - Strip DIRECTED IN VITRO TO CHECK BLOOD SUGAR THREE TIMES A DAY 30 DAYS Lisinopril 20 MG Tablet 1 tablet Orally Once a day Multivitamin Pioglitazone HCl 45 MG Tablet TAKE 1 TABLET BY MOUTH EVERY DAY Medication List reviewed and reconciled with the patientTaking Vitamin B-12 1000 MCG Tablet 1 tablet Orally Once a day Taking Vitamin D3 50 MCG (2000 UT) Capsule TAKE 1 CAPSULE BY MOUTH EVERY DAY FOR 90 DAYS Taking Simvastatin 40 MG Tablet TAKE 1 TABLET BY MOUTH EVERY DAY IN THE EVENING FOR 90 DAYS Taking metFORMIN HCl 1000 MG Tablet TAKE 1 TABLET BY MOUTH TWICE A DAY Taking FreeStyle Lancets - Miscellaneous DIRECTED - USE TO CHECK BLOOD SUGARS THREE TIMES A DAY 30 DAYS , Notes to Pharmacist: E11.9 Type 2 diabetesTaking Trulicity 1.5 MG/0.5ML Solution Pen-injector as directed Subcutaneous once a week Taking Aspirin 81 MG Tablet Chewable 1 tablet Orally Once a day Taking Lisinopril 10 MG Tablet TAKE 1 TABLET BY MOUTH EVERY DAY Taking Omeprazole 20 MG Capsule Delayed Release TAKE 1 CAPSULE BY MOUTH EVERY DAY Taking FreeStyle Lite Test - Strip DIRECTED IN VITRO TO CHECK BLOOD SUGAR THREE TIMES A DAY 30 DAYS Taking Lisinopril 20 MG Tablet 1 tablet Orally Once a day Taking Multivitamin Taking Pioglitazone HCl 45 MG Tablet TAKE 1 TABLET BY MOUTH EVERY DAY Medication List reviewed and reconciled with the patient * Allergies: S philomena[Allergies Verified] Objective: * Vitals: H t: 62, Wt:147, BMI:26.88, BP:139/78, HR:88, Temp:97.3, Wt-k.68. * P ast Orders: Lab:Microalbumin, Random * Collection Date 05/21/2024 02/18/2024 06/18/2023 Collection Time 07:00 AM 06:40 AM 06:55 AM Order Date 05/21/2024 02/18/2024 06/18/2023 Creatinine Urine 58.50 (Ref Range: mg/dL) 36.77 (Ref Range: mg/dL) 35.48 (Ref Range: mg/dL) Microalbumin Urine 185.0 (Ref Range: mg/L) 39.0 (Ref Range: mg/L) 77.0 (Ref Range: mg/L) Microalbum Creatinine Ratio Ur 316.2 H (Ref Range: <30 ug/mg cr) 106.0 H (Ref Range: <30 ug/mg cr) 217.0 H (Ref Range: <30 ug/mg cr) * Lab:Hemoglobin A1c * Collection Date 05/21/2024 02/18/2024 11/12/2023 Collection Time 07:00 AM 06:41 AM 06:36 AM Order Date 05/21/2024 02/18/2024 11/12/2023 Hemoglobin A1c % 8.5 H (Ref Range: <6.0 %) 8.4 H (Ref Range: <6.0 %) 8.4 H (Ref Range: <6.0 %) Estimated Average Glucose 197 (Ref Range: mg/dL) 194 (Ref Range: mg/dL) 194 (Ref Range: mg/dL) * Lab:Prostate Specific Antige n * Collection Date 05/21/2024 02/18/2024 08/10/2023 Collection Time 07:00 AM 06:41 AM 06:48 AM Order Date 05/21/2024 02/18/2024 08/10/2023 Prostate Specific Antigen 2.00 (Ref Range: <0.05-4.0 ng/mL) 2.53 (Ref Range: <0.05-4.0 ng/mL) 1.28 (Ref Range: <0.05-4.0 ng/mL) * Lab:Lipid Panel * Collection Date 05/21/2024 02/18/2024 11/12/2023 Collection Time 07:00 AM 06:41 AM 06:36 AM Order Date 05/21/2024 02/18/2024 11/12/2023 Triglycerides 126 (Ref Range: <150 mg/dL) 115 (Ref Range: <150 mg/dL) 117 (Ref Range: <150 mg/dL) Cholesterol 105 (Ref Range: <200 mg/dL) 94 (Ref Range: <200 mg/dL) 111 (Ref Range: <200 mg/dL) LDL Cholesterol Calculated 37 (Ref Range: <100 mg/dL) 36 (Ref Range: <100 mg/dL) 52 (Ref Range: <100 mg/dL) HDL Cholesterol 43 (Ref Range: >40 mg/dL) 35 L (Ref Range: >40 mg/dL) 36 L (Ref Range: >40 mg/dL) * Lab:Comprehensive [place]. Pane l Fast * Collection Date 05/21/2024 02/18/2024 11/12/2023 Collection Time 07:00 AM 06:41 AM 06:36 AM Order Date 05/21/2024 02/18/2024 11/12/2023 Sodium 137 (Ref Range: 135-145 mmol/L) 139 (Ref Range: 135-145 mmol/L) 140 (Ref Range: 135-145 mmol/L) Bilirubin Total 0.5 (Ref Range: 0.0-1.0 mg/dL) 0.5 (Ref Range: 0.0-1.0 mg/dL) 0.5 (Ref Range: 0.0-1.0 mg/dL) Aspartate Amino Transferase 36 (Ref Range: 5-37 U/L) 24 (Ref Range: 5-37 U/L) 28 (Ref Range: 5-37 U/L) Alanine Aminotransferase 32 (Ref Range: 0-40 U/L) 26 (Ref Range: 0-40 U/L) 25 (Ref Range: 0-40 U/L) Total Protein 7.0 (Ref Range: 6.5-8.0 g/dL) 6.8 (Ref Range: 6.5-8.0 g/dL) 7.3 (Ref Range: 6.5-8.0 g/dL) Albumin Level 3.9 (Ref Range: 3.5-5.0 g/dL) 3.8 (Ref Range: 3.5-5.0 g/dL) 4.1 (Ref Range: 3.5-5.0 g/dL) Alkaline Phosphatase 86 (Ref Range: 39-117 U/L) 92 (Ref Range: 39-117 U/L) 84 (Ref Range: 39-117 U/L) Potassium 4.1 (Ref Range: 3.3-5.1 mmol/L) 4.3 (Ref Range: 3.3-5.1 mmol/L) 4.4 (Ref Range: 3.3-5.1 mmol/L) Chloride 107 (Ref Range: 96-108 mmol/L) 108 (Ref Range: 96-108 mmol/L) 105 (Ref Range: 96-108 mmol/L) Carbon Dioxide 21 L (Ref Range: 22-29 mmol/L) 23 (Ref Range: 22-29 mmol/L) 23 (Ref Range: 22-29 mmol/L) Anion Gap 13 (Ref Range: 12-20) 12 (Ref Range: 12-20) 16 (Ref Range: 12-20) Blood Urea Nitrogen 22 H (Ref Range: 9-16 mg/dL) 26 H (Ref Range: 9-16 mg/dL) 24 H (Ref Range: 9-16 mg/dL) Creatinine 1.06 (Ref Range: 0.5-1.4 mg/dL) 1.21 (Ref Range: 0.5-1.4 mg/dL) 1.27 (Ref Range: 0.5-1.4 mg/dL) Estimated Glomerular Filt Rate > 60 57 54 Glucose Fasting 164 H (Ref Range: 60-99 mg/dL) 172 H (Ref Range: 60-99 mg/dL) 158 H (Ref Range: 60-99 mg/dL) Calcium 9.4 (Ref Range: 8.4-10.2 mg/dL) 10.4 H (Ref Range: 8.4-10.2 mg/dL) 10.2 (Ref Range: 8.4-10.2 mg/dL) * Lab:Complete Blood Count Aut o Diff * Collection Date 05/21/2024 02/18/2024 11/12/2023 Collection Time 07:00 AM 06:41 AM 06:36 AM Order Date 05/21/2024 02/18/2024 11/12/2023 White Blood Count 6.1 (Ref Range: 4.8-10.8 X10*3/uL) 6.5 (Ref Range: 4.8-10.8 X10*3/uL) 7.2 (Ref Range: 4.8-10.8 X10*3/uL) Red Blood Count 3.66 L (Ref Range: 4.60-5.80 X10*6/uL) 3.81 L (Ref Range: 4.60-5.80 X10*6/uL) 3.85 L (Ref Range: 4.60-5.80 X10*6/uL) Hemoglobin 10.4 L (Ref Range: 14.0-18.0 g/dl) 10.7 L (Ref Range: 14.0-18.0 g/dl) 10.9 L (Ref Range: 14.0-18.0 g/dl) Hematocrit 32.1 L (Ref Range: 42.0-52.0 %) 33.2 L (Ref Range: 42.0-52.0 %) 34.3 L (Ref Range: 42.0-52.0 %) Mean Corpuscular Volume 87.7 (Ref Range: 80.0-98.0 fL) 87.1 (Ref Range: 80.0-98.0 fL) 89.1 (Ref Range: 80.0-98.0 fL) Mean Corpuscular Hemoglobin 28.4 (Ref Range: 27.0-33.0 pg) 28.1 (Ref Range: 27.0-33.0 pg) 28.3 (Ref Range: 27.0-33.0 pg) Mean Corpuscular HGB Conc 32.4 (Ref Range: 31.0-36.0 g/dl) 32.2 (Ref Range: 31.0-36.0 g/dl) 31.8 (Ref Range: 31.0-36.0 g/dl) Red Cell Distribution Width 15.0 (Ref Range: 11.0-16.0 %) 15.6 (Ref Range: 11.0-16.0 %) 15.1 (Ref Range: 11.0-16.0 %) Platelet Count 214 (Ref Range: 160-400 X10*3/uL) 201 (Ref Range: 160-400 X10*3/uL) 216 (Ref Range: 160-400 X10*3/uL) Mean Platelet Volume 10.7 (Ref Range: 9.4-12.4 fL) 12.1 (Ref Range: 9.4-12.4 fL) 11.5 (Ref Range: 9.4-12.4 fL) Neutrophils Percent Auto 36.9 L (Ref Range: 45-73 %) 51.8 (Ref Range: 45-73 %) 38.5 L (Ref Range: 45-73 %) Imm Gran Pct Auto 0.3 (Ref Range: 0.0-0.4 %) 0.3 (Ref Range: 0.0-0.4 %) 0.4 (Ref Range: 0.0-0.4 %) Lymphocytes Percent Auto 49.8 H (Ref Range: 20-40 %) 36.2 (Ref Range: 20-40 %) 46.7 H (Ref Range: 20-40 %) Monocytes Percent Auto 8.2 (Ref Range: 2-11 %) 8.1 (Ref Range: 2-11 %) 7.9 (Ref Range: 2-11 %) Eosinophils Percent Auto 4.1 H (Ref Range: 0-4 %) 2.5 (Ref Range: 0-4 %) 5.5 H (Ref Range: 0-4 %) Basophils Percent Auto 0.7 (Ref Range: 0-2 %) 1.1 (Ref Range: 0-2 %) 1.0 (Ref Range: 0-2 %) NRBC Pct Auto 0.0 (Ref Range: 0.0-0.2 /100WBC) 0.0 (Ref Range: 0.0-0.2 /100WBC) 0.0 (Ref Range: 0.0-0.2 /100WBC) Neutrophils Absolute Auto 2.3 (Ref Range: 2.0-8.3 x10*3/uL) 3.4 (Ref Range: 2.0-8.3 x10*3/uL) 2.8 (Ref Range: 2.0-8.3 x10*3/uL) Imm Gran Abs Auto 0.02 (Ref Range: 0.00-0.03 X10*3/uL) 0.02 (Ref Range: 0.00-0.03 X10*3/uL) 0.03 (Ref Range: 0.00-0.03 X10*3/uL) Lymphocytes Absolute Auto 3.0 (Ref Range: 1.2-4.9 X10*3/uL) 2.4 (Ref Range: 1.2-4.9 X10*3/uL) 3.4 (Ref Range: 1.2-4.9 X10*3/uL) Monocytes Absolute Auto 0.5 (Ref Range: 0.1-1.2 X10*3/uL) 0.5 (Ref Range: 0.1-1.2 X10*3/uL) 0.6 (Ref Range: 0.1-1.2 X10*3/uL) Eosinophils Absolute Auto 0.3 (Ref Range: 0.0-0.4 X10*3/uL) 0.2 (Ref Range: 0.0-0.4 X10*3/uL) 0.4 (Ref Range: 0.0-0.4 X10*3/uL) Basophils Absolute Auto 0.0 (Ref Range: 0.0-0.2 X10*3/uL) 0.1 (Ref Range: 0.0-0.2 X10*3/uL) 0.1 (Ref Range: 0.0-0.2 X10*3/uL) NRBC Abs Auto 0.000 (Ref Range: 0.0-0.012 X10*3/uL) 0.000 (Ref Range: 0.0-0.012 X10*3/uL) 0.000 (Ref Range: 0.0-0.012 X10*3/uL) * Lab:URINE DIP STICK * Collection Date 02/26/2024 02/22/2023 01/06/2020 Order Date 02/26/2024 02/22/2023 01/06/2020 SG 1.020 (Ref Range: 1.005 - 1.025) 1.010 (Ref Range: 1.005 - 1.025) 1.015 pH 5.0 (Ref Range: 5.0 - 9.0) 5.0 (Ref Range: 5.0 - 9.0) 5 GHAZALA 125 (Ref Range: Negative -) Negative (Ref Range: Negative -) neg NIT Negative (Ref Range: Negative -) Negative (Ref Range: Negative -) neg PRO 30 (Ref Range: Negative - Trace) 15 (Ref Range: Negative - Trace) trace GLU Negative (Ref Range: Negative -) Negative (Ref Range: Negative -) normal KET 5 (Ref Range: Negative -) Negative (Ref Range: Negative -) neg UBG 0.2 (Ref Range: 0.1 - 1.8) 0.2 (Ref Range: 0.1 - 1.8) normal ISHA Negative (Ref Range: 0.2 - 1.3) Negative (Ref Range: 0.2 - 1.3) neg BLD 5-10 (Ref Range: Negative -) Negative (Ref Range: Negative -) neg Menstrating NR N/A n/a * Examination: G eneral Examination: GENERAL APPEARANCE: p leasant, well nourished, well developed, in no acute distress, calm and relaxed, overweight, elderly man. HEAD: a traumatic, normocephalic. EYES: e archie, perrla, anicteric,Exophoria right eye, strabismus. EARS: n ormal. NOSE: s eptum intact. ORAL CAVITY: n ormal, unremarkable. NECK/THYROID: n o jugular venous distention, no carotid bruit, thyroid normal. LYMPH NODES: n o enlarged lymph nodes,spleen normal. SKIN: n o suspicious lesions, anicteric. HEART: n o clicks, gallops, murmurs, or rubs, regular rhythm, S1, S2 normal, no s3, or vascular bruits. LUNGS: , diminished breath sounds throughout, no wheezes, rales, rhonchi, good air movement. BREASTS: no masses palpable bilaterally. ABDOMEN: b owel sounds normal, no ascites, no organomegaly, no mass, overweight. RECTAL EXAM: n ot examined. MUSCULOSKELETAL: e xtremities unremarkable, no clubbing, cyanosis or edema, Both legs are pink and warm without edema. There is sufficient capillary filling on the right toes. The toes are cold but the rest of the foot is warm as is the ankle and leg. There are no open wounds. There are no bruises or petechiae. There is no pain to palpation of the gastrocnemius muscle or to range of motion of the ankle.. PERIPHERAL PULSES: D iminished at the carotids and lower extremities, no bruits are heard. NEUROLOGIC: a lert and oriented, cranial nerves 2-12 grossly intact, deep tendon reflexes 2+ symmetrical, motor strength normal upper and lower extremities, sensory exam intact. PSYCH: a lert, oriented. Assessment: * Assessment: 1. P eripheral arterial disease - I73.9 (Primary) N otes :A new complaint is a sensation of coldness in the right leg but both legs appear equal on examination. I am going to follow with him closely every 21 days and he is going to call me if any changes occur. If necessary I will ask the vascular surgeon to see him sooner and do Doppler ultrasound studies on the right leg. 2 . T ype 2 diabetes mellitus without complications - E11.9 N otes :He has been compliant with his medications. He remains overweight with a body mass index of 26.9. His hemoglobin A1c is stable at 8.5. We have discussed the value of reducing the A1c to adherence to a diabetic diet, continued physical activity despite claudication and compliance with medication.He has been managed by endocrinology. 3 . B ilateral carotid artery stenosis - I65.23 N otes :The recent ultrasound showed bilateral stenoses or were not hemodynamically significant. He is going to see vascular surgery next September. I will follow him closely. 4 . H yperlipidemia, unspecified hyperlipidemia type - E78.5 N otes :his lipids are currently stable and in their target range.His fasting cholesterol is 105. No change in his medication was negative. I recommended weight loss and physical activity. 5 . F ormer smoker - Z87.891 N otes :He is highly motivated not to smoke. He has a plan for prevention of relapse in times of stress. 6 . O verweight - E66.3 N otes :He has lost 3 pounds and his body mass index is 26. We discussed the elements of a diabetic diet with reduced calories at length today. 7 . B PH (benign prostatic hyperplasia) - N40.0 N otes :He is using lifestyle modification to reduce nocturia. He says he rises at most once a night. 8 . G astroesophageal reflux disease, esophagitis presence not specified - K21.9 N otes :His reflux symptoms are well controlled current medication. He will avoid eating related 90 and continue on his current medication. 9 . S trabismus - H50.9 N otes :He will continue under the care of an manager mass. Plan: * Treatment: 2. O thers Continue Vitamin D3 Capsule, 50 [...] THREE TIMES A DAY 30 DAYS. * Procedure Codes: * Preventive Medicine: Counseling: C are goal follow-up plan: Counseling for abnormal BMI given Y es Above Normal BMI Follow-up D ietary management education, guidance, and counseling, Dietary needs education, Exercise promotion: strength training, Exercise promotion: stretching, Feeding regime, Giving encouragement to exercise, Lifestyle education regarding diet, Nutrition / feeding management, Nutrition therapy, Prescribed activity/exercise education, Prescribed diet education, Prescribed dietary intake, Special diet education, Weight monitoring , Intervention, Order not done: Medical or Other reason not done S moking/Tobacco Use Patient counseled on the dangers of tobacco use and urged to quit. 1 07/28/2023 DM Care Plan: P atient Lifestyle Goals P atient wants to be able to manage diabetes without too much effort. T reatment Goals H bA1C < 7.0, Blood Sugars less than < 115. B arriers n o barriers. S elf-Managment Goals W ork on weight loss, with a goal of losing 1 lb per week, Increase exercise to 3 times a week for 30 mins. * Follow Up: 3 Weeks, In about 3 weeks (Reason: ov recheck leg, To monitor the patient's arterial disease and coldness in right leg) * Images: * Sign off status: Completed true * Provider: Leonor Sommer MD Date: 07/28/2023 Generated for Antonio costa/Maria Victoria/Maribel on: 07/22/2024 06:43 AM EST History and Physical Notes * HPI (History of Present Illness) Category Sub-Category Detail Notes COVID-19 Screening Questions Have you had any new onset fever, chills, cough, congestion, sore throat, shortness of breath, muscle aches?: No Examination Category Sub-Category Detail Notes General Examination GENERAL APPEARANCE: pleasant , well nourished, well developed, in no acute distress, calm and relaxed, overweight, elderly man HEAD: atraumatic, normocep halic EYES: eomi, perrla, anicte rachell,Exophoria right eye, strabismus EARS: normal NOSE: septum intact NECK/THYROID: no jugular venous di stention, no carotid bruit, thyroid normal HEART: no clicks, gallops, murmurs, or rubs, regular rhythm, S1, S2 normal, no s3, or vascular bruits LUNGS: , diminished breath sounds throughout, no wheezes, rales, rhonchi, good air movement ABDOMEN: bowel sounds normal, no ascites, no organomegaly, no mass, overweight NEUROLOGIC: alert and oriented, cranial nerves 2-12 grossly intact, deep tendon reflexes 2+ symmetrical, motor strength normal upper and lower extremities, sensory exam intact SKIN: no suspicious lesion s, anicteric PERIPHERAL PULSES: Diminished at the ca rotids and lower extremities, no bruits are heard BREASTS: no masses palpable b ilaterally MUSCULOSKELETAL: extremities unremark able, no clubbing, cyanosis or edema, Both legs are pink and warm without edema. There is sufficient capillary filling on the right toes. The toes are cold but the rest of the foot is warm as is the ankle and leg. There are no open wounds. There are no bruises or petechiae. There is no pain to palpation of the gastrocnemius muscle or to range of motion of the ankle. LYMPH NODES: no enlarged lymph no khalida,spleen normal RECTAL EXAM: not examined PSYCH: alert, oriented ORAL CAVITY: normal, unremarkable
--- OUTSIDE RECORDS SUMMARY | 2024-06-26 05:30 | XMS_ITS ---
Author Organization Shamir Sommre III, MD Address [address] [place] [address] [address] [place] [address] Care Team Providers Care General Laborer Name Role Phone Dr. Shamir Sommer III Primary Care Provider Allergies Allergen (clinical drug ingredient) Drug/Non Drug Allergy documented on EMR Reaction Allergy Type Onset Date Status Seasonale Unknown Drug Allergy Active REASON FOR VISIT diabetes, gerd, BPH, carotid stenosis, strabismus Medications Medication SIG (Take, Route, Frequency, Duration) Notes Start Date End Date Status FreeStyle Lite Test - DIRECTED IN VIT RO TO CHECK BLOOD SUGAR THREE TIMES A DAY 30 DAYS Active Vitamin B-12 1000 MCG 1 tablet Orally On ce a day Active Multivitamin Active Pioglitazone HCl 45 MG TAKE 1 TABLET BY MOUTH EVERY DAY Active Lisinopril 20 MG 1 tablet Orally Once a day 08/21/2023 Active Omeprazole 20 MG TAKE 1 CAPSULE BY MOUTH EVERY DAY Active Lisinopril 10 MG TAKE 1 TABLET BY MOUTH EVERY DAY Active Aspirin 81 MG 1 tablet Orally Once a day Active Trulicity 1.5 MG/0.5ML as directed Subcutaneous once a week Active FreeStyle Lancets - DIRECTED - USE TO CHECK BLOOD SUGARS THREE TIMES A DAY 30 DAYS E11.9 Type 2 diabetes Active metFORMIN HCl 1000 MG TAKE 1 TABLET BY MOUTH TWICE A DAY Active Simvastatin 40 MG TAKE 1 TABLET BY MOUTH EVERY DAY IN THE EVENING FOR 90 DAYS Active Vitamin D3 50 MCG (2000 UT) TAKE 1 CAPSULE BY MOUTH EVERY DAY FOR 90 DAYS Active Social History Tobacco Use: Social [...] smoker Vital Signs Temperature 97.3 degrees Fahrenheit 06/26/19 25 Blood pressure systolic 140 mm Hg 06/26/19 25 Blood pressure diastolic 80 mm Hg 025 Heart Rate 83 /min 06/26/2024 Height 62 in 06/26/2024 Weight 149 lbs 06/26/2024 BMI 27.25 kg/m2 06/26/2024 Encounters Encounter Location Date Provider Diagnosis Shamir Sommer III, MD [address] [place] [address] [address], [place] [phone] 06/26/2024 Shamir Sommer Type 2 diabetes nico itus without complications E11.9 ; Peripheral arterial disease I73.9 ; Hyperlipidemia, unspecified hyperlipidemia type E78.5 ; Overweight E66.3 ; BPH (benign prostatic hyperplasia) N40.0 ; Gastroesophageal reflux disease, esophagitis presence not specified K21.9 ; Former smoker Z87.891 and Strabismus H50.9 Assessments Encounter Date Diagnosis (ICD Code) Assessment Notes Treat ment Notes Treatment Clinical Notes 06/26/2024 Type 2 diabetes mellitus without complications (ICD-10 - E11.9) He has been compliant with his medications. He remains overweight with a body mass index of 26.9. His hemoglobin A1c is stable at 8.5. We have discussed the value of reducing the A1c to adherence to a diabetic diet, continued physical activity despite claudication and compliance with medication.He has been managed by endocrinology. 06/26/2024 Peripheral arterial disease (ICD-10 - I73.9) His claudication is stable. The skin of his lower extremities is intact. There are carotid bruits unchanged. He is under the care of a vascular surgeon and is due soon for Doppler ultrasounds and an office visit. 06/26/2024 Hyperlipidemia, unspecified hyperlipidemia type (ICD-10 - E78.5) 06/26/2024 Overweight (ICD-10 - E66.3) His body mass index is stable at 27. His nutritional stattus is good. I recommended gradual weight loss with diet restricted in calories designed to lose one half of a pound per week. 06/26/2024 BPH (benign prostati c hyperplasia) (ICD-10 - N40.0) He is using lifestyle modification to reduce nocturia. He says he rises at most once a night. 06/26/2024 Gastroesophageal reflux disease, esophagitis presence not specified (ICD-10 - K21.9) His reflux symptoms are well controlled current medication. He will avoid eating related 90 and continue on his current medication. 06/26/2024 Former smoker (ICD-1 0 - Z87.891) He is highly motivated not to smoke. He has a plan for prevention of relapse in times of stress. 06/26/2024 Strabismus (ICD-10 - H50.9) He will continue under the care of an acupuncture physician. Plan Of Treatment Medication Medication Name Sig Start Date Stop Date Notes FreeStyle Lite Test - DIRECTED IN VIT RO TO CHECK BLOOD SUGAR THREE TIMES A DAY 30 DAYS Vitamin B-12 1000 MCG 1 tablet Orally On ce a day Multivitamin Pioglitazone HCl 45 MG TAKE 1 TABLET BY MOUTH EVERY DAY Lisinopril 20 MG 1 tablet Orally Once a day 08/21/2023 Omeprazole 20 MG TAKE 1 CAPSULE BY MO UTH EVERY DAY Lisinopril 10 MG TAKE 1 TABLET BY SUHAIL TH EVERY DAY Aspirin 81 MG 1 tablet Orally Once a day Trulicity 1.5 MG/0.5ML as directed Subcutaneous once a week FreeStyle Lancets - DIRECTED - USE TO CHECK BLOOD SUGARS THREE TIMES A DAY 30 DAYS E11.9 Type 2 diabetes metFORMIN HCl 1000 MG TAKE 1 TABLET BY M OUTH TWICE A DAY Simvastatin 40 MG TAKE 1 TABLET BY SUHAIL TH EVERY DAY IN THE EVENING FOR 90 DAYS Vitamin D3 50 MCG (1999) TAKE 1 CAPSULE BY MOUTH EVERY DAY FOR 90 DAYS Pending Test Test Name Order Date PROFILE, FASTING (COMPREHENSIVE METABOLI C) 06/26/2024 CBC WITH AUTO DIFF 06/26/2024 Lipid Panel 06/26/2024 Microalbumin, Random 06/26/2024 Hemoglobin A1c 06/26/2024 Next Appt Details Follow Up: 4 Months, End of September, Reason: OV, To go over what the vascular surgeon says Provider Name:Shamir Sommer , 06/01/2025 10:15:00 AM, [address] [place] [address] DR, [facility] [address], [place], [address], Provider Name:Shamir Salne , 03/03/2026 10:30:00 AM, [address] [place] [address] [address], [place], [address], Progress Notes * Victoriano HOWELL EDOB:1940 ( 84 yo M)Acc No.[id number]:06/26/2024 Progress Notes Patient: Victoriano WAITE Provider: Leonor Sommer MD :1940 A ge:84 Y S ex:Male Date:06/26/2024 Address:[address] [place] [address] jerri [id number] Subjective: * Chief Complaints: * D iabetesGerdBPHCarotid stenosisStrabismus * HPI: C OVID-19 Screening: Questions H ave you had any new onset fever, chills, cough, congestion, sore throat, shortness of breath, muscle aches? N o * : The patient, an 84-year-old male, has been managing his diabetes with Trulicity every week. He reports waking up at night to urinate, sometimes up to three times. He has some pain in his legs when he walks, which starts to hurt after about 15 minutes. The pain seems to originate in his right leg and can run through his leg and up. He also has a history of issues with his carotid arteries, for which he is due for a check-up in September. He has no new medications and is currently taking Simvastatin, a blood pressure pill, and vitamin B12. His blood pressure was slightly high during the visit. He also reports occasional constipation. He has no sores on his feet. His blood sugar was 164 and his A1C was 8.5, indicating room for improvement in his diabetes management. Blood Sugar Level is 164. * ROS: G eneral/Constitutional: pain o nly normal aches and pains. C hills d enies.?Fatigue a dmits. F ever d enies. E NT: Decreased hearing m ild. R espiratory: Cough d enies. C ardiovascular: Chest pain with exertion d enies. D yspnea on exertion?denies. S hortness of breath d enies. G astrointestinal: Admits C onstipation, o ccasional. D ecreased appetite d enies. D iarrhea d enies. H eartburn d enies. N ausea d enies.?Rectal bleeding d enies. V omiting d enies. H ematology: bruising d enies. p etechiae d enies. S wollen glands n one have been noted. G enitourinary: Frequent urination t wice a night. M usculoskeletal: Muscle aches d [...] colonoscopy 04/09/08right cataract surgery 12/2021Left cataract surgery olonoscopy September 25, 2023No history * Hospitalization/Major Diagno stic Procedure: D iverticulitis [...] and 9 grandchildren. 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 He was born in [place], [place]. * Medications: T akingPioglitazone HCl 45 MG Tablet TAKE 1 TABLET BY MOUTH EVERY DAY Vitamin B-12 1000 MCG Tablet 1 tablet [...] 1 tablet Orally Once a day Multivitamin Medication List reviewed and reconciled with the patientTaking Pioglitazone HCl 45 MG Tablet TAKE 1 TABLET BY MOUTH EVERY DAY Taking Vitamin B-12 1000 MCG Tablet 1 [...] tablet Orally Once a day Taking Multivitamin Medication List reviewed and reconciled with the patient * Allergies: S philomena[Allergies Verified] Objective: * Vitals: H t: 62, Wt:149, BMI:27.25, BP:140/80, HR:83, Temp:97.3, Wt-k.59. * P ast Orders: Lab:Microalbumin, Random * [...] H (Ref Range: <30 ug/mg cr) * Lab:Prostate Specific Antige n [...] L (Ref Range: >40 mg/dL) * Lab:Comprehensive [place]. Pane l Fast * Collection Date 05/21/2024 [...] X10*3/uL) * Lab:Hemoglobin A1c * Collection Date 05/21/2024 02/18/2024 11/12/2023 Collection Time 07:00 AM 06:41 AM 06:36 AM Order Date 05/21/2024 02/18/2024 11/12/2023 Hemoglobin A1c % 8.5 H (Ref Range: <6.0 %) 8.4 H (Ref Range: <6.0 %) 8.4 H (Ref Range: <6.0 %) Estimated Average Glucose 197 (Ref Range: mg/dL) 194 (Ref Range: mg/dL) 194 (Ref Range: mg/dL) * Examination: G eneral Examination: GENERAL APPEARANCE: p leasant, well nourished, well developed, in no acute distress, calm and relaxed, overweight, man. HEAD: a traumatic, normocephalic. EYES: e archie, perrla, anicteric, strabismus right exophoria.? EARS: N ormal anatomy. NOSE: s eptum intact. ORAL CAVITY: n [...] e xtremities unremarkable, no clubbing, cyanosis or edema. PERIPHERAL PULSES: D iminished in lower extremities, faint right carotid bruit. NEUROLOGIC: a lert and oriented, cranial nerves 2-12 grossly intact This exophoria of right eye, deep tendon reflexes 2+ symmetrical, motor strength normal upper and lower extremities, sensory exam intact. PSYCH: a lert, oriented. Assessment: * Assessment: 1. P eripheral arterial disease - I73.9 (Primary) N otes :His claudication is stable. The skin of his lower extremities is intact. There are carotid bruits unchanged. He is under the care of a vascular surgeon and is due soon for Doppler ultrasounds and an office visit. 2 . T ype 2 diabetes mellitus [...] has been managed by endocrinology. 3 . H yperlipidemia, unspecified hyperlipidemia type - E78.5 4 . O verweight - E66.3 N otes :His body mass index is stable at 27. His nutritional stattus is good. I recommended gradual weight loss with diet restricted in calories designed to lose one half of a pound per week. 5 . B PH (benign prostatic hyperplasia) - N40.0 N otes :He is using lifestyle modification to reduce nocturia. He says he rises at most once a night. 6 . G astroesophageal reflux disease, esophagitis presence not specified - K21.9 N otes :His reflux symptoms are well controlled current medication. He will avoid eating related 90 and continue on his current medication. 7 . F ormer smoker - Z87.891 N otes :He is highly motivated not to smoke. He has a plan for prevention of relapse in times of stress. 8 . S trabismus - H50.9 N otes :He will continue under the care of an acupuncture physician. Plan: * Treatment: 2. H yperlipidemia, unspecified hyperlipidemia type L AB: PROFILE, FASTING (COMPREHENSIVE METABOLIC) L AB: CBC WITH AUTO DIFF L AB: Lipid Panel L AB: Microalbumin, Random L AB: Hemoglobin A1c 3. O verweight L AB: PROFILE, FASTING (COMPREHENSIVE METABOLIC) L AB: CBC WITH AUTO DIFF L [...] management education, guidance, and counseling, Dietary needs education S moking/Tobacco Use Patient counseled on the dangers of tobacco use and urged to quit. 0 06/26/2024 DM Care Plan: P atient Lifestyle Goals P atient wants to be able to manage diabetes without too much effort. T reatment Goals H bA1C < 7.0. B arriers n o barriers. S elf-Managment Goals W ork on weight loss, with a goal of losing 1 lb per week. * Follow Up: 4 Months, End of September (Reason: OV, To go over what the vascular surgeon says) * Images: * Sign off status: Completed true * Provider: Leonor Sommer MD Date: 0 06/26/2024 Generated for Antonio costa/Maria Victoria/Margaretitting on: 07/22/2024 [...] normocep halic EYES: eomi, perrla, anicte rachell, strabismus right exophoria EARS: Normal anatomy NOSE: septum intact NECK/THYROID: no jugular venous di stention, no carotid bruit, thyroid normal HEART: no clicks, gallops, murmurs, or rubs, regular rhythm, S1, S2 normal, no s3, or vascular bruits LUNGS: clear to auscultatio n ABDOMEN: bowel sounds normal, no ascites, no organomegaly, no mass, overweight NEUROLOGIC: alert and oriented, cranial nerves 2-12 grossly intact This exophoria of right eye, deep tendon reflexes 2+ symmetrical, motor strength normal upper and lower extremities, sensory exam intact SKIN: no suspicious lesion s, anicteric PERIPHERAL PULSES: Diminished in lower extremities, faint right carotid bruit BREASTS: no masses palpable b ilaterally MUSCULOSKELETAL: extremities unremark able, no clubbing, cyanosis or edema LYMPH NODES: no enlarged lymph no khalida,spleen normal RECTAL EXAM: not examined PSYCH: alert, oriented ORAL CAVITY: normal, unremarkable
--- OUTSIDE RECORDS SUMMARY | 2024-08-20 11:25 | XMS_ITS ---
Author Organization Shamir Sommer III, MD Address [address] [place] [address] [place] [address] Care Team Providers Care Dye House Wheel Operator Name Role Phone Dr. Shamir Sommer III Primary Care Provider [phone] REASON FOR VISIT Message Social History Sex Assigned At : Social History Observation Description Sex Assigned At Male Encounters Encounter Location Date Provider Diagnosis Shamir Sommer III, MD [address] [place] [address] [place] [address] 08/20/2024 Shamir Sommer Plan Of Treatment Next Appt Details Provider Name:Shamir Sommer , 06/01/2025 10:15:00 AM, [address] [place] [address] [place], [address], Provider Name:Shamir Sommer , 03/03/2026 10:30:00 AM, [address] [place] [address] [place], [address], Progress Notes * Victoriano HOWELL EDOB:1940 ( 84 yo M)Acc No.[id number]:08/20/2024 Patient: Victoriano WAITE :1940 A ge:84 Y S ex:Male Address:[address] [place] [id number] * true * Date: Generated for Printi ng/Faxing/eTransmitting on: 07/22/2024 06:43 AM EST
--- OUTSIDE RECORDS SUMMARY | 2024-09-25 05:30 | XMS_ITS ---
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 Shamir Sommer III Primary Care Provider [phone] Allergies Allergen (clinical drug ingredient) Drug/Non Drug Allergy documented on EMR Reaction Allergy Type Onset Date Status Seasonale Unknown Drug Allergy Active REASON FOR VISIT Peripheral arterial disease, Diabetes mellitus, GERD, Benign prosthetic hypertrophy, Hyperlipidemia Medications Medication SIG (Take, Route, Frequency, Duration) Notes Start Date End Date Status Aspirin 81 MG 1 tablet Orally Once a day Active Lisinopril 10 MG TAKE 1 TABLET BY SUHAIL TH EVERY DAY Active Multivitamin Active metFORMIN HCl 1000 MG TAKE 1 TABLET BY M OUTH TWICE A DAY Active Trulicity 1.5 MG/0.5ML as directed Subcu taneous once a week Active Simvastatin 40 MG TAKE 1 TABLET BY SUHAIL TH EVERY DAY IN THE EVENING FOR 90 DAYS Active Omeprazole 20 MG TAKE 1 CAPSULE BY MO UTH EVERY DAY Active Pioglitazone HCl 45 MG TAKE 1 TABLET BY MOUTH EVERY DAY Active Vitamin B-12 1000 MCG 1 tablet Orally Once a day Active Vitamin D3 50 MCG (1999 UT) TAKE 1 CAPSULE BY MOUTH EVERY DAY FOR 90 DAYS Active FreeStyle Lancets - USE TO CHECK BLOOD S UGARS THREE TIMES A DAY 30 DAYS Active FreeStyle Lite Test - TO CHECK BLOOD SUG AR THREE TIMES A DAY 30 DAYS Active Lisinopril 40 MG 1 tablet Orally Once a day for 30 days 09/25/2024 Active Lisinopril 20 MG TAKE 1 TABLET BY SUHAIL TH EVERY DAY FOR 90 DAYS Active Social [...] Non-User Ex-cigaret te smoker Vital Signs Temperature 96.8 degrees Fahrenheit 09/26/19 25 Blood pressure systolic 138 mm Hg 09/26/19 25 Blood pressure diastolic 78 mm Hg 025 Heart Rate 80 /min 09/25/2024 Height 62 in 09/25/2024 Weight 147 lbs 09/25/2024 BMI 26.88 kg/m2 09/25/2024 Encounters Encounter Location Date Provider Diagnosis Shamir Sommer III, MD [address] [place] [address] [place] [address] 09/25/2024 Shamir Sommer Type 2 diabetes nico itus without complications E11.9 ; Peripheral arterial disease I73.9 ; Gastroesophageal reflux disease, esophagitis presence not specified K21.9 ; Right groin hernia K40.90 ; Former smoker Z87.891 ; Bilateral carotid artery stenosis I65.23 and Overweight E66.3 Assessments Encounter Date Diagnosis (ICD Code) Assessment Notes T reatment Notes Treatment Clinical Notes 09/25/2024 Type 2 diabetes mellitus without complications (ICD-10 - E11.9) His hemoglobin A1c is 8.4. His fasting glucose is 163. He is taking trulicity pioglitazone and metformin at maximum doses. I discussed insulin with him. He is reluctant to take another injected medication but is willing to think about it. 09/25/2024 Peripheral arterial disease (ICD-10 - I73.9) His claudication is growing worse. He has appointment with his vascular surgeon next week. He has a history of bilateral arterial disease in his lower extremities. 09/25/2024 Gastroesophageal reflux disease, esophagitis presence not specified (ICD-10 - K21.9) His reflux symptoms are well controlled current medication. He will avoid eating related 90 and continue on his current medication. 09/25/2024 Right groin hernia (ICD-10 - K40.90) Is currently asymptomatic. 09/25/2024 Former smoker (ICD-1 0 - Z87.891) He is highly motivated not to smoke. He has a plan for prevention of relapse in times of stress. 09/25/2024 Bilateral carotid artery stenosis (ICD-10 - I65.23) He has a history of moderate hemodynamically significant stenoses in each carotid artery. He is going to see vascular surgery next week. He is asymptomatic at this time from the carotid stenosis 09/25/2024 Overweight (ICD-10 - E66.3) His body mass index is stable at 26. His nutritional stattus is good. I recommended gradual weight loss with diet restricted in calories designed to lose one half of a pound per week. Plan Of Treatment Medication Medication Name Sig Start Date Stop Date Notes Aspirin 81 MG 1 tablet Orally Once a day Lisinopril 10 MG TAKE 1 TABLET BY SUHAIL TH EVERY DAY Multivitamin metFORMIN HCl 1000 MG TAKE 1 TABLET BY M OUTH TWICE A DAY Trulicity 1.5 MG/0.5ML as directed Subcu taneous once a week Simvastatin 40 MG TAKE 1 TABLET BY SUHAIL TH EVERY DAY IN THE EVENING FOR 90 DAYS Omeprazole 20 MG TAKE 1 CAPSULE BY MO UTH EVERY DAY Pioglitazone HCl 45 MG TAKE 1 TABLET BY MOUTH EVERY DAY Vitamin B-12 1000 MCG 1 tablet Orally Once a day Vitamin D3 50 MCG (1999 UT) TAKE 1 CAPSU LE BY MOUTH EVERY DAY FOR 90 DAYS FreeStyle Lancets - USE TO CHECK BLOOD S UGARS THREE TIMES A DAY 30 DAYS FreeStyle Lite Test - TO CHECK BLOOD SUG AR THREE TIMES A DAY 30 DAYS Lisinopril 40 MG 1 tablet Orally Once a day for 30 days 09/25/2024 Lisinopril 20 MG TAKE 1 TABLET BY SUHAIL TH EVERY DAY FOR 90 DAYS Next Appt Details Follow Up: 2 Months, Reason: OV Provider Name:Shamir Sommer , 06/01/2025 10:15:00 AM, [address] [place] [address] [address], [place], [id number], Provider Name:Shamir Sommer , 03/03/2026 10:30:00 AM, [address] [place] [address] [address], [place], [id number], Progress Notes * Victoriano HOWELL EDOB:1940 ( 84 yo M)Acc No.[id number]:09/25/2024 Progress Notes Patient: Dat Victoriano ELKINS Provider: Leonor Sommer MD :1940 A ge:84 Y S ex:Male Date:09/25/2024 Address:[address] [place], [place] [id number] Subjective: * Chief Complaints: * P eripheral arterial diseaseDiabetes mellitusGERDBenign prosthetic hypertrophyHyperlipidemia * HPI: C OVID-19 Screening: He returns to the office for management of his medical issues. His main complaint today is claudication at less than one block. He has an appointment with his vascular surgeon, Dr. Wiseman, next week. His legs and feet were pink and warm today with diminished pulses but there were no open areas or any ischemic appearing tissues. He says his diabetes is under control. He has been compliant with his medication he checks his fasting glucose once or twice a week. M ost recently was 150.He rises from sleep once or twice a night to urinate. His esophageal reflux as well controlled. He has no new issues. He denies chest pain or dyspnea. Questions H ave you had any new onset fever, chills, cough, congestion, sore throat, shortness of breath, muscle aches? N o * ROS: G eneral/Constitutional: pain C laudication at less than a block walking. C hills d enies. F atigue a dmits. F ever d enies. E NT: Decreased hearing i n both ears. R espiratory: Cough d enies. C ardiovascular: Chest pain with exertion d enies. D yspnea on exertion?denies. S hortness of breath w ith exertion. G astrointestinal: Constipation o ccasional. D ecreased [...] T obacco Use: T obacco Use/Smoking P atfabiola is a f ormer smoker H ow long has it been since you last smoked??> 10 years A dditional Findings: Tobacco Non-User E x-cigarette smoker Ricardo guthrie has been to Liz for 49 years and has 3 children and 9 grandchildren. 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 He was born in [place], [place]. * Medications: T akingPioglitazone HCl [...] 1 TABLET BY MOUTH TWICE A DAY Trulicity 1.5 MG/0.5ML Solution Pen-injector as directed Subcutaneous once a week Aspirin 81 MG Tablet Chewable 1 tablet Orally Once a day Multivitamin Omeprazole 20 MG Capsule Delayed Release TAKE 1 CAPSULE BY MOUTH EVERY DAY Lisinopril 20 MG Tablet TAKE 1 TABLET BY MOUTH EVERY DAY FOR 90 DAYS FreeStyle Lite Test - Strip TO CHECK BLOOD SUGAR THREE TIMES A DAY 30 DAYS FreeStyle Lancets - Miscellaneous USE TO CHECK BLOOD SUGARS THREE TIMES A DAY 30 DAYS Medication List reviewed and reconciled with the [...] TABLET BY MOUTH TWICE A DAY Taking Trulicity 1.5 MG/0.5ML Solution Pen-injector as directed Subcutaneous once a week Taking Aspirin 81 MG Tablet Chewable 1 tablet Orally Once a day Taking Multivitamin Taking Omeprazole 20 MG Capsule Delayed Release TAKE 1 CAPSULE BY MOUTH EVERY DAY Taking Lisinopril 20 MG Tablet TAKE 1 TABLET BY MOUTH EVERY DAY FOR 90 DAYS Taking FreeStyle Lite Test - Strip TO CHECK BLOOD SUGAR THREE TIMES A DAY 30 DAYS Taking FreeStyle Lancets - Miscellaneous USE TO CHECK BLOOD SUGARS THREE TIMES A DAY 30 DAYS Medication List reviewed and reconciled with the patient * Allergies: Luis quach[Allergies Verified] Objective: * Vitals: H t: 62, Wt:147, BMI:26.88, BP:138/78, HR:80, Temp:96.8, Wt-k.68. * P ast Orders: Lab:Complete Blood Count Aut o Diff * Collection Date 09/15/2024 05/21/2024 02/18/2024 Collection Time 06:49 AM 07:00 AM 06:41 AM Order Date 09/15/2024 05/21/2024 02/18/2024 White Blood Count 6.2 (Ref Range: 4.8-10.8 X10*3/uL) 6.1 (Ref Range: 4.8-10.8 X10*3/uL) 6.5 (Ref Range: 4.8-10.8 X10*3/uL) Red Blood Count 3.75 L (Ref Range: 4.60-5.80 X10*6/uL) 3.66 L (Ref Range: 4.60-5.80 X10*6/uL) 3.81 L (Ref Range: 4.60-5.80 X10*6/uL) Hemoglobin 10.4 L (Ref Range: 14.0-18.0 g/dl) 10.4 L (Ref Range: 14.0-18.0 g/dl) 10.7 L (Ref Range: 14.0-18.0 g/dl) Hematocrit 33.4 L (Ref Range: 42.0-52.0 %) 32.1 L (Ref Range: 42.0-52.0 %) 33.2 L (Ref Range: 42.0-52.0 %) Mean Corpuscular Volume 89.1 (Ref Range: 80.0-98.0 fL) 87.7 (Ref Range: 80.0-98.0 fL) 87.1 (Ref Range: 80.0-98.0 fL) Mean Corpuscular Hemoglobin 27.7 (Ref Range: 27.0-33.0 pg) 28.4 (Ref Range: 27.0-33.0 pg) 28.1 (Ref Range: 27.0-33.0 pg) Mean Corpuscular HGB Conc 31.1 (Ref Range: 31.0-36.0 g/dl) 32.4 (Ref Range: 31.0-36.0 g/dl) 32.2 (Ref Range: 31.0-36.0 g/dl) Red Cell Distribution Width 15.4 (Ref Range: 11.0-16.0 %) 15.0 (Ref Range: 11.0-16.0 %) 15.6 (Ref Range: 11.0-16.0 %) Platelet Count 188 (Ref Range: 160-400 X10*3/uL) 214 (Ref Range: 160-400 X10*3/uL) 201 (Ref Range: 160-400 X10*3/uL) Mean Platelet Volume 11.1 (Ref Range: 9.4-12.4 fL) 10.7 (Ref Range: 9.4-12.4 fL) 12.1 (Ref Range: 9.4-12.4 fL) Neutrophils Percent Auto 40.1 L (Ref Range: 45-73 %) 36.9 L (Ref Range: 45-73 %) 51.8 (Ref Range: 45-73 %) Imm Gran Pct Auto 0.3 (Ref Range: 0.0-0.4 %) 0.3 (Ref Range: 0.0-0.4 %) 0.3 (Ref Range: 0.0-0.4 %) Lymphocytes Percent Auto 46.2 H (Ref Range: 20-40 %) 49.8 H (Ref Range: 20-40 %) 36.2 (Ref Range: 20-40 %) Monocytes Percent Auto 8.1 (Ref Range: 2-11 %) 8.2 (Ref Range: 2-11 %) 8.1 (Ref Range: 2-11 %) Eosinophils Percent Auto 4.7 H (Ref Range: 0-4 %) 4.1 H (Ref Range: 0-4 %) 2.5 (Ref Range: 0-4 %) Basophils Percent Auto 0.6 (Ref Range: 0-2 %) 0.7 (Ref Range: 0-2 %) 1.1 (Ref Range: 0-2 %) NRBC Pct Auto 0.0 (Ref Range: 0.0-0.2 /100WBC) 0.0 (Ref Range: 0.0-0.2 /100WBC) 0.0 (Ref Range: 0.0-0.2 /100WBC) Neutrophils Absolute Auto 2.5 (Ref Range: 2.0-8.3 x10*3/uL) 2.3 (Ref Range: 2.0-8.3 x10*3/uL) 3.4 (Ref Range: 2.0-8.3 x10*3/uL) Imm Gran Abs Auto 0.02 (Ref Range: 0.00-0.03 X10*3/uL) 0.02 (Ref Range: 0.00-0.03 X10*3/uL) 0.02 (Ref Range: 0.00-0.03 X10*3/uL) Lymphocytes Absolute Auto 2.9 (Ref Range: 1.2-4.9 X10*3/uL) 3.0 (Ref Range: 1.2-4.9 X10*3/uL) 2.4 (Ref Range: 1.2-4.9 X10*3/uL) Monocytes Absolute Auto 0.5 (Ref Range: 0.1-1.2 X10*3/uL) 0.5 (Ref Range: 0.1-1.2 X10*3/uL) 0.5 (Ref Range: 0.1-1.2 X10*3/uL) Eosinophils Absolute Auto 0.3 (Ref Range: 0.0-0.4 X10*3/uL) 0.3 (Ref Range: 0.0-0.4 X10*3/uL) 0.2 (Ref Range: 0.0-0.4 X10*3/uL) Basophils Absolute Auto 0.0 (Ref Range: 0.0-0.2 X10*3/uL) 0.0 (Ref Range: 0.0-0.2 X10*3/uL) 0.1 (Ref Range: 0.0-0.2 X10*3/uL) NRBC Abs Auto 0.000 (Ref Range: 0.0-0.012 X10*3/uL) 0.000 (Ref Range: 0.0-0.012 X10*3/uL) 0.000 (Ref Range: 0.0-0.012 X10*3/uL) * Lab:[facility] [facility] * Collection Date 09/15/2024 05/21/2024 02/18/2024 Collection Time 06:49 AM 07:00 AM 06:41 AM Order Date 09/15/2024 05/21/2024 02/18/2024 Sodium 139 (Ref Range: 135-145 mmol/L) 137 (Ref Range: 135-145 mmol/L) 139 (Ref Range: 135-145 mmol/L) Bilirubin Total 0.5 (Ref Range: 0.0-1.0 mg/dL) 0.5 (Ref Range: 0.0-1.0 mg/dL) 0.5 (Ref Range: 0.0-1.0 mg/dL) Aspartate Amino Transferase 34 (Ref Range: 5-37 U/L) 36 (Ref Range: 5-37 U/L) 24 (Ref Range: 5-37 U/L) Alanine Aminotransferase 33 (Ref Range: 0-40 U/L) 32 (Ref Range: 0-40 U/L) 26 (Ref Range: 0-40 U/L) Total Protein 7.1 (Ref Range: 6.5-8.0 g/dL) 7.0 (Ref Range: 6.5-8.0 g/dL) 6.8 (Ref Range: 6.5-8.0 g/dL) Albumin Level 4.0 (Ref Range: 3.5-5.0 g/dL) 3.9 (Ref Range: 3.5-5.0 g/dL) 3.8 (Ref Range: 3.5-5.0 g/dL) Alkaline Phosphatase 89 (Ref Range: 39-117 U/L) 86 (Ref Range: 39-117 U/L) 92 (Ref Range: 39-117 U/L) Potassium 4.1 (Ref Range: 3.3-5.1 mmol/L) 4.1 (Ref Range: 3.3-5.1 mmol/L) 4.3 (Ref Range: 3.3-5.1 mmol/L) Chloride 108 (Ref Range: 96-108 mmol/L) 107 (Ref Range: 96-108 mmol/L) 108 (Ref Range: 96-108 mmol/L) Carbon Dioxide 22 (Ref Range: 22-29 mmol/L) 21 L (Ref Range: 22-29 mmol/L) 23 (Ref Range: 22-29 mmol/L) Anion Gap 13 (Ref Range: 12-20) 13 (Ref Range: 12-20) 12 (Ref Range: 12-20) Blood Urea Nitrogen 24 H (Ref Range: 9-16 mg/dL) 22 H (Ref Range: 9-16 mg/dL) 26 H (Ref Range: 9-16 mg/dL) Creatinine 1.14 (Ref Range: 0.5-1.4 mg/dL) 1.06 (Ref Range: 0.5-1.4 mg/dL) 1.21 (Ref Range: 0.5-1.4 mg/dL) Estimated Glomerular Filt Rate > 60 > 60 57 Glucose Fasting 163 H (Ref Range: 60-99 mg/dL) 164 H (Ref Range: 60-99 mg/dL) 172 H (Ref Range: 60-99 mg/dL) Calcium 10.0 (Ref Range: 8.4-10.2 mg/dL) 9.4 (Ref Range: 8.4-10.2 mg/dL) 10.4 H (Ref Range: 8.4-10.2 mg/dL) * Lab:Lipid Panel * Collection Date 09/15/2024 05/21/2024 02/18/2024 Collection Time 06:49 AM 07:00 AM 06:41 AM Order Date 09/15/2024 05/21/2024 02/18/2024 Triglycerides 138 (Ref Range: <150 mg/dL) 126 (Ref Range: <150 mg/dL) 115 (Ref Range: <150 mg/dL) Cholesterol 104 (Ref Range: <200 mg/dL) 105 (Ref Range: <200 mg/dL) 94 (Ref Range: <200 mg/dL) LDL Cholesterol Calculated 36 (Ref Range: <100 mg/dL) 37 (Ref Range: <100 mg/dL) 36 (Ref Range: <100 mg/dL) HDL Cholesterol 41 (Ref Range: >40 mg/dL) 43 (Ref Range: >40 mg/dL) 35 L (Ref Range: >40 mg/dL) * Lab:Microalbumin, Random * Collection Date 09/15/2024 05/21/2024 02/18/2024 Collection Time 06:49 AM 07:00 AM 06:40 AM Order Date 09/15/2024 05/21/2024 02/18/2024 Creatinine Urine 45.30 (Ref Range: mg/dL) 58.50 (Ref Range: mg/dL) 36.77 (Ref Range: mg/dL) Microalbumin Urine 100.0 (Ref Range: mg/L) 185.0 (Ref Range: mg/L) 39.0 (Ref Range: mg/L) Microalbum Creatinine Ratio Ur 220.7 H (Ref Range: <30 ug/mg cr) 316.2 H (Ref Range: <30 ug/mg cr) 106.0 H (Ref Range: <30 ug/mg cr) * Imaging:US abdominal aortic aneurysm * Performed Date 09/16/2024 08/07/2023 10:30 AM 11:53 AM Order Date 09/16/2024 08/07/2023 * Lab:Hemoglobin A1c * Collection Date 09/15/2024 05/21/2024 02/18/2024 Collection Time 06:49 AM 07:00 AM 06:41 AM Order Date 09/15/2024 05/21/2024 02/18/2024 Hemoglobin A1c % 8.4 H (Ref Range: <6.0 %) 8.5 H (Ref Range: <6.0 %) 8.4 H (Ref Range: <6.0 %) Estimated Average Glucose 194 (Ref Range: mg/dL) 197 (Ref Range: mg/dL) 194 (Ref Range: mg/dL) ???Imaging:US arterial duplex BI w/ AURA (Order Date - 09/16/2024) (Performed Date - 09/16/2024) * Examination: G eneral Examination: GENERAL APPEARANCE: p michelle, well nourished, well developed, in no acute distress, calm and relaxed, overweight, elderly man. HEAD: a traumatic, normocephalic. EYES: e archie, perrla, anicteric, conjugate, Strabismus with right eye Exophoria. EARS: N ormal anatomy with mild hearing loss. NOSE: s eptum intact. ORAL CAVITY: n [...] sounds normal, no ascites, no organomegaly, no mass. RECTAL EXAM: n ot examined. MUSCULOSKELETAL: e xtremities unremarkable, no clubbing, cyanosis or edema, No lesions on she. PERIPHERAL PULSES: D iminished carotids, diminished pulses lower extremities. NEUROLOGIC: a lert and oriented, cranial nerves 2-12 grossly intact, deep tendon reflexes 2+ symmetrical, motor strength normal upper and lower extremities, sensory exam intact. PSYCH: a lert, oriented. Assessment: * Assessment: 1. P eripheral arterial disease - I73.9 (Primary) N otes :His claudication is growing worse. He has appointment with his vascular surgeon next week.? He has a history of bilateral arterial disease in his lower extremities. 2 . T ype 2 diabetes mellitus without complications - E11.9 N otes :His hemoglobin A1c is 8.4. His fasting glucose is 163. He is taking trulicity pioglitazone and metformin at maximum doses. I discussed insulin with him. He is reluctant to take another injected medication but is willing to think about it. 3 . G astroesophageal reflux disease, esophagitis presence not specified - K21.9 N otes :His reflux symptoms are well controlled current medication. He will avoid eating related 90 and continue on his current medication. 4 . R ight groin hernia - K40.90 N otes :Is currently asymptomatic. 5 . F ormer smoker - Z87.891 N otes :He is highly motivated not to smoke. He has a plan for prevention of relapse in times of stress. 6 . B ilateral carotid artery stenosis - I65.23 N otes :He has a history of moderate hemodynamically significant stenoses in each carotid artery. He is going to see vascular surgery next week. He is asymptomatic at this time from the carotid stenosis 7 . O verweight - E66.3 N otes :His body mass index is stable at 26. His nutritional stattus is good. I recommended gradual weight loss with diet restricted in calories designed to lose one half of a pound per week. Plan: * Treatment: 2. O thers Continue FreeStyle Lancets Miscellaneous, -, USE TO CHECK BLOOD SUGARS THREE TIMES A DAY 30 DAYS;?Continue FreeStyle Lite Test Strip, -, TO CHECK BLOOD SUGAR THREE TIMES A DAY 30 DAYS; C ontinue Vitamin D3 Capsule, 50 MCG (2000 UT), TAKE 1 CAPSULE BY MOUTH EVERY DAY FOR 90 DAYS; C ontinue Simvastatin Tablet, 40 MG, TAKE 1 TABLET BY MOUTH EVERY DAY IN THE EVENING FOR 90 DAYS; C ontinue metFORMIN HCl Tablet, 1000 MG, TAKE 1 TABLET BY MOUTH TWICE A DAY. * Procedure Codes: * Preventive Medicine: Counseling: C are goal follow-up plan: Counseling for abnormal BMI given Y es Above Normal BMI Follow-up D ietary management education, guidance, and counseling, Dietary needs education S moking/Tobacco Use Patient counseled on the dangers of tobacco use and urged to quit. 0 09/25/2024 DM Care Plan: P atient Lifestyle Goals P atient wants to be able to manage diabetes without too much effort. T reatment Goals H bA1C < 7.0. B arriers n o barriers. S elf-Managment Goals T susana blood sugars twice daily and keep a log. Bring log in to next appointment, Increase exercise to 3 times a week for 30 mins, Stop drinking juice and/or soda, replace with more water. * Follow Up: 2 Months (Reason: OV) * Images: * Sign off status: Completed true * Provider: Leonor Sommer MD Date: 0 09/25/2024 Generated for Antonio costa/Maria Victoria/Margaretitting on: 07/22/2024 06:44 AM EST History and Physical Notes * [...] normocep halic EYES: eomi, perrla, anicte rachell, conjugate, Strabismus with right eye Exophoria EARS: Normal anatomy with mild hearing loss NOSE: septum intact NECK/THYROID: no jugular venous di stention, no carotid bruit, thyroid normal HEART: no clicks, gallops, murmurs, or rubs, regular rhythm, S1, S2 normal, no s3, or vascular bruits LUNGS: clear to auscultatio n ABDOMEN: bowel sounds normal, no ascites, no organomegaly, no mass NEUROLOGIC: alert and oriented, cranial nerves 2-12 grossly intact, deep tendon reflexes 2+ symmetrical, motor strength normal upper and lower extremities, sensory exam intact SKIN: no suspicious lesion s, anicteric PERIPHERAL PULSES: Diminished carotids, diminished pulses lower extremities BREASTS: no masses palpable b ilaterally MUSCULOSKELETAL: extremities unremark able, no clubbing, cyanosis or edema, No lesions on she LYMPH NODES: no enlarged lymph no khalida,spleen normal RECTAL EXAM: not examined PSYCH: alert, oriented ORAL CAVITY: normal, unremarkable
--- OUTSIDE RECORDS SUMMARY | 2024-09-30 05:57 | XMS_ITS ---
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 Shamir Sommer III Primary Care Provider [phone] REASON FOR VISIT Message Social History Sex Assigned At : Social History Observation Description Sex Assigned At Male Encounters Encounter Location Date Provider Diagnosis Shamir Sommer III, MD [address] [place] [address] [place] [address] 09/30/2024 Shamir Sommer Plan Of Treatment Next Appt Details Provider Name:Shamir Sommer , 06/01/2025 10:15:00 AM, [address] [place] [address] [place], [address], Provider Name:Shamir Sommer , 03/03/2026 10:30:00 AM, [address] [place] [address] [place], [address], Progress Notes * Victoriano HOWELL EDOB:1940 ( 84 yo M)Acc No.[id number]:09/30/2024 Patient: Victoriano WAIET :1940 A ge:84 Y S ex:Male Address:[address] [place] [address] * true * Date: Generated for Printi ng/Faxing/eTransmitting on: 07/22/2024 06:43 AM EST
--- OUTSIDE RECORDS SUMMARY | 2024-11-21 05:00 | XMS_ITS ---
Author Organization Shamir Sommer III, MD Address [address] [place] [address] [address] [place] [address] Care Team Providers Care Solar Installer Name Role Phone Dr. Shamir Sommer III Primary Care Provider Allergies Allergen (clinical drug ingredient) Drug/Non Drug Allergy documented on EMR Reaction Allergy Type Onset Date Status Seasonale Unknown Drug Allergy Active REASON FOR VISIT Diabetes, GERD, Hernia, Benign prostatic hypertrophy, Peripheral arterial disease, Hyperlipidemia, Strabismus Medications Medication SIG (Take, Route, Frequency, Duration) Notes Start Date End Date Status Lisinopril 40 MG 1 tablet Orally Once a day 2024 Active Trulicity 1.5 MG/0.5ML as directed Subcu taneous once a week Active Aspirin 81 MG 1 tablet Orally Once a day Active Lisinopril 10 MG TAKE 1 TABLET BY SUHAIL TH EVERY DAY Active Multivitamin Active Pioglitazone HCl 45 MG TAKE 1 TABLET BY MOUTH EVERY DAY Active Vitamin B-12 1000 MCG 1 tablet Orally Once a day Active Vitamin D3 50 MCG (1999 UT) TAKE 1 CAPSULE BY MOUTH EVERY DAY FOR 90 DAYS Active FreeStyle Lite Test - TO CHECK BLOOD SUG AR THREE TIMES A DAY 30 DAYS Active Omeprazole 20 MG TAKE 1 CAPSULE BY MO UTH EVERY DAY Active Simvastatin 40 MG TAKE 1 TABLET Orally Once a day Active FreeStyle Lancets - USE TO CHECK BLOOD S UGARS THREE TIMES A DAY 30 DAYS Active metFORMIN HCl 1000 MG TAKE 1 TABLET BY M OUT TWICE A DAY Active Social History Tobacco Use: Social History [...] Non-User Ex-cigaret te smoker Vital Signs Temperature 97.4 degrees Fahrenheit 11/22/19 25 Blood pressure systolic 136 mm Hg 11/22/19 25 Blood pressure diastolic 68 mm Hg 025 Heart Rate 85 /min 11/21/2024 Height 62 in 11/21/2024 Weight 142 lbs 11/21/2024 BMI 25.97 kg/m2 11/21/2024 Encounters Encounter Location Date Provider Diagnosis Shamir Sommer III, MD [address] [place] [address] [address], [place] [address] 11/21/2024 Shamir Sommer Type 2 diabetes nico itus without complications E11.9 ; Overweight E66.3 ; BPH (benign prostatic hyperplasia) N40.0 ; Gastroesophageal reflux disease, esophagitis presence not specified K21.9 ; Strabismus H50.9 ; Former smoker Z87.891 ; Hyperlipidemia, unspecified hyperlipidemia type E78.5 ; Bilateral carotid artery stenosis I65.23 ; Peripheral arterial disease I73.9 and Age-related incipient cataract of right eye H25.091 Assessments Encounter Date Diagnosis (ICD Code) Assessment Notes T reatment Notes Treatment Clinical Notes 11/21/2024 Type 2 diabetes mellitus without complications (ICD-10 - E11.9) His hemoglobin A1c is 8.4. His fasting glucose is 163. He is taking trulicity pioglitazone and metformin at maximum doses. I discussed insulin with him. He is reluctant to take another injected medication but is willing to think about it. 11/21/2024 Overweight (ICD-10 - E66.3) He remains very slightly overweight. We have discussed a weight reduction diabetic diet as a way to reduce his weight and hemoglobin A1c 11/21/2024 BPH (benign prostati c hyperplasia) (ICD-10 - N40.0) He has been rising once or twice a night to urinate. We have discussed ways to alter his lifestyle to diminished nocturia. 11/21/2024 Gastroesophageal reflux disease, esophagitis presence not specified (ICD-10 - K21.9) His reflux symptoms are well controlled current medication. He will avoid eating related 90 and continue on his current medication. 11/21/2024 Strabismus (ICD-10 - H50.9) He will continue under the care of an grain oilseed or pasture grower. 11/21/2024 Former smoker (ICD-1 0 - Z87.891) He is highly motivated not to smoke. He has a plan for prevention of relapse in times of stress. 11/21/2024 Hyperlipidemia, unspecified hyperlipidemia type (ICD-10 - E78.5) his lipids are currently stable and in their target range.His fasting cholesterol is 105. No change in his medication was negative. I recommended weight loss and physical activity. 11/21/2024 Bilateral carotid artery stenosis (ICD-10 - I65.23) He has a history of moderate hemodynamically significant stenoses in each carotid artery. He is going to see vascular surgery next week. He is asymptomatic at this time from the carotid stenosis 11/21/2024 Peripheral arterial disease (ICD-10 - I73.9) His claudication is growing worse. He has appointment with his vascular surgeon next week. He has a history of bilateral arterial disease in his lower extremities. 11/21/2024 Age-related incipien t cataract of right eye (ICD-10 - H25.091) He is medically cleared for cataract extraction and lens implantation. Plan Of Treatment Medication Medication Name Sig Start Date Stop Date Notes Lisinopril 40 MG 1 tablet Orally Once a day 09/25/2024 Trulicity 1.5 MG/0.5ML as directed Subcu taneous once a week Aspirin 81 MG 1 tablet Orally Once a day Lisinopril 10 MG TAKE 1 TABLET BY SUHAIL TH EVERY DAY Multivitamin Pioglitazone HCl 45 MG TAKE 1 TABLET BY MOUTH EVERY DAY Vitamin B-12 1000 MCG 1 tablet Orally Once a day Vitamin D3 50 MCG (1999 UT) TAKE 1 CAPSU LE BY MOUTH EVERY DAY FOR 90 DAYS FreeStyle Lite Test - TO CHECK BLOOD SUG AR THREE TIMES A DAY 30 DAYS Omeprazole 20 MG TAKE 1 CAPSULE BY MO UTH EVERY DAY Simvastatin 40 MG TAKE 1 TABLET Orally Once a day FreeStyle Lancets - USE TO CHECK BLOOD S UGARS THREE TIMES A DAY 30 DAYS metFORMIN HCl 1000 MG TAKE 1 TABLET BY M OUT TWICE A DAY Pending Test Test Name Order Date PROFILE, FASTING (COMPREHENSIVE METABOLI C) 11/21/2024 PSA, TOTAL 11/21/2024 CBC w DIFF 11/21/2024 Lipid Panel 11/21/2024 Microalbumin, Random 11/21/2024 Hemoglobin A1c 11/21/2024 Next Appt Details Follow Up: As Scheduled, Mandie son: Annual Exam Provider Name:Shamir Sommer , 06/01/2025 10:15:00 AM, [address] [facility] [address], [place], [address], Provider Name:Shamir Salne , 03/03/2026 10:30:00 AM, [address] [place] [address] [address], [place], [address], Progress Notes * Victoriano HOWELL EDOB:1940 ( 84 yo M)Acc No.[id number]:11/21/2024 Progress Notes Patient: Victoriano WAITE Provider: Leonor Sommer MD :1940 A ge:84 Y S ex:Male Date:11/21/2024 Address:[address] [place], [place] [id number] Subjective: * Chief Complaints: * D iabetesGERDHerniaBenign prostatic hypertrophyPeripheral arterial diseaseHyperlipidemiaStrabismus * HPI: C OVID-19 Screening: everything is same, walks 1/4 mile, fbs 172 usu 150. He returns for medical management of several issues. He says his medical status is the same as usual and the last visit. He says he can walk a quarter of a mile before he experiences claudication usually in the right leg.? His fasting bloood glucose was 172 this morning but usually is about 150. He is up-to-date with his visits to vascular surgery. He denies any chest pain or shortness of breath. He continues to rise from sleep once or twice a night to urinate. He has noticed no change in his vision. Questions H ave you had any new [...] children and 9 grandchildren. 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 He was born in [place], [place]. * Medications: T akingFreeStyle Lancets - Miscellaneous USE TO CHECK BLOOD SUGARS THREE TIMES A DAY 30 DAYS FreeStyle Lite Test - Strip TO CHECK BLOOD SUGAR THREE TIMES A DAY 30 DAYS Omeprazole 20 MG Capsule Delayed Release TAKE 1 CAPSULE BY MOUTH EVERY DAY Pioglitazone HCl 45 MG Tablet TAKE 1 TABLET BY MOUTH EVERY DAY Vitamin B-12 1000 MCG Tablet 1 tablet Orally Once a day Vitamin D3 50 MCG (2000 UT) Capsule TAKE 1 CAPSULE BY MOUTH EVERY DAY FOR 90 DAYS Trulicity 1.5 MG/0.5ML Solution Pen-injector as directed Subcutaneous once a week Aspirin 81 MG Tablet Chewable 1 tablet Orally Once a day Lisinopril 10 MG Tablet TAKE 1 TABLET BY MOUTH EVERY DAY Multivitamin Lisinopril 40 MG Tablet 1 tablet Orally Once a day Simvastatin 40 MG Tablet TAKE 1 TABLET Orally Once a day metFORMIN HCl 1000 MG Tablet TAKE 1 TABLET BY MOUTH TWICE A DAY Taking FreeStyle Lancets - Miscellaneous USE TO CHECK BLOOD SUGARS THREE TIMES A DAY 30 DAYS Taking FreeStyle Lite Test - Strip TO CHECK BLOOD SUGAR THREE TIMES A DAY 30 DAYS Taking Omeprazole 20 MG Capsule Delayed Release TAKE 1 CAPSULE BY MOUTH EVERY DAY Taking Pioglitazone HCl 45 MG Tablet TAKE 1 TABLET BY MOUTH EVERY DAY Taking Vitamin B-12 1000 MCG Tablet 1 tablet Orally Once a day Taking Vitamin D3 50 MCG (2000 UT) Capsule TAKE 1 CAPSULE BY MOUTH EVERY DAY FOR 90 DAYS Taking Trulicity 1.5 MG/0.5ML Solution Pen-injector as directed Subcutaneous once a week Taking Aspirin 81 MG Tablet Chewable 1 tablet Orally Once a day Taking Lisinopril 10 MG Tablet TAKE 1 TABLET BY MOUTH EVERY DAY Taking Multivitamin Taking Lisinopril 40 MG Tablet 1 tablet Orally Once a day Taking Simvastatin 40 MG Tablet TAKE 1 TABLET Orally Once a day Taking metFORMIN HCl 1000 MG Tablet TAKE 1 TABLET BY MOUTH TWICE A DAY DiscontinuedLisinopril 20 MG Tablet TAKE 1 TABLET BY MOUTH EVERY DAY FOR 90 DAYS Medication List reviewed and reconciled with the patientDiscontinued Lisinopril 20 MG Tablet TAKE 1 TABLET BY MOUTH EVERY DAY FOR 90 DAYS Medication List reviewed and reconciled with the patient * Allergies: Luis quach[Allergies Verified] Objective: * Vitals: H t: 62, Wt:142, BMI:25.97, BP:136/68, HR:85, Temp:97.4, Wt-k.41. * P ast Orders: I maging:US arterial duplex BI w/ AURA (Order Date - 09/16/2024) (Performed Date - 09/16/2024) Imaging:US abdominal aortic aneurysm * Performed Date 09/16/2024 08/07/2023 10:30 AM 11:53 AM Order Date 09/16/2024 08/07/2023 * Lab:Microalbumin, Random * Collection Date 09/15/2024 [...] H (Ref Range: <30 ug/mg cr) * Lab:Lipid Panel * Collection Date 09/15/2024 [...] 35 L (Ref Range: >40 mg/dL) * Lab:Comprehensive [facility]. Pane l Fast * Collection Date 09/15/2024 05/21/2024 [...] 10.4 H (Ref Range: 8.4-10.2 mg/dL) * Lab:Complete Blood [...] X10*3/uL) * Lab:Hemoglobin A1c * Collection Date 09/15/2024 [...] normocephalic. EYES: e archie, perrla, anicteric, conjugate, Unchanged strabismus. EARS: N ormal anatomy with mild hearing [...] normal, no ascites, no organomegaly, no mass, Slightly overweight. RECTAL EXAM: n ot examined. MUSCULOSKELETAL: e xtremities unremarkable, no clubbing, cyanosis or edema. PERIPHERAL PULSES: D iminished in the lower extremities, palpable carotids. NEUROLOGIC: a lert and oriented, cranial nerves 2-12 grossly intact, deep tendon reflexes 2+ symmetrical, motor strength normal upper and lower extremities, sensory exam intact. PSYCH: a lert, oriented. Assessment: * Assessment: 1. T ype 2 diabetes mellitus without complications - E11.9 (Primary) N otes :His hemoglobin A1c is 8.4. His fasting glucose is 163. He is taking trulicity pioglitazone and metformin at maximum doses. I discussed insulin with him. He is reluctant to take another injected medication but is willing to think about it. 2 . O verweight - E66.3 N otes :He remains very slightly overweight. We have discussed a weight reduction diabetic diet as a way to reduce his weight and hemoglobin A1c 3 . B PH (benign prostatic hyperplasia) - N40.0 N otes :He has been rising once or twice a night to urinate. We have discussed ways to alter his lifestyle to diminished nocturia. 4 . G astroesophageal reflux disease, esophagitis presence not specified - K21.9 N otes :His reflux symptoms are well controlled current medication. He will avoid eating related 90 and continue on his current medication. 5 . S trabismus - H50.9 N otes :He will continue under the care of an grain oilseed or pasture grower. 6 . F ormer smoker - Z87.891 N otes :He is highly motivated not to smoke. He has a plan for prevention of relapse in times of stress. 7 . H yperlipidemia, unspecified hyperlipidemia type - E78.5 N otes :his lipids are currently stable and in their target range.His fasting cholesterol is 105. No change in his medication was negative. I recommended weight loss and physical activity. 8 . B ilateral carotid artery stenosis - I65.23 N otes :He has a history of moderate hemodynamically significant stenoses in each carotid artery. He is going to see vascular surgery next week. He is asymptomatic at this time from the carotid stenosis 9 . P eripheral arterial disease - I73.9 N otes :His claudication is growing worse. He has appointment with his vascular surgeon next week. He has a history of bilateral arterial disease in his lower extremities. 1 0. A ge-related incipient cataract of right eye - H25.091 N otes :He is medically cleared for cataract extraction and lens implantation. Plan: * Treatment: 2. O verweight L AB: PROFILE, FASTING (COMPREHENSIVE METABOLIC) L AB: PSA, TOTAL L AB: CBC w DIFF L AB: Lipid Panel L AB: Microalbumin, Random L AB: Hemoglobin A1c 3. B PH (benign prostatic hyperplasia) L AB: PROFILE, FASTING (COMPREHENSIVE METABOLIC) L AB: PSA, TOTAL L AB: CBC w DIFF L AB: Lipid Panel L AB: Microalbumin, Random L AB: Hemoglobin A1c 4. O thers Continue metFORMIN HCl Tablet, 1000 MG, TAKE 1 TABLET BY MOUTH TWICE A DAY; C ontinue Simvastatin Tablet, 40 MG, TAKE 1 TABLET, Orally, Once a day; C ontinue FreeStyle Lancets Miscellaneous, -, USE TO CHECK BLOOD SUGARS THREE TIMES A DAY 30 DAYS; C ontinue FreeStyle Lite Test Strip, -, TO CHECK BLOOD SUGAR THREE TIMES A DAY 30 DAYS; C ontinue Vitamin D3 Capsule, 50 MCG (1999 UT), TAKE 1 CAPSULE BY MOUTH EVERY DAY FOR 90 DAYS. * Procedure Codes: * Preventive Medicine: Counseling: C are goal follow-up plan: Counseling for abnormal BMI given Y es Above Normal BMI Follow-up D ietary management education, guidance, and counseling S moking/Tobacco Use Patient counseled on the dangers of tobacco use and urged to quit. 0 11/21/2024 DM Care Plan: P atient Lifestyle Goals P atient wants to be able to manage diabetes without too much effort. T reatment Goals H bA1C < 7.0, Blood Sugars less than < 115. B arriers n o barriers. S elf-Managment Goals W ork on weight loss, with a goal of losing 1 lb per week. * Follow Up: A s Scheduled (Reason: Annual Exam) * Images: * Sign off status: Completed true * Provider: Leonor Sommer MD Date: 0 11/21/2024 Generated for Antonio costa/Maria Victoria/Margaretitting on: 07/22/2024 [...] halic EYES: eomi, perrla, anicte rachell, conjugate, Unchanged strabismus EARS: Normal anatomy with mild hearing loss NOSE: septum intact NECK/THYROID: no jugular venous di stention, no carotid bruit, thyroid normal HEART: no clicks, gallops, murmurs, or rubs, regular rhythm, S1, S2 normal, no s3, or vascular bruits LUNGS: clear to auscultatio n ABDOMEN: bowel sounds normal, no ascites, no organomegaly, no mass, Slightly overweight NEUROLOGIC: alert and oriented, cranial nerves 2-12 grossly intact, deep tendon reflexes 2+ symmetrical, motor strength normal upper and lower extremities, sensory exam intact SKIN: no suspicious lesion s, anicteric PERIPHERAL PULSES: Diminished in the lo wer extremities, palpable carotids BREASTS: no masses palpable b ilaterally MUSCULOSKELETAL: extremities unremark able, no clubbing, cyanosis or edema LYMPH NODES: no enlarged lymph no khalida,spleen normal RECTAL EXAM: not examined PSYCH: alert, oriented ORAL CAVITY: normal, unremarkable
--- OUTSIDE RECORDS SUMMARY | 2025-02-27 05:30 | XMS_ITS ---
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 Shamir Sommer III Primary Care Provider [phone] Allergies Allergen (clinical drug ingredient) Drug/Non Drug Allergy documented on EMR Reaction Allergy Type Onset Date Status No Known Drug Allergy Unknown Drug Allergy Active No Known Food Allergy Unknown Drug Allergy Active Seasonale Unknown Drug Allergy Active REASON FOR VISIT annual exam Medications Medication SIG (Take, Route, Frequency, Duration) Notes Start Date End Date Status Vitamin B-12 1000 MCG 1 tablet Orally Once a day Active Trulicity 1.5 MG/0.5ML as directed Subcu taneous once a week Active Aspirin 81 MG 1 tablet Orally Once a day Active Multivitamin Active Lisinopril 40 MG 1 tablet Orally Once a day 2024 Active metFORMIN HCl 1000 MG 1 tablet with a me al Oral twice a day Active FreeStyle Lancets - USE TO CHECK BLOOD S UGARS THREE TIMES A DAY 30 DAYS Active FreeStyle Lite Test - TO CHECK BLOOD SUG AR THREE TIMES A DAY 30 DAYS Active Omeprazole 20 MG TAKE 1 CAPSULE BY MO UTH EVERY DAY Active Pioglitazone HCl 45 MG TAKE 1 TABLET BY MOUTH EVERY DAY Active Vitamin D3 50 MCG (1999) TAKE 1 CAPSULE BY MOUTH EVERY DAY. Active metFORMIN HCl 1000 MG TAKE 1 TABLET BY M OUTH TWICE A DAY Active Simvastatin 40 MG TAKE 1 TABLET Orally Once a day Active Social History Tobacco Use: Social History Observation Description Date Details (start date - stop date) Former Smoker NA - NA Sex Assigned At : Social History Observation Description Sex Assigned At Male Tobacco Control (Standard) Question Answer Notes Tobacco use: Former smoker How long has it been since you last smoked? Grea ter than 10 years Additional Findings: Tobacco non-user Ex-cigaret te smoker AUDIT-C (Standard) Question Answer Notes Did you have a drink containing alcohol in the p ast year? No Points 0 Interpretation Negative Problems Problem Type SNOMED Code ICD Code Onset Dates Problem Status W/U Status Risk Notes Problem Vitamin B12 deficiency (non anemic) (70394409) Vitamin B 12 deficiency (E53.8) Active confirmed His vitamin B12 level has been in the normal range lately. Vital Signs Temperature 97.3 degrees Fahrenheit 02/28/20 25 Blood pressure systolic 131 mm Hg 02/28/20 25 Blood pressure diastolic 77 mm Hg 025 Heart Rate 81 /min 02/27/2025 Height 62 in 02/27/2025 Weight 147 lbs 02/27/2025 BMI 26.88 kg/m2 02/27/2025 Encounters Encounter Location Date Provider Diagnosis Shamir Sommer III, MD [address] [place] [address] [place] [address] 02/27/2025 Shamir Sommer Type 2 diabetes nico itus without complications E11.9 ; Overweight E66.3 ; Vitamin D deficiency E55.9 ; Hyperlipidemia, unspecified hyperlipidemia type E78.5 ; Vitamin B 12 deficiency E53.8 ; Gastroesophageal reflux disease, esophagitis presence not specified K21.9 ; Right groin hernia K40.90 ; Former smoker Z87.891 ; Peripheral arterial disease I73.9 and BPH (benign prostatic hyperplasia) N40.0 Assessments Encounter Date Diagnosis (ICD Code) Assessment Notes Treat ment Notes Treatment Clinical Notes 02/27/2025 Type 2 diabetes mellitus without complications (ICD-10 - E11.9) His hemoglobin A1c is 8.7. His fasting glucose is 163. He is taking trulicity pioglitazone and metformin at maximum doses. I discussed insulin with him. He is reluctant to take another injected medication but is willing to think about it. 02/27/2025 Overweight (ICD-10 - E66.3) He has gained 5 pounds and his hemoglobin A1c is increase.We reviewed his weight loss strategy diet and nutrition. We made a plan to lose weight at a rate of one half of a pound per week. 02/27/2025 Vitamin D deficiency (ICD-10 - E55.9) With winter approaching he was continued on vitamin D supplement. 02/27/2025 Hyperlipidemia, unspecified hyperlipidemia type (ICD-10 - E78.5) His lipids are stable and well controlled and no change in his regimen was made. 02/27/2025 Vitamin B 12 deficiency (ICD-10 - E53.8) His vitamin B12 level has been in the normal range lately. 02/27/2025 Gastroesophageal reflux disease, esophagitis presence not specified (ICD-10 - K21.9) His reflux symptoms are well controlled current medication. He will avoid eating related 90 and continue on his current medication. 02/27/2025 Right groin hernia (ICD-10 - K40.90) Is currently asymptomatic. 02/27/2025 Former smoker (ICD-1 0 - Z87.891) He is highly motivated not to smoke. He has a plan for prevention of relapse in times of stress. 02/27/2025 Peripheral arterial disease (ICD-10 - I73.9) His claudication is growing worse. He has appointment with his vascular surgeon next week. He has a history of bilateral arterial disease in his lower extremities. 02/27/2025 BPH (benign prostati c hyperplasia) (ICD-10 - N40.0) He has been rising once or twice a night to urinate. We have discussed ways to alter his lifestyle to diminished nocturia. Plan Of Treatment Medication Medication Name Sig Start Date Stop Date Notes Vitamin B-12 1000 MCG 1 tablet Orally Once a day Trulicity 1.5 MG/0.5ML as directed Subcu taneous once a week Aspirin 81 MG 1 tablet Orally Once a day Multivitamin Lisinopril 40 MG 1 tablet Orally Once a day 09/25/2024 metFORMIN HCl 1000 MG 1 tablet with a me al Oral twice a day FreeStyle Lancets - USE TO CHECK BLOOD S UGARS THREE TIMES A DAY 30 DAYS FreeStyle Lite Test - TO CHECK BLOOD SUG AR THREE TIMES A DAY 30 DAYS Omeprazole 20 MG TAKE 1 CAPSULE BY MO UTH EVERY DAY Pioglitazone HCl 45 MG TAKE 1 TABLET BY MOUTH EVERY DAY Vitamin D3 50 MCG (1999 UT) TAKE 1 CAPSU LE BY MOUTH EVERY DAY. metFORMIN HCl 1000 MG TAKE 1 TABLET BY M OUTH TWICE A DAY Simvastatin 40 MG TAKE 1 TABLET Orally Once a day Pending Test Test Name Order Date PROFILE, FASTING (COMPREHENSIVE METABOLI C) 02/27/2025 CBC w DIFF 02/27/2025 Lipid Panel 02/27/2025 Vitamin B12 02/27/2025 Microalbumin, Random 02/27/2025 Hemoglobin A1c 02/27/2025 Next Appt Details Follow Up: 3 Months, Reason: OV Provider Name:Shamir Guthrie Kemal , 06/01/2025 10:15:00 AM, [address] [place] [address] [address], [place], [phone], Provider Name:Shamir Guthrie Kemal , 03/03/2026 10:30:00 AM, [address] [place] [address] [address], [place], [phone], Progress Notes * Victoriano HOWELL EDOB:1940 ( 84 yo M)Acc No.[id number]:02/27/2025 Progress Notes Patient: Victoriano [address] Provider: Leonor Sommer MD :1940 A ge:84 Y S ex:Male Date:02/27/2025 Address:[address] [place], [place] [id number] Subjective: * Chief Complaints: * A nnual exam * HPI: D epression Screening: He returns to the office today at the age of 84 for his annual visit. His fasting glucose was 158 today. Recent blood work showed an A1c that has increased to 8.7. He has lost 5 pounds recently through diet and exercise.His claudication is stable. He has been compliant with all of his medications. His esophageal reflux symptoms are controlled with medication. His strabismus is unchanged. He has been rising from sleep once a night to urinate. We discussed lifestyle modifications that would reduce this. He has had no neurological symptoms. He has not been to vascular surgery recently and was referred back for follow-up the lower extremities and both carotid arteries.His last diabetic eye exam was December 25, 2024. PHQ-9 L ittle interest or pleasure in [...] shortness of breath, muscle aches? N o F all Risk Screening: Fall History H ave you had any falls with injury in the past year? N o H ave you had two or more falls in the past year? N o F all Risk Assessment: N o falls in the past year S ALEXANDRE Questions: SDOH Questions I n the past year have you or any family members you live with been unable to get any of the following when it was really needed? Check all that apply: D ecline to answer * ROS: G eneral/Constitutional: pain o nly [...] Social History: T obacco Use: T obacco Control (Standard) T obacco use: F ormer smoker H ow long has it been since you last smoked??Greater than 10 years A dditional Findings: Tobacco non-user E x-cigarette smoker D rugs/Alcohol: D rugs H ave you used drugs other than those for medical reasons in the past 12 months? N o D rug/Alcohol: A REE-C (Standard) D id you have a drink containing alcohol in the past year? N o P oints 0 I nterpretation N egative Ricardo guthrie has been to Liz for 49 years and has 3 children and 9 grandchildren. 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 He was born in [place], [place]. * Medications: T akingSimvastatin 40 MG Tablet 1 tablet Orally Once a day FreeStyle Lancets - Miscellaneous USE TO CHECK BLOOD SUGARS THREE TIMES A DAY 30 DAYS FreeStyle Lite Test - Strip TO CHECK BLOOD SUGAR THREE TIMES A DAY 30 DAYS Omeprazole 20 MG Capsule Delayed Release TAKE 1 CAPSULE BY MOUTH EVERY DAY Pioglitazone HCl 45 MG Tablet 1 tablet Orally Once a day Vitamin B-12 1000 MCG Tablet 1 tablet Orally Once a day Trulicity 4.5 MG/0.5ML Solution Auto-injector as directed Subcutaneous once a week Aspirin 81 MG Tablet Chewable 1 tablet Orally Once a day Multivitamin Lisinopril 40 MG Tablet 1 tablet Orally Once a day Vitamin D3 50 MCG (2000 UT) Capsule TAKE 1 CAPSULE BY MOUTH EVERY DAY. metFORMIN HCl 1000 MG Tablet 1 tablet with a meal Oral twice a day Taking Simvastatin 40 MG Tablet 1 tablet Orally Once a day Taking FreeStyle Lancets - Miscellaneous USE TO CHECK BLOOD SUGARS THREE TIMES A DAY 30 DAYS Taking FreeStyle Lite Test - Strip TO CHECK BLOOD SUGAR THREE TIMES A DAY 30 DAYS Taking Omeprazole 20 MG Capsule Delayed Release TAKE 1 CAPSULE BY MOUTH EVERY DAY Taking Pioglitazone HCl 45 MG Tablet 1 tablet Orally Once a day Taking Vitamin B-12 1000 MCG Tablet 1 tablet Orally Once a day Taking Trulicity 4.5 MG/0.5ML Solution Auto-injector as directed Subcutaneous once a week Taking Aspirin 81 MG Tablet Chewable 1 tablet Orally Once a day Taking Multivitamin Taking Lisinopril 40 MG Tablet 1 tablet Orally Once a day Taking Vitamin D3 50 MCG (2000 UT) Capsule TAKE 1 CAPSULE BY MOUTH EVERY DAY. Taking metFORMIN HCl 1000 MG Tablet 1 tablet with a meal Oral twice a day DiscontinuedmetFORMIN HCl 1000 MG Tablet TAKE 1 TABLET BY MOUTH TWICE A DAY Lisinopril 40 MG Tablet 1 tablet Orally Once a day Medication List reviewed and reconciled with the patientDiscontinued metFORMIN HCl 1000 MG Tablet TAKE 1 TABLET BY MOUTH TWICE A DAY Discontinued Lisinopril 40 MG Tablet 1 tablet Orally Once a day Medication List reviewed and reconciled with the patient * Allergies: S easonaleNo Known Drug AllergyNo Known Food Allergyno[Allergies Verified] Objective: * Vitals: H t: 62, Wt:147, BMI:26.88, BP:131/77, HR:81, Temp:97.3, Wt-k.68. * P ast Orders: Lab:Prostate Specific Antige n * Collection Date 02/16/2025 05/21/2024 02/18/2024 Collection Time 06:47 AM 07:00 AM 06:41 AM Order Date 02/16/2025 05/21/2024 02/18/2024 Prostate Specific Antigen 1.91 (Ref Range: <0.05-4.0 ng/mL) 2.00 (Ref Range: <0.05-4.0 ng/mL) 2.53 (Ref Range: <0.05-4.0 ng/mL) * Lab:Lipid Panel * Collection Date 02/16/2025 09/15/2024 05/21/2024 Collection Time 06:47 AM 06:49 AM 07:00 AM Order Date 02/16/2025 09/15/2024 05/21/2024 Triglycerides 110 (Ref Range: <150 mg/dL) 138 (Ref Range: <150 mg/dL) 126 (Ref Range: <150 mg/dL) Cholesterol 106 (Ref Range: <200 mg/dL) 104 (Ref Range: <200 mg/dL) 105 (Ref Range: <200 mg/dL) LDL Cholesterol Calculated 43 (Ref Range: <100 mg/dL) 36 (Ref Range: <100 mg/dL) 37 (Ref Range: <100 mg/dL) HDL Cholesterol 41 (Ref Range: >40 mg/dL) 41 (Ref Range: >40 mg/dL) 43 (Ref Range: >40 mg/dL) * Lab:Comprehensive [place]. Pane l Fast * Collection Date 02/16/2025 09/15/2024 05/21/2024 Collection Time 06:47 AM 06:49 AM 07:00 AM Order Date 02/16/2025 09/15/2024 05/21/2024 Sodium 141 (Ref Range: 135-145 mmol/L) 139 (Ref Range: 135-145 mmol/L) 137 (Ref Range: 135-145 mmol/L) Bilirubin Total 0.5 (Ref Range: 0.0-1.0 mg/dL) 0.5 (Ref Range: 0.0-1.0 mg/dL) 0.5 (Ref Range: 0.0-1.0 mg/dL) Aspartate Amino Transferase 27 (Ref Range: 5-37 U/L) 34 (Ref Range: 5-37 U/L) 36 (Ref Range: 5-37 U/L) Alanine Aminotransferase 26 (Ref Range: 0-40 U/L) 33 (Ref Range: 0-40 U/L) 32 (Ref Range: 0-40 U/L) Total Protein 7.4 (Ref Range: 6.5-8.0 g/dL) 7.1 (Ref Range: 6.5-8.0 g/dL) 7.0 (Ref Range: 6.5-8.0 g/dL) Albumin Level 4.3 (Ref Range: 3.5-5.0 g/dL) 4.0 (Ref Range: 3.5-5.0 g/dL) 3.9 (Ref Range: 3.5-5.0 g/dL) Alkaline Phosphatase 92 (Ref Range: 39-117 U/L) 89 (Ref Range: 39-117 U/L) 86 (Ref Range: 39-117 U/L) Potassium 4.3 (Ref Range: 3.3-5.1 mmol/L) 4.1 (Ref Range: 3.3-5.1 mmol/L) 4.1 (Ref Range: 3.3-5.1 mmol/L) Chloride 108 (Ref Range: 96-108 mmol/L) 108 (Ref Range: 96-108 mmol/L) 107 (Ref Range: 96-108 mmol/L) Carbon Dioxide 23 (Ref Range: 22-29 mmol/L) 22 (Ref Range: 22-29 mmol/L) 21 L (Ref Range: 22-29 mmol/L) Anion Gap 14 (Ref Range: 12-20) 13 (Ref Range: 12-20) 13 (Ref Range: 12-20) Blood Urea Nitrogen 26 H (Ref Range: 9-16 mg/dL) 24 H (Ref Range: 9-16 mg/dL) 22 H (Ref Range: 9-16 mg/dL) Creatinine 1.34 (Ref Range: 0.5-1.4 mg/dL) 1.14 (Ref Range: 0.5-1.4 mg/dL) 1.06 (Ref Range: 0.5-1.4 mg/dL) Estimated Glomerular Filt Rate 51 > 60 > 60 Glucose Fasting 155 H (Ref Range: 60-99 mg/dL) 163 H (Ref Range: 60-99 mg/dL) 164 H (Ref Range: 60-99 mg/dL) Calcium 9.8 (Ref Range: 8.4-10.2 mg/dL) 10.0 (Ref Range: 8.4-10.2 mg/dL) 9.4 (Ref Range: 8.4-10.2 mg/dL) * Lab:Complete Blood Count Aut o Diff * Collection Date 02/16/2025 09/15/202405/2105/21/2024 Collection Time 06:47 AM 06:49 AM 07:00 AM Order Date 02/16/2025 09/15/2024 05/21/2024 White Blood Count 7.2 (Ref Range: 4.8-10.8 X10*3/uL) 6.2 (Ref Range: 4.8-10.8 X10*3/uL) 6.1 (Ref Range: 4.8-10.8 X10*3/uL) Red Blood Count 3.77 L (Ref Range: 4.60-5.80 X10*6/uL) 3.75 L (Ref Range: 4.60-5.80 X10*6/uL) 3.66 L (Ref Range: 4.60-5.80 X10*6/uL) Hemoglobin 10.3 L (Ref Range: 14.0-18.0 g/dl) 10.4 L (Ref Range: 14.0-18.0 g/dl) 10.4 L (Ref Range: 14.0-18.0 g/dl) Hematocrit 33.1 L (Ref Range: 42.0-52.0 %) 33.4 L (Ref Range: 42.0-52.0 %) 32.1 L (Ref Range: 42.0-52.0 %) Mean Corpuscular Volume 87.8 (Ref Range: 80.0-98.0 fL) 89.1 (Ref Range: 80.0-98.0 fL) 87.7 (Ref Range: 80.0-98.0 fL) Mean Corpuscular Hemoglobin 27.3 (Ref Range: 27.0-33.0 pg) 27.7 (Ref Range: 27.0-33.0 pg) 28.4 (Ref Range: 27.0-33.0 pg) Mean Corpuscular HGB Conc 31.1 (Ref Range: 31.0-36.0 g/dl) 31.1 (Ref Range: 31.0-36.0 g/dl) 32.4 (Ref Range: 31.0-36.0 g/dl) Red Cell Distribution Width 15.5 (Ref Range: 11.0-16.0 %) 15.4 (Ref Range: 11.0-16.0 %) 15.0 (Ref Range: 11.0-16.0 %) Platelet Count 212 (Ref Range: 160-400 X10*3/uL) 188 (Ref Range: 160-400 X10*3/uL) 214 (Ref Range: 160-400 X10*3/uL) Mean Platelet Volume 11.5 (Ref Range: 9.4-12.4 fL) 11.1 (Ref Range: 9.4-12.4 fL) 10.7 (Ref Range: 9.4-12.4 fL) Neutrophils Percent Auto 41.6 L (Ref Range: 45-73 %) 40.1 L (Ref Range: 45-73 %) 36.9 L (Ref Range: 45-73 %) Imm Gran Pct Auto 0.4 (Ref Range: 0.0-0.4 %) 0.3 (Ref Range: 0.0-0.4 %) 0.3 (Ref Range: 0.0-0.4 %) Lymphocytes Percent Auto 46.5 H (Ref Range: 20-40 %) 46.2 H (Ref Range: 20-40 %) 49.8 H (Ref Range: 20-40 %) Monocytes Percent Auto 7.8 (Ref Range: 2-11 %) 8.1 (Ref Range: 2-11 %) 8.2 (Ref Range: 2-11 %) Eosinophils Percent Auto 2.9 (Ref Range: 0-4 %) 4.7 H (Ref Range: 0-4 %) 4.1 H (Ref Range: 0-4 %) Basophils Percent Auto 0.8 (Ref Range: 0-2 %) 0.6 (Ref Range: 0-2 %) 0.7 (Ref Range: 0-2 %) NRBC Pct Auto 0.0 (Ref Range: 0.0-0.2 /100WBC) 0.0 (Ref Range: 0.0-0.2 /100WBC) 0.0 (Ref Range: 0.0-0.2 /100WBC) Neutrophils Absolute Auto 3.0 (Ref Range: 2.0-8.3 x10*3/uL) 2.5 (Ref Range: 2.0-8.3 x10*3/uL) 2.3 (Ref Range: 2.0-8.3 x10*3/uL) Imm Gran Abs Auto 0.03 (Ref Range: 0.00-0.03 X10*3/uL) 0.02 (Ref Range: 0.00-0.03 X10*3/uL) 0.02 (Ref Range: 0.00-0.03 X10*3/uL) Lymphocytes Absolute Auto 3.4 (Ref Range: 1.2-4.9 X10*3/uL) 2.9 (Ref Range: 1.2-4.9 X10*3/uL) 3.0 (Ref Range: 1.2-4.9 X10*3/uL) Monocytes Absolute Auto 0.6 (Ref Range: 0.1-1.2 X10*3/uL) 0.5 (Ref Range: 0.1-1.2 X10*3/uL) 0.5 (Ref Range: 0.1-1.2 X10*3/uL) Eosinophils Absolute Auto 0.2 (Ref Range: 0.0-0.4 X10*3/uL) 0.3 (Ref Range: 0.0-0.4 X10*3/uL) 0.3 (Ref Range: 0.0-0.4 X10*3/uL) Basophils Absolute Auto 0.1 (Ref Range: 0.0-0.2 X10*3/uL) 0.0 (Ref Range: 0.0-0.2 X10*3/uL) 0.0 (Ref Range: 0.0-0.2 X10*3/uL) NRBC Abs Auto 0.000 (Ref Range: 0.0-0.012 X10*3/uL) 0.000 (Ref Range: 0.0-0.012 X10*3/uL) 0.000 (Ref Range: 0.0-0.012 X10*3/uL) * Lab:Microalbumin, Random * Collection Date 02/16/2025 09/15/2024 05/21/2024 Collection Time 06:37 AM 06:49 AM 07:00 AM Order Date 02/16/2025 09/15/2024 05/21/2024 Creatinine Urine 45.04 (Ref Range: mg/dL) 45.30 (Ref Range: mg/dL) 58.50 (Ref Range: mg/dL) Microalbumin Urine 63.0 (Ref Range: mg/L) 100.0 (Ref Range: mg/L) 185.0 (Ref Range: mg/L) Microalbum Creatinine Ratio Ur 139.8 H (Ref Range: <30 ug/mg cr) 220.7 H (Ref Range: <30 ug/mg cr) 316.2 H (Ref Range: <30 ug/mg cr) * Lab:Hemoglobin A1c * Collection Date 02/16/2025 09/15/2024 05/21/2024 Collection Time 06:47 AM 06:49 AM 07:00 AM Order Date 02/16/2025 09/15/2024 05/21/2024 Hemoglobin A1c % 8.7 H (Ref Range: <6.0 %) 8.4 H (Ref Range: <6.0 %) 8.5 H (Ref Range: <6.0 %) Estimated Average Glucose 203 (Ref Range: mg/dL) 194 (Ref Range: mg/dL) 197 (Ref Range: mg/dL) * Imaging:Diabetic Eye Exam * Performed Date 12/25/2024 Order Date 12/25/2024 01/05/2022 Result: undefined * Examination: G eneral Examination: GENERAL APPEARANCE: p leasant, well nourished, well developed, in no acute distress, calm and relaxed: overweight: elderly man. HEAD: a traumatic, normocephalic. EYES: e archie, perrla, anicteric, Strabismus with right eye deviating to the right. EARS: n ormal. NOSE: s eptum intact. [...] sounds normal, no ascites, no organomegaly, no mass: overweight. RECTAL EXAM: n ot examined. MUSCULOSKELETAL: e xtremities unremarkable, no clubbing, cyanosis or edema, Legs and feet are cool but pink with intact skin. PERIPHERAL PULSES: D iminished in the lower extremities, carotids palpable, bilateral bruits in the carotids. NEUROLOGIC: a lert and oriented, cranial nerves 2-12 grossly intact, deep tendon reflexes 2+ symmetrical, motor strength normal upper and lower extremities, sensory exam intact. PSYCH: a lert, oriented: cognitive function intact: good eye contact: speech clear: thought process logical, goal directed. Assessment: * Assessment: 1. T ype 2 diabetes mellitus without complications - E11.9 (Primary) N otes :His hemoglobin A1c is 8.7. His fasting glucose is 163. [facility] and metformin at maximum doses. I discussed insulin with him. He is reluctant to take another injected medication but is willing to think about it. 2 . O verweight - E66.3 N otes :He has gained 5 pounds and his hemoglobin A1c is increase.We reviewed his weight loss strategy diet and nutrition. We made a plan to lose weight at a rate of one half of a pound per week. 3 . V itamin D deficiency - E55.9 N otes :With winter he was continued on vitamin D supplement. 4 . H yperlipidemia, unspecified hyperlipidemia type - E78.5 N otes :His lipids are stable and well controlled and no change in his regimen was made. 5 . V itamin B 12 deficiency - E53.8 N otes :His vitamin B12 level has been in the normal range lately. 6 . G astroesophageal reflux disease, esophagitis presence not specified - K21.9 N otes :His reflux symptoms are well controlled current medication. He will avoid eating related 90 and continue on his current medication. 7 . R ight groin hernia - K40.90 N otes :Is currently asymptomatic. 8 . F ormer smoker - Z87.891 N otes :He is highly motivated not to smoke. He has a plan for prevention of relapse in times of stress. 9 . P eripheral arterial disease - I73.9 N otes :His claudication is growing worse. He has appointment with his vascular surgeon next week. He has a history of bilateral arterial disease in his lower extremities. 1 0. B PH (benign prostatic hyperplasia) - N40.0 N otes :He has been rising once or twice a night to urinate. We have discussed ways to alter his lifestyle to diminished nocturia. Plan: * Treatment: 2. O verweight L AB: PROFILE, FASTING (COMPREHENSIVE METABOLIC) L AB: CBC w DIFF L AB: Lipid Panel L AB: Vitamin B12 L AB: Microalbumin, Random L AB: Hemoglobin A1c 3. V itamin D deficiency L AB: PROFILE, FASTING (COMPREHENSIVE METABOLIC) L AB: CBC w DIFF L AB: Lipid Panel L AB: Vitamin B12 L AB: Microalbumin, Random L AB: Hemoglobin A1c 4. H yperlipidemia, unspecified hyperlipidemia type L AB: PROFILE, FASTING (COMPREHENSIVE METABOLIC) L AB: CBC w DIFF L AB: Lipid Panel L AB: Vitamin B12 L AB: Microalbumin, Random L AB: Hemoglobin A1c 5. V itamin B 12 deficiency L AB: PROFILE, FASTING (COMPREHENSIVE METABOLIC) L AB: CBC w DIFF L AB: Lipid Panel L AB: Vitamin B12 L AB: Microalbumin, Random L AB: Hemoglobin A1c 6. O thers Continue Vitamin D3 Capsule, 50 MCG (2000 UT), TAKE 1 CAPSULE BY MOUTH EVERY DAY.; C ontinue metFORMIN HCl Tablet, 1000 MG, [...] tobacco use and urged to quit. 0 02/27/2025 DM Care Plan: P atient Lifestyle Goals P atient wants to be able to manage diabetes without too much effort. T reatment Goals B lood Sugars less than < 115, HbA1C < 7.0. B arriers n o barriers. S elf-Managment Goals S top drinking juice and/or soda, replace with more water. * Follow Up: 3 Months (Reason: OV) * Images: * Sign off status: Completed true * Provider: Leonor Sommer MD Date: 0 02/27/2025 Generated for Antonio costa/Maria Victoria/eTransmitting on: 1 07/22/2024 06:43 AM EST History and Physical [...] way: Not at all Total Score: 0 Fall Risk Screening Fall History Have you had any falls with injury in the past year?: No Have you had two or more falls in the year?: No Fall Risk Assessment:: No falls in the year COVID-19 Screening Questions Have you had any new onset fever, chills, cough, congestion, sore throat, shortness of breath, muscle aches?: No SDOH Questions SDOH Questions In the past year have you or any family members you live with been unable to get any of the following when it was really needed? Check all that apply:: Decline to answer Examination Category Sub-Category Detail Notes General Examination GENERAL APPEARANCE: pleasant , well nourished, well developed, in no acute distress, calm and relaxed: overweight: elderly man HEAD: atraumatic, normocep halic EYES: eomi, perrla, anicte rachell, Strabismus with right eye deviating to the right EARS: normal NOSE: septum intact NECK/THYROID: no jugular venous di stention, no carotid bruit, thyroid normal HEART: no clicks, gallops, murmurs, or rubs, regular rhythm, S1, S2 normal, no s3, or vascular bruits LUNGS: clear to auscultatio n ABDOMEN: bowel sounds normal, no ascites, no organomegaly, no mass: overweight NEUROLOGIC: alert and oriented, cranial nerves 2-12 grossly intact, deep tendon reflexes 2+ symmetrical, motor strength normal upper and lower extremities, sensory exam intact SKIN: no suspicious lesion s, anicteric PERIPHERAL PULSES: Diminished in the lo wer extremities, carotids palpable, bilateral bruits in the carotids BREASTS: no masses palpable b ilaterally MUSCULOSKELETAL: extremities unremark able, no clubbing, cyanosis or edema, Legs and feet are cool but pink with intact skin LYMPH NODES: no enlarged lymph no khalida,spleen normal RECTAL EXAM: not examined PSYCH: alert, oriented: cog nitive function intact: good eye contact: speech clear: thought process logical, goal directed ORAL CAVITY: normal, unremarkable
--- OUTSIDE RECORDS SUMMARY | 2025-04-09 04:55 | XMS_ITS ---
Author Organization Shamir Sommer III, MD Address [address] [place] [address] [place] [address] Care Team Providers Care Senior Financial Name Role Phone Dr. Shamir Sommer III Primary Care Provider [phone] REASON FOR VISIT Message Social History Sex Assigned At : Social History Observation Description Sex Assigned At Male Encounters Encounter Location Date Provider Diagnosis Shamir Sommer III, MD [address] [place] [address] [place] [id number] 04/09/2025 Shamir Sommer Plan Of Treatment Next Appt Details Provider Name:Shamir Sommer , 06/01/2025 10:15:00 AM, [address] [place] [address] [place], [address], Provider Name:Shamir Sommer , 03/03/2026 10:30:00 AM, [address] [place] [address] [place], [id number], Progress Notes * Victoriano HOWELL EDOB:1940 ( 84 yo M)Acc No.[id number]:04/09/2025 Patient: Victoriano WAITE :1940 A ge:84 Y S ex:Male Address:[address] [place] [id number] * true * Date: Generated for Printi ng/Faxing/eTransmitting on: 07/22/2024 06:43 AM EST
--- OUTSIDE RECORDS SUMMARY | 2025-05-21 06:43 | XMS_ITS | Patient Health Record ---
Author Organization Shamir Sommer III, MD Address [address] [place] [address] [address] [place] [address] Care Team Providers Care Ironer Or Presser Name Role Phone Dr. Shamir Sommer III Primary Care Provider Allergies Allergen (clinical drug ingredient) Drug/Non Drug Allergy documented on EMR Reaction Allergy Type Onset Date Status No Known Drug Allergy Unknown Drug Allergy Active No Known Food Allergy Unknown Drug Allergy Active Seasonale Unknown Drug Allergy Active Results Component Value Reference Range Notes Complete Blood Count Auto Di ff Reviewed date:05/25/2024 08:37:18 PM Interpretation: Performing Lab:[facility], [address] [place] [phone] Notes/Report: White Blood Count 6.1 4.8-10.8 X10*3/uL [...] NRBC Abs Auto 0.000 0.0-0.012 X10*3/uL Comprehensive [place]. Panel Fa Reviewed date:05/25/2024 08:37:18 PM Interpretation: Performing Lab:[address] [address] Notes/Report: Sodium 137 135-145 mmol/L Potassium 4.1 [...] Panel Reviewed date:05/25/2024 08:37:18 PM Interpretation: Performing Lab:[address] [place] [address] Notes/Report: Triglycerides 126 <150 mg/dL Desirable Triglyceride: [...] Antigen Reviewed date:05/25/2024 08:37:18 PM Interpretation: Performing Lab:[address] [address] Notes/Report: Prostate Specific Antigen 2.00 <0.05-4.0 ng/mL PSA methodology: Saab Alinity i Chemiluminescent Microparticle Immunoassay (CMIA) Microalbumin, Random Reviewed date:05/25/2024 08:37:18 PM Interpretation: Performing Lab:[facility], [address] [place] [phone] Notes/Report: Creatinine Urine 58.50 Microalbumin Urine 185.0 Microalbum/Creatinine Ratio Ur 316.2 <30 ug/mg cr Albumin/Creatinine Ratio Reference Ranges: Normal: < 30 ug/mg creatinine Microalbuminuria: 30 - 300 ug/mg creatinine Clinical Albuminuria: > 300 ug/mg creatinine Hemoglobin A1c Reviewed date:05/25/2024 08:37:18 PM Interpretation: Performing Lab:[address] [address] Notes/Report: Hemoglobin A1c % 8.5 <6.0 % [...] average glucose, using the formula of the F2C-Yegcpfr Average Glucose study (ADAG), Diabetes Care, Vol.31,#8, Jan. 2007 Complete Blood Count Auto Di ff Reviewed date:09/20/2024 07:24:09 AM Interpretation: Performing Lab:[facility], [address] [place] [phone] Notes/Report: White Blood Count 6.2 4.8-10.8 X10*3/uL [...] NRBC Abs Auto 0.000 0.0-0.012 X10*3/uL Comprehensive [place]. Panel Fa st Reviewed date:09/20/2024 07:24:09 AM Interpretation: Performing Lab:[facility], [address] [place] [phone] Notes/Report: Sodium 139 135-145 mmol/L Potassium 4.1 [...] Panel Reviewed date:09/20/2024 07:24:09 AM Interpretation: Performing Lab:[facility], [address] [place] [phone] Notes/Report: Triglycerides 138 <150 mg/dL Desirable Triglyceride: [...] Random Reviewed date:09/20/2024 07:24:09 AM Interpretation: Performing Lab:[facility], [address] [place] [phone] Notes/Report: Creatinine Urine 45.30 Microalbumin Urine 100.0 Microalbum/Creatinine Ratio Ur 220.7 <30 ug/mg cr Albumin/Creatinine Ratio Reference Ranges: Normal: < 30 ug/mg creatinine Microalbuminuria: 30 - 300 ug/mg creatinine Clinical Albuminuria: > 300 ug/mg creatinine Hemoglobin A1c Reviewed date:09/20/2024 07:24:09 AM Interpretation: Performing Lab:[facility], [address] [place] [phone] Notes/Report: Hemoglobin A1c % 8.4 <6.0 % [...] average glucose, using the formula of the L7W-Rgwhnok Average Glucose study (ADAG), Diabetes Care, Vol.31,#8, Jan. 2007 US abdominal aortic aneurysm Reviewed date:09/20/2024 07:24:09 AM Interpretation: Performing Lab: Notes/Report: [address] [address] Ultrasound Report Signed Patient: Victoriano Potter MR#: [id number] : 1940 Acct:[id number] Age/Sex: 84 / M ADM Date: 09/16/24 Loc: . Attending Dr: Didier Wiseman MD Ordering Physician: Didier Wiseman MD Date of Service: 09/16/24 Procedure(s): abdominal aortic aneurysm Accession Number(s): [id number] cc: Shamir Sommer MD; Didier Wiseman MD [...] Tate Terry MD 09/16/2024 02:19 PM EDT Dictated By: Tate Summers MD Signed By: <Electronically signed by Tate Cabral MD in OV> 09/16/24 1419 DD/ 1030 TD/TT: 09/16/24 1158 [employer] Associate: [place] [address] Ultrasound Report Signed Patient: Victoriano Potter MR#: [id number] : 1940 Acct:[id number] Age/Sex: 84 / M ADM Date: 09/16/24 Loc: HO.US Attending Dr: Didier Wiseman MD Ordering Physician: Didier Wiseman MD Date of Service: 09/16/24 Procedure(s): US abdominal aortic aneurysm Accession Number(s): [id number] cc: Shamir Sommer MD; Didier Wiseman MD [...] 09/16/24 1419 DD/ 1030 TD/TT: 09/16/24 1158 [employer] Associate: US arterial duplex BI w/ AURA Reviewed date:09/20/2024 07:24:09 AM Interpretation: Performing Lab: Notes/Report: [address] [address] Ultrasound Report Signed Patient: Victoriano Potter MR#: [id number] : 1940 Acct:[id number] Age/Sex: 84 / M ADM Date: 09/16/24 Loc: HO.US Attending Dr: Didier Wiseman MD Ordering Physician: Didier Wiseman MD Date of Service: 09/16/24 Procedure(s): US arterial duplex BI w/ AURA Accession Number(s): [id number] cc: Shamir Sommer MD; Didier Wiseman MD [...] Tate Terry MD 09/16/2024 02:19 PM EDT Dictated By: Tate Summers MD Signed By: <Electronically signed by Tate Cabral MD in OV> 09/16/24 1419 DD/ 1030 TD/TT: 09/16/24 1158 [employer] Associate: [place] [address] Ultrasound Report Signed Patient: Victoriano Potter MR#: [id number] : 1940 Acct:[id number] Age/Sex: 84 / M ADM Date: 09/16/24 Loc: HO.US Attending Dr: Didier Wiseman MD Ordering Physician: Didier Wiseman MD Date of Service: 09/16/24 Procedure(s): US arterial duplex BI w/ AURA Accession Number(s): [id number] cc: Shamir Sommer MD; Didier Wiseman MD [...] Tate Terry MD 09/16/2024 02:19 PM EDT Dictated By: Tate Loaiza MD Signed By: <Electronically signed by Tate Cabral MD in OV> 09/16/24 1419 DD/ 1030 TD/TT: 09/16/24 1158 [employer] Associate: Diabetic Eye Exam Reviewed date:12/29/2024 09:24:15 AM Interpretation:undefined Performing Lab: Notes/Report: undefined Complete Blood Count Auto Di ff Reviewed date:02/16/2025 12:38:54 PM Interpretation: Performing Lab:[facility], [address] [place] [phone] Notes/Report: White Blood Count 7.2 4.8-10.8 X10*3/uL Red Blood Count 3.77 4.60-5.80 X10*6/uL Hemoglobin 10.3 14.0-18.0 g/dl Hematocrit 33.1 42.0-52.0 % Mean Corpuscular Volume 87.8 80.0-98.0 fL Mean Corpuscular Hemoglobin 27.3 27.0-33.0 pg Mean Corpuscular HGB Conc 31.1 31.0-36.0 g/dl Red Cell Distribution Width 15.5 11.0-16.0 % Platelet Count 212 160-400 X10*3/uL Mean Platelet Volume 11.5 9.4-12.4 fL Neutrophils Percent Auto 41.6 45-73 % Imm Gran Pct Auto 0.4 0.0-0.4 % Lymphocytes Percent Auto 46.5 20-40 % Monocytes Percent Auto 7.8 2-11 % Eosinophils Percent Auto 2.9 0-4 % Basophils Percent Auto 0.8 0-2 % NRBC Pct Auto 0.0 0.0-0.2 /100WBC Neutrophils Absolute Auto 3.0 2.0-8.3 x10*3/u L Imm Gran Abs Auto 0.03 0.00-0.03 X10*3/uL Lymphocytes Absolute Auto 3.4 1.2-4.9 X10*3/u L Monocytes Absolute Auto 0.6 0.1-1.2 X10*3/uL Eosinophils Absolute Auto 0.2 0.0-0.4 X10*3/u L Basophils Absolute Auto 0.1 0.0-0.2 X10*3/uL NRBC Abs Auto 0.000 0.0-0.012 X10*3/uL Comprehensive [place]. Panel Fa st Reviewed date:02/16/2025 12:38:54 PM Interpretation: Performing Lab:[facility], [address] [place] [phone] Notes/Report: Sodium 141 135-145 mmol/L Potassium 4.3 3.3-5.1 mmol/L Chloride 108 96-108 mmol/L Carbon Dioxide 23 22-29 mmol/L Anion Gap 14 12-20 Blood Urea Nitrogen 26 9-16 mg/dL Creatinine 1.34 0.5-1.4 mg/dL Estimated Glomerular Filt Rate 51 Chronic Kidney Disease: Estimated GFR < 60 mL/min/1.73m2 Severe Kidney Disease: Estimated GFR < 15 mL/min/1.73m2 Glucose Fasting 155 60-99 mg/dL A fasting glucose of 126 mg/dl or greater on more than one occasion is considered diagnostic of diabetes. Calcium 9.8 8.4-10.2 mg/dL Bilirubin Total 0.5 0.0-1.0 mg/dL Aspartate Amino Transferase 27 5-37 U/L Alanine Aminotransferase 26 0-40 U/L Total Protein 7.4 6.5-8.0 g/dL Albumin Level 4.3 3.5-5.0 g/dL Alkaline Phosphatase 92 39-117 U/L Lipid Panel Reviewed date:02/16/2025 12:38:54 PM Interpretation: Performing Lab:[address] [address] Notes/Report: Triglycerides 110 <150 mg/dL Desirable Triglyceride: less than 150 mg/dL Borderline High Triglyceride 150-199 mg/dL High Triglyceride: 200-499 mg/dL Very High Triglyceride: greater than or equal to 5OO mg/dL Cholesterol 106 <200 mg/dL Desirable Cholesterol: less than 200 mg/dL Borderline High Cholesterol: 200-239 mg/dL High Cholesterol: greater than 239 mg/dL LDL Cholesterol Calculated 43 <100 mg/dL Desirable LDL: less than 100 mg/dL Near Optimal/Above Optimal LDL: 110-129 mg/dL Borderline High LDL: 130-159 mg/dL High LDL: 160-189 mg/dL Very High LDL: greater than or equal to 190 mg/dL HDL Cholesterol 41 >40 mg/dL Desirable HDL: greater than 40 mg/dL Note: This HDL assay may give artificially low results in patients with liver disease. Prostate Specific Antigen Reviewed date:02/16/2025 12:38:54 PM Interpretation: Performing Lab:[address] [address] Notes/Report: Prostate Specific Antigen 1.91 <0.05-4.0 ng/mL PSA methodology: Saab Alinity i Chemiluminescent Microparticle Immunoassay (CMIA) Microalbumin, Random Reviewed date:02/16/2025 12:38:54 PM Interpretation: Performing Lab:[address] [address] Notes/Report: Creatinine Urine 45.04 Microalbumin Urine 63.0 Microalbum/Creatinine Ratio Ur 139.8 <30 ug/mg cr Albumin/Creatinine Ratio Reference Ranges: Normal: < 30 ug/mg creatinine Microalbuminuria: 30 - 300 ug/mg creatinine Clinical Albuminuria: > 300 ug/mg creatinine Hemoglobin A1c Reviewed date:02/16/2025 12:38:54 PM Interpretation: Performing Lab:[facility], [address] [place] [address] Notes/Report: Hemoglobin A1c % 8.7 <6.0 % [...] average glucose, using the formula of the F1F-Txdnyoy Average Glucose study (ADAG), Diabetes Care, Vol.31,#8, Jan. 2007 Reason For Referral No Information Medications Medication SIG (Take, Route, Frequency, Duration) Notes Start Date End Date Status Vitamin D3 50 MCG (1999) TAKE 1 CAPSULE BY MOUTH EVERY DAY. Active metFORMIN HCl 1000 MG 1 tablet with a me al Oral twice a day Active Vitamin B-12 1000 MCG 1 tablet Orally Once a day Active Trulicity 1.5 MG/0.5ML as directed Subcu taneous once a week Active Aspirin 81 MG 1 tablet Orally Once a day Active Pioglitazone HCl 45 MG TAKE 1 TABLET BY MOUTH EVERY DAY for 90 Active FreeStyle Lancets - USE TO CHECK BLOOD S UGARS THREE TIMES A DAY 30 DAYS Active FreeStyle Lite Test - TO CHECK BLOOD SUG AR THREE TIMES A DAY 30 DAYS Active Omeprazole 20 MG TAKE 1 CAPSULE BY MO UTH EVERY DAY Active Multivitamin Active metFORMIN HCl 1000 MG TAKE 1 TABLET BY M OUTH TWICE A DAY Active Lisinopril 40 MG 1 tablet Orally Once a day 2024 Active Simvastatin 40 MG TAKE 1 TABLET Orally Once a day Active Immunizations Vaccine [...] Problem Status W/U Status Risk Notes Problem 5727277 Former smoker (Z87.891) Active confirmed He is highly motivated not to smoke. He has a plan for prevention of relapse in times of stress. Problem 983364532 Overweight (E66.3) Active confirmed He has gained 5 pounds and his hemoglobin A1c is increase.We reviewed his weight loss strategy diet and nutrition. We made a plan to lose weight at a rate of one half of a pound per week. Problem 64794702 Type 2 diabetes mellitus without complications (E11.9) Active confirmed His hemoglobin A1c is 8.7. His fasting glucose is 163. He is taking trulicity pioglitazone and metformin at maximum doses. I discussed insulin with him. He is reluctant to take another injected medication but is willing to think about it. Problem Benign prostatic hyperplasia (101497814) BPH (benign prostatic hyperplasia) (N40.0) Active confirmed He has been rising once or twice a night to urinate. We have discussed ways to alter his lifestyle to diminished nocturia. Problem 880139449 Gastroesophageal reflux disease, esophagitis presence not specified (K21.9) Active confirmed His reflux symptoms are well controlled current medication. He will avoid eating related 90 and continue on his current medication. Problem Vitamin B12 deficiency (non anemic) (32931898) Vitamin B 12 deficiency (E53.8) Active confirmed His vitam in B12 level has been in the normal range lately. Problem Peripheral arterial disease (203967995) Peripheral arterial disease (I73.9) Active confirmed His claudicatio n is growing worse. He has appointment with his vascular surgeon next week. He has a history of bilateral arterial disease in his lower extremities. Problem Vitamin D deficiency (43155272) Vitamin D deficiency (E55.9) Active confirmed With [facility] approaching he was continued on vitamin D supplement. Problem 10781741 Strabismus (H50.9) Active confirmed He will continue under the care of an traffic operations manager. Problem 348053480 Right groin carmencita ia (K40.90) Active confirmed Is currently asymptomatic. Problem 10256113 Hyperlipidemia, unspecified hyperlipidemia type (E78.5) Active confirmed His lipids are stable and well controlled and no change in his regimen was made. Problem Occlusion and stenosis of multiple and bilateral cerebral arteries (218877444) Bilateral carotid artery stenosis (I65.23) Active confirmed He has a histor y of moderate hemodynamically significant stenoses in each carotid artery. He is going to see vascular surgery next week. He is asymptomatic at this time from the carotid stenosis Problem 638395560 Age-related incipient cataract of right eye (H25.091) Active confirmed He is medically cleared for cataract extraction and lens implantation. Vital Signs Heart Rate 81 /min 02/27/2025 Temperature 97.3 degrees Fahrenheit 02/27/2025 Blood pressure diastolic 77 mm Hg 02/27/2025 Height 62 in 02/27/2025 Blood pressure systolic 131 mm Hg 02/27/2025 Weight 147 lbs 02/27/2025 BMI 26.88 kg/m2 02/27/2025 Encounters Encounter Location Date Provider Diagnosis Shamir Sommer III, MD [address] [place] [address] [place] [phone] 05/27/2024 Shamir Sommer Type 2 diabetes nico itus without complications E11.9 ; Peripheral arterial disease I73.9 ; Bilateral carotid artery stenosis I65.23 ; Hyperlipidemia, unspecified hyperlipidemia type E78.5 ; Former smoker Z87.891 ; Overweight E66.3 ; BPH (benign prostatic hyperplasia) N40.0 ; Gastroesophageal reflux disease, esophagitis presence not specified K21.9 and Strabismus H50.9 Shamir Sommer III, MD [address] [place] [address] [place] [phone] 06/26/2024 Shamir Sommer Type 2 diabetes nico itus without complications E11.9 ; Peripheral arterial disease I73.9 ; Hyperlipidemia, unspecified hyperlipidemia type E78.5 ; Overweight E66.3 ; BPH (benign prostatic hyperplasia) N40.0 ; Gastroesophageal reflux disease, esophagitis presence not specified K21.9 ; Former smoker Z87.891 and Strabismus H50.9 Shamir Sommer III, MD [address] [place] [address] [place] [address] 09/25/2024 Shamir Sommer Type 2 diabetes nico itus without complications E11.9 ; Peripheral arterial disease I73.9 ; Gastroesophageal reflux disease, esophagitis presence not specified K21.9 ; Right groin hernia K40.90 ; Former smoker Z87.891 ; Bilateral carotid artery stenosis I65.23 and Overweight E66.3 Shamir Sommer III, MD [address] [place] [address] [place] [address] 11/21/2024 Shamir Sommer Type 2 diabetes nico [...] right eye H25.091 Shamir Sommer III, MD [address] [place] [address] [place] [address] 02/27/2025 Shamir Sommer Type 2 diabetes nico itus without complications E11.9 ; Overweight E66.3 ; Vitamin D deficiency E55.9 ; Hyperlipidemia, unspecified hyperlipidemia type E78.5 ; Vitamin B 12 deficiency E53.8 ; Gastroesophageal reflux disease, esophagitis presence not specified K21.9 ; Right groin hernia K40.90 ; Former smoker Z87.891 ; Peripheral arterial disease I73.9 and BPH (benign prostatic hyperplasia) N40.0 Shamir Sommer III, MD [address] [place] [address] [place] [address] 08/20/2024 Shamir Sommer III, MD [address] [place] [address] [place] [address] 09/30/2024 Shamir Sommer III, MD [address] [place] [address] [place] [address] 04/09/2025 Shamir Sommer Assessments Encounter Date Diagnosis (ICD [...] half of a pound per week. 02/27/2025 Type 2 diabetes mellitus without complications (ICD-10 - E11.9) His hemoglobin A1c is 8.7. His fasting glucose is 163. He is taking trulicity pioglitazone and metformin at maximum doses. I discussed insulin with him. He is reluctant to take another injected medication but is willing to think about it. 05/27/2024 Bilateral carotid artery stenosis (ICD-10 - [...] to alter his lifestyle to diminished nocturia. 02/27/2025 Vitamin D deficiency (ICD-10 - E55.9) With winter approaching he was continued on vitamin D supplement. 05/27/2024 Hyperlipidemia, unspecified hyperlipidemia type (ICD-10 - [...] and continue on his current medication. 02/27/2025 Hyperlipidemia, unspecified hyperlipidemia type (ICD-10 - E78.5) His lipids are stable and well controlled and no change in his regimen was made. 05/27/2024 Former smoker (ICD-1 0 - Z87.891) [...] will continue under the care of an traffic operations manager. 02/27/2025 Vitamin B 12 deficiency (ICD-10 - E53.8) His vitamin B12 level has been in the normal range lately. 05/27/2024 Overweight (ICD-10 - E66.3) He has [...] of relapse in times of stress. 02/27/2025 Gastroesophageal reflux disease, esophagitis presence not specified (ICD-10 - K21.9) His reflux symptoms are well controlled current medication. He will avoid eating related 90 and continue on his current medication. 05/27/2024 BPH (benign prostati c hyperplasia) (ICD-10 [...] I recommended weight loss and physical activity. 02/27/2025 Right groin hernia (ICD-10 - K40.90) Is currently asymptomatic. 05/27/2024 Gastroesophageal reflux disease, esophagitis presence not specified (ICD-10 - K21.9) His reflux symptoms are well controlled current medication. He will avoid eating related 90 and continue on his current medication. 06/26/2024 Strabismus (ICD-10 - H50.9) He will continue under the care of an traffic operations manager. 11/21/2024 Bilateral carotid artery stenosis (ICD-10 - I65.23) He has a history of moderate hemodynamically significant stenoses in each carotid artery. He is going to see vascular surgery next week. He is asymptomatic at this time from the carotid stenosis 02/27/2025 Former smoker (ICD-1 0 - Z87.891) He is highly motivated not to smoke. He has a plan for prevention of relapse in times of stress. 05/27/2024 Strabismus (ICD-10 - H50.9) He will continue under the care of an traffic operations manager. 11/21/2024 Peripheral arterial disease (ICD-10 - I73.9) His claudication is growing worse. He has appointment with his vascular surgeon next week. He has a history of bilateral arterial disease in his lower extremities. 02/27/2025 Peripheral arterial disease (ICD-10 - I73.9) His claudication is growing worse. He has appointment with his vascular surgeon next week. He has a history of bilateral arterial disease in his lower extremities. 11/21/2024 Age-related incipien t cataract of right eye (ICD-10 - H25.091) He is medically cleared for cataract extraction and lens implantation. 02/27/2025 BPH (benign prostati c hyperplasia) (ICD-10 - N40.0) He has been rising once or twice a night to urinate. We have discussed ways to alter his lifestyle to diminished nocturia. Plan Of Treatment Pending Test Test Name Order Date PROFILE, FASTING (COMPREHENSIVE METABOLI C) 08/24/2021 PROFILE, FASTING (COMPREHENSIVE METABOLI C) 06/25/2023 PROFILE, FASTING (COMPREHENSIVE METABOLI C) 11/21/2024 PROFILE, FASTING (COMPREHENSIVE METABOLI C) 06/26/2024 PROFILE, FASTING (COMPREHENSIVE METABOLI C) 02/24/2021 PROFILE, FASTING (COMPREHENSIVE METABOLI C) 01/28/2016 PROFILE, FASTING (COMPREHENSIVE METABOLI C) 11/24/2020 PROFILE, FASTING (COMPREHENSIVE METABOLI C) 02/27/2025 PROFILE, FASTING (COMPREHENSIVE METABOLI C) 06/09/2020 PROFILE, FASTING (COMPREHENSIVE METABOLI C) 11/19/2023 PROFILE, FASTING (COMPREHENSIVE METABOLI C) 09/29/2022 PROFILE, FASTING (COMPREHENSIVE METABOLI C) 06/30/2022 PROFILE, FASTING (COMPREHENSIVE METABOLI C) 02/26/2024 PROFILE, FASTING (COMPREHENSIVE METABOLI C) 02/27/2022 PROFILE, [...] HEMOGLOBIN A1C (GLYCOHEMOGLOBIN) 020 HEMOGLOBIN A1C (GLYCOHEMOGLOBIN) 03/23/2 022 HEMOGLOBIN A1C (GLYCOHEMOGLOBIN) 024 HEMOGLOBIN A1C (GLYCOHEMOGLOBIN) 021 HEMOGLOBIN A1C (GLYCOHEMOGLOBIN) 016 HEMOGLOBIN A1C (GLYCOHEMOGLOBIN) 023 LIPID PANEL 02/27/2022 LIPID PANEL 09/29/2022 LIPID PANEL 06/30/2022 LIPID PANEL 02/22/2023 LIPID PANEL 12/21/2021 LIPID PANEL 01/06/2020 LIPID PANEL 08/24/2021 LIPID PANEL 06/25/2023 LIPID PANEL 06/09/2020 LIPID PANEL 01/28/2016 B12 11/24/2020 PSA, TOTAL 02/26/2024 PSA, TOTAL 11/21/2024 PSA, TOTAL 05/26/2021 PSA, TOTAL 09/29/2022 PSA, TOTAL 02/24/2021 PSA, TOTAL 08/24/2021 PSA, TOTAL 06/25/2023 PSA, TOTAL 06/09/2020 PSA, TOTAL 11/19/2023 PSA, TOTAL SCREEN 02/27/2022 MICROALBUMIN, RANDOM 06/30/2022 MICROALBUMIN, RANDOM 02/22/2023 MICROALBUMIN, RANDOM 05/26/2021 MICROALBUMIN, RANDOM 12/21/2021 MICROALBUMIN, RANDOM 09/29/2022 MICROALBUMIN, RANDOM 01/06/2020 CBC w DIFF 04/07/2020 CBC w DIFF 08/21/2023 CBC w DIFF 02/27/2025 CBC w DIFF 02/27/2022 CBC w DIFF 11/21/2024 CBC w DIFF 06/30/2022 CBC w DIFF [...] Panel 06/26/2024 Lipid Panel 02/26/2024 Lipid Panel 02/27/2025 Lipid Panel 11/21/2024 Lipid Panel 11/24/2020 Lipid Panel 05/26/2021 Vitamin B12 02/27/2025 Microalbumin, Random 11/19/2023 Microalbumin, Random 06/26/2024 Microalbumin, Random 02/26/2024 Microalbumin, Random 11/21/2024 Microalbumin, Random 02/27/2025 Hemoglobin A1c 11/21/2024 Hemoglobin A1c 02/27/2025 Hemoglobin A1c 08/21/2023 Hemoglobin A1c 11/19/2023 Hemoglobin A1c 06/26/2024 Hemoglobin A1c 02/26/2024 Hemoglobin A1c 11/24/2020 Next Appt Details Provider Name:Shamir Sommer , 06/01/2025 10:15:00 AM, [address] [place] [address] [address], [place], [phone], Provider Name:Shamir Sommer , 03/03/2026 10:30:00 AM, [address] [place] [address] [address], [place], [phone], Insurance Providers Payer Name Payer Address Payer Phone Subscriber Number Group Number Insured Name Patient Relationship to Insured Coverage Start Date Coverage End Date [facility] [address] [facility] [address] [facility] [place] [phone] [id number] Victoriano Potter Self - patient is the insured Medical (General) History Medical History History ICD Code diabetes mellitus hyperlipidemia gastroesophageal reflux disease (GERD) right inguinal hernia age 11 strabismus O.D. Surgical History Surgery Date(Month/Year) Colonoscopy September 25, 2023 Left cataract surgery 03/2022 right cataract surgery 12/2021 negative colonoscopy 04/09/08 right inguinal herniorraphy age 11 Hospitalization History Reason Date(Month/Year) Diverticulitis 12/29/2022
[2025-05-21 07:05] LABS: MANUAL DIFF FLAG NO
[2025-05-21 07:21] LABS: Hematocrit 33.9 % (42.0-52.0); Hemoglobin 10.5 g/dl (14.0-18.0); Imm Gran Abs Auto 0.02 X10*3/uL (0.00-0.03); Imm Gran Pct Auto 0.3 % (0.0-0.4); Lymphocytes Absolute Auto 2.9 X10*3/uL (1.2-4.9); Mean Corpuscular HGB Conc 31.0 g/dl (31.0-36.0); Mean Corpuscular Hemoglobin 27.1 pg (27.0-33.0); Mean Corpuscular Volume 87.4 fL (80.0-98.0); NRBC Abs Auto 0.000 X10*3/uL (0.0-0.012); NRBC Pct Auto 0.0 /100WBC (0.0-0.2); Platelet Count 208 X10*3/uL (160-400); Red Blood Count 3.88 X10*6/uL (4.60-5.80); White Blood Count 6.7 X10*3/uL (4.8-10.8)
[2025-05-21 07:52] LABS: Alanine Aminotransferase 27 U/L (0-40); Albumin Level 4.3 g/dL (3.5-5.0); Alkaline Phosphatase 89 U/L (39-117); Anion Gap 15 (12-20); Aspartate Amino Transferase 38 U/L (5-37); Blood Urea Nitrogen 22 mg/dL (9-16); Calcium 10.1 mg/dL (8.4-10.2); Carbon Dioxide 23 mmol/L (22-29); Chloride 104 mmol/L (96-108); Cholesterol 116 mg/dL (<200); Estimated Glomerular Filt Rate 58; HDL Cholesterol 38 mg/dL (>40); Potassium 4.3 mmol/L (3.3-5.1); Sodium 138 mmol/L (135-145); Total Protein 7.2 g/dL (6.5-8.0); Triglycerides 181 mg/dL (<150)
[2025-05-21 08:05] LABS: Microalbum/Creatinine Ratio Ur 356.2 ug/mg cr (<30)
[2025-05-21 08:11] LABS: Vitamin B12 739 pg/mL (200-900)
== END 2025-05-21 06:40 | disposition home or self-care (01) ==
LOC: HO.LAB 06:39
PROVIDERS: PCP Internal Medicine Medical Oncology; Visit Provider Internal Medicine Medical Oncology
DX: E11.9 Type 2 diabetes mellitus without complications (principal); E55.9 Vitamin D deficiency, unspecified; E78.5 Hyperlipidemia, unspecified; E53.8 Deficiency of other specified B group vitamins; E66.3 Overweight
CPT/HCPCS: 36415; 80053; 80061; 82043; 82570; 82607; 83036; 85025